=== PATIENT | female | born 1930 | race Caucasian/White ===

== ENCOUNTER 2016-12-26 14:37 | Inpatient (IN) | payer MEDICARE, MEDICAID ==
[2016-12-26 15:18] LABS: #Basophils 0.1 thou/uL (0.0-0.2); #Eosinphils 0.2 thou/uL (0.0-0.7); #Lymphocytes 2.5 thou/uL (1.20-3.40); #Monocytes 0.7 thou/uL (0.11-0.59); #Neutrophils 6.8 thou/uL (1.40-6.50); %Basophils 0.9 % (0.0-1.0); %Eosinophils 1.9 % (0.0-10.0); %Lymphocytes 24.4 % (21.0-51.0); %Monocytes 7.1 % (0.0-10.0); Hematocrit 40.5 % (36.0-47.0); Mean Platelet Volume 7.4 fL (7.4-10.4); Red Blood Cell (RBC) Count 4.35 mill/uL (4.20-5.40); White Blood Cell (WBC) Count 10.4 thou/uL (4.8-10.8)
[2016-12-26] MEDS ORDERED: Ondansetron HCl/PF 4 MG/2 ML Vial ONE ×2 (15:22→16:47)
[2016-12-26 15:47] LABS: Troponin I Less than 0.010 ng/mL (< 0.028)
[2016-12-26 15:49] LABS: PTT 27.9 SEC (22.9-36.1); Prothrombin Time 12.9 SEC (12.0-14.7)
[2016-12-26] MEDS ORDERED: Fentanyl 100 MCG/2 ML VIAL ONE ×2 (15:49→17:57)
[2016-12-26 15:57] LABS: ALT (SGPT) 12 U/L (8-55); AST (SGOT) 28 U/L (5-34); Alkaline Phosphatase 74 U/L (40-150); Anion Gap 17 mmol/L (10-20); BUN (Urea Nitrogen) 21 mg/dL (9.8-20.1); Bilirubin, Total 0.3 mg/dL (0.2-1.2); CK (CPK) 59 U/L (29-168); Calc. Creatinine Clearance 0 mL/min (70-130); Calcium 9.5 mg/dL (7.8-10.44); Carbon Dioxide 21 mmol/L (23-31); Chloride 102 mmol/L (98-107); Estimated GFR-MDRD 48; Globulin 3.8 g/dL (2.4-3.5); Lipase 23 U/L (8-78); Protein, Total 7.3 g/dL (6.0-8.3)
[2016-12-26 15:59] LABS: Lactic Acid - Sepsis 0.8 mmol/L (0.5-2.2)
[2016-12-26] MEDS ORDERED: ISOVUE-370 76%-LOCM 1 ML ONE (16:47)
[2016-12-26] MEDS ORDERED: Nitroglycerin 2% Ointment 1 INCH/1 GM Packet ONE ×3 (16:47→19:53)
[2016-12-26] MEDS ORDERED: Nitroglycerin 50 MG/250 ML BOT 250 ML ONE (17:21)
--- NOTE | 2016-12-26 17:49 | RAD ---
AP CHEST: Date: 12-26-16 Comparison: 10-15-16 FINDINGS: There is a healed proximal left humeral fracture with an intramedullary shamar in place. A large hiatal hernia is seen. Calcification of the aorta is noted. Cardiomegaly is seen. Pulmonary vascular congestion is seen. No significant interval change is seen since the previous comparison ra diograph from 10-15-16. IMPRESSION: 1. Cardiomegaly. 2. Hiatal hernia. 3. No significant interval change is noted. POS: [facility]
[2016-12-26] MEDS ORDERED: Clopidogrel Bisulfate 75 MG TAB ONE (17:57)
[2016-12-26] MEDS ORDERED: Furosemide 40 MG/4 ML VIAL ONE (17:57)
[2016-12-26 18:10] LABS: Bilirubin Negative (Negative); Blood, Urine Negative (Negative); Glucose, Urine (Dipstick) Negative (Negative); Ketone, Urine Negative (Negative); Nitrite Negative (Negative); Protein, Urine (Dipstick) 30 mg/dL (Neg-Trace); Urobilinogen 0.2 mg/dL (0.2-1.0)
[2016-12-26] MEDS ORDERED: Calcium Chloride 1 GM/10 ML Abboject SYRINGE ONE (18:14)
--- NOTE | 2016-12-26 18:25 | CT ---
NONCONTRAST CT BRAIN: Indication: Fall with headache. Comparison: 04-28-16 FINDINGS: The cerebral atrophy is similar. No acute infarct, hemorrhage or hydrocephalus is present. Septum pe llucidum and third ventricle are present. Skull intracranial soft tissues appear within normal limit s. IMPRESSION: No acute intracranial abnormality. POS: [facility]
[2016-12-26 18:28] LABS: Bacteria/HPF None Seen HPF (None Seen); Hyaline Casts/LPF 0-3 HYALINE CAST LPF (0-3 Hyaline); RBC/HPF None Seen HPF (0-3); Squamous Epithelial None Seen HPF (0-3); WBC/HPF 0-3 HPF (0-3)
--- NOTE | 2016-12-26 18:35 | CT ---
CTA AORTIC DISSECTION PROTOCOL: Comparison: 60 cc of Isovue 370 Indication: Intermittent sharp chest pain. FINDINGS: No ramiro area of dissection or occlusion is evident. There is mild ectasia of the thoracic aorta. Th ere is mild ectasia of the infrarenal abdominal aorta measuring 2.9 cm. There is moderate vascular c alcification and atherosclerotic plaque involving the aorta. The celiac, SMA, and renal arteries herminio ear patent. The right renal artery is duplicated. There is a large hiatal hernia. There is bibasilar atelectasis. There is a 1.7 cm cyst involving the superior pole of the spleen. There are multiple small cysts involving the right kidney. There is a prominent 2.4 cm exophytic cyst off the inferior pole of the left kidney. An additional small cyst i s seen involving the lower pole of the left kidney. No focal hepatic lesion is evident. Adrenal glands are normal in appearance. Pancreas is within norm al limits. There is mild scoliosis of the thoracolumbar spine. There are scattered degenerative and osteoarthritic change. IMPRESSION: 1. Mild diffuse ectasia of the thoracic and abdominal aorta. No hemodynamically significant stenosis , occlusion, or aneurysmal formation demonstrated. 2. Large hiatal hernia with bibasilar atelectasis. 3. Bilateral renal cysts. 4. Splenic cyst. POS: [facility]
[2016-12-26 19:42] LABS: Troponin I 0.013 ng/mL (< 0.028)
--- NOTE | 2016-12-26 20:20 | PDOC.EVN ---
Event Note - Event Note Event Note: [id number] h&p dictated 1. HTN uregency 2. hyperkalemia 3. chest pain 4. dementia 5. H/O GERD Plan: see orders
[2016-12-26 22:01] LABS: Troponin I 0.011 ng/mL (< 0.028)
[2016-12-26 23:18] VITALS: BMI 26.4
[2016-12-26] MEDS: Acetaminophen 500 MG TAB PO SCH (23:42)
[2016-12-26] MEDS: Carvedilol 6.25 MG TAB PO SCH (23:42)
[2016-12-26] MEDS: Nitroglycerin 2% Ointment 1 INCH/1 GM Packet TOP SCH (23:43)
[2016-12-26] MEDS: Pregabalin 75 MG CAP PO SCH (23:43)
[2016-12-26] MEDS: Mirtazapine 15 MG TAB PO SCH (23:43)
[2016-12-26] MEDS: traMADol HCl 50 MG TAB PO PRN (23:45)
[2016-12-26 23:59] LABS: Anion Gap 14 mmol/L (10-20); BUN (Urea Nitrogen) 25 mg/dL (9.8-20.1); Calc. Creatinine Clearance 36 mL/min (70-130); Calcium 11.1 mg/dL (7.8-10.44); Carbon Dioxide 29 mmol/L (23-31); Chloride 98 mmol/L (98-107); Estimated GFR-MDRD 42
[2016-12-27 03:54] LABS: Troponin I 0.025 ng/mL (< 0.028)
[2016-12-27 05:17] LABS: #Eosinphils 0.1 thou/uL (0.0-0.7); #Lymphocytes 2.4 thou/uL (1.20-3.40); #Monocytes 1.1 thou/uL (0.11-0.59); #Neutrophils 9.6 thou/uL (1.40-6.50); %Basophils 0.1 % (0.0-1.0); %Eosinophils 0.8 % (0.0-10.0); %Lymphocytes 17.9 % (21.0-51.0); %Monocytes 8.5 % (0.0-10.0); Hematocrit 38.8 % (36.0-47.0); Mean Platelet Volume 6.5 fL (7.4-10.4); Red Blood Cell (RBC) Count 4.16 mill/uL (4.20-5.40); White Blood Cell (WBC) Count 13.3 thou/uL (4.8-10.8)
[2016-12-27 05:56] LABS: Anion Gap 15 mmol/L (10-20); BUN (Urea Nitrogen) 28 mg/dL (9.8-20.1); Calc. Creatinine Clearance 30 mL/min (70-130); Calcium 9.9 mg/dL (7.8-10.44); Carbon Dioxide 26 mmol/L (23-31); Chloride 102 mmol/L (98-107); Estimated GFR-MDRD 34
--- NOTE | 2016-12-27 06:35 | HP ---
DATE OF ADMISSION: 12/26/2016 CHIEF COMPLAINT: Chest pain. HISTORY OF PRESENT ILLNESS: The patient is an 86-year-old female with past medical history of hypertension, dementia, GERD, now came to the ER because of chest pain. Chest pain started this afternoon, substernal, pressure to heaviness kind of pain, radiating to the jaw and upper shoulders. Denies any fever, denies any chills. Complains of dizziness. Denies nausea. Denies any vomiting. Symptoms persisted that is why she came to the ER. Upon ER arrival, the patient was found to have an elevated blood pressure of 160/110, so the patient was started on nitroglycerin drip. Pain resolved with nitroglycerin drip. PAST MEDICAL HISTORY: Hypertension, GERD, dementia. PAST SURGICAL HISTORY: Hysterectomy, cholecystectomy. FAMILY HISTORY: Positive for heart problems. MEDICATIONS: Reviewed. ALLERGIES: ASPIRIN, CODEINE, NIFEDIPINE. SOCIAL HISTORY: Denies smoking, denies alcohol, denies any drugs. The patient did have a fall. REVIEW OF SYSTEMS: Constitutional: Denies any fever. Denies any chills. Eyes : No vision problems. Ears: Denies any hearing loss. Neck: Denies any neck pain. Cardiovascular System: Positive for chest pain. Respiratory System: Positive for dyspnea. Cranial Nerve System: Positive for syncope. Musculoskeletal: Positive for rehab fall one week back for which she had bruising on the head. Integumentary: Positive for bruising on the forehead. Genitourinary: Dysuria. All other review of systems are reviewed and are negative. PHYSICAL EXAMINATION: CONSTITUTIONAL/VITAL SIGNS: At the time of H and P performed, blood pressure is 160/100, afebrile, respiratory rate 18, pulse oximetry 97%. GENERAL APPEARANCE: The patient appears comfortable. HEENT: Pupils are equal, round. Anterior nares patent. Nose, normal. Ears, normal. Face, frontal region, positive for bruising seen. No drainage was seen. CRANIAL NERVE SYSTEM: Awake, follows commands. Speech is clear. PSYCHIATRIC: Mood is appropriate at this time. CARDIOVASCULAR SYSTEM: S1 and S2 present. Regular rate and rhythm. No murmurs , no rubs, no gallops. RESPIRATORY SYSTEM: No wheezing, no rhonchi. Had a normal effort. GASTROINTESTINAL: Abdomen is soft, nontender, no guarding, no organomegaly, no masses felt. MUSCULOSKELETAL: Trace edema. LABORATORY DATA AND IMAGING: At the time of H and P performed, white count 10.4 , hemoglobin 13.4, platelet count is 350. BMP showed sodium 134, potassium 5.7 , chloride 102, CO2 of 21, BUN of 21, creatinine 1.08. BNP 588.7. Troponin 0.013. Albumin 3.5. EKG Positive for T wave inversion in V2 and V3. ASSESSMENT AND PLAN: The patient is an 86-year-old female. 1. Hypertensive urgency. Plan to admit the patient to the ICU for close monitoring. Plan to start the patient on nitroglycerin drip. We will monitor blood pressure closely and we will slowly titrate nitroglycerin drip. 2. Chest pain. Plan to check cardiac enzymes with a plan to check 2D echo. Plan to consult Cardiology to evaluate the patient. The patient did have CT of the chest, which was negative for any dissection. We will monitor the patient closely. 3. Hyperkalemia, probably secondary to blood pressure medications. We will monitor potassium level. We will give Kayexalate 30 grams p.o. x1. 4. History of gastroesophageal reflux disease. Continue on home medications. 5. History of dementia. Continue home medications. The case was discussed in detail with the patient. The patient is FULL CODE. MTDD
[2016-12-27] MEDS: traMADol HCl 50 MG TAB PO PRN ×2 (07:05→15:46)
[2016-12-27] MEDS: Nitroglycerin 2% Ointment 1 INCH/1 GM Packet TOP SCH (07:07)
[2016-12-27] MEDS ORDERED: Nitroglycerin 0.4 MG TAB (25 Tab Bottle) SL PRN (08:51)
[2016-12-27] MEDS: Acetaminophen 500 MG TAB PO SCH ×2 (09:28→20:45)
[2016-12-27] MEDS: TROSPIUM 20 MG TABLET PO SCH ×2 (09:29→20:45)
[2016-12-27] MEDS: Clopidogrel Bisulfate 75 MG TAB PO SCH (09:29)
[2016-12-27] MEDS: Pregabalin 75 MG CAP PO SCH ×2 (09:30→20:45)
[2016-12-27] MEDS: Multivitamin W/ Minerals 1 TAB PO SCH (09:32)
[2016-12-27] MEDS: Carvedilol 6.25 MG TAB PO SCH ×2 (09:33→20:46)
[2016-12-27] MEDS: Mirtazapine 15 MG TAB PO SCH (20:46)
--- NOTE | 2016-12-27 21:22 | PRG ---
DATE OF SERVICE: 12/27/2016 SUBJECTIVE: This patient is doing a little better today. Still complains of chest wall pain, no sh ortness of breath, no fever, no chills. OBJECTIVE: VITAL SIGNS: The patient's blood pressure is 101/55, afebrile, pulse is 82, breathing comfortably o n room air. GENERAL: Patient is lying in bed, in no apparent respiratory distress. HEENT: Atraumatic, normocephalic. Pupils equally round, react to light. Extraocular movements int act. Mucous membranes moist. NECK: Supple. No JVD. CHEST: Breath sounds heard. No rales or rhonchi. HEART: S1, S2. No murmurs or gallops. ABDOMEN: Soft. EXTREMITIES: No cyanosis, clubbing or edema. Distal pulses present. NEUROLOGIC: Alert, awake, oriented. No cranial deficits. No sensorimotor deficits. LABORATORY DATA: CT head is negative, no dissection. Chest x-ray shows cardiomegaly. WBC count is 13, hemoglobin is 12, potassium is 3.9, creatinine is 1.4. BNP is 588. Troponin is negative. ASSESSMENT AND PLAN: 1. Hypertensive urgency, controlled. It is better. Continue same medications. 2. Chest pain. I spoke to Dr. Diana; his chest pain seems to be musculoskeletal in origin. We will check 2D echo. Troponins are negative. If a 2D echo looks good, we will discharge the patien t home. 3. Hyperkalemia has resolved. 4. History of gastroesophageal reflux disease. 5. History of dementia. 6. Sequential compression devices for deep venous thrombosis prophylaxis. I will follow the labs and do the need for.
[2016-12-28 06:07] LABS: Anion Gap 14 mmol/L (10-20); BUN (Urea Nitrogen) 33 mg/dL (9.8-20.1); Calc. Creatinine Clearance 27 mL/min (70-130); Carbon Dioxide 30 mmol/L (23-31); Chloride 99 mmol/L (98-107); Estimated GFR-MDRD 32
[2016-12-28] MEDS: Carvedilol 6.25 MG TAB PO SCH (08:48)
[2016-12-28] MEDS: Acetaminophen 500 MG TAB PO SCH ×2 (08:48→21:27)
[2016-12-28] MEDS: Multivitamin W/ Minerals 1 TAB PO SCH (08:48)
[2016-12-28] MEDS: TROSPIUM 20 MG TABLET PO SCH (08:49)
[2016-12-28] MEDS: Pregabalin 75 MG CAP PO SCH ×2 (08:49→21:23)
[2016-12-28] MEDS: Clopidogrel Bisulfate 75 MG TAB PO SCH (08:50)
--- NOTE | 2016-12-28 10:17 | PDOC.CTH ---
Cardiology Progress Note - Subjective Cpntinues with MS pain to left side - Objective Vital Signs Temp Pulse Resp BP BP Pulse Ox 12/28/16 08:48 131/74 12/28/16 08:00 97.7 F 91 16 131/74 97 12/28/16 04:00 98.2 F 87 20 117/64 94 L 12/28/16 02:38 97 Weight 151 lb 6.4 oz 12/27/16 12/28/16 12/29/16 06:59 06:59 06:59 Intake Total 818 Output Total 700 550 Balance -700 268 - Physical Examination General/Neuro: alert & oriented x3, NAD Neck: carotid US brisk, no JVD present Lungs: CTA, unlabored respirations Heart: PMI normal, RRR Abdomen: no HSM Extremities: + femoral B - Labs Result Diagrams: 12/27/16 04:28 12/28/16 05:20 Troponin/CKMB CK-MB (CK-2) 1.3 ng/mL (0-6.6) 12/26/16 15:14 Troponin I 0.025 ng/mL (< 0.028) 12/27/16 03:22 - Assessment/Plan 1. MS chest wall pain 2. Recent fall 3. Borderline troponin -Recommend conservative treatment Avoid NSAID use secondary to low GFR Tramadol No further CV recommendations Echo with normal EF
--- NOTE | 2016-12-28 10:44 | CON ---
DATE OF CONSULTATION: 12/27/2016 REASON FOR CONSULTATION: Chest pain. PRIMARY PROVIDER: Dr. Byrd HISTORY OF PRESENT ILLNESS: Ms. Jeffery is an 86-year-old woman who I have seen and evaluated in the past. She recently fell after tripping. This occurred 5 days prior. She now complains of chest p ain. The pain is described as sharp, worse with deep breath. She states it is mainly left-sided. No ameliorating, exacerbating, or precipitating factors present. PAST MEDICAL HISTORY: Mild dementia, hypertension, acid reflux, hysterectomy, cholecystectomy. ALLERGIES: ASPIRIN, CODEINE, NIFEDIPINE. SOCIAL HISTORY: No current tobacco or alcohol use. HOME MEDICATIONS: Valsartan, pantoprazole, metoprolol, amantadine, Remeron, VESIcare, Lyrica. PHYSICAL EXAMINATION: VITAL SIGNS: Blood pressure 131/74, pulse 91, temperature is 97.7. GENERAL: Patient is a pleasant female who is in no acute distress. The patient appears her stated a ge. NEUROLOGIC: The patient is alert and oriented times 3 with no focal neurologic deficits. HEENT: Ecchymosis noted to the forehead. NECK: No JVD. Carotid upstroke brisk. No bruits bilaterally. LUNGS: Clear to auscultation with unlabored respirations. BACK: No scoliosis or kyphosis. CARDIAC: Some reproducibility to the left side of her chest. ABDOMEN: Soft, nontender, nondistended. No peritoneal signs present. No hepatosplenomegaly. No ab normal striae. EXTREMITIES: 2+ femoral and 2+ dorsalis pedis pulses. No cyanosis, clubbing, or edema. SKIN: No gross abnormalities. PERTINENT LABS: Hemoglobin 12.7, creatinine 1.47, CK and troponin negative. IMPRESSION: Musculoskeletal chest pain. RECOMMENDATIONS: Ms. Jeffery's symptoms appear to be musculoskeletal in nature. Would recommend tr amadol. Would avoid nonsteroidal therapy due to a GFR of 32. May also consider wrist series. Ches t x-ray was only consistent with cardiomegaly. Chest x-ray dated 12/26/2016 showed cardiomegaly wit h no significant interval change. Echo with Doppler shows LVEF within normal limits.
[2016-12-28] MEDS: Ondansetron ODT 4 MG TAB SL PRN (10:55)
[2016-12-28] MEDS: Metoclopramide HCl 10 MG TAB PO PRN (12:32)
--- NOTE | 2016-12-28 12:57 | PDOC.PN ---
- Subjective Encounter Start Date: 12/28/16 Encounter Start Time: 12:55 has nausea and dry heaves no cp no sob some weakness - Objective MAR Reviewed: Yes Vital Signs & Weight: Vital Signs (12 hours) Temp Pulse Resp BP BP Pulse Ox 12/28/16 11:26 98 F 85 18 115/60 94 L 12/28/16 08:48 131/74 12/28/16 08:00 97.7 F 91 16 131/74 97 12/28/16 04:00 98.2 F 87 20 117/64 94 L 12/28/16 02:38 97 Weight Weight 151 lb 6.4 oz I&O: 12/27/16 12/28/16 12/29/16 06:59 06:59 06:59 Intake Total 818 Output Total 700 550 Balance -700 268 Result Diagrams: 12/27/16 04:28 12/28/16 05:20 Phys Exam - Physical Examination HEENT: PERRLA Neck: no JVD Respiratory: no rales Cardiovascular: RRR Gastrointestinal: non-tender Musculoskeletal: pulses present Neurological: moves all 4 limbs Psychiatric: A&O x 3 Dx/Plan (1) Nausea & vomiting Code(s): R11.2 - NAUSEA WITH VOMITING, UNSPECIFIED Status: Acute Comment: pt has h/o esophageal stricture and has been dilated in the past (2) Chest pain Code(s): R07.9 - CHEST PAIN, UNSPECIFIED Status: Acute Comment: pain msk in origin tramadol as needed (3) Dementia Code(s): F03.90 - UNSPECIFIED DEMENTIA WITHOUT BEHAVIORAL DISTURBANCE Status: Chronic (4) Hypertension Code(s): I10 - ESSENTIAL (PRIMARY) HYPERTENSION Status: Chronic (5) Renal failure (ARF), acute on chronic Code(s): N17.9 - ACUTE KIDNEY FAILURE, UNSPECIFIED; N18.9 - CHRONIC KIDNEY DISEASE, UNSPECIFIED Status: Acute (6) Fall Code(s): W19.XXXA - UNSPECIFIED FALL, INITIAL ENCOUNTER Status: Acute (7) Physical deconditioning Code(s): R53.81 - OTHER MALAISE Status: Acute - Plan * barium swallow * f/u bmp * pt eval * case mx to arrange hh
[2016-12-28] MEDS: traMADol HCl 50 MG TAB PO PRN ×2 (15:17→21:26)
--- NOTE | 2016-12-28 16:15 | RAD ---
ESOPHAGRAM: History: Dysphagia. Comparison: None. FINDINGS: Initial complaint operator radiograph demonstrates a large hiatal hernia. Atherosclerosis of the aorta is noted. Heart is enlarged. The pulmonary vessels and hilum are normal. There is minimal blunting of both cos tophrenic angles. Lungs are hyperinflated. No mass or consolidation. No pneumothorax. Due to patient difficulties and inability to stand, only air contrast upright images were performed under fluoroscopy. There is a large hiatal hernia with a significant portion of the stomach extendin g through the defect. There is mild tortuosity of the thoracic esophagus. There is no significant de lay in passage of coral contrast into the stomach. Grossly, the esophageal mucosa is unremarkable. A supine and upright abdomen radiograph demonstrates residual contrast in the thoracic esophagus. Th ere is contrast in the herniated stomach as well as in the stomach below the diaphragm. Contrast is also noted in small bowel loops. IMPRESSION: Large hiatal hernia. POS: [facility]
[2016-12-28] MEDS: Mirtazapine 15 MG TAB PO SCH (21:23)
[2016-12-29] MEDS: traMADol HCl 50 MG TAB PO PRN ×3 (03:37→20:19)
[2016-12-29 07:04] LABS: Anion Gap 13 mmol/L (10-20); BUN (Urea Nitrogen) 25 mg/dL (9.8-20.1); Calc. Creatinine Clearance 33 mL/min (70-130); Calcium 9.3 mg/dL (7.8-10.44); Carbon Dioxide 28 mmol/L (23-31); Chloride 99 mmol/L (98-107); Estimated GFR-MDRD 40
[2016-12-29] MEDS: Metoclopramide HCl 10 MG TAB PO PRN ×2 (08:24→20:19)
[2016-12-29] MEDS: Pregabalin 75 MG CAP PO SCH ×2 (08:24→20:20)
[2016-12-29] MEDS: Acetaminophen 500 MG TAB PO SCH ×2 (08:24→20:21)
[2016-12-29] MEDS: Multivitamin W/ Minerals 1 TAB PO SCH (08:24)
[2016-12-29] MEDS: Clopidogrel Bisulfate 75 MG TAB PO SCH (08:24)
--- NOTE | 2016-12-29 10:12 | PDOC.CTH ---
<Shivam Diana - Last Filed: 12/29/16 13:24> Cardiology Progress Note - Objective Vital Signs Temp Pulse Pulse Pulse Resp BP BP 12/29/16 09:10 98 107 H 148/84 H 144/85 H 12/29/16 08:00 98.4 F 99 18 12/29/16 04:00 97.8 F 92 20 BP Pulse Ox 12/29/16 09:10 12/29/16 08:00 136/99 H 95 12/29/16 04:00 141/85 H 93 L Weight 151 lb 4.8 oz 12/28/16 12/29/16 12/30/16 06:59 06:59 06:59 Intake Total 818 1920 Output Total 550 1300 Balance 268 620 - Labs Result Diagrams: 12/27/16 04:28 12/29/16 06:05 Troponin/CKMB CK-MB (CK-2) 1.3 ng/mL (0-6.6) 12/26/16 15:14 Troponin I 0.025 ng/mL (< 0.028) 12/27/16 03:22 - Assessment/Plan PT seen and examined. Agree with above. No new CV recommendations. Ok to dc tele <Fabi Rodriguez - Last Filed: 12/30/16 08:40> Cardiology Progress Note - Subjective Patient seen and examined. No new complaints. No overnight events. Continues with intermittent pain below bilateral breasts described as "squeezing", however states her pain is currently controlled with pain meds. - Objective Vital Signs Temp Pulse Resp BP Pulse Ox 12/29/16 08:00 98.4 F 99 18 136/99 H 95 12/29/16 04:00 97.8 F 92 20 141/85 H 93 L 12/29/16 00:00 18 Weight 151 lb 4.8 oz 12/28/16 12/29/16 12/30/16 06:59 06:59 06:59 Intake Total 818 1920 Output Total 550 1300 Balance 268 620 - Physical Examination General/Neuro: alert & oriented x3, NAD Neck: no JVD present Lungs: CTA, unlabored respirations Heart: RRR Abdomen: soft Extremities: other: (no edema) - Telemetry Telemetry Rhythm: sinus - Labs Result Diagrams: 12/27/16 04:28 12/29/16 06:05 Troponin/CKMB CK-MB (CK-2) 1.3 ng/mL (0-6.6) 12/26/16 15:14 Troponin I 0.025 ng/mL (< 0.028) 12/27/16 03:22 - Assessment/Plan 1. Musculoskeletal chest wall pain secondary to recent fall 2. Borderline troponin Ms. Jeffery is stable from a CV standpoint. She has a normal EF on recent echo. Would recommend continued conservative treatment with pain relievers and GI workup. Would avoid NSAID use secondary to low GFR. Otherwise we have no further CV recommendations. Patient to follow up in our office within one week of discharge.
--- NOTE | 2016-12-29 11:45 | PDOC.PN ---
- Subjective Encounter Start Date: 12/29/16 Encounter Start Time: 11:44 pt has intractable nausea and vomiting and pain across the epigatric area, crampy, 11/11 no f/c no cp/sob - Objective MAR Reviewed: Yes Vital Signs & Weight: Vital Signs (12 hours) Temp Pulse Resp BP Pulse Ox 12/29/16 08:00 98.4 F 99 18 136/99 H 95 12/29/16 04:00 97.8 F 92 20 141/85 H 93 L 12/29/16 00:00 18 Weight Weight 151 lb 4.8 oz I&O: 12/28/16 12/29/16 12/30/16 06:59 06:59 06:59 Intake Total 818 1920 Output Total 550 1300 Balance 268 620 Result Diagrams: 12/27/16 04:28 12/29/16 06:05 Phys Exam - Physical Examination Constitutional: NAD HEENT: PERRLA Neck: no JVD Respiratory: no wheezing Cardiovascular: no significant murmur Gastrointestinal: positive bowel sounds generalised tenderness Musculoskeletal: pulses present Neurological: normal sensation Psychiatric: A&O x 3 Dx/Plan (1) Nausea & vomiting Code(s): R11.2 - NAUSEA WITH VOMITING, UNSPECIFIED Status: Acute Comment: pt has h/o esophageal stricture and has been dilated in the past (2) Chest pain Code(s): R07.9 - CHEST PAIN, UNSPECIFIED Status: Acute Comment: pain msk in origin tramadol as needed (3) Dementia Code(s): F03.90 - UNSPECIFIED DEMENTIA WITHOUT BEHAVIORAL DISTURBANCE Status: Chronic (4) Hypertension Code(s): I10 - ESSENTIAL (PRIMARY) HYPERTENSION Status: Chronic (5) Renal failure (ARF), acute on chronic Code(s): N17.9 - ACUTE KIDNEY FAILURE, UNSPECIFIED; N18.9 - CHRONIC KIDNEY DISEASE, UNSPECIFIED Status: Acute (6) Fall Code(s): W19.XXXA - UNSPECIFIED FALL, INITIAL ENCOUNTER Status: Acute (7) Physical deconditioning Code(s): R53.81 - OTHER MALAISE Status: Acute (8) Hiatal hernia Code(s): K44.9 - DIAPHRAGMATIC HERNIA WITHOUT OBSTRUCTION OR GANGRENE Status: Acute - Plan * gi consult * cont current care * doing well with physical therapy
[2016-12-29] MEDS: Ondansetron ODT 4 MG TAB SL PRN (13:26)
--- NOTE | 2016-12-29 15:34 | PQF ---
CLINICAL DOCUMENTATION IMPROVEMENT CLARIFICATION FORM: ICD-10 Updated PLEASE DO AN ADDENDUM TO THE PROGRESS NOTE WITH ANY DOCUMENTATION UPDATES OR ADDITIONS AND CARRY THROUGH TO DC SUMMARY. THANK YOU. DATE: 12/29/16 ATTN: DR. URBINA The following CLINICAL INDICATORS - SIGNS / SYMPTOMS are present in the medical record: ER NOTE: "NEW ONSET CHF" BNP 588.7 RISKS: HYPERTENSION CHINMAY TREATMENT: LASIX IV GIVEN IN ER ECHOCARDIOGRAM CARDIOLOGY CONSULT TELEMETRY MONITORING Please provide a response below if a more specific term indicating a diagnosis and/or acuity level for this condition can be identified. Please exercise your independent, professional judgment in responding to the clarification form. Clinical indicators are provided on the bottom of this form for your review. Thank you. ACUTE HEART FAILUREOTHER ETIOLOGIES OF HEART FAILURE [ ] Acute Systolic Heart Failure [ ] Heart Failure Due To Valvular Disease [ ] Acute Diastolic Heart Failure [ ] Right Heart Failure / Acute Cor Pulmonale [ ] Acute Systolic and Diastolic Heart Failure[ ] Right Heart Failure / Chronic Cor Pulmonale ACUTE ON CHRONIC HEART FAILURE [ ] Acute On Chronic Systolic Heart Failure [ ] Acute On Chronic Diastolic Heart Failure [ ] Acute On Chronic Systolic and Diastolic Heart Failure [ ] Does not apply to this patient [ ] Unable to determine [ ] Other diagnosis: (This form is maintained as a part of the permanent medical record) 2014 [employer]. All Rights Reserved ARSLAN [email or web address] Office: [phone] [facility]
--- NOTE | 2016-12-29 19:48 | CON ---
DATE OF CONSULTATION: 12/29/2016 GI INPATIENT CONSULTATION NOTE REQUESTING PHYSICIAN: Kathy Byrd M.D. REASON FOR CONSULTATION: Hiatal hernia, nausea and vomiting. HISTORY OF PRESENT ILLNESS: Mrs. Yoseph Jeffery is a very pleasant 86-year-old woman with history of d ementia, hypertension, and chronic GERD. She has been seen in the past by my GI colleague, Dr. Anabel Sun back in 06/2015. She was seen at that time for nausea, vomiting, and abdominal pain. She un derwent an EGD which demonstrated a large hiatal hernia and mild distal esophageal stricture which w as dilated to 54 [place]. A large hiatal hernia was confirmed on a CT scan at that time, and Dr. Jazz chino actually recommend surgical consultation for hiatal hernia repair; however, the patient declined t his. The patient was admitted to the hospital 3 days ago with substernal chest pain radiating to the jaw and shoulders, along with dizziness and again nausea and vomiting. She was found to have hypertensi ve urgency and was initially placed on a nitroglycerin drip. Cardiac workup has been negative inclu ding troponins and cardiology opinion is that her discomfort is likely noncardiac, they recommended tramadol. However, she has continued to have nausea and persistent vomiting. She says her dysphagi a is occasional. She is usually able to keep liquids down just fine. Her abdominal pain is persist ing involving the epigastric area and lower chest. She says this has been going on few months and e vidently has caused several admissions. Imaging again demonstrates a large hiatal hernia. No other acute findings. REVIEW OF SYSTEMS: Full review of systems including constitutional, head, eyes, ears, nose, throat, GI, , cardiovascular, respiratory, musculoskeletal, and neurologic systems is negative except as noted in the HPI. PAST MEDICAL HISTORY: Dementia, hypertension, GERD, cholecystectomy, hysterectomy, large hiatal her lynda. ALLERGIES: ASPIRIN, NIFEDIPINE, CODEINE. HOME MEDICATIONS: Reglan 10 mg b.i.d. p.r.n., pantoprazole 40 mg daily, Tylenol p.r.n., Namenda, vi tamin D3, mirtazapine, VESIcare, Lyrica, multivitamin, tramadol, and metoprolol. INPATIENT MEDICATIONS: Tylenol p.r.n., Plavix 75 mg daily, hydralazine p.r.n., multivitamin, Reglan 10 mg b.i.d., metoprolol, Remeron, Zofran, Lyrica, tramadol. FAMILY HISTORY: Negative for GI malignancy. SOCIAL HISTORY: No smoking, alcohol, or drug use. PHYSICAL EXAMINATION: VITAL SIGNS: Temperature 97.7, pulse 75, blood pressure 132/63, 96% oxygen saturation on room air. GENERAL: No acute distress. HEART: Regular rate and rhythm. LUNGS: Clear to auscultation bilaterally. ABDOMEN: Flat, bowel sounds present, soft, tender to palpation in the epigastrium, but no guarding, rebound tenderness. EXTREMITIES: No peripheral edema. VESSELS: Radial pulses 2+ bilaterally. NEUROLOGIC: Cranial nerves II-XII intact bilaterally. No focal deficits. SKIN: No jaundice, no rashes were palpable. EYES: No scleral icterus. ENT: Mucous membranes moist. LYMPH: No submandibular or supraclavicular lymphadenopathy. THYROID: Nontender to palpation. LABORATORY STUDIES: WBC 13.3, hemoglobin 12.7, and platelets 326. INR 1.0. LFTs all normal. Trop onin negative. BNP is elevated at 588.7, BUN 25, creatinine 1.26, sodium 136, and potassium 3.9. IMAGING STUDIES: On 12/28/2016, barium swallow demonstrated a large hiatal hernia with significant delay in passage of contrast into the stomach and some retained in the esophagus by the end of the e xam. On 12/26/2016, CT aortic protocol demonstrated a large hiatal hernia, no evidence of aortic di ssection or significant aortic aneurysm. She has a splenic cyst and bilateral renal cysts. Admissi on CT head showed no acute prosthesis. Admission chest x-ray showed large hiatal hernia and cardiom egaly. ASSESSMENT AND PLAN: 1. Large hiatal hernia. 2. Nausea and vomiting. 3. Epigastric pain. Her symptoms are likely all secondary to her large hiatal hernia. Surgical ev aluation was recommended even a year and half ago by Dr. Sun based on his workup at that time, but the patient declined at that point. We will repeat assessment with esophagogastroduodenoscopy tomor row to rule out other pathology such as worsening esophageal stricture or [place] ulcer, etc., but t he patient very well may benefit from a surgical consultation in this admission if there are no surp rises on the esophagogastroduodenoscopy. The patient understands and agrees with the plan. Thank you for the consultation. Please call with questions or concerns.
[2016-12-29] MEDS: Mirtazapine 15 MG TAB PO SCH (20:19)
[2016-12-30] MEDS: traMADol HCl 50 MG TAB PO PRN ×2 (03:36→17:23)
[2016-12-30] MEDS: Multivitamin W/ Minerals 1 TAB PO SCH (09:01)
[2016-12-30] MEDS: Acetaminophen 500 MG TAB PO SCH ×2 (09:01→22:12)
[2016-12-30] MEDS: Pregabalin 75 MG CAP PO SCH ×2 (09:01→22:13)
[2016-12-30] MEDS: Pantoprazole 40 MG VIAL IVP SCH (09:01)
[2016-12-30] MEDS: Clopidogrel Bisulfate 75 MG TAB PO SCH (09:02)
[2016-12-30] MEDS ORDERED: Mag-Al 1200 mg/1200 mg/30 ML UDCUP PO PRN (12:42)
[2016-12-30] MEDS ORDERED: Calcium Carbonate 500 MG ChewTAB PO PRN (12:42)
[2016-12-30] MEDS ORDERED: Bisacodyl 10 MG SUPP PR PRN (12:42)
[2016-12-30] MEDS ORDERED: Acetaminophen 325 MG TAB PO PRN (12:42)
[2016-12-30] MEDS ORDERED: Senokot 8.6 MG TAB PO PRN (12:42)
[2016-12-30] MEDS ORDERED: Ondansetron HCl/PF 4 MG/2 ML Vial IVP PRN ×2 (12:42→13:14)
[2016-12-30] MEDS ORDERED: Propofol 200 MG/20 ML VIAL ONE (12:58)
[2016-12-30] MEDS ORDERED: PHENYLEPHRINE-NS 100 MCG/ML 10 ML SYRINGE ONE (12:58)
[2016-12-30] MEDS ORDERED: Lidocaine 1% PF 5 ML VIAL ONE (12:58)
[2016-12-30] MEDS ORDERED: Promethazine HCl 25 MG/ML VIAL IM PRN (13:14)
[2016-12-30] MEDS ORDERED: Promethazine HCl 25 MG/ML VIAL SLOW IVP PRN (13:14)
--- NOTE | 2016-12-30 13:16 | PRG ---
DATE OF SERVICE: 12/30/2016 SUMMARY: The patient is an 86-year-old white female with hypertension, GERD, hiatal hernia, anxiety and depression, presented to the hospital on 12/26/2016 with chest discomfort with hypertensive urgency. She was monitored in the CCU initially and was transferred to the telemetry floor. The patient was evaluated by Cardiology, Dr. Diana. According to Cardiology, her chest pain is probably musculoskeletal. Cardiology has eventually signed off. GI was consulted yesterday due to persistent nausea, vomiting, and epigastric pain. SUBJECTIVE: The patient denies any new complaints at this time. She continues to have persistent epigastric pain. No diaphoresis, syncope, or palpitations reported. CURRENT MEDICATIONS: Reviewed. The patient is currently on Plavix, Toprol-XL, Remeron, nitroglycerin, Protonix IV, Lyrica, and tramadol. The patient does not take Plavix at home. PHYSICAL EXAMINATION: VITAL SIGNS: Temperature 98.8, pulse of 94, blood pressure was 187/84 earlier, last blood pressure was 120/57 with respiration of 18, O2 saturation 92% on room air. Intake of 2410, output 2350. Telemetry monitoring by my review showed sinus rhythm. GENERAL: An 86-year-old female in no apparent distress. Denies any nausea or vomiting. NECK: Supple, no JVD, no carotid bruit. LUNGS: Clear to auscultation bilaterally. HEART: S1, S2 present. Regular rate and rhythm. ABDOMEN: Soft. Mild epigastric tenderness, without any rebound or guarding. No costovertebral angle tenderness. EXTREMITIES: No calf tenderness. LABORATORY FINDINGS: Creatinine of 1.26 yesterday with BUN 25. No labs were ordered today. DIAGNOSTIC DATA: 1. CT dissection protocol was negative for dissection. It showed large hiatal hernia. CT scan of the brain on admission was negative for acute finding. Chest x-ray by my review showed cardiomegaly with hiatal hernia. 2. Echocardiogram as discussed above. IMPRESSION: 1. Chest discomfort, probably secondary to large hiatal hernia. The patient is scheduled for esophagogastroduodenoscopy today. We will continue intravenous proton pump inhibitor. 2. Dementia. We will resume her home medications. 3. Hyperkalemia on admission, resolved. Her potassium yesterday was 3.9. 4. Hypertension with hypertensive urgency on admission, blood pressure is still uncontrolled. We will add 25 mg hydralazine t.i.d. We will continue Toprol-XL. 5. Physical deconditioning. 6. Gastroesophageal reflux disease. We will continue proton pump inhibitors. 7. Anxiety and depression. The patient denies any suicidal ideation. 8. Chronic kidney disease stage 3. 9. Chronic diastolic heart failure. 10. Disposition probably in 1-2 days. We will repeat labs in a.m. We will continue therapy. MTDD
--- NOTE | 2016-12-30 13:48 | OP ---
DATE OF PROCEDURE: 12/30/2016 PREOPERATIVE DIAGNOSIS: Chest pain. PROCEDURE: After informed consent was obtained, the patient was placed in the left lateral decubitu s position. Anesthesia was administered per the Anesthesia Department. Forward-viewing endoscope w as inserted into the esophagus under direct visualization with ease and passed to the second portion of the duodenum with ease. Second portion of the duodenum and duodenal bulb were normal. The pylo juliette, antrum, body, fundus, and cardia were normal except for a large hiatal hernia. There was some slight erosion in the cardia, but these were very superficial and minimal. The esophagus was normal throughout. Retroflexion in the stomach was normal. ASSESSMENT: Large hiatal hernia - unclear if this is the source of the pain, but would not recommen d surgical intervention. RECOMMENDATIONS: 1. Continue PPI. 2. P.r.n. tramadol.
[2016-12-30] MEDS: Ondansetron ODT 4 MG TAB SL PRN (17:25)
[2016-12-30] MEDS: Mirtazapine 15 MG TAB PO SCH (22:13)
[2016-12-30] MEDS: Docusate 100 MG CAP PO SCH (22:13)
[2016-12-30] MEDS: Heparin 5,000 UNITS/ML VIAL SC SCH (22:14)
[2016-12-31] MEDS: traMADol HCl 50 MG TAB PO PRN (01:08)
[2016-12-31] MEDS: Ondansetron ODT 4 MG TAB SL PRN (01:08)
[2016-12-31 05:08] VITALS: TEMP 98.3
[2016-12-31 06:06] LABS: #Eosinphils 0.2 thou/uL (0.0-0.7); #Lymphocytes 2.9 thou/uL (1.20-3.40); #Monocytes 0.9 thou/uL (0.11-0.59); #Neutrophils 4.7 thou/uL (1.40-6.50); %Basophils 0.2 % (0.0-1.0); %Eosinophils 1.9 % (0.0-10.0); %Lymphocytes 33.4 % (21.0-51.0); %Monocytes 10.1 % (0.0-10.0); Hematocrit 38.6 % (36.0-47.0); Mean Platelet Volume 6.9 fL (7.4-10.4); Red Blood Cell (RBC) Count 4.16 mill/uL (4.20-5.40); White Blood Cell (WBC) Count 8.7 thou/uL (4.8-10.8)
[2016-12-31 06:17] LABS: Anion Gap 12 mmol/L (10-20); BUN (Urea Nitrogen) 21 mg/dL (9.8-20.1); BUN/Creatinine Ratio 19.09; Calc. Creatinine Clearance 38 mL/min (70-130); Calcium 9.4 mg/dL (7.8-10.44); Carbon Dioxide 22 mmol/L (23-31); Chloride 101 mmol/L (98-107); Estimated GFR-MDRD 47; Phosphorus 2.7 mg/dL (2.3-4.7)
[2016-12-31 07:46] VITALS: BP 148/80
--- NOTE | 2016-12-31 08:41 | PQF ---
GAYE SIMPSON ANA ZAVALA [id number] [facility]-261 [id number] CLINICAL DOCUMENTATION IMPROVEMENT CLARIFICATION FORM: ICD-10 Updated PLEASE DO AN ADDENDUM TO THE PROGRESS NOTE WITH ANY DOCUMENTATION UPDATES OR ADDITIONS AND CARRY THROUGH TO DC SUMMARY. THANK YOU. DATE: 12/29/16 ATTN : DR. URBINA The following CLINICAL INDICATORS - SIGNS / SYMPTOMS are present in the medical record: ER NOTE: "NEW ONSET CHF" BNP 588.7 RISKS: HYPERTENSION CHINMAY TREATMENT: LASIX IV GIVEN IN ER ECHOCARDIOGRAM CARDIOLOGY CONSULT TELEMETRY MONITORING Please provide a response below if a more specific term indicating a diagnosis and/or acuity level for this condition can be identified. Please exercise your independent, professional judgment in responding to the clarification form. Clinical indicators are provided on the bottom of this form for your review. Thank you. ACUTE HEART FAILURE [ ] Acute Systolic Heart Failure [ ] Acute Diastolic Heart Failure [ ] Acute Systolic and Diastolic Heart Failure ACUTE ON CHRONIC HEART FAILURE [ ] Acute On Chronic Systolic Heart Failure [ ] Acute On Chronic Diastolic Heart Failure [ ] Acute On Chronic Systolic and Diastolic Heart Failure [ ] Does not apply to this patient [ ] Unable to determine [ ] Other diagnosis: THANK YOU, CRISTAL (This form is maintained as a part of the permanent medical record) 2014 [employer] All Rights Reserved [email or web address] Office: [phone] Thanks Ela SZYMANSKI
[2016-12-31] MEDS: Heparin 5,000 UNITS/ML VIAL SC SCH (09:41)
[2016-12-31] MEDS: Pantoprazole 40 MG VIAL IVP SCH (09:41)
[2016-12-31] MEDS: Pregabalin 75 MG CAP PO SCH (09:42)
[2016-12-31] MEDS: Multivitamin W/ Minerals 1 TAB PO SCH (09:42)
[2016-12-31] MEDS: Acetaminophen 500 MG TAB PO SCH (09:42)
[2016-12-31] MEDS: Docusate 100 MG CAP PO SCH (09:43)
--- NOTE | 2016-12-31 13:13 | DIS ---
DATE OF ADMISSION: 12/26/2016 DATE OF DISCHARGE: 12/31/2016 DISCHARGE DISPOSITION: Home. FOLLOWUP: 1. Follow up with primary care physician, Dr. René Singh in 1 week. 2. Follow up with Dr. Sun in 1-2 weeks. 3. Follow up with Cardiology, Dr. Diana as scheduled. 4. [facility] has been arranged. ALLERGIES: The patient is allergic to ASPIRIN, CODEINE, and NIFEDIPINE. DISCHARGE MEDICATIONS: 1. Toprol-XL 25 mg b.i.d. 2. Tylenol as needed. 3. Vitamin D3 1000 units daily. 3. Namenda extended release 28 mg daily. 4. Remeron 15 mg daily. 5. Multivitamin 1 tablet daily. 6. Zofran 8 mg three times daily as needed. 7. Protonix 40 mg daily. 8. Lyrica 150 mg b.i.d. 9. VESIcare 10 mg daily. 10. Hydralazine 25 mg twice a day. 11. Tramadol as needed. INPATIENT CONSULTANTS: 1. Cardiology, Dr. Diana. 2. Gastroenterology, Dr. Sunday Segura. INPATIENT PROCEDURE: On 12/30/2016, patient underwent esophagogastroduodenoscopy that showed large hiatal hernia. SIGNIFICANT LABORATORY DATA: 1. CBC showed WBC 10.4 with hemoglobin 13.4. 2. Creatinine on admission was 1.1. Maximum creatinine was 1.54. Potassium on admission was 5.7, at discharge was 4.0. 3. BNP was 588.7. BRIEF HOSPITAL COURSE: Patient is an 86-year-old female with hypertension and GERD who presented to the hospital with chest discomfort on 12/26/2016. Please refer to the history and physical for fur ther details. The patient was admitted to the hospital with a diagnosis of hypertensive urgency along with chest d iscomfort requiring nitroglycerin drip. She also had hyperkalemia that improved after Kayexalate. Patient was evaluated by Cardiology, Dr. Diana. Echocardiogram was performed that showed ejecti on fraction of 55%-60% with moderate to severe tricuspid regurgitation and diastolic dysfunction. A ccording to Cardiology, her chest discomfort is unlikely to be cardiac. The patient was seen by Gas troenterology and underwent EGD as discussed above. Dr. Sunday Segura recommended not to proceed with surgical intervention. She will follow up with Gastroenterology as outpatient. Due to hyperkalemia , Diovan has been discontinued. Her blood pressure on the day of discharge is 139/93 and 148/80. F or this reason, metoprolol tartrate has been increased to twice a day. A 25 mg of hydralazine b.i.d . was added to her regimen. Her potassium on the day of discharge is 4.0. Patient also had acute k idney injury with maximum creatinine 1.54 that has resolved. Repeat labs in 1 week is recommended. Primary care physician is advised to follow. FINAL DIAGNOSES: 1. Chest discomfort, probably secondary to large hiatal hernia. 2. Hypertensive urgency requiring nitroglycerin drip, resolved. 3. Dementia. 4. Hyperkalemia with acute kidney injury. Diovan has been discontinued for this reason. 5. History of hypertension. 6. Physical deconditioning. 7. Gastroesophageal reflux disease, on proton pump inhibitors. 8. Anxiety and depression. 9. Chronic kidney disease stage 3. 10. Chronic diastolic heart failure. Patient was counseled on heart failure. 11. Mild protein-calorie malnutrition. 12. Metabolic acidosis. 13. Dehydration. 14. Hyponatremia. 15. Advanced age. 16. Moderate to severe tricuspid regurgitation. 17. Mild mitral regurgitation. Plan of care was discussed with the patient and the family at the bedside. Total time coordinating the discharge of this patient was 35 minutes.
== END 2016-12-31 12:25 | disposition home health service (06) | DRG 392 ==
LOC: ERS 14:37 → 2NO 19:00
PROVIDERS: ADMIT Family Medicine; ATTEND Family Medicine
PROC: 0DJ08ZZ Inspection of Upper Intestinal Tract, Via Natural or Artificial Opening Endoscopic (ICD-10-PCS; principal; 2016-12-30)
DX: K44.9 Diaphragmatic hernia without obstruction or gangrene (principal); N17.9 Acute kidney failure, unspecified; E87.2 Acidosis; I50.32 Chronic diastolic (congestive) heart failure; E44.1 Mild protein-calorie malnutrition; I08.1 Rheumatic disorders of both mitral and tricuspid valves; I13.0 Hypertensive heart and chronic kidney disease with heart failure and stage 1 through stage 4 chronic kidney disease, or unspecified chronic kidney disease; E87.1 Hypo-osmolality and hyponatremia; I16.0 Hypertensive urgency; F03.90 Unspecified dementia, unspecified severity, without behavioral disturbance, psychotic disturbance, mood disturbance, and anxiety; E87.5 Hyperkalemia; K21.9 Gastro-esophageal reflux disease without esophagitis; Z88.6 Allergy status to analgesic agent; Z88.5 Allergy status to narcotic agent; Z88.8 Allergy status to other drugs, medicaments and biological substances; F41.9 Anxiety disorder, unspecified; F32.9 Major depressive disorder, single episode, unspecified; N18.3 Chronic kidney disease, stage 3 (moderate); Z68.24 Body mass index [BMI] 24.0-24.9, adult; E86.0 Dehydration; W19.XXXA Unspecified fall, initial encounter
CPT/HCPCS: 36415; 36416; 51702; 70450; 71010; 71275; 74220; 80048; 80053; 80061; 80069; 81003; 81015; 82553; 83605; 83690; 83735; 83880; 84484; 85025; 85610; 85730; 86850; 86900; 86901; 90471; 90732; 93005; 93306; 94760; 96365; 96366; 96375; 96376; A4216; C9113; G0009; G8978-GP-CJ; G8979-GP-CH; J0360; J1644; J1940; J2001; J2405; J2704; J3010; Q0162

== ENCOUNTER 2017-04-10 18:24 | Emergency (ER) | payer MEDICARE, OTHER ==
[~2017-04-10 18:24] MED LIST: ISOVUE-370 76%-LOCM 1 ML ONE
[2017-04-10] MEDS ORDERED: Ondansetron HCl/PF 4 MG/2 ML Vial ONE (19:00)
[2017-04-10] MEDS ORDERED: Fentanyl 100 MCG/2 ML VIAL ONE ×2 (19:00→20:18)
[2017-04-10 19:21] LABS: PTT 30.8 SEC (22.9-36.1)
[2017-04-10 19:39] LABS: ALT (SGPT) 10 U/L (8-55); AST (SGOT) 18 U/L (5-34); Albumin 3.6 g/dL (3.4-4.8); Alkaline Phosphatase 69 U/L (40-150); Anion Gap 12 mmol/L (10-20); BUN (Urea Nitrogen) 18 mg/dL (9.8-20.1); Bilirubin, Total 0.4 mg/dL (0.2-1.2); Calc. Creatinine Clearance 0 mL/min (70-130); Calcium 9.9 mg/dL (7.8-10.44); Carbon Dioxide 26 mmol/L (23-31); Chloride 98 mmol/L (98-107); Estimated GFR-MDRD 37; Globulin 3.6 g/dL (2.4-3.5); Glucose 111 mg/dL (83-110); Lipase 24 U/L (8-78); Potassium 4.4 mmol/L (3.5-5.1); Protein, Total 7.2 g/dL (6.0-8.3); Sodium 132 mmol/L (136-145)
[2017-04-10 19:42] LABS: CKMB 1.4 ng/mL (0-6.6); Troponin I 0.012 ng/mL (< 0.028)
--- NOTE | 2017-04-10 21:15 | RAD ---
LEFT FEMUR TWO VIEWS: History: Fall. Comparison: 10-15-16 FINDINGS: Intramedullary shamar is present. There is some sclerosis and midline cortical lucency of the greater tr ochanter of the left femur although this is similar to the comparison examination 10-15-16. No acute superimposed fracture or malalignment. IMPRESSION: Chronic changes. No acute abnormality. POS: [facility]
--- NOTE | 2017-04-10 21:16 | RAD ---
LEFT FOREARM TWO VIEWS: History: Fall. Comparison: 08-26-16 FINDINGS: Forearm is intact. IMPRESSION: 1. Forearm is intact. 2. Extensive lucencies around the hardware of the distal humerus suggesting loosening. 3. Elbow radiographs are recommended. POS: [facility]
--- NOTE | 2017-04-10 21:19 | RAD ---
LEFT WRIST TWO VIEWS: History: Pain. Comparison: None. FINDINGS: Exam is limited with only two views. No displaced fracture or malalignment. IMPRESSION: Limited exam with only two views. No displaced fracture or malalignment. Four views have much greater sensitivity for evaluation for fracture. POS: [facility]
--- NOTE | 2017-04-10 21:20 | RAD ---
PELVIS ONE VIEW: History: Fall. Comparison: 10-15-16 FINDINGS: Moderate degenerative change of the left hip. Right hip arthroplasty is present. Old injury left grea ter trochanter. Obturator rings are intact. IMPRESSION: No acute abnormality. POS: [facility]
--- NOTE | 2017-04-10 21:22 | RAD ---
LEFT HUMERUS TWO VIEWS: History: Fall. Comparison: 08-26-16 FINDINGS: There is a nonunion humeral fracture. There are lucencies around the hardware. The intramedullary blanca l is proud of the humeral head cortex approximately 1.1 cm. IMPRESSION: Hardware failure of the left humerus. POS: [facility]
--- NOTE | 2017-04-10 21:24 | CT ---
CT BRAIN WITHOUT CONTRAST: History: Fall. Comparison: 12-26-16 FINDINGS: White matter microvascular ischemic changes. No acute territory infarct or hemorrhage. No midline augie ft of mass effect. Paranasal sinuses and mastoids are clear. Benign scleral plaques of both orbits. Old right nasal bone fracture. IMPRESSION: No acute intracranial abnormality. POS: [facility]
--- NOTE | 2017-04-10 21:28 | CT ---
CT CERVICAL SPINE WITHOUT CONTRAST: History: Fall. Comparison: 04-28-16 FINDINGS: Odontoid process is intact. The occipital condyles are intact. No acute fracture or malalignment. Scattered degenerative changes. Moderate to severe left facet arth ropathy at C3-5. Severe degenerative disc space seen from C2-7. Calcifications of the right lobe of the thyroid with associated hypodensities. IMPRESSION: 1. No acute fracture or malalignment. Severe degenerative changes. POS: [facility]
--- NOTE | 2017-04-10 21:38 | CT ---
CT ABDOMEN AND PELVIS WITH CONTRAST: History: Fall. Comparison: 12-26-16 FINDINGS: Atelectatic changes in the lung bases. Large hiatal hernia, similar. There is a hypodensity of the posterior margin of the spleen. The infrarenal abdominal aorta measures up to 3 cm, unchanged. Right kidney is somewhat atrophic. No dilated air filled loops large or small bowel. There is a fluid collection along the right hip. Mild fatty atrophy of the pancreas. IMPRESSION: 1. Unchanged examination of the abdomen from 12-26-16. No acute intraabdominal abnormality. 2. 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 3. Renal cysts and splenic cyst/lymphangioma. 4. Fluid collection along the right hip may be autoimmune in nature. POS: [facility]
--- NOTE | 2017-04-10 22:18 | RAD ---
CHEST ONE VIEW: History: Fall. Comparison: 12-26-16 FINDINGS: Large sliding hiatal hernia. Lungs are without focal airspace consolidation, pneumothorax or effusion . The left humeral nail is proud at the cortex. Severe degenerative change at the right shoulder. IMPRESSION: 1. Large sliding hiatal hernia. 2. The left humeral nail is proud at the cortex and suggests failure. POS: [facility]
[2017-04-10 23:00] LABS: Bilirubin Negative (Negative); Blood, Urine Negative (Negative); Clarity CLOUDY (Clear); Glucose, Urine (Dipstick) Negative (Negative); Leukocyte Large (Negative); Nitrite Negative (Negative); Protein, Urine (Dipstick) Negative (Neg-Trace); Specific Gravity, Urine 1.018 (1.002-1.036); Urobilinogen 0.2 mg/dL (0.2-1.0); pH, Urine 6.5 (5.0-9.0)
[2017-04-10 23:02] LABS: Bacteria/HPF 3+ HPF (None Seen); RBC/HPF 0-3 HPF (0-3); Squamous Epithelial 0-3 HPF (0-3)
[2017-04-10 23:03] LABS: Pathc Cast-AUWi Flag 2.98 (0-2.49)
[2017-04-10 23:04] LABS: Hyaline Casts/LPF 4-6 HYALINE CAST LPF (0-3 Hyaline)
== END 2017-04-10 23:39 | disposition home or self-care (01) ==
LOC: ERS 18:24
DX: S70.02XA Contusion of left hip, initial encounter (principal); S50.12XA Contusion of left forearm, initial encounter; S60.212A Contusion of left wrist, initial encounter; T84.89XA Other specified complication of internal orthopedic prosthetic devices, implants and grafts, initial encounter; I10 Essential (primary) hypertension; K21.9 Gastro-esophageal reflux disease without esophagitis; F03.90 Unspecified dementia, unspecified severity, without behavioral disturbance, psychotic disturbance, mood disturbance, and anxiety; F41.9 Anxiety disorder, unspecified; F32.9 Major depressive disorder, single episode, unspecified; Z79.899 Other long term (current) drug therapy; W07.XXXA Fall from chair, initial encounter
CPT/HCPCS: 36415; 51701; 70450; 71045; 72125; 72170; 74177; 80053; 81003; 81015; 82553; 83690; 83735; 83880; 84484; 85610; 85730; 86850; 86900; 86901; 96361; 96374; 96375; 96376; A4353; J2405; J3010

== ENCOUNTER 2017-06-09 08:37 | Inpatient (IN) | payer MEDICARE, OTHER ==
[2017-06-08 12:28] VITALS: BMI 26.5
[2017-06-09] MEDS ORDERED: CEFAZOLIN/Water 2 GM/20 ML SYRINGE ONE (09:54)
[2017-06-09] MEDS ORDERED: Bupivacaine/Epinephrine 0.25% 30 ML VIAL ONE (10:34)
[2017-06-09] MEDS ORDERED: Midazolam HCl 2 mg/2 ml Vial ONE (10:48)
[2017-06-09] MEDS ORDERED: Fentanyl 250 MCG/5 ML VIAL ONE (10:48)
[2017-06-09] MEDS ORDERED: Lidocaine 1% (PF) 30 ML VIAL ONE (10:53)
[2017-06-09] MEDS ORDERED: Heparin 1,000 UNITS/ML VIAL ONE (11:00)
[2017-06-09] MEDS ORDERED: Dextrose 50% Abboject 50 ML SYRINGE SLOW IVP PRN (13:08)
[2017-06-09] MEDS ORDERED: diphenhydrAMINE 50 MG/ML VIAL IVP PRN (13:08)
--- NOTE | 2017-06-09 13:31 | OP ---
PREOPERATIVE DIAGNOSIS: Massive hiatal hernia with obstruction. SURGEON: Reese Carey M.D. PROCEDURES PERFORMED: Laparoscopic hiatal hernia repair, Madi fundoplication and percutaneous endo scopic gastrostomy repair was done with biologic mesh. PROCEDURE IN DETAIL: After informed consent was obtained, the patient was taken to the operating cierra m and given general endotracheal anesthesia. She was placed in the supine position. Her abdomen was prepped and draped in usual fashion. She had a previous midline incision, so a 5 mm port was placed . Incision was made in the left lateral abdomen. A Veress needle inserted. Drop test performed. P neumoperitoneum was created to a volume of 2 liters of carbon dioxide. Utilizing a bladeless 5 mm tr ocar and 0 degree laparoscope, direct visual entry in the abdominal cavity was performed. Pneumoperi toneum was created to a pressure of 15 mmHg. Zero degree laparoscope inserted under direct vision. An 8 mm port was placed to the left subcostal utilizing the LigaSure. A laparoscopic lysis of adhesi ons was performed to expose the anterior abdominal wall. Then, a 5 mm port was placed just above the umbilicus and another 5 mm port was placed just lateral to the falciform ligament. The liver was re tracted with Nathansen liver retractor as the patient was placed in steep reverse Trendelenburg posit ion. The hiatal hernia was very large, about half of it was able to come out of the chest easily and then the remaining had to be dissected out using blunt and sharp dissection. Eventually, got the st omach entirely reduced as well as a portion of the esophagus. It appeared as though the vagus nerves were preserved as they were visualized. A posterior crural plication was performed utilizing 0 Ethi barriga with the Sew-Right and tie knot device. The muscle was fairly weak, however. At this point, th e short gastrics were taken down off the greater curvature utilizing the LigaSure and the initial rep air was then performed first of all with a 40 Guinean bougie. Then, porcine biologic mesh was fashion ed as a heart shape. This was then introduced intraabdominally, placed around the esophagus and sutu red to the diaphragm with interrupted 2-0 silk sutures tied intracorporeally circumferentially. Then , the fundus was grasped and brought to the right side of the esophagus. It was sutured to the left side of the fundus with interrupted 2-0 silk sutures to incorporate the esophagus, tied intracorporea lly. Then, the video endoscope was inserted transorally and utilizing air insufflation and under dir ect vision, advanced into the stomach. The stomach was insufflated with air. The scope retroflexed. The repair appeared to be without torsion and there was no paraesophageal component. The pylorus w as free and no evidence of obstruction. Then, an introducer needle was inserted transcutaneously and under direct vision, advanced into the stomach. The J-wire was then advanced and grasped with the s nare and brought out through the mouth. The J-wire was then connected to the tube and it was advance d, retroflexed through the mouth inside the stomach and through the abdominal wall. Then, the securi ng flange was applied. The flexible endoscope was reinserted through the mouth into the stomach and the tube was inspected from inside the stomach. There was no bleeding. It appeared to be snug again st the gastric wall. Then, at this point, Tisseel tissue sealer was applied to the mesh and to the r epair circumferentially under direct vision. Then, the abdomen was decompressed. Scope removed and the skin closed with interrupted 4-0 Rapide. Dermabond applied. The patient tolerated the procedure well and was transferred to recovery in good condition. Sponge and needle count verified correct x2 .
[2017-06-09] MEDS ORDERED: Labetalol HCl 100 MG/20 ML VIAL ONE (13:55)
[2017-06-09] MEDS ORDERED: Ondansetron HCl/PF 4 MG/2 ML Vial IVP PRN (14:16)
[2017-06-09] MEDS ORDERED: Promethazine HCl 25 MG/ML VIAL SLOW IVP PRN (14:16)
[2017-06-09] MEDS ORDERED: Promethazine HCl 25 MG/ML VIAL IM PRN (14:16)
[2017-06-09] MEDS ORDERED: Morphine Sulfate 2 MG/ML SYRINGE SLOW IVP PRN (14:16)
[2017-06-09] MEDS ORDERED: Ondansetron HCl/PF 4 MG/2 ML Vial ONE ×2 (14:19→15:48)
[2017-06-09] MEDS ORDERED: Promethazine HCl 25 MG/ML VIAL ONE (14:19)
[2017-06-09] MEDS ORDERED: D5 1/2 NS w/20 mEq KCL 1,000 ML ONE (14:32)
[2017-06-09] MEDS ORDERED: Dexamethasone 20 MG/5 ML VIAL ONE (15:48)
[2017-06-09] MEDS ORDERED: PHENYLEPHRINE-NS 100 MCG/ML 10 ML SYRINGE ONE (15:48)
[2017-06-09] MEDS ORDERED: Glycopyrrolate 0.2 MG/ML 5 ML SYRINGE ONE (15:48)
[2017-06-09] MEDS: Ondansetron HCl/PF 4 MG/2 ML Vial IVP PRN (15:56)
[2017-06-09] MEDS: Morphine 2 MG/ML SYRINGE SLOW IVP PRN ×3 (15:56→20:56)
[2017-06-09] MEDS: D5 1/2 NS w/20 mEq KCL 1,000 ML IV SCH ×2 (15:57→23:37)
[2017-06-09] MEDS: Promethazine HCl 25 MG/ML VIAL IM PRN ×2 (18:23→20:56)
[2017-06-09] MEDS: CEFAZOLIN/Water 2 GM/20 ML SYRINGE SLOW IVP SCH (18:23)
[2017-06-10] MEDS: Morphine 2 MG/ML SYRINGE SLOW IVP PRN ×5 (00:10→21:03)
[2017-06-10] MEDS: CEFAZOLIN/Water 2 GM/20 ML SYRINGE SLOW IVP SCH (01:11)
[2017-06-10 04:37] LABS: #Lymphocytes 1.4 thou/uL (1.20-3.40); #Neutrophils 8.5 thou/uL (1.40-6.50); %Basophils 0.1 % (0.0-1.0); %Eosinophils 0.1 % (0.0-10.0); %Lymphocytes 12.7 % (21.0-51.0); %Monocytes 8.7 % (0.0-10.0); %Neutrophils 78.4 % (42.0-75.0); Mean Corpuscular HGB CONC 31.8 g/dL (32.0-36.0); Mean Corpuscular Hemoglobin 29.9 pg (27.0-31.0); Mean Corpuscular Volume 94.1 fl (81.0-99.0); Mean Platelet Volume 6.6 fL (7.4-10.4); Platelet Count 291 thou/uL (130-400); Red Blood Cell (RBC) Count 4.01 mill/uL (4.20-5.40); White Blood Cell (WBC) Count 10.9 thou/uL (4.8-10.8)
[2017-06-10 04:43] LABS: Anion Gap 12 mmol/L (10-20); BUN (Urea Nitrogen) 17 mg/dL (9.8-20.1); Calc. Creatinine Clearance 29 mL/min (70-130); Calcium 8.9 mg/dL (7.8-10.44); Carbon Dioxide 23 mmol/L (23-31); Chloride 105 mmol/L (98-107); Estimated GFR-MDRD 34; Glucose 156 mg/dL (83-110); Potassium 5.2 mmol/L (3.5-5.1); Sodium 135 mmol/L (136-145)
[2017-06-10] MEDS: D5 1/2 NS w/20 mEq KCL 1,000 ML IV SCH ×3 (05:40→17:59)
--- NOTE | 2017-06-10 09:49 | RAD ---
LIMITED UPPER GI: Date: 06-10-17 History: Patient is post large hiatal hernia repair. FINDINGS: 15 ml of Gastrografin was administered during the exam. There is gaseous distention of the esophagus as well as prominent gaseous distention of the stomach. However, contrast readily flows into the stom ach and through the region of the GE junction without hold up with layering of contrast within the pr ominently distended stomach. No extravasation of contrast was seen on this exam. There is a gastrostomy tube noted in place. There is gaseous distention of loops of small bowel. Midl ine skin clips are seen. Vascular calcifications are seen within the thoracic as well as the abdomina l aorta. There is free intraperitoneal gas beneath the right hemidiaphragm which is likely attributable to rec ent post-surgical change. There is a small amount of pleural fluid and patchy parenchymal changes in the left lung base, probably related to atelectasis and left pleural effusion. IMPRESSION: 1. Gastrografin traverses the GE junction freely and without hold up. However, there is prominent gas eous distention of the esophagus, stomach, and loops of small bowel. Gastrostomy tube is noted in darlyn ce. 2. Free intraperitoneal gas likely related to recent post-surgical change. 3. Pleural and parenchymal changes left lung base, probably related to a combination of atelectasis a nd left pleural effusion. 4. Above findings discussed with Dr. Carey on 06-10-17 at 9:03 a.m. POS: [facility]
[2017-06-10] MEDS: Pantoprazole 40 MG VIAL IVP SCH (09:51)
[2017-06-10] MEDS: Enoxaparin Sodium 30 MG/0.3 ML SYRINGE SC SCH (11:00)
[2017-06-10] MEDS: Ondansetron HCl/PF 4 MG/2 ML Vial IVP PRN (11:01)
[2017-06-10] MEDS: Promethazine HCl 25 MG/ML VIAL IM PRN (21:03)
[2017-06-11] MEDS: D5 1/2 NS w/20 mEq KCL 1,000 ML IV SCH ×4 (05:12→18:43)
[2017-06-11] MEDS: Hydrocodone-Acetamin 15 ML UDCUP PO PRN ×2 (05:59→14:32)
[2017-06-11] MEDS: Pantoprazole 40 MG VIAL IVP SCH (08:08)
[2017-06-11] MEDS: Enoxaparin Sodium 30 MG/0.3 ML SYRINGE SC SCH (08:08)
[2017-06-11] MEDS: Morphine 2 MG/ML SYRINGE SLOW IVP PRN ×3 (09:54→21:43)
--- NOTE | 2017-06-11 17:53 | PRG ---
DATE OF SERVICE: 06/11/2017 SUBJECTIVE: Ms. Jeffery is an 86-year-old female seen by Dr. Carey status post 06/09/2017, laparoscop ic hiatal hernia repair, Madi fundoplication and PEG tube placement with hiatal hernia repair with biological mesh. The patient has her G-tube to gravity drainage. The patient states she has tolerat ed food today and tolerating to swallow did well. She is having postoperative pain as expected. No laboratories today. Gastric drainage is 350 mL. OBJECTIVE: LUNGS: Clear to auscultation. CARDIAC: Regular rate and rhythm without murmur or gallop. ABDOMEN: Soft. Surgical wounds look good. PEG tube site stable. ASSESSMENT AND PLAN: Doing well at this point. Continue current management. She has IV fluids runn ing until she can tolerate adequate diet. We will decrease these from 120 to 90 per hour. Continue mobility efforts. Continue clear liquid current diet.
[2017-06-12] MEDS: D5 1/2 NS w/20 mEq KCL 1,000 ML IV SCH ×2 (01:36→18:44)
[2017-06-12] MEDS: Morphine 2 MG/ML SYRINGE SLOW IVP PRN ×3 (01:37→13:40)
[2017-06-12] MEDS: Hydrocodone-Acetamin 15 ML UDCUP PO PRN ×2 (05:23→23:36)
[2017-06-12] MEDS: Ondansetron HCl/PF 4 MG/2 ML Vial IVP PRN (05:30)
[2017-06-12] MEDS: Pantoprazole 40 MG VIAL IVP SCH (07:51)
[2017-06-12] MEDS: Enoxaparin Sodium 30 MG/0.3 ML SYRINGE SC SCH (07:51)
--- NOTE | 2017-06-12 12:31 | PRG ---
DATE OF SERVICE: 06/12/2017 SUBJECTIVE: Ms. Jeffery is doing well today. She is swallowing okay. Her G-tube is to gravity drain age. She is a comfort eating liquids. OBJECTIVE: VITAL SIGNS: 98.6 degrees, 85, 124/74. LUNGS: Clear to auscultation. CARDIAC: Regular rate and rhythm without murmur or gallop. ABDOMEN: Soft. EXTREMITIES: The patient is up in a chair and doing well. LABORATORY DATA: None. Overall, the patient is doing well. We will leave her G-tube to gravity drainage and allow Dr. Carey to determine tomorrow when to clamp it and give her a dietary trial.
[2017-06-13] MEDS: Morphine 2 MG/ML SYRINGE SLOW IVP PRN ×3 (03:22→11:22)
[2017-06-13] MEDS: D5 1/2 NS w/20 mEq KCL 1,000 ML IV SCH ×4 (03:32→17:18)
[2017-06-13] MEDS: hydrALAZINE 20 MG/ML VIAL SLOW IVP PRN (08:13)
[2017-06-13] MEDS: Pantoprazole 40 MG VIAL IVP SCH (08:16)
[2017-06-13] MEDS: Enoxaparin Sodium 30 MG/0.3 ML SYRINGE SC SCH (08:19)
[2017-06-13] MEDS: Hydrocodone-Acetamin 15 ML UDCUP PO PRN ×2 (08:25→20:22)
[2017-06-13] MEDS: Sodium Chloride 0.9% 500 ML IV SCH ×9 (09:12→22:19)
[2017-06-13 09:28] LABS: #Eosinphils 0.1 thou/uL (0.0-0.7); #Monocytes 0.8 thou/uL (0.11-0.59); #Neutrophils 6.7 thou/uL (1.40-6.50); %Basophils 0.5 % (0.0-1.0); %Eosinophils 1.4 % (0.0-10.0); %Lymphocytes 20.6 % (21.0-51.0); %Neutrophils 69.5 % (42.0-75.0); Anion Gap 11 mmol/L (10-20); BUN (Urea Nitrogen) 9 mg/dL (9.8-20.1); Calc. Creatinine Clearance 47 mL/min (70-130); Calcium 9.4 mg/dL (7.8-10.44); Carbon Dioxide 22 mmol/L (23-31); Chloride 107 mmol/L (98-107); Estimated GFR-MDRD 60; Glucose 133 mg/dL (83-110); Hemoglobin 12.9 g/dL (12.0-16.0); Mean Corpuscular HGB CONC 32.5 g/dL (32.0-36.0); Mean Corpuscular Hemoglobin 30.3 pg (27.0-31.0); Mean Corpuscular Volume 93.2 fl (81.0-99.0); Mean Platelet Volume 6.5 fL (7.4-10.4); Platelet Count 331 thou/uL (130-400); Potassium 4.4 mmol/L (3.5-5.1); RBC Distribution Width 12.7 % (11.5-14.5); Red Blood Cell (RBC) Count 4.24 mill/uL (4.20-5.40); Sodium 136 mmol/L (136-145); White Blood Cell (WBC) Count 9.7 thou/uL (4.8-10.8)
--- NOTE | 2017-06-13 10:32 | RAD ---
AP VIEW ABDOMEN: HISTORY: Gastric bloating. Hernia repair. FINDINGS: AP view abdomen is obtained on 06/13/17. Comparison is made to a previous exam from upper GI series f rom 06/10/17. A surgical suture is seen in the midline of the abdomen. There is a balloon-tipped feeding tube in the left mid abdomen. The stomach is in its normal locatio n. No dilated loops of small bowel seen. Multilevel lumbar degenerative changes seen. Bilateral hip proximal femoral hardware is in place. IMPRESSION: Postsurgical changes with gastrostomy or jejunostomy tube in place. POS: [facility]
[2017-06-14] MEDS: Hydrocodone-Acetamin 15 ML UDCUP PO PRN (00:47)
[2017-06-14] MEDS: D5 1/2 NS w/20 mEq KCL 1,000 ML IV SCH ×4 (00:52→22:07)
[2017-06-14] MEDS: Morphine 2 MG/ML SYRINGE SLOW IVP PRN ×6 (03:47→22:12)
[2017-06-14] MEDS: hydrALAZINE 20 MG/ML VIAL SLOW IVP PRN ×2 (03:50→19:37)
[2017-06-14] MEDS: Enoxaparin Sodium 30 MG/0.3 ML SYRINGE SC SCH (07:35)
[2017-06-14] MEDS: Pantoprazole 40 MG VIAL IVP SCH (07:36)
[2017-06-14 14:17] LABS: Cardiac Risk 3.7 (Less than 4.5); Magnesium 1.6 mg/dL (1.6-2.6); Phosphorus 2.1 mg/dL (2.3-4.7)
--- NOTE | 2017-06-14 16:31 | SPC ---
PICC LINE PLACEMENT: 06/14/17 HISTORY: Need for detention intravenous access. COMPARISON: None. TECHNIQUE/FINDINGS: Patient is brought to the Special Procedure Suite where all questions were answered. Patient's left arm was initially prepped and draped in the normal sterile fashion. There is stenosis of the left brachial vein. The wire could not be passes. Subsequently, the patient's right arm had to be prepped and draped in the normal sterile fashion. The right brachial vein was accessed with the m icropuncture set. Over a wire and through a peel away sheath, a PICC was placed with tip at the infe rior SVC. Patient tolerated the procedure well without complication. IMPRESSION: Technically successful PICC line placement. POS: [facility]
[2017-06-14] MEDS: Ondansetron HCl/PF 4 MG/2 ML Vial IVP PRN (19:37)
[2017-06-14] MEDS: POTASSIUM PHOSPHATE IV SCH (22:07)
[2017-06-14] MEDS: [UNRECOGNIZED DRUG - OTHER] IV SCH (22:07)
[2017-06-14] MEDS: SODIUM ACETATE IV SCH (22:07)
[2017-06-14] MEDS: FAT EMULSION IV SCH (22:07)
[2017-06-15] MEDS: Morphine 2 MG/ML SYRINGE SLOW IVP PRN ×5 (00:19→17:28)
[2017-06-15] MEDS: hydrALAZINE 20 MG/ML VIAL SLOW IVP PRN ×2 (00:23→04:37)
[2017-06-15] MEDS: Ondansetron HCl/PF 4 MG/2 ML Vial IVP PRN (02:00)
[2017-06-15] MEDS: Pantoprazole 40 MG VIAL IVP SCH (07:45)
[2017-06-15] MEDS: Enoxaparin Sodium 30 MG/0.3 ML SYRINGE SC SCH (07:45)
[2017-06-15 08:41] LABS: Anion Gap 10 mmol/L (10-20); BUN (Urea Nitrogen) 13 mg/dL (9.8-20.1); Calc. Creatinine Clearance 53 mL/min (70-130); Calcium 9.2 mg/dL (7.8-10.44); Carbon Dioxide 24 mmol/L (23-31); Chloride 102 mmol/L (98-107); Estimated GFR-MDRD 69; Glucose 139 mg/dL (83-110); Potassium 4.4 mmol/L (3.5-5.1); Sodium 132 mmol/L (136-145)
[2017-06-15 08:46] LABS: #Eosinphils 0.2 thou/uL (0.0-0.7); #Lymphocytes 1.5 thou/uL (1.20-3.40); #Monocytes 1.1 thou/uL (0.11-0.59); %Basophils 0.1 % (0.0-1.0); %Lymphocytes 15.7 % (21.0-51.0); %Monocytes 10.9 % (0.0-10.0); %Neutrophils 71.3 % (42.0-75.0); Hemoglobin 11.5 g/dL (12.0-16.0); Mean Corpuscular HGB CONC 32.2 g/dL (32.0-36.0); Mean Corpuscular Hemoglobin 29.7 pg (27.0-31.0); Mean Corpuscular Volume 92.4 fl (81.0-99.0); Mean Platelet Volume 6.4 fL (7.4-10.4); Platelet Count 337 thou/uL (130-400); RBC Distribution Width 12.6 % (11.5-14.5); Red Blood Cell (RBC) Count 3.87 mill/uL (4.20-5.40); White Blood Cell (WBC) Count 9.8 thou/uL (4.8-10.8)
[2017-06-15] MEDS: D5 1/2 NS w/20 mEq KCL 1,000 ML IV SCH ×2 (11:56→20:47)
--- NOTE | 2017-06-15 12:35 | PQF ---
DATE: 06-15-17 ATTN: DR. ROSITA SOLER Please exercise your independent, professional judgment in responding to the clarification form. Clinical indicators are provided on the bottom of this form for your review Please check appropriate box(s): [ ] Atelectasis [ ] Left Pleural effusion [ ] Insignificant Imaging Results [ ] Other [ ] Unable to determine In addition, please specify: Present on Admission (POA): [ ] Yes [ ] No [ ] Unable to determine For continuity of documentation, please document condition throughout progress notes and discharge summary. Thank You. CLINICAL INDICATORS - SIGNS / SYMPTOMS/ LABS are present in the medical record: RAD/XR UGI SINGLE CONTRAST 06-20-17: GASTROGRAFFIN TRAVERSES THE GE JUNCTION FREELY AND W/O HOLDUP. HOWEVER, THERE IS PROMINENT GASEOUS DISTENTION OF THE ESOPHAGUS, STOMACH AND LOOPS OF SMALL BOWEL. FREE INTRAPERITONEAL GAS LIKELY RELATED TO RECENT POST-SURGICAL CHANGE. PLEURAL AND PARENCHYMAL CHANGED LEFT LUNG BASE, PROBABLE R/T A COMBINATION OF ATELECTASIS AND LEFT PLEURAL EFFUSION. RISK FACTORS: RAD/XR UGI SINGLE CONTRAST 06-20-17: PATIENT IS POST LARGE HIATAL HERNIA REPAIR TREATMENT: RAD/XR UGI SINGLE CONTRAST 06-20-17 HOSPITALIST CONSULT (This form is maintained as a part of the permanent medical record) 2015 [email or web address] All Rights Reserved ARSLAN [email or web address] Office: [phone] [place]
[2017-06-15] MEDS ORDERED: Iopamidol 370 76% 100 ML VIAL ONE (16:31)
--- NOTE | 2017-06-15 16:41 | CT ---
CT ABDOMEN AND PELVIS WITH IV CONTRAST: 06/15/17 HISTORY: Tachycardia. Abdominal pain. Recent hernia surgery. FINDINGS: Bilateral pleural fluid and bibasilar lung atelectasis are apparent. Hiatal hernia is visible. There are postoperative changes at the GE junction. Tiny amount of pneumoperitoneum remains. Large amount o f subcutaneous gas, primarily along the left side of the abdomen. Percutaneous feeding tube enters th e stomach. Cortical atrophy of the kidneys and renal cysts are apparent. There is fusiform dilatation of the low er abdominal aorta up to 3.1 cm with aortic calcification. Urinary bladder is unremarkable. Pelvis is partially obscured by bilateral hip prosthesis. IMPRESSION: 1. Postoperative changes of the abdomen. Large amount of abdominal wall gas is likely related to recent surgery but is more than is usually seen. Otherwise, There is no evidence of complication of the gastric feeding tube. No obvious cause for tachycardia. 2. Fusiform lower abdominal aortic aneurysm, stable. 3. Bilateral pleural effusions with bibasilar atelectasis. POS: [facility]
[2017-06-15] MEDS ORDERED: Ketorolac Tromethamine 30 MG/ML VIAL IVP SCH (18:15)
--- NOTE | 2017-06-15 18:22 | PDOC.PN ---
- Subjective Encounter Start Date: 06/15/17 Encounter Start Time: 18:08 Subjective: pt up in bed complaining of abdominal pain - Objective Vital Signs & Weight: Vital Signs (12 hours) Temp Pulse Resp BP Pulse Ox 06/15/17 15:20 98.5 F 102 H 18 161/79 H 94 L 06/15/17 11:03 97.9 F 110 H 18 103/57 L 95 06/15/17 07:16 97.7 F 107 H 20 174/82 H 94 L Weight Admit Weight 150 lb Weight 150 lb I&O: 06/14/17 06/15/17 06/16/17 06:59 06:59 06:59 Intake Total 4510 1804 Output Total 50 200 Balance 4460 1604 Result Diagrams: 06/15/17 08:05 06/15/17 08:05 Additional Labs: Accuchecks 06/15/17 12:18 POC Glucose 163 H Phys Exam - Physical Examination HEENT: PERRLA Neck: no nodes Respiratory: no wheezing, no rales tachycardia Gastrointestinal: soft, no distention pain on palpation, pt has healed laproscopic scars, gastrostomy tube in darlyn Musculoskeletal: no edema Neurological: non-focal pt has lip smacking Dx/Plan - Plan * . 1) abdominal pain: s/p laproscopic hital hernia repair/toña fundoplication on 06/09 pt is on tpn now. ct abdomen/pelvic large amount of abdominal wall gas. pt is having a lot of pain. will give one dose of toradol. pt on ppi 2) tachycardia: possible secondary to pain vs dehydration. pt's lab do not indicate dehydration but clinically she appears dry. will also change her fluids to d5ns at 75ml/hr since d5 04/05 ns can cause pt have hyponatremia. Pt is receiving potassium in her tpn will monitor labs. Hydralizine can also cause reflux tachycardia, however she has been on this at home. She is no longer on a bb ( spoke with her daughter). will change her prn to labatelol and will give her a ns bolus of 500ml. will also do iv tylenol for pain. ekg reviewed sinus tachy. pt need to up in chair more pain could also be secondary to gas. pt is on dvt ppx scd and lovonox 3) deconditioned will need rehab. will get physical therapy. Her daughter states that she has been smacking her lips which is not new. 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 She also states that pt was unable to keep anything down prior to her surgery except for liquids. Review of Systems - Review of Systems Respiratory: negative: Cough, Dry, Shortness of Breath, Hemoptysis, SOB with Excertion, Pleuritic Pain, Sputum, Wheezing Cardiovascular: negative: chest pain, palpitations, orthopnea, paroxysmal nocturnal dyspnea, edema, light headedness, other Gastrointestinal: Abdominal Pain - Medications/Allergies Allergies/Adverse Reactions: Allergies Allergy/AdvReac Type Severity Reaction Status Date / Time aspirin Allergy Intermediate NAUSEA/VOMI Verified 06/08/17 12:02 TING codeine Allergy Intermediate NAUSEA/VOMI Verified 06/08/17 12:02 TING Medications: Current Medications Hydrocodone Bitart/Acetaminophen (Hydrocodone-Apap 7.5-325/15) 15 ml PO Q4H PRN PRN Reason: Moderate Pain (4-6) Last Admin: 06/14/17 00:47 Dose: 15 ml Albuterol/Ipratropium (Duoneb) 3 ml NEB Q4H PRN PRN Reason: Wheezing Dextrose/Water (Dextrose 50%) 25 gm SLOW IVP PRN PRN PRN Reason: Hypoglycemia Diphenhydramine HCl (Benadryl) 25 mg IVP Q6H PRN PRN Reason: Itching & Insomnia Enoxaparin Sodium (Lovenox) 30 mg SC 0900 [facility] Last Admin: 06/15/17 07:45 Dose: 30 mg Glucagon (Glucagon) 1 mg IM PRN PRN PRN Reason: Hypoglycemia Dextrose/Water (D5w) 1,000 mls @ 0 mls/hr IV .Q0M PRN; As Directed PRN Reason: Hypoglycemia Fat Emulsion Intravenous 250 ml/ Sodium Acetate 70 meq/Potassium Phosphate 30 mmol/Calcium Gluconate 10 meq/Magnesium Sulfate 1.23 gm/Multivitamins 10 ml/ Chromium/Copper/Manganese/Zinc 1 ml/Miscellaneous Medication 1 each/ Dextrose/ Water/ Sterile Water/ Amino Acids 2,130.1991 mls @ 87.805 mls/hr IV 2200 [facility] Last Admin: 06/14/17 22:07 Dose: 2,130.1991 mls Dextrose/Sodium Chloride (D5 0.9% Ns) 1,000 mls @ 75 mls/hr IV .[id number] [facility] Last Admin: 06/15/17 18:39 Dose: 1,000 mls Acetaminophen 650 mg/ Device 65 mls @ 400 mls/hr IVPB Q6H PRN PRN Reason: Pain Stop: 06/16/17 18:35 Sodium Chloride (Normal Saline 0.9%) 500 mls @ 999 mls/hr IV .Q31M [facility] Stop: 06/15/17 19:15 Ketorolac Tromethamine (Toradol) 15 mg IVP NOW [facility] Stop: 06/15/17 20:15 Last Admin: 06/15/17 18:37 Dose: 15 mg Labetalol HCl (Normodyne) 10 mg SLOW IVP Q4H PRN PRN Reason: SBP Greater Than 180 Morphine Sulfate (Morphine) 2 mg SLOW IVP Q2H PRN PRN Reason: Moderate Pain (4-6) Last Admin: 06/15/17 17:28 Dose: 2 mg Morphine Sulfate (Morphine Sulfate) 4 mg SLOW IVP Q2H PRN PRN Reason: Severe Pain (7-10) Last Admin: 06/15/17 04:36 Dose: 4 mg Ondansetron HCl (Zofran) 4 mg IVP Q8H PRN PRN Reason: Nausea/Vomiting Last Admin: 06/15/17 02:00 Dose: 4 mg Pantoprazole Sodium (Protonix) 40 mg IVP DAILY [facility] Last Admin: 06/15/17 07:45 Dose: 40 mg Promethazine HCl (Phenergan) 12.5 mg IM Q2H PRN PRN Reason: Nausea/Vomiting Last Admin: 06/10/17 21:03 Dose: 12.5 mg Sodium Chloride (Flush - Normal Saline) 10 ml IVF PRN PRN PRN Reason: Saline Flush Last Admin: 06/12/17 07:51 Dose: 10 ml
[2017-06-15] MEDS: Dextrose 5 % And 0.9 % NaCl 1,000 ML IV SCH (18:39)
[2017-06-15] MEDS ORDERED: Sodium Chloride 0.9% 500 ML IV SCH (18:45)
[2017-06-15] MEDS: Labetalol HCl 100 MG/20 ML VIAL SLOW IVP PRN (20:22)
[2017-06-15] MEDS: POTASSIUM PHOSPHATE IV SCH (22:58)
[2017-06-15] MEDS: [UNRECOGNIZED DRUG - OTHER] IV SCH (22:58)
[2017-06-15] MEDS: FAT EMULSION IV SCH (22:58)
[2017-06-15] MEDS: SODIUM ACETATE IV SCH (22:58)
[2017-06-16] MEDS: Ondansetron HCl/PF 4 MG/2 ML Vial IVP PRN ×2 (00:35→08:27)
[2017-06-16 05:49] LABS: #Eosinphils 0.3 thou/uL (0.0-0.7); #Lymphocytes 1.3 thou/uL (1.20-3.40); #Monocytes 1.1 thou/uL (0.11-0.59); #Neutrophils 6.8 thou/uL (1.40-6.50); %Basophils 0.2 % (0.0-1.0); %Eosinophils 3.2 % (0.0-10.0); %Lymphocytes 13.8 % (21.0-51.0); %Monocytes 11.4 % (0.0-10.0); %Neutrophils 71.4 % (42.0-75.0); Hemoglobin 9.8 g/dL (12.0-16.0); Mean Corpuscular HGB CONC 32.2 g/dL (32.0-36.0); Mean Corpuscular Hemoglobin 29.4 pg (27.0-31.0); Mean Corpuscular Volume 91.5 fl (81.0-99.0); Mean Platelet Volume 6.6 fL (7.4-10.4); Platelet Count 328 thou/uL (130-400); RBC Distribution Width 12.7 % (11.5-14.5); Red Blood Cell (RBC) Count 3.33 mill/uL (4.20-5.40); White Blood Cell (WBC) Count 9.5 thou/uL (4.8-10.8)
[2017-06-16 05:52] LABS: Anion Gap 11 mmol/L (10-20); BUN (Urea Nitrogen) 26 mg/dL (9.8-20.1); Calc. Creatinine Clearance 49 mL/min (70-130); Calcium 8.7 mg/dL (7.8-10.44); Carbon Dioxide 24 mmol/L (23-31); Chloride 102 mmol/L (98-107); Estimated GFR-MDRD 62; Glucose 173 mg/dL (83-110); Magnesium 1.7 mg/dL (1.6-2.6); Phosphorus 3.6 mg/dL (2.3-4.7); Potassium 3.8 mmol/L (3.5-5.1); Sodium 133 mmol/L (136-145)
[2017-06-16] MEDS: Dextrose 5 % And 0.9 % NaCl 1,000 ML IV SCH ×2 (05:55→20:20)
[2017-06-16] MEDS: Pantoprazole 40 MG VIAL IVP SCH (08:27)
[2017-06-16] MEDS: Enoxaparin Sodium 30 MG/0.3 ML SYRINGE SC SCH (08:28)
[2017-06-16] MEDS: Acetaminophen 650 MG in Premix Bag 1 BAG IVPB PRN ×3 (09:34→20:36)
[2017-06-16] MEDS: Promethazine HCl 25 MG/ML VIAL IM PRN (12:20)
--- NOTE | 2017-06-16 16:05 | PDOC.PN ---
- Subjective Encounter Start Date: 06/16/17 Encounter Start Time: 09:30 Subjective: pt up in bed sleeping when called her name she started to complain of pain - Objective Vital Signs & Weight: Vital Signs (12 hours) Temp Pulse Resp BP Pulse Ox 06/16/17 15:00 98.4 F 87 23 H 154/78 H 97 06/16/17 11:35 98.2 F 99 20 103/66 94 L 06/16/17 08:20 98.3 F 89 20 06/16/17 07:23 98.3 F 89 20 173/78 H 95 06/16/17 04:21 98.5 F 84 15 158/82 H 95 Weight Admit Weight 150 lb Weight 150 lb I&O: 06/15/17 06/16/17 06/17/17 06:59 06:59 06:59 Intake Total 1804 2070 Output Total 200 40 Balance 1604 2030 Result Diagrams: 06/16/17 04:43 06/16/17 04:43 Additional Labs: Accuchecks 06/16/17 06/16/17 06/15/17 12:21 05:29 23:46 POC Glucose 156 H 153 H 148 H Phys Exam - Physical Examination HEENT: PERRLA Neck: no nodes Respiratory: no wheezing, no rales Cardiovascular: RRR, no significant murmur mild distention bs hypoactive Musculoskeletal: no edema Neurological: non-focal Dx/Plan - Plan 1) abdominal pain: s/p laproscopic hital hernia repair/toña fundoplication on 06/09 pt is on tpn now. ct abdomen/pelvic large amount of abdominal wall gas. pt is having a lot of pain. will give one dose of toradol. pt on ppi 2) tachycardia: possible secondary to pain vs dehydration. pt's lab do not indicate dehydration but clinically she appears dry. will also change her fluids to d5ns at 75ml/hr since d5 / ns can cause pt have hyponatremia. Pt is receiving potassium in her tpn will monitor labs. Hydralizine can also cause reflux tachycardia, however she has been on this at home. She is no longer on a bb ( spoke with her daughter). will change her prn to labatelol and will give her a ns bolus of 500ml. will also do iv tylenol for pain. ekg reviewed sinus tachy. pt need to up in chair more pain could also be secondary to gas. pt is on dvt ppx scd and lovonox 3) deconditioned will need rehab. will get physical therapy. 06/16 pt did get pt up in chair. pain per surgeon. would start oral intake if ok with surgery. pt only received one dose of labetalol. Her tachycardia has improved. pt needs to be up more will need SNF. * . Review of Systems - Review of Systems ENT: negative: Ear Pain, Ear Discharge, Nose Pain, Nose Discharge, Nose Congestion, Mouth Pain, Mouth Swelling, Throat Pain, Throat Swelling, Other Respiratory: negative: Cough, Dry, Shortness of Breath, Hemoptysis, SOB with Excertion, Pleuritic Pain, Sputum, Wheezing Cardiovascular: negative: chest pain, palpitations, orthopnea, paroxysmal nocturnal dyspnea, edema, light headedness, other Gastrointestinal: Abdominal Pain - Medications/Allergies Allergies/Adverse Reactions: Allergies Allergy/AdvReac Type Severity Reaction Status Date / Time aspirin Allergy Intermediate NAUSEA/VOMI Verified 06/08/17 12:02 TING codeine Allergy Intermediate NAUSEA/VOMI Verified 06/08/17 12:02 TING Medications: Current Medications Hydrocodone Bitart/Acetaminophen (Hydrocodone-Apap 7.5-325/15) 15 ml PO Q4H PRN PRN Reason: Moderate Pain (4-6) Last Admin: 06/14/17 00:47 Dose: 15 ml Albuterol/Ipratropium (Duoneb) 3 ml NEB Q4H PRN PRN Reason: Wheezing Dextrose/Water (Dextrose 50%) 25 gm SLOW IVP PRN PRN PRN Reason: Hypoglycemia Enoxaparin Sodium (Lovenox) 30 mg SC 0900 [facility] Last Admin: 06/16/17 08:28 Dose: 30 mg Glucagon (Glucagon) 1 mg IM PRN PRN PRN Reason: Hypoglycemia Dextrose/Water (D5w) 1,000 mls @ 0 mls/hr IV .Q0M PRN; As Directed PRN Reason: Hypoglycemia Fat Emulsion Intravenous 250 ml/ Sodium Acetate 70 meq/Potassium Phosphate 30 mmol/Calcium Gluconate 10 meq/Magnesium Sulfate 1.23 gm/Multivitamins 10 ml/ Chromium/Copper/Manganese/Zinc 1 ml/Miscellaneous Medication 1 each/ Dextrose/ Water/ Sterile Water/ Amino Acids 2,130.1991 mls @ 87.805 mls/hr IV 2200 [facility] Last Admin: 06/15/17 22:58 Dose: 2,130.1991 mls Dextrose/Sodium Chloride (D5 0.9% Ns) 1,000 mls @ 75 mls/hr IV .[id number] [facility] Last Admin: 06/16/17 05:55 Dose: 1,000 mls Acetaminophen 650 mg/ Device 65 mls @ 400 mls/hr IVPB Q6H PRN PRN Reason: Pain Stop: 06/16/17 18:35 Last Admin: 06/16/17 14:47 Dose: 65 mls Labetalol HCl (Normodyne) 10 mg SLOW IVP Q4H PRN PRN Reason: SBP Greater Than 180 Last Admin: 06/15/17 20:22 Dose: 10 mg Morphine Sulfate (Morphine) 2 mg SLOW IVP Q2H PRN PRN Reason: Moderate Pain (4-6) Last Admin: 06/15/17 17:28 Dose: 2 mg Morphine Sulfate (Morphine Sulfate) 4 mg SLOW IVP Q2H PRN PRN Reason: Severe Pain (7-10) Last Admin: 06/16/17 13:20 Dose: 4 mg Ondansetron HCl (Zofran) 4 mg IVP Q8H PRN PRN Reason: Nausea/Vomiting Last Admin: 06/16/17 08:27 Dose: 4 mg Pantoprazole Sodium (Protonix) 40 mg IVP DAILY [facility] Last Admin: 06/16/17 08:27 Dose: 40 mg Promethazine HCl (Phenergan) 12.5 mg IM Q2H PRN PRN Reason: Nausea/Vomiting Last Admin: 06/16/17 12:20 Dose: 12.5 mg Sodium Chloride (Flush - Normal Saline) 10 ml IVF PRN PRN PRN Reason: Saline Flush Last Admin: 06/16/17 08:27 Dose: 10 ml
[2017-06-16] MEDS: Labetalol HCl 100 MG/20 ML VIAL SLOW IVP PRN (20:21)
[2017-06-16] MEDS: [UNRECOGNIZED DRUG - OTHER] IV SCH (23:00)
[2017-06-16] MEDS: SODIUM ACETATE IV SCH (23:00)
[2017-06-16] MEDS: FAT EMULSION IV SCH (23:00)
[2017-06-16] MEDS: POTASSIUM PHOSPHATE IV SCH (23:00)
[2017-06-17] MEDS: Morphine 4 MG/ML VIAL SLOW IVP PRN ×3 (01:09→22:39)
[2017-06-17] MEDS: Ondansetron HCl/PF 4 MG/2 ML Vial IVP PRN ×3 (01:12→23:29)
[2017-06-17] MEDS: Labetalol HCl 100 MG/20 ML VIAL SLOW IVP PRN ×2 (04:34→08:08)
[2017-06-17] MEDS: Pantoprazole 40 MG VIAL IVP SCH (08:04)
[2017-06-17] MEDS: Enoxaparin Sodium 30 MG/0.3 ML SYRINGE SC SCH (08:04)
[2017-06-17] MEDS: Acetaminophen 650 MG in Premix Bag 1 BAG IVPB PRN ×2 (08:04→14:55)
[2017-06-17] MEDS: Dextrose 5 % And 0.9 % NaCl 1,000 ML IV SCH (11:42)
--- NOTE | 2017-06-17 14:06 | PQF ---
DATE: 06-17-17 ATTN: DR. CULLEN SMITH Please exercise your independent, professional judgment in responding to the clarification form. Clinical indicators are provided on the bottom of this form for your review Please check appropriate box(s): [x ] Acute Renal Failure (ARF) / Acute Kidney Injury (CHINMAY) [ ] Insignificant Lab Values [ ] Other diagnosis [ ] Unable to determine In addition, please specify: Present on Admission (POA): [ x ] Yes [ ] No [ ] Unable to determine National Kidney Foundation Guidelines for CKD Staging Stage I Kidney damage with normal or increased GFR GFR > 90 Stage II Kidney damage with mildly decreased GFR GFR 60-89 Stage III Kidney damage with moderately decreased GFR GFR 30-59 Stage IV Kidney damage with severely decreased GFR GFR 16-29 Stage V Kidney failure GFR<15 ESRD End Stage Renal Disease On dialysis Acute Renal Failure/Acute Kidney Failure defined as: Increases in SCr by (>) 0.3 mg/dl within 48 hours OR- Increases in SCr by (>) 1.5 times baseline, known or presumed to have occurred within the prior 7 days OR- Urine volume < 0.5 ml/kg/hour for 6 hours (KDIGO supplement 2012 for RIFLE/JON criteria) For continuity of documentation, please document condition throughout progress notes and discharge summary. Thank You. CLINICAL INDICATORS - SIGNS / SYMPTOMS / LABS GFR: 06-10-17: 34, 06-13-17: 60 06-15-17: 69 06-16-17: 62 CREATININE: 06-10-17: 1.45 06-13-17: 0.89 BUN: 06-10-17: 17 06-13-17: 9 18: 13 06-16-17: 26 06-16-17: DECONDITIONED RISK FACTORS: 06-16-17: TACHYCARDIA POSSIBLE SECONDARY TO PAIN VS DEHYDRATION , HYDRALAZINE AT HOME TREATMENTS: 06-16-17: WILL CHANGE HER LABETOLOL AND GIVE HER A NS 500ML BOLUS (This form is maintained as a part of the permanent medical record) 2014 [employer] All Rights Reserved ARSLAN [email or web address] Office: [phone] [facility]
[2017-06-17] MEDS: Hydrocodone-Acetamin 15 ML UDCUP PO PRN ×2 (17:05→23:22)
[2017-06-17] MEDS: SODIUM ACETATE IV SCH (22:40)
[2017-06-17] MEDS: POTASSIUM PHOSPHATE IV SCH (22:40)
[2017-06-17] MEDS: [UNRECOGNIZED DRUG - OTHER] IV SCH (22:40)
[2017-06-17] MEDS: FAT EMULSION IV SCH (22:40)
[2017-06-18] MEDS: Labetalol HCl 100 MG/20 ML VIAL SLOW IVP PRN (03:29)
[2017-06-18] MEDS: Dextrose 5% in Water 1,000 ML IV PRN (03:40)
[2017-06-18] MEDS: Dextrose 5 % And 0.9 % NaCl 1,000 ML IV SCH ×2 (03:48→23:35)
[2017-06-18 05:36] LABS: ALT (SGPT) 18 U/L (8-55); AST (SGOT) 27 U/L (5-34); Albumin 2.4 g/dL (3.4-4.8); Alkaline Phosphatase 115 U/L (40-150); Anion Gap 10 mmol/L (10-20); BUN (Urea Nitrogen) 26 mg/dL (9.8-20.1); Bilirubin, Total 0.4 mg/dL (0.2-1.2); Calc. Creatinine Clearance 52 mL/min (70-130); Calcium 8.6 mg/dL (7.8-10.44); Carbon Dioxide 24 mmol/L (23-31); Chloride 104 mmol/L (98-107); Estimated GFR-MDRD 68; Globulin 2.6 g/dL (2.4-3.5); Glucose 126 mg/dL (83-110); Magnesium 1.9 mg/dL (1.6-2.6); Phosphorus 3.4 mg/dL (2.3-4.7); Potassium 3.7 mmol/L (3.5-5.1); Sodium 134 mmol/L (136-145)
[2017-06-18] MEDS: Morphine 4 MG/ML VIAL SLOW IVP PRN ×4 (06:04→20:31)
[2017-06-18] MEDS: Pantoprazole 40 MG VIAL IVP SCH (09:23)
[2017-06-18] MEDS: Enoxaparin Sodium 40 MG/0.4 ML SYRINGE SC SCH (09:23)
[2017-06-18] MEDS: Ondansetron HCl/PF 4 MG/2 ML Vial IVP PRN (11:12)
--- NOTE | 2017-06-18 13:35 | PDOC.PN ---
- Subjective Encounter Start Date: 06/18/17 Encounter Start Time: 09:00 Subjective: pt up in chair complains of mild pain to her abdomen - Objective Vital Signs & Weight: Vital Signs (12 hours) Temp Pulse Resp BP BP Pulse Ox 06/18/17 11:22 98.1 F 79 18 146/76 H 99 06/18/17 07:29 98.3 F 79 18 134/66 98 06/18/17 04:00 137/71 06/18/17 03:30 98.5 F 82 18 181/77 H 98 06/18/17 03:29 82 181/77 H Weight Admit Weight 150 lb Weight 150 lb I&O: 06/17/17 06/18/17 06/19/17 06:59 06:59 06:59 Intake Total 5372.6 1833.6 Output Total 440 150 Balance 4932.6 1683.6 Result Diagrams: 06/16/17 04:43 06/18/17 04:53 Additional Labs: Accuchecks 06/18/17 06/18/17 06/17/17 11:17 06:06 23:08 POC Glucose 119 H 118 H 126 H 06/17/17 16:40 POC Glucose 129 H Phys Exam - Physical Examination HEENT: PERRLA, moist MMs Neck: no nodes, no JVD Respiratory: no wheezing, no rales Cardiovascular: RRR, no significant murmur Gastrointestinal: soft mild tenderness on light palpation Musculoskeletal: no edema, pulses present Neurological: non-focal Dx/Plan - Plan * 1) abdominal pain: s/p laproscopic hital hernia repair/toña fundoplication on 06/09 pt is on tpn now. ct abdomen/pelvic large amount of abdominal wall gas. pt is having a lot of pain. will give one dose of toradol. pt on ppi 2) tachycardia: possible secondary to pain vs dehydration. pt's lab do not indicate dehydration but clinically she appears dry. will also change her fluids to d5ns at 75ml/hr since d5 / ns can cause pt have hyponatremia. Pt is receiving potassium in her tpn will monitor labs. Hydralizine can also cause reflux tachycardia, however she has been on this at home. She is no longer on a bb ( spoke with her daughter). will change her prn to labatelol and will give her a ns bolus of 500ml. will also do iv tylenol for pain. ekg reviewed sinus tachy. pt need to up in chair more pain could also be secondary to gas. pt is on dvt ppx scd and lovonox 3) deconditioned will need rehab. will get physical therapy. 06/16 pt did get pt up in chair. pain per surgeon. would start oral intake if ok with surgery. pt only received one dose of labetalol. Her tachycardia has improved. pt needs to be up more will need SNF. 06/18 pt up in chair has some abdomen discomfort. pt ate some jello but is also complaining of mild nausea. she is on tpn may consider tube feeding since pt does have a gastrostomy tube. ns at 50c/hr Review of Systems - Review of Systems ENT: negative: Ear Pain, Ear Discharge, Nose Pain, Nose Discharge, Nose Congestion, Mouth Pain, Mouth Swelling, Throat Pain, Throat Swelling, Other Respiratory: negative: Cough, Dry, Shortness of Breath, Hemoptysis, SOB with Excertion, Pleuritic Pain, Sputum, Wheezing Gastrointestinal: Abdominal Pain - Medications/Allergies Allergies/Adverse Reactions: Allergies Allergy/AdvReac Type Severity Reaction Status Date / Time aspirin Allergy Intermediate NAUSEA/VOMI Verified 06/08/17 12:02 TING codeine Allergy Intermediate NAUSEA/VOMI Verified 06/08/17 12:02 TING Medications: Current Medications Hydrocodone Bitart/Acetaminophen (Hydrocodone-Apap 7.5-325/15) 15 ml PO Q4H PRN PRN Reason: Moderate Pain (4-6) Last Admin: 06/17/17 23:22 Dose: 15 ml Albuterol/Ipratropium (Duoneb) 3 ml NEB Q4H PRN PRN Reason: Wheezing Dextrose/Water (Dextrose 50%) 25 gm SLOW IVP PRN PRN PRN Reason: Hypoglycemia Enoxaparin Sodium (Lovenox) 40 mg SC 0900 [facility] Last Admin: 06/18/17 09:23 Dose: 40 mg Glucagon (Glucagon) 1 mg IM PRN PRN PRN Reason: Hypoglycemia Dextrose/Water (D5w) 1,000 mls @ 0 mls/hr IV .Q0M PRN; As Directed PRN Reason: Hypoglycemia Dextrose/Sodium Chloride (D5 0.9% Ns) 1,000 mls @ 50 mls/hr IV .Q20H [facility] Last Admin: 06/18/17 03:48 Dose: 1,000 mls Fat Emulsion Intravenous 250 ml/ Sodium Acetate 80 meq/Potassium Acetate 20 meq/ Potassium Phosphate 30 mmol/Calcium Gluconate 10 meq/Magnesium Sulfate 1.23 gm/ Multivitamins 10 ml/ Chromium/Copper/Manganese/Zinc 1 ml/Miscellaneous Medication 1 each/ Dextrose/Water/ Sterile Water/ Amino Acids 2,145.1991 mls @ 87.805 mls/hr IV 2200 [facility] Labetalol HCl (Normodyne) 10 mg SLOW IVP Q4H PRN PRN Reason: SBP Greater Than 180 Last Admin: 06/18/17 03:29 Dose: 10 mg Morphine Sulfate (Morphine) 2 mg SLOW IVP Q2H PRN PRN Reason: Moderate Pain (4-6) Last Admin: 06/15/17 17:28 Dose: 2 mg Morphine Sulfate (Morphine) 4 mg SLOW IVP Q2H PRN PRN Reason: Severe Pain (7-10) Last Admin: 06/18/17 12:45 Dose: 4 mg Ondansetron HCl (Zofran) 4 mg IVP Q8H PRN PRN Reason: Nausea/Vomiting Last Admin: 06/18/17 11:12 Dose: 4 mg Pantoprazole Sodium (Protonix) 40 mg IVP DAILY [facility] Last Admin: 06/18/17 09:23 Dose: 40 mg Promethazine HCl (Phenergan) 12.5 mg IM Q2H PRN PRN Reason: Nausea/Vomiting Last Admin: 06/16/17 12:20 Dose: 12.5 mg Sodium Chloride (Flush - Normal Saline) 10 ml IVF PRN PRN PRN Reason: Saline Flush Last Admin: 06/18/17 09:23 Dose: 10 ml
[2017-06-18] MEDS: Hydrocodone-Acetamin 15 ML UDCUP PO PRN (16:01)
[2017-06-18] MEDS: FAT EMULSION IV SCH (22:58)
[2017-06-18] MEDS: [UNRECOGNIZED DRUG - OTHER] IV SCH (22:58)
[2017-06-18] MEDS: SODIUM ACETATE IV SCH (22:58)
[2017-06-18] MEDS: POTASSIUM ACETATE IV SCH (22:58)
--- NOTE | 2017-06-18 23:51 | PRG ---
DATE OF SERVICE: 06/18/2017 SUBJECTIVE: This is an 86-year-old female postop day 9, status post hiatal hernia repair, Madi fun doplication, and PEG tube repair. Upon my evaluation this evening, the patient vocalized no complain ts and states her pain has been better controlled and that she is feeling better today. TPN is curre ntly running. OBJECTIVE: VITAL SIGNS: Reviewed. The patient is somewhat hypertensive, but otherwise stable, resting in bed, in no acute distress. Breathing is nonlabored, oxygen saturation 98% on 2 liters via nasal cannula. GASTROINTESTINAL: Soft, nontender, and nondistended. PEG site is clean, dry, and intact. EXTREMITIES: Moves all extremities. Gastric drainage, 350 mL yesterday. ASSESSMENT AND PLAN: Postoperative day 9, status post the above procedures. She continues to tolera te her comfort feeds/clear liquid diet. Continue TPN as ordered. Hypertension. Deferred to Medicin e Service. Patient discussed with Dr. Harden.
[2017-06-19 05:54] LABS: ALT (SGPT) 17 U/L (8-55); AST (SGOT) 21 U/L (5-34); Albumin 2.5 g/dL (3.4-4.8); Alkaline Phosphatase 122 U/L (40-150); Anion Gap 11 mmol/L (10-20); BUN (Urea Nitrogen) 27 mg/dL (9.8-20.1); Bilirubin, Total 0.3 mg/dL (0.2-1.2); Calc. Creatinine Clearance 55 mL/min (70-130); Calcium 8.7 mg/dL (7.8-10.44); Carbon Dioxide 27 mmol/L (23-31); Chloride 102 mmol/L (98-107); Estimated GFR-MDRD 72; Globulin 2.8 g/dL (2.4-3.5); Glucose 98 mg/dL (83-110); Magnesium 1.8 mg/dL (1.6-2.6); Phosphorus 3.2 mg/dL (2.3-4.7); Potassium 4.2 mmol/L (3.5-5.1); Protein, Total 5.3 g/dL (6.0-8.3); Sodium 136 mmol/L (136-145)
[2017-06-19] MEDS: hydrALAZINE 25 MG TAB PO SCH ×2 (07:57→20:48)
[2017-06-19] MEDS: Pantoprazole 40 MG VIAL IVP SCH (07:58)
[2017-06-19] MEDS: Morphine 4 MG/ML VIAL SLOW IVP PRN ×3 (07:58→21:13)
[2017-06-19] MEDS: Ondansetron HCl/PF 4 MG/2 ML Vial IVP PRN ×2 (07:58→16:10)
[2017-06-19] MEDS: Enoxaparin Sodium 40 MG/0.4 ML SYRINGE SC SCH (07:58)
[2017-06-19] MEDS: Hydrocodone-Acetamin 15 ML UDCUP PO PRN (10:26)
[2017-06-19] MEDS ORDERED: Albuterol Sulfate 2.5 mg/3 ml Neb NEB PRN (13:23)
--- NOTE | 2017-06-19 13:27 | PDOC.PN ---
- Subjective Encounter Start Date: 06/19/17 Encounter Start Time: 13:30 Subjective: No acute events overnight -: Still has mild diffuse abdominal pain. - Objective MAR Reviewed: Yes Vital Signs & Weight: Vital Signs (12 hours) Temp Pulse Resp BP BP Pulse Ox 06/19/17 11:27 98.8 F 92 24 H 172/83 H 97 06/19/17 08:05 98.7 F 87 20 99 06/19/17 07:57 87 185/92 H 06/19/17 07:30 98.7 F 89 20 185/92 H 99 06/19/17 05:58 99 F 87 18 178/81 H 99 Weight Admit Weight 150 lb Weight 150 lb I&O: 06/18/17 06/19/17 06/20/17 06:59 06:59 06:59 Intake Total 1833.6 1916 1656 Output Total 150 Balance 1683.6 1916 1656 Result Diagrams: 06/16/17 04:43 06/19/17 05:16 Additional Labs: Accuchecks 06/19/17 06/19/17 06/18/17 11:12 06:47 23:50 POC Glucose 131 H 122 H 103 06/18/17 15:34 POC Glucose 115 H Phys Exam - Physical Examination Constitutional: NAD HEENT: PERRLA, moist MMs, sclera anicteric Neck: no JVD, supple, full ROM Respiratory: no wheezing, no rales, no rhonchi, clear to auscultation bilateral Cardiovascular: RRR, no significant murmur, no rub Gastrointestinal: soft, no distention, positive bowel sounds Minimal diffuse tenderness w/o rebound or guarding. Musculoskeletal: no edema, pulses present Neurological: non-focal, moves all 4 limbs Psychiatric: normal affect, A&O x 3 Skin: no rash, normal turgor Dx/Plan (1) Abdominal pain Code(s): R10.9 - UNSPECIFIED ABDOMINAL PAIN Status: Acute Qualifiers: Abdominal location: generalized Qualified Code(s): R10.84 - Generalized abdominal pain Comment: Stable. Pain improved. Pain is likely related to recent surgery. She is s/p laparascopic hernia repair and Nissel fundoplication. ct abdomen/pelvic large amount of abdominal wall gas, likley related to recent surgery. Johnathon continue current pain regimen. (2) Physical deconditioning Code(s): R53.81 - OTHER MALAISE Status: Acute Comment: CM consult for [facility]/ SNF (3) Dementia Code(s): F03.90 - UNSPECIFIED DEMENTIA WITHOUT BEHAVIORAL DISTURBANCE Status: Chronic Qualifiers: Dementia type: unspecified type Dementia behavioral disturbance: without behavioral disturbance Qualified Code(s): F03.90 - Unspecified dementia without behavioral disturbance Comment: Continue home meds. (4) Hypertension Code(s): I10 - ESSENTIAL (PRIMARY) HYPERTENSION Status: Chronic Qualifiers: Hypertension type: essential hypertension Qualified Code(s): I10 - Essential (primary) hypertension Comment: Not at goal. On 25 mg BID Hydralazine. Labetalol also on board IV PRN. Will monitor for today. - Plan cont current plan of care, PT/OT, psych social worker, DVT proph w/lovenox * . Review of Systems - Medications/Allergies Allergies/Adverse Reactions: Allergies Allergy/AdvReac Type Severity Reaction Status Date / Time aspirin Allergy Intermediate NAUSEA/VOMI Verified 06/08/17 12:02 TING codeine Allergy Intermediate NAUSEA/VOMI Verified 06/08/17 12:02 TING Medications: Current Medications Albuterol/Ipratropium (Duoneb) 3 ml NEB Q4H PRN PRN Reason: Wheezing Dextrose/Water (Dextrose 50%) 25 gm SLOW IVP PRN PRN PRN Reason: Hypoglycemia Enoxaparin Sodium (Lovenox) 40 mg SC 0900 [facility] Last Admin: 06/19/17 07:58 Dose: 40 mg Glucagon (Glucagon) 1 mg IM PRN PRN PRN Reason: Hypoglycemia Hydralazine HCl (Apresoline) 25 mg PO BID [facility] Last Admin: 06/19/17 07:57 Dose: 25 mg Dextrose/Water (D5w) 1,000 mls @ 0 mls/hr IV .Q0M PRN; As Directed PRN Reason: Hypoglycemia Dextrose/Sodium Chloride (D5 0.9% Ns) 1,000 mls @ 50 mls/hr IV .Q20H [facility] Last Admin: 06/18/17 23:35 Dose: 1,000 mls Fat Emulsion Intravenous 250 ml/ Sodium Acetate 80 meq/Potassium Acetate 20 meq/ Potassium Phosphate 30 mmol/Calcium Gluconate 10 meq/Magnesium Sulfate 1.23 gm/ Multivitamins 10 ml/ Chromium/Copper/Manganese/Zinc 1 ml/Miscellaneous Medication 1 each/ Dextrose/Water/ Sterile Water/ Amino Acids 2,145.1991 mls @ 87.805 mls/hr IV 2200 [facility] Last Admin: 06/18/17 22:58 Dose: 2,145.1991 mls Labetalol HCl (Normodyne) 10 mg SLOW IVP Q4H PRN PRN Reason: SBP Greater Than 180 Last Admin: 06/18/17 03:29 Dose: 10 mg Morphine Sulfate (Morphine) 4 mg SLOW IVP Q2H PRN PRN Reason: Severe Pain (7-10) Last Admin: 06/19/17 13:05 Dose: 4 mg Ondansetron HCl (Zofran) 4 mg IVP Q8H PRN PRN Reason: Nausea/Vomiting Last Admin: 06/19/17 07:58 Dose: 4 mg Pantoprazole Sodium (Protonix) 40 mg IVP DAILY [facility] Last Admin: 06/19/17 07:58 Dose: 40 mg Promethazine HCl (Phenergan) 12.5 mg IM Q2H PRN PRN Reason: Nausea/Vomiting Last Admin: 06/16/17 12:20 Dose: 12.5 mg Sodium Chloride (Flush - Normal Saline) 10 ml IVF PRN PRN PRN Reason: Saline Flush Last Admin: 06/18/17 09:23 Dose: 10 ml
--- NOTE | 2017-06-19 18:51 | PRG ---
DATE OF SERVICE: 06/19/2017 SUBJECTIVE: Ms. Jeffery is an 86-year-old woman, who is 10 days status post laparoscopic Madi fundo plication and percutaneous gastrostomy tube placement. The patient is reporting fatigue today. Her pain control is adequate. She is tolerating a clear liquid diet. She remains on TPN for nutritional supplementation. Urinary output is judged to be adequate. PHYSICAL EXAMINATION: VITAL SIGNS: Today includes blood pressure 172/83, pulse 92, respiratory rate 24, temperature 98.8 d egrees Fahrenheit, oxygen saturation 97% on 2 liters by nasal cannula oxygen. ABDOMEN: Soft with incisions that are intact, clean, and dry. She has no peritoneal signs on examin ation. The gastrostomy tube remains in place. Gastrostomy site is without any erythema or induratio n. LABORATORY FINDINGS: Today include the metabolic profile: Sodium is 136, potassium is 4.2, chloride is 102, bicarbonate is 27, BUN is 27, creatinine is 0.76, and glucose is 122. LFTs are normal. IMPRESSION: Postoperative #10 status post laparoscopic Madi fundoplication and percutaneous endosc opic gastrostomy tube placement. The patient is generally deconditioned; however, hemodynamically st able. PLAN: Continue current care including activity as tolerated per physical and occupational therapy. The patient awaits transferred to extended care facility once a bed is available.
--- NOTE | 2017-06-19 20:28 | ULT ---
RIGHT UPPER EXTREMITY VENOUS DOPPLER ULTRASOUND: Date: 06-19-17 Comparison: None. History: Right arm edema, right PICC line in place. Technique: Multiplanar grayscale sonographic imaging of the venous structures of the right upper extr emity obtained with color flow and spectral analysis. FINDINGS: The right internal jugular vein, right subclavian vein, right axillary vein, right basilic vein, righ t cephalic vein, right radial vein, right ulnar vein, and right brachial vein are patent. A PICC line is noted, visualized within the basilic vein extending into the region of the right subcl yasmeen vein. There are edematous changes within the subcutaneous fat in the basilic region of the fore arm. IMPRESSION: No evidence for deep venous thrombosis of the right upper extremity. POS: [facility]
[2017-06-19] MEDS: Dextrose 5 % And 0.9 % NaCl 1,000 ML IV SCH (20:48)
[2017-06-19] MEDS: SODIUM ACETATE IV SCH (21:55)
[2017-06-19] MEDS: POTASSIUM ACETATE IV SCH (21:55)
[2017-06-19] MEDS: FAT EMULSION IV SCH (21:55)
[2017-06-19] MEDS: [UNRECOGNIZED DRUG - OTHER] IV SCH (21:55)
[2017-06-20 06:01] LABS: ALT (SGPT) 18 U/L (8-55); AST (SGOT) 26 U/L (5-34); Albumin 2.5 g/dL (3.4-4.8); Alkaline Phosphatase 141 U/L (40-150); Anion Gap 9 mmol/L (10-20); BUN (Urea Nitrogen) 28 mg/dL (9.8-20.1); Bilirubin, Total 0.4 mg/dL (0.2-1.2); Calc. Creatinine Clearance 55 mL/min (70-130); Carbon Dioxide 27 mmol/L (23-31); Chloride 101 mmol/L (98-107); Estimated GFR-MDRD 72; Globulin 2.9 g/dL (2.4-3.5); Glucose 131 mg/dL (83-110); Magnesium 1.8 mg/dL (1.6-2.6); Phosphorus 3.2 mg/dL (2.3-4.7); Potassium 4.3 mmol/L (3.5-5.1); Protein, Total 5.4 g/dL (6.0-8.3); Sodium 133 mmol/L (136-145)
[2017-06-20] MEDS: Ondansetron HCl/PF 4 MG/2 ML Vial IVP PRN (06:51)
[2017-06-20] MEDS: Morphine 4 MG/ML VIAL SLOW IVP PRN ×5 (07:05→22:23)
[2017-06-20] MEDS: hydrALAZINE 25 MG TAB PO SCH ×3 (08:53→22:12)
[2017-06-20] MEDS: Pantoprazole 40 MG VIAL IVP SCH (08:53)
[2017-06-20] MEDS: Enoxaparin Sodium 40 MG/0.4 ML SYRINGE SC SCH (08:55)
[2017-06-20] MEDS: Labetalol HCl 100 MG/20 ML VIAL SLOW IVP PRN (12:14)
--- NOTE | 2017-06-20 12:44 | PDOC.PN ---
- Subjective Encounter Start Date: 06/20/17 Encounter Start Time: 12:45 Subjective: No new complaints. -: No acute events overnight. - Objective MAR Reviewed: Yes Vital Signs & Weight: Vital Signs (12 hours) Temp Pulse Resp BP Pulse Ox 06/20/17 12:14 93 06/20/17 11:34 98.3 F 93 20 167/125 H 40 L 06/20/17 08:53 92 06/20/17 07:35 98.9 F 92 16 184/92 H 94 L Weight Admit Weight 150 lb Weight 150 lb I&O: 06/19/17 06/20/17 06/21/17 06:59 06:59 06:59 Intake Total 1915 3412 Balance 1915 3412 Result Diagrams: 06/16/17 04:43 06/20/17 05:18 Additional Labs: Accuchecks 06/20/17 06/20/17 06/20/17 12:22 06:21 01:16 POC Glucose 121 H 124 H 135 H 06/19/17 16:45 POC Glucose 109 Phys Exam - Physical Examination Constitutional: NAD HEENT: PERRLA, moist MMs, sclera anicteric, TM's clear Neck: no JVD, supple, full ROM Respiratory: no wheezing, no rales, no rhonchi, clear to auscultation bilateral Cardiovascular: RRR, no significant murmur, no rub Gastrointestinal: soft, non-tender, no distention, positive bowel sounds Musculoskeletal: no edema, pulses present Neurological: non-focal, moves all 4 limbs Psychiatric: normal affect, A&O x 3 Skin: no rash, normal turgor Dx/Plan (1) Hypertension Code(s): I10 - ESSENTIAL (PRIMARY) HYPERTENSION Status: Chronic Qualifiers: Hypertension type: essential hypertension Qualified Code(s): I10 - Essential (primary) hypertension Comment: Still not at goal with 25 mg BID Hydralazine. Labetalol also on board IV PRN. Patient was on metoprolol late last year but unclear why it was discontinued. Will increase hydralazine to 50 mg TID and monitor response. (2) Abdominal pain Code(s): R10.9 - UNSPECIFIED ABDOMINAL PAIN Status: Acute Qualifiers: Abdominal location: generalized Qualified Code(s): R10.84 - Generalized abdominal pain Comment: Stable. Pain improved. Pain is likely related to recent surgery. She is s/p laparascopic hernia repair and Nissel fundoplication. ct abdomen/pelvic large amount of abdominal wall gas, likley related to recent surgery. Management per surgical service. (3) Physical deconditioning Code(s): R53.81 - OTHER MALAISE Status: Acute Comment: CM consult for [facility]/ SNF (4) Dementia Code(s): F03.90 - UNSPECIFIED DEMENTIA WITHOUT BEHAVIORAL DISTURBANCE Status: Chronic Qualifiers: Dementia type: unspecified type Dementia behavioral disturbance: without behavioral disturbance Qualified Code(s): F03.90 - Unspecified dementia without behavioral disturbance Comment: Continue home meds. - Plan cont current plan of care, PT/OT, social service assistant, DVT proph w/lovenox * . Review of Systems - Medications/Allergies Allergies/Adverse Reactions: Allergies Allergy/AdvReac Type Severity Reaction Status Date / Time aspirin Allergy Intermediate NAUSEA/VOMI Verified 06/08/17 12:02 TING codeine Allergy Intermediate NAUSEA/VOMI Verified 06/08/17 12:02 TING Medications: Current Medications Albuterol Sulfate (Ventolin) 2.5 mg NEB [id number] PRN PRN Reason: Wheezing Albuterol/Ipratropium (Duoneb) 3 ml NEB Q4H PRN PRN Reason: Wheezing Dextrose/Water (Dextrose 50%) 25 gm SLOW IVP PRN PRN PRN Reason: Hypoglycemia Enoxaparin Sodium (Lovenox) 40 mg SC 0900 [facility] Last Admin: 06/20/17 08:55 Dose: 40 mg Glucagon (Glucagon) 1 mg IM PRN PRN PRN Reason: Hypoglycemia Hydralazine HCl (Apresoline) 50 mg PO BID [facility] Dextrose/Water (D5w) 1,000 mls @ 0 mls/hr IV .Q0M PRN; As Directed PRN Reason: Hypoglycemia Dextrose/Sodium Chloride (D5 0.9% Ns) 1,000 mls @ 50 mls/hr IV .Q20H [facility] Last Admin: 06/19/17 20:48 Dose: 1,000 mls Fat Emulsion Intravenous 250 ml/ Sodium Acetate 80 meq/Potassium Acetate 20 meq/ Potassium Phosphate 30 mmol/Calcium Gluconate 10 meq/Magnesium Sulfate 1.23 gm/ Multivitamins 10 ml/ Chromium/Copper/Manganese/Zinc 1 ml/Miscellaneous Medication 1 each/ Dextrose/Water/ Sterile Water/ Amino Acids 2,145.1991 mls @ 87.805 mls/hr IV 2200 [facility] Last Admin: 06/19/17 21:55 Dose: 2,145.1991 mls Labetalol HCl (Normodyne) 10 mg SLOW IVP Q4H PRN PRN Reason: SBP Greater Than 180 Last Admin: 06/20/17 12:14 Dose: 10 mg Morphine Sulfate (Morphine) 4 mg SLOW IVP Q2H PRN PRN Reason: Severe Pain (7-10) Last Admin: 06/20/17 12:16 Dose: 4 mg Ondansetron HCl (Zofran) 4 mg IVP Q8H PRN PRN Reason: Nausea/Vomiting Last Admin: 06/20/17 06:51 Dose: 4 mg Pantoprazole Sodium (Protonix) 40 mg IVP DAILY [facility] Last Admin: 06/20/17 08:53 Dose: 40 mg Promethazine HCl (Phenergan) 12.5 mg IM Q2H PRN PRN Reason: Nausea/Vomiting Last Admin: 06/16/17 12:20 Dose: 12.5 mg Sodium Chloride (Flush - Normal Saline) 10 ml IVF PRN PRN PRN Reason: Saline Flush Last Admin: 06/19/17 21:57 Dose: 10 ml
[2017-06-20] MEDS: Dextrose 5 % And 0.9 % NaCl 1,000 ML IV SCH (16:20)
[2017-06-20] MEDS ORDERED: hydrALAZINE 25 MG TAB PO SCH (21:00)
[2017-06-20] MEDS: SODIUM ACETATE IV SCH (22:11)
[2017-06-20] MEDS: POTASSIUM ACETATE IV SCH (22:11)
[2017-06-20] MEDS: FAT EMULSION IV SCH (22:11)
[2017-06-20] MEDS: [UNRECOGNIZED DRUG - OTHER] IV SCH (22:11)
[2017-06-21] MEDS: Morphine 4 MG/ML VIAL SLOW IVP PRN ×5 (04:27→22:57)
[2017-06-21] MEDS: Ondansetron HCl/PF 4 MG/2 ML Vial IVP PRN ×2 (07:37→23:25)
[2017-06-21 07:40] LABS: ALT (SGPT) 19 U/L (8-55); AST (SGOT) 23 U/L (5-34); Albumin 2.4 g/dL (3.4-4.8); Alkaline Phosphatase 147 U/L (40-150); Anion Gap 11 mmol/L (10-20); BUN (Urea Nitrogen) 30 mg/dL (9.8-20.1); Bilirubin, Total 0.4 mg/dL (0.2-1.2); Calc. Creatinine Clearance 56 mL/min (70-130); Calcium 9.2 mg/dL (7.8-10.44); Carbon Dioxide 30 mmol/L (23-31); Chloride 97 mmol/L (98-107); Estimated GFR-MDRD 73; Globulin 3.1 g/dL (2.4-3.5); Glucose 136 mg/dL (83-110); Phosphorus 4.1 mg/dL (2.3-4.7); Potassium 4.5 mmol/L (3.5-5.1); Protein, Total 5.5 g/dL (6.0-8.3); Sodium 133 mmol/L (136-145)
[2017-06-21] MEDS: Pantoprazole 40 MG VIAL IVP SCH (08:31)
[2017-06-21] MEDS: hydrALAZINE 25 MG TAB PO SCH ×3 (08:31→21:30)
[2017-06-21] MEDS: Enoxaparin Sodium 40 MG/0.4 ML SYRINGE SC SCH (08:31)
[2017-06-21] MEDS: Dextrose 5 % And 0.9 % NaCl 1,000 ML IV SCH (11:59)
--- NOTE | 2017-06-21 18:33 | PDOC.PN ---
- Subjective Encounter Start Date: 06/21/17 Encounter Start Time: 18:33 - Objective Vital Signs & Weight: Vital Signs (12 hours) Temp Pulse Resp BP Pulse Ox 06/21/17 15:53 98.3 F 88 20 169/71 H 99 06/21/17 14:41 88 06/21/17 12:37 98.4 F 88 24 H 153/79 H 100 06/21/17 09:19 98.1 F 91 26 H 181/71 H 98 06/21/17 08:31 92 06/21/17 08:00 98.1 F 91 26 H 96 Weight Admit Weight 150 lb Weight 150 lb I&O: 06/20/17 06/21/17 06/22/17 06:59 06:59 06:59 Intake Total 3412 Output Total 1130 Balance 3412 -1130 Result Diagrams: 06/16/17 04:43 06/21/17 07:10 Additional Labs: Accuchecks 06/21/17 06/21/17 06/21/17 17:49 11:11 03:56 POC Glucose 120 H 130 H 123 H 06/20/17 23:25 POC Glucose 138 H Dx/Plan (1) Hypertension Code(s): I10 - ESSENTIAL (PRIMARY) HYPERTENSION Status: Chronic Qualifiers: Hypertension type: essential hypertension Qualified Code(s): I10 - Essential (primary) hypertension Comment: Still not at goal with 25 mg BID Hydralazine. Labetalol also on board IV PRN. Patient was on metoprolol late last year but unclear why it was discontinued. Will increase hydralazine to 50 mg TID and monitor response. (2) Abdominal pain Code(s): R10.9 - UNSPECIFIED ABDOMINAL PAIN Status: Acute Qualifiers: Abdominal location: generalized Qualified Code(s): R10.84 - Generalized abdominal pain Comment: Stable. Pain improved. Pain is likely related to recent surgery. She is s/p laparascopic hernia repair and Nissel fundoplication. ct abdomen/pelvic large amount of abdominal wall gas, likley related to recent surgery. Management per surgical service. (3) Physical deconditioning Code(s): R53.81 - OTHER MALAISE Status: Acute Comment: CM consult for [facility]/ SNF (4) Dementia Code(s): F03.90 - UNSPECIFIED DEMENTIA WITHOUT BEHAVIORAL DISTURBANCE Status: Chronic Qualifiers: Dementia type: unspecified type Dementia behavioral disturbance: without behavioral disturbance Qualified Code(s): F03.90 - Unspecified dementia without behavioral disturbance Comment: Continue home meds. - Plan * .
--- NOTE | 2017-06-21 20:05 | EKG ---
Test Reason : Blood Pressure : / mmHG Vent. Rate : 103 BPM Atrial Rate : 103 BPM P-R Int : 142 ms QRS Dur : 080 ms QT Int : 340 ms P-R-T Axes : 042 004 030 degrees QTc Int : 445 ms Sinus tachycardia Possible Inferior infarct , age undetermined Abnormal ECG When compared with ECG of 08-JUN-2017 12:00, No significant change was found Confirmed by DEBBIE VÁZQUEZ (2) on 06/21/2017 8:05:36 PM Referred By: RYDER Confirmed By:DEBBIE VÁZQUEZ
[2017-06-21] MEDS: [UNRECOGNIZED DRUG - OTHER] IV SCH (23:00)
[2017-06-21] MEDS: FAT EMULSION IV SCH (23:00)
[2017-06-21] MEDS: POTASSIUM ACETATE IV SCH (23:00)
[2017-06-21] MEDS: SODIUM ACETATE IV SCH (23:00)
[2017-06-22] MEDS: Dextrose 5 % And 0.9 % NaCl 1,000 ML IV SCH (01:40)
[2017-06-22] MEDS: Morphine 4 MG/ML VIAL SLOW IVP PRN ×7 (01:45→21:34)
[2017-06-22] MEDS: Acetaminophen 325 MG TAB PO PRN ×2 (01:45→15:11)
[2017-06-22] MEDS: hydrALAZINE 25 MG TAB PO SCH ×3 (09:17→21:09)
[2017-06-22] MEDS: Amlodipine 5 MG TAB PO SCH (09:17)
[2017-06-22] MEDS: Enoxaparin Sodium 40 MG/0.4 ML SYRINGE SC SCH (09:18)
[2017-06-22] MEDS: Pantoprazole 40 MG VIAL IVP SCH (09:18)
[2017-06-22] MEDS: Ondansetron HCl/PF 4 MG/2 ML Vial IVP PRN ×2 (12:42→21:11)
[2017-06-22] MEDS: Pregabalin 75 MG CAP PO SCH (21:10)
[2017-06-22] MEDS: FAT EMULSION IV SCH (22:19)
[2017-06-22] MEDS: POTASSIUM ACETATE IV SCH (22:19)
[2017-06-22] MEDS: SODIUM ACETATE IV SCH (22:19)
[2017-06-22] MEDS: [UNRECOGNIZED DRUG - OTHER] IV SCH (22:19)
[2017-06-23] MEDS: Morphine 4 MG/ML VIAL SLOW IVP PRN (03:16)
[2017-06-23] MEDS: Dextrose 5 % And 0.9 % NaCl 1,000 ML IV SCH ×2 (04:08→23:50)
[2017-06-23 05:01] LABS: #Eosinphils 0.2 thou/uL (0.0-0.7); #Lymphocytes 1.6 thou/uL (1.20-3.40); #Monocytes 1.8 thou/uL (0.11-0.59); #Neutrophils 11.6 thou/uL (1.40-6.50); %Basophils 0.2 % (0.0-1.0); %Lymphocytes 10.6 % (21.0-51.0); %Monocytes 11.7 % (0.0-10.0); %Neutrophils 76.5 % (42.0-75.0); Mean Corpuscular HGB CONC 32.4 g/dL (32.0-36.0); Mean Corpuscular Hemoglobin 29.6 pg (27.0-31.0); Mean Corpuscular Volume 91.3 fl (81.0-99.0); Mean Platelet Volume 5.9 fL (7.4-10.4); Platelet Count 588 thou/uL (130-400); RBC Distribution Width 12.5 % (11.5-14.5); Red Blood Cell (RBC) Count 3.05 mill/uL (4.20-5.40); White Blood Cell (WBC) Count 15.2 thou/uL (4.8-10.8)
[2017-06-23 05:23] LABS: ALT (SGPT) 20 U/L (8-55); AST (SGOT) 27 U/L (5-34); Albumin 2.4 g/dL (3.4-4.8); Alkaline Phosphatase 220 U/L (40-150); Anion Gap 9 mmol/L (10-20); BUN (Urea Nitrogen) 38 mg/dL (9.8-20.1); Bilirubin, Total 0.6 mg/dL (0.2-1.2); Calc. Creatinine Clearance 52 mL/min (70-130); Calcium 9.1 mg/dL (7.8-10.44); Carbon Dioxide 33 mmol/L (23-31); Chloride 94 mmol/L (98-107); Estimated GFR-MDRD 67; Globulin 3.1 g/dL (2.4-3.5); Glucose 118 mg/dL (83-110); Magnesium 2.1 mg/dL (1.6-2.6); Phosphorus 3.1 mg/dL (2.3-4.7); Potassium 4.8 mmol/L (3.5-5.1); Protein, Total 5.5 g/dL (6.0-8.3); Sodium 131 mmol/L (136-145)
[2017-06-23] MEDS: hydrALAZINE 25 MG TAB PO SCH ×3 (09:45→20:14)
[2017-06-23] MEDS: Mirtazapine 15 MG TAB PO SCH (09:46)
[2017-06-23] MEDS: Pregabalin 75 MG CAP PO SCH ×2 (09:46→20:14)
[2017-06-23] MEDS: Amlodipine 5 MG TAB PO SCH (09:46)
[2017-06-23] MEDS: Pantoprazole 40 MG VIAL IVP SCH (09:47)
[2017-06-23] MEDS: Enoxaparin Sodium 40 MG/0.4 ML SYRINGE SC SCH (09:47)
[2017-06-23 14:19] LABS: Bilirubin Negative (Negative); Blood, Urine Trace (Negative); Clarity TURBID (Clear); Glucose, Urine (Dipstick) Negative (Negative); Leukocyte Large (Negative); Nitrite Negative (Negative); Protein, Urine (Dipstick) 30 mg/dL (Neg-Trace); Specific Gravity, Urine 1.011 (1.002-1.036); pH, Urine 7.5 (5.0-9.0)
[2017-06-23 14:21] LABS: Bacteria/HPF 4+ HPF (None Seen); Hyaline Casts/LPF 4-6 HYALINE CAST LPF (0-3 Hyaline); Pathc Cast-AUWi Flag 0.91 (0-2.49); Squamous Epithelial 0-3 HPF (0-3)
[2017-06-23 14:28] LABS: Yeast-AUWi Flag 493.7 (0-25.0)
[2017-06-23 14:37] LABS: RBC/HPF 0-3 HPF (0-3); Yeast-All Forms None Seen HPF (None Seen)
[2017-06-23] MEDS ORDERED: FAT EMULSION IV SCH (22:00)
[2017-06-23] MEDS ORDERED: [UNRECOGNIZED DRUG - OTHER] IV SCH (22:00)
[2017-06-23] MEDS ORDERED: SODIUM ACETATE IV SCH (22:00)
[2017-06-23] MEDS ORDERED: POTASSIUM ACETATE IV SCH (22:00)
[2017-06-24] MEDS: Morphine 4 MG/ML VIAL SLOW IVP PRN ×4 (00:25→20:32)
[2017-06-24] MEDS: Pantoprazole 40 MG VIAL IVP SCH (09:28)
[2017-06-24] MEDS: Enoxaparin Sodium 40 MG/0.4 ML SYRINGE SC SCH (09:28)
[2017-06-24] MEDS: Pregabalin 75 MG CAP PO SCH ×2 (09:29→20:37)
[2017-06-24] MEDS: Amlodipine 5 MG TAB PO SCH (09:30)
[2017-06-24] MEDS: Mirtazapine 15 MG TAB PO SCH (09:30)
[2017-06-24] MEDS: hydrALAZINE 25 MG TAB PO SCH ×3 (09:31→22:59)
[2017-06-24] MEDS: Acetaminophen 325 MG TAB PO PRN (12:15)
[2017-06-24] MEDS: Dextrose 5 % And 0.9 % NaCl 1,000 ML IV SCH (21:32)
[2017-06-25] MEDS: Morphine 4 MG/ML VIAL SLOW IVP PRN ×6 (00:06→21:19)
[2017-06-25] MEDS: Acetaminophen 325 MG TAB PO PRN (01:25)
[2017-06-25] MEDS ORDERED: Sodium Chloride 0.9% 500 ML IV SCH (09:30)
[2017-06-25] MEDS: hydrALAZINE 25 MG TAB PO SCH ×2 (10:17→14:37)
[2017-06-25] MEDS: Enoxaparin Sodium 40 MG/0.4 ML SYRINGE SC SCH (10:17)
[2017-06-25] MEDS: Amlodipine 5 MG TAB PO SCH (10:18)
[2017-06-25] MEDS: Pregabalin 75 MG CAP PO SCH ×2 (10:18→20:59)
[2017-06-25] MEDS: Pantoprazole 40 MG VIAL IVP SCH (10:18)
[2017-06-25] MEDS: Mirtazapine 15 MG TAB PO SCH (10:18)
[2017-06-25] MEDS ORDERED: Iopamidol 370 76% 50 ML VIAL FS ONE (11:48)
[2017-06-25] MEDS: Fleet Enema 133 ML BOT PR SCH ×2 (14:44→17:22)
--- NOTE | 2017-06-25 15:01 | TCOM ---
DATE OF SERVICE: 06/25/2017 She was a little bit tachycardic and running low grade temperature, so I sent her down to CT. She hooper s been very distended. CT scan shows that her transverse colon is massively dilated. It also showed an air fluid collection in the mediastinum, which is smaller than on previous views. Now, the [facility] radiologist is calling it possible leak; however, she is not acting like that. I did a rectal exa m on her and she is fecal disimpacted some, so plan is we are going to give her some enemas and we ar e going to repeat the CT scan with a little bit oral contrast, no IV contrast just be sure that there is no leak.
--- NOTE | 2017-06-25 15:06 | PDOC.PN ---
- Subjective Encounter Start Date: 06/25/17 Encounter Start Time: 15:07 Subjective: No new complaints. -: No acute events overnight. - Objective MAR Reviewed: Yes Vital Signs & Weight: Vital Signs (12 hours) Temp Pulse Resp BP BP Pulse Ox 06/25/17 14:37 108 H 163/78 H 06/25/17 11:00 98.5 F 105 H 24 H 138/76 93 L 06/25/17 10:17 106 H 06/25/17 07:25 98.9 F 106 H 28 H 120/76 94 L 06/25/17 04:00 99.8 F H 116 H 20 126/73 94 L Weight Admit Weight 150 lb Weight 150 lb I&O: 06/24/17 06/25/17 06/26/17 06:59 06:59 06:59 Intake Total 900 1310 1260 Balance 900 1310 1260 Result Diagrams: 06/23/17 04:53 06/23/17 04:53 Additional Labs: Accuchecks 06/25/17 06/25/17 06/24/17 11:52 05:16 20:33 POC Glucose 136 H 116 H 96 Phys Exam - Physical Examination Constitutional: NAD HEENT: PERRLA, moist MMs, sclera anicteric Neck: no JVD, supple, full ROM Respiratory: no wheezing, no rales, no rhonchi, clear to auscultation bilateral Cardiovascular: RRR, no significant murmur, no rub Gastrointestinal: soft, no distention, positive bowel sounds slight tenderness but no rebound or guarding. Musculoskeletal: no edema, pulses present Neurological: non-focal, moves all 4 limbs Psychiatric: normal affect Skin: no rash, normal turgor Dx/Plan (1) Hypertension Code(s): I10 - ESSENTIAL (PRIMARY) HYPERTENSION Status: Chronic Qualifiers: Hypertension type: essential hypertension Qualified Code(s): I10 - Essential (primary) hypertension (2) Abdominal pain Code(s): R10.9 - UNSPECIFIED ABDOMINAL PAIN Status: Acute Qualifiers: Abdominal location: generalized Qualified Code(s): R10.84 - Generalized abdominal pain Comment: Stable. Pain improved. Pain is likely related to recent surgery. She is s/p laparascopic hernia repair and Nissel fundoplication. ct abdomen/pelvic large amount of abdominal wall gas, likley related to recent surgery. Management per surgical service. (3) Physical deconditioning Code(s): R53.81 - OTHER MALAISE Status: Acute Comment: CM consult for [facility]/ SNF (4) Dementia Code(s): F03.90 - UNSPECIFIED DEMENTIA WITHOUT BEHAVIORAL DISTURBANCE Status: Chronic Qualifiers: Dementia type: unspecified type Dementia behavioral disturbance: without behavioral disturbance Qualified Code(s): F03.90 - Unspecified dementia without behavioral disturbance Comment: Continue home meds. - Plan Home medications reviewed. After last dmission she was placed on Toprol XL 25 mg BID and Hydralazine 25 mg TID. Her regimen will be changed to 10 mg of Amlodipine daily and start 25 mg daily dose of Toprol XL, since patient has been tachycardic. Hydralazine thus discontinued. PRN clonidine 0.1 mg PRN for SBP > 180 . Will continue to follow. Review of Systems - Medications/Allergies Allergies/Adverse Reactions: Allergies Allergy/AdvReac Type Severity Reaction Status Date / Time aspirin Allergy Intermediate NAUSEA/VOMI Verified 06/08/17 12:02 TING codeine Allergy Intermediate NAUSEA/VOMI Verified 06/08/17 12:02 TING Medications: Current Medications Acetaminophen (Tylenol) 650 mg PO Q4H PRN PRN Reason: Fever> 101, Pain1-3 Last Admin: 06/25/17 01:25 Dose: 650 mg Albuterol Sulfate (Ventolin) 2.5 mg NEB [id number] PRN PRN Reason: Wheezing Albuterol/Ipratropium (Duoneb) 3 ml NEB Q4H PRN PRN Reason: Wheezing Amlodipine Besylate (Norvasc) 5 mg PO DAILY [facility] Last Admin: 06/25/17 10:18 Dose: 5 mg Dextrose/Water (Dextrose 50%) 25 gm SLOW IVP PRN PRN PRN Reason: Hypoglycemia Enoxaparin Sodium (Lovenox) 40 mg SC 0900 [facility] Last Admin: 06/25/17 10:17 Dose: 40 mg Glucagon (Glucagon) 1 mg IM PRN PRN PRN Reason: Hypoglycemia Hydralazine HCl (Apresoline) 75 mg PO TID [facility] Last Admin: 06/25/17 14:37 Dose: 75 mg Dextrose/Water (D5w) 1,000 mls @ 0 mls/hr IV .Q0M PRN; As Directed PRN Reason: Hypoglycemia Dextrose/Sodium Chloride (D5 0.9% Ns) 1,000 mls @ 50 mls/hr IV .Q20H [facility] Last Admin: 06/24/17 21:32 Dose: Not Given Levofloxacin 500 mg/ Device 100 mls @ 100 mls/hr IVPB 0800 [facility] Last Admin: 06/25/17 10:17 Dose: 100 mls Labetalol HCl (Normodyne) 10 mg SLOW IVP Q4H PRN PRN Reason: SBP Greater Than 180 Last Admin: 06/20/17 12:14 Dose: 10 mg Mirtazapine (Remeron) 15 mg PO QAM [facility] Last Admin: 06/25/17 10:18 Dose: 15 mg Morphine Sulfate (Morphine) 4 mg SLOW IVP Q2H PRN PRN Reason: Severe Pain (7-10) Last Admin: 06/25/17 14:36 Dose: 4 mg Ondansetron HCl (Zofran) 4 mg IVP Q8H PRN PRN Reason: Nausea/Vomiting Last Admin: 06/22/17 21:11 Dose: 4 mg Pantoprazole Sodium (Protonix) 40 mg IVP DAILY [facility] Last Admin: 06/25/17 10:18 Dose: 40 mg Pregabalin (Lyrica) 150 mg PO BID [facility] Last Admin: 06/25/17 10:18 Dose: 150 mg Promethazine HCl (Phenergan) 12.5 mg IM Q2H PRN PRN Reason: Nausea/Vomiting Last Admin: 06/16/17 12:20 Dose: 12.5 mg Sodium Chloride (Flush - Normal Saline) 10 ml IVF PRN PRN PRN Reason: Saline Flush Last Admin: 06/24/17 08:53 Dose: 10 ml
[2017-06-25] MEDS ORDERED: Amlodipine 5 MG TAB PO SCH (15:15)
[2017-06-25] MEDS: Dextrose 5 % And 0.9 % NaCl 1,000 ML IV SCH (17:23)
--- NOTE | 2017-06-25 19:10 | CT ---
CT OF THE ABDOMEN AND PELVIS WITH IV AND ENTERIC CONTRAST: Date: 06/25/17 PROVIDED CLINICAL HISTORY: Fever and leukocytosis, status post hiatal hernia repair. FINDINGS: Comparison is made with the CT examinations performed 06/15/17 and 04/10/17. There are persistent bilateral pleural effusions with adjacent passive atelectatic change. There circ umscribed nonperipherally enhancing fluid and gas present in the mediastinum to the right of midline at the level of T10. No contrast material is noted within this collection, though the oral contrast w as administered through the patient's gastrostomy tube. This is suspicious for leak. There is a 7.2 x 5.1 cm circumscribed fluid collection present peripheral to the tail of the pancreas . This does not demonstrating enhancing margin. This appears less conspicuous than on the prior CT ex amination and has an appearance most compatible with resolving blood products. The solid abdominal organs demonstrate an unchanged CT appearance. There is conspicuous gaseous distention of the transverse colon, measuring up to 9.7 cm. There is per sistent extensive subcutaneous gas present within the anterior abdominal wall. There is conspicuous r ectal fecal retention with stranding of the perirectal fat. There is a nondilated appearance to the regional bowel otherwise. There is no evidence for pneumoperi toneum. IMPRESSION: 1. Circumscribed posterior mediastinal fluid and gas collection to the right of midline at about T10 , suspicious for leak. Findings discussed with Dr. Carey via telephone 1:17 pm 06/25/17. 2. Conspicuous fecal retention within the rectum with perirectal fat stranding. Correlate with renu rns for stercoral proctitis. 3. Conspicuous gaseous distention of the transverse colon. Correlate with concerns for Orrum's syn drome. 4. Prominent subcutaneous emphysema in the anterior abdominal wall, presumably on the basis of gastr ostomy catheter. POS: [facility]
[2017-06-26] MEDS: Morphine 4 MG/ML VIAL SLOW IVP PRN ×6 (01:35→20:47)
[2017-06-26 06:24] LABS: #Eosinphils 0.1 thou/uL (0.0-0.7); #Lymphocytes 1.5 thou/uL (1.20-3.40); #Monocytes 1.6 thou/uL (0.11-0.59); #Neutrophils 12.8 thou/uL (1.40-6.50); %Basophils 0.2 % (0.0-1.0); %Eosinophils 0.7 % (0.0-10.0); %Lymphocytes 9.4 % (21.0-51.0); %Monocytes 10.1 % (0.0-10.0); %Neutrophils 79.6 % (42.0-75.0); Hemoglobin 8.9 g/dL (12.0-16.0); Mean Corpuscular HGB CONC 32.6 g/dL (32.0-36.0); Mean Corpuscular Hemoglobin 29.6 pg (27.0-31.0); Mean Platelet Volume 6.5 fL (7.4-10.4); Platelet Count 614 thou/uL (130-400); RBC Distribution Width 12.8 % (11.5-14.5); Red Blood Cell (RBC) Count 3.01 mill/uL (4.20-5.40)
[2017-06-26 06:49] LABS: Anion Gap 12 mmol/L (10-20); Calcium 8.9 mg/dL (7.8-10.44); Carbon Dioxide 28 mmol/L (23-31); Chloride 99 mmol/L (98-107); Glucose 123 mg/dL (83-110); Potassium 4.7 mmol/L (3.5-5.1); Sodium 134 mmol/L (136-145)
[2017-06-26 06:59] LABS: BUN (Urea Nitrogen) 44 mg/dL (9.8-20.1); Calc. Creatinine Clearance 35 mL/min (70-130); Estimated GFR-MDRD 43
[2017-06-26] MEDS ORDERED: Amlodipine 5 MG TAB PO SCH ×3 (09:00→09:09)
[2017-06-26] MEDS: Amlodipine 5 MG TAB PO SCH (09:39)
[2017-06-26] MEDS: Enoxaparin Sodium 40 MG/0.4 ML SYRINGE SC SCH (09:41)
[2017-06-26] MEDS: Pantoprazole 40 MG VIAL IVP SCH (09:42)
[2017-06-26] MEDS: Mirtazapine 15 MG TAB PO SCH (09:42)
[2017-06-26] MEDS: Pregabalin 75 MG CAP PO SCH ×2 (09:42→20:46)
--- NOTE | 2017-06-26 10:45 | CT ---
CT ABDOMEN WITHOUT IV CONTRAST: Date: 06/26/17 PROVIDED CLINICAL HISTORY: Fever. FINDINGS: Comparison made with prior CT examinations. Evaluation performed after the administration of contrast material orally. Water soluble contrast material is noted within the distal thoracic esophagus, in the region of the g astroesophageal junction and within the stomach. The air and fluid collection in the posterior medias tinum right of the distal esophagus is redemonstrated, stable. There is no evidence for contrast mate rial within the fluid collection. A few minute foci of gas are noted within the epicardial fat, likel y on the basis of soft tissue tracking from the subcutaneous gas involving the anterior abdominal wal l. Bilateral pleural effusions and adjacent passive atelectasis are redemonstrated. There is persiste nt conspicuous gaseous distention of the colon. Gastrostomy catheter is again noted in place. 3.3 cm infrarenal abdominal aortic aneurysm is again seen. Degenerative changes are noted involving the spin e. The solid abdominal organs demonstrate an unchanged unenhanced CT appearance. There is persistent noncircumscribed fluid collection having density compatible with blood products in the left upper jacqueline drant. IMPRESSION: No oral contrast material is seen within the posterior mediastinal fluid and gas collection. Discusse d with Dr. Carey. POS: [facility]
[2017-06-26] MEDS: Dextrose 5 % And 0.9 % NaCl 1,000 ML IV SCH (11:54)
[2017-06-26] MEDS ORDERED: MINERAL OIL FS SCH (12:15)
[2017-06-26] MEDS ORDERED: STERILE WATER IRRIGATION FS SCH (12:15)
[2017-06-26] MEDS ORDERED: GLYCERIN FS SCH (12:15)
[2017-06-26] MEDS ORDERED: Iopamidol 370 76% 50 ML VIAL FS ONE (13:01)
[2017-06-26] MEDS: Acetaminophen 325 MG TAB PO PRN (18:16)
[2017-06-26] MEDS: Magnesium Citrate 300 ML BOT PO SCH (20:46)
[2017-06-27] MEDS: Morphine 4 MG/ML VIAL SLOW IVP PRN (01:00)
[2017-06-27] MEDS: Magnesium Citrate 300 ML BOT PO SCH (03:06)
[2017-06-27] MEDS: Morphine 4 MG/ML VIAL IV PRN ×2 (05:56→11:32)
--- NOTE | 2017-06-27 07:29 | CT ---
CT ABDOMEN AND PELVIS WITHOUT CONTRAST: Date: 06/25/17 PROVIDED CLINICAL HISTORY: Evaluate for leak. FINDINGS: Examination was to be performed after the administration of contrast material orally to further asses s the gas and fluid collection present in the posterior mediastinum. The contrast material was rather administered through the patient's PEG tube and does not opacify the area of interest. Significant c hange with respect to the prior CT examination from same date is not apparent. IMPRESSION: Findings suspicious for leak at the surgical site in the posterior mediastinum are redemonstrated, kingston boptimally evaluated as above. Findings discussed with Dr Carey 1:17 pm 06/25/17. POS: [facility]
[2017-06-27] MEDS: Amlodipine 5 MG TAB PO SCH (08:26)
[2017-06-27] MEDS: Enoxaparin Sodium 40 MG/0.4 ML SYRINGE SC SCH (08:26)
[2017-06-27] MEDS: Pantoprazole 40 MG VIAL IVP SCH (08:26)
[2017-06-27] MEDS: Mirtazapine 15 MG TAB PO SCH (08:27)
[2017-06-27] MEDS: Pregabalin 75 MG CAP PO SCH ×2 (08:27→20:36)
[2017-06-27] MEDS: Dextrose 5 % And 0.9 % NaCl 1,000 ML IV SCH ×2 (08:40→14:41)
[2017-06-27 11:40] LABS: #Eosinphils 0.4 thou/uL (0.0-0.7); #Lymphocytes 1.1 thou/uL (1.20-3.40); #Monocytes 1.3 thou/uL (0.11-0.59); #Neutrophils 12.5 thou/uL (1.40-6.50); %Basophils 0.2 % (0.0-1.0); %Eosinophils 2.5 % (0.0-10.0); %Lymphocytes 6.9 % (21.0-51.0); %Monocytes 8.6 % (0.0-10.0); %Neutrophils 81.7 % (42.0-75.0); Hemoglobin 9.6 g/dL (12.0-16.0); Mean Corpuscular HGB CONC 31.6 g/dL (32.0-36.0); Mean Corpuscular Hemoglobin 29.6 pg (27.0-31.0); Mean Corpuscular Volume 93.8 fl (81.0-99.0); Mean Platelet Volume 6.3 fL (7.4-10.4); Platelet Count 614 thou/uL (130-400); RBC Distribution Width 12.8 % (11.5-14.5); Red Blood Cell (RBC) Count 3.23 mill/uL (4.20-5.40); White Blood Cell (WBC) Count 15.3 thou/uL (4.8-10.8)
[2017-06-27] MEDS ORDERED: Fleet Enema 133 ML BOT FS SCH (13:15)
--- NOTE | 2017-06-27 13:33 | CON ---
DATE OF CONSULTATION: 06/27/2017 REASON FOR CONSULTATION: Ileus, distention. HISTORY OF PRESENT ILLNESS: Ms. Jeffery underwent a hernia repair and fundoplication on 06/09/2017 se condary to a very large hiatal hernia, recurrent vomiting and failure to thrive. She had an upper en doscopy prior to that with Dr. Sun in the outpatient setting. Apparently there is no overt volvulus . With the hernia repair a PEG tube was placed. There was concern on postoperative CAT scans about subcutaneous air in the abdomen as well as air in the chest and air fluid level in the chest and the possibility of a leak; however, an upper GI Dr. Carey showed no signs of leak. This collection of ai r and gas in the chest has gotten smaller on subsequent imaging. The patient has been tolerating tub e feeds, but has not had any bowel movements. She had a CAT scan of the abdomen and pelvis on 2017, she had a large amount of abdominal wall gas which was felt to be related to the PEG tube. Thi s imaging was otherwise normal. She has progressively developed more abdominal pain. In fact, she i s receiving morphine q.2h. She had a CAT scan on the that showed again fluid in the posterior m ediastinum and right of the midline, a large fecal impaction with perirectal stranding and distention of the transverse colon concerning for Wu's. A scan later that day with contrast was not helpf ul for showing more than a leak was present. CAT scan on the showed air fluid collection in the area of the mediastinum, right of the distal esophagus, no signs of leak or bilateral effusions, per sistent distention of the colon. The rectum was not really visualized on that study. Today's x-rays reveal dilated transverse colon of 18 cm. PAST MEDICAL HISTORY: Tardive dyskinesia, migraines, reflux, arthritis. PAST SURGICAL HISTORY: Lumbar surgery, left shoulder surgery, right hip surgery, cholecystectomy and hysterectomy. HOME MEDICATIONS: Prealbumin, Namenda, tramadol, mirtazapine, hydralazine, vitamin D3, Protonix, Reg kady, Zofran, Cysteine. PRESENT MEDICATIONS: Tylenol, Ventolin, DuoNeb, Norvasc, Lovenox, Normodyne, levofloxacin 500 mg joanne ly, metoprolol, mirtazapine, morphine 4 q.2, Zofran 4 q.8h., Protonix 40 mg daily, tube feeds. PHYSICAL EXAMINATION: VITAL SIGNS: Temperature is 99.6, pulse 105, respirations 20, O2 sat 93%, blood pressure 122/56. HEENT: She is mildly tachycardic. She is mildly dyspneic. LUNGS: Clear, without rhonchi or rales. ABDOMEN: Protuberant and it is distended, but not overtly tight. There are no bowel sounds. RECTAL: Reveals a large fecal impaction. LABORATORY: White count 15.3, hemoglobin 9.6, platelet count is 614. Sodium 134, potassium 4.6, BUN and creatinine are 44 and 1.19, glucose is 123. Magnesium was 2.1, phosphorus was 3.1 on the . Alkaline phosphatase is 220. Labs are otherwise normal. ASSESSMENT: This is an 86-year-old female who is 3 weeks postop from a hernia repair who now has wor sening tachycardia. CAT scans over the weekend showing a distended colon, a plain film now showing a 19 mm colon and a rectal exam shows persistent large fecal impaction. She reportedly had 2 enemas y day, has had none today. She is receiving morphine regularly. She is not septic appearing. I s uspect this is a narcotic-induced ileus with fecal impaction. PLAN: 1. At this point in time we will stop her tube feeds, restart her IV fluids. Unfortunately, because of her large fecal impaction she is not a candidate for methyl naltrexone, the view up receptor shaun pheral antagonist or for Neostigmine at this time, we to clear the impaction first. I have talked wi th the nurses about the urgency of this as she has an 18 cm dilated colon, the transverse colon. Thi s will be done this afternoon with enemas, suppositories and manual disimpaction. I will reevaluate her later this afternoon. If this is cleared, we can either proceed with colonic decompression if ne eded versus a trial of methyl naltrexone. She is not a candidate for neostigmine with her respirator y status. If she decompensates, she will need to be moved to the ICU. 2. With regard to the concern for fluid and air in the chest, it is unclear if this is an infection or not. It is unclear if this is part of the reason why she has an ileus. At this time she continue s antibiotics. We will defer this to surgical management.
[2017-06-27] MEDS: Dextrose 5% in Water 1,000 ML IV PRN (14:37)
--- NOTE | 2017-06-27 15:04 | RAD ---
KUB: Date: 06/27/17 COMPARISON: CT abdomen and pelvis dated 06/26/17. HISTORY: Abdominal distention. FINDINGS: There is a gastrostomy tube present. Supine imaging limits assessment for free air and small bowel ob struction. There is residual contrast media within the colon. There is marked gaseous distention of t he colon in the region of the transverse colon. There is dense stool and contrast at the level of the rectum. There is postoperative hardware associated with bilateral hips. IMPRESSION: Marked gaseous distention of the transverse colon, similar when compared to prior CT examination. It is difficult to measure the transverse dimension of the transverse colon, but transverse colon may me asure up to 18.0 cm in transverse dimension. POS: [facility]
[2017-06-27] MEDS: Bisacodyl 10 MG SUPP PR SCH ×3 (16:27→23:25)
[2017-06-27] MEDS: Fleet Enema 133 ML BOT FS SCH ×2 (17:54→21:39)
[2017-06-27] MEDS ORDERED: Pregabalin 75 MG CAP PO SCH (20:15)
--- NOTE | 2017-06-27 20:37 | PRG ---
DATE OF SERVICE: 06/27/2017 SUBJECTIVE: Ms. Jeffery has had several enemas and suppositories. She has passed copious amounts of stool. She states her stomach feels better. The nurse did note some of the stool that are mucousy l leon possible C. diff. OBJECTIVE: VITAL SIGNS: Temperature 99.6, pulse is 88, blood pressure 115/66. ABDOMEN: Bowel sounds are still quiescent. Abdomen is protuberant, but soft. RECTAL: Reveals no further impaction. ASSESSMENT: 1. Ileus with rectal impaction. 2. Distended colon to 18 cm on films earlier today. PLAN: 1. Repeat KUB in the morning. 2. Gastric tube is to suction now. If she remains distended, she will need decompression. 3. We will order stool for Clostridium difficile as well. We will empirically start on some IV Flag yl.
[2017-06-27] MEDS: metroNIDAZOLE 500 MG in Premix Bag 1 BAG IVPB SCH (21:39)
[2017-06-28] MEDS: Fleet Enema 133 ML BOT FS SCH ×6 (01:45→22:44)
[2017-06-28] MEDS: Dextrose 5 % And 0.9 % NaCl 1,000 ML IV SCH ×2 (03:07→18:21)
[2017-06-28] MEDS: Bisacodyl 10 MG SUPP PR SCH ×6 (03:47→20:42)
[2017-06-28] MEDS: metroNIDAZOLE 500 MG in Premix Bag 1 BAG IVPB SCH ×3 (05:52→21:05)
[2017-06-28 06:14] LABS: #Eosinphils 0.1 thou/uL (0.0-0.7); #Monocytes 1.4 thou/uL (0.11-0.59); #Neutrophils 12.5 thou/uL (1.40-6.50); %Basophils 0.1 % (0.0-1.0); %Eosinophils 0.9 % (0.0-10.0); %Lymphocytes 6.8 % (21.0-51.0); %Monocytes 9.2 % (0.0-10.0); Hemoglobin 8.8 g/dL (12.0-16.0); Mean Corpuscular HGB CONC 32.4 g/dL (32.0-36.0); Mean Corpuscular Hemoglobin 29.4 pg (27.0-31.0); Mean Corpuscular Volume 90.9 fl (81.0-99.0); Platelet Count 596 thou/uL (130-400); RBC Distribution Width 12.6 % (11.5-14.5); Red Blood Cell (RBC) Count 2.98 mill/uL (4.20-5.40); White Blood Cell (WBC) Count 15.1 thou/uL (4.8-10.8)
[2017-06-28 06:18] LABS: PTT 45.2 SEC (22.9-36.1)
[2017-06-28 06:22] LABS: INR-International Normal Ratio 1.3; Prothrombin Time 16.1 SEC (12.0-14.7)
[2017-06-28 06:23] LABS: Anion Gap 10 mmol/L (10-20); BUN (Urea Nitrogen) 31 mg/dL (9.8-20.1); Calc. Creatinine Clearance 41 mL/min (70-130); Carbon Dioxide 27 mmol/L (23-31); Cardiac Risk 9.8 (Less than 4.5); Chloride 103 mmol/L (98-107); Cholesterol 137 mg/dl (< 200 Desired); Estimated GFR-MDRD 52; Glucose 122 mg/dL (83-110); HDL Cholesterol 14 mg/dL (>60 Neg Risk); LDL Cholesterol, Calculated 95 mg/dL; Magnesium 1.9 mg/dL (1.6-2.6); Phosphorus 4.5 mg/dL (2.3-4.7); Potassium 4.3 mmol/L (3.5-5.1); Sodium 136 mmol/L (136-145); Triglycerides 142 mg/dL (Less than 150)
[2017-06-28] MEDS: Enoxaparin Sodium 40 MG/0.4 ML SYRINGE SC SCH (08:55)
[2017-06-28] MEDS: Amlodipine 5 MG TAB PO SCH (08:55)
[2017-06-28] MEDS: Pantoprazole 40 MG VIAL IVP SCH (08:56)
[2017-06-28] MEDS: Pregabalin 75 MG CAP PO SCH ×2 (08:56→21:06)
--- NOTE | 2017-06-28 09:31 | RAD ---
KUB: Indication: History of ileus. Comparison: 06-27-17 FINDINGS: There is prominent gaseous distention of portions of the transverse colon appears slightly less promi nent. There is a gastrostomy tube within the left upper quadrant. Chronic osseous changes are similar . Right hip endoprosthesis and partial visualization of left hip screw with slide plate is similar ap pearing. IMPRESSION: Less gaseous distention of the colon. POS: [facility]
[2017-06-28] MEDS ORDERED: PHENYLEPHRINE-NS 100 MCG/ML 10 ML SYRINGE ONE (14:54)
[2017-06-28] MEDS ORDERED: Lidocaine 1% PF 5 ML VIAL ONE (14:54)
[2017-06-28] MEDS ORDERED: PROPOFOL 200 MG/20 ML VIAL ONE (14:54)
--- NOTE | 2017-06-28 15:16 | OP ---
DATE OF PROCEDURE: 06/28/2017 PROCEDURES: Colonoscopy with colonic decompression and placement of colonic decompression tube. 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 PROCEDURE IN DETAIL: Informed consent was obtained. The patient was sedated with total intravenous anesthesia. The rectal exam was performed and was normal. The colonoscope was advanced at least to the proximal transverse colon, if not, the ascending. The light seemed to transilluminate in the rig ht lower quadrant at the time further scope was advanced. The rectum and sigmoid were completely obi ar of any stool and there is no mucosal abnormality. There was scattered retained stool in the desce nding colon and proximal transverse. There is stool that caked the shetty of the colon proximal to th at. The transverse colon was mildly distended. This was suctioned. Finally, the cap was taken off the functioning channel and pressure was applied to the abdomen. A lot of air was expelled through t he scope and her abdomen became very soft and flat as that air was suctioned out. After that, a colo joslyn decompression tube was placed over a guidewire. The mucosa was not carefully inspected on remova l of the scope as the goal was to keep the colon decompressed. No large masses or lesions were seen on insertion of the scope. IMPRESSION: 1. The rectum and distal colon were cleared of any stool and were nondistended. There is no ongoing fecal impaction at this point. 2. There was mild to moderate distention of the transverse colon with retained stool. This was deco mpressed with suction and placement of a colonic decompression tube and abdominal pressure. RECOMMENDATIONS: 1. Check KUB. 2. Keep n.p.o. for now. KUB is to evaluate positioning of the colonic decompression tube.
[2017-06-28] MEDS ORDERED: Promethazine HCl 25 MG/ML VIAL IM PRN (16:01)
[2017-06-28] MEDS ORDERED: Ondansetron HCl/PF 4 MG/2 ML Vial IVP PRN (16:01)
[2017-06-28] MEDS ORDERED: Promethazine HCl 25 MG/ML VIAL SLOW IVP PRN (16:01)
[2017-06-28] MEDS ORDERED: Morphine 4 MG/ML VIAL ONE (16:28)
--- NOTE | 2017-06-28 17:43 | RAD ---
KUB: DATE: 06/28/17. TIME: 3:49 p.m. COMPARISON: 06/28/17, 8:26 a.m. HISTORY: Distention. FINDINGS: There is catheter tubing curling over the pelvis and extending into the left abdomen suggesting inter jass placement of a rectal tube. A gastrostomy tube projects over the left upper quadrant. There is gaseous distention of the colon, slightly improved when compared to the prior exam. There is residua l contrast media within the colon as well. IMPRESSION: Interval placement of rectal tube. Gaseous distention of colon persists. Continued followup to reso lution advised. POS: [facility]
[2017-06-28] MEDS ORDERED: Morphine 4 MG/ML VIAL SLOW IVP PRN ×4 (17:59→18:19)
[2017-06-28] MEDS: Acetaminophen 325 MG TAB PO PRN (21:05)
[2017-06-28] MEDS: Ketorolac Tromethamine 30 MG/ML VIAL IVP PRN (23:57)
[2017-06-29] MEDS: Bisacodyl 10 MG SUPP PR SCH ×5 (00:50→15:29)
[2017-06-29] MEDS: Fleet Enema 133 ML BOT FS SCH ×5 (02:19→18:44)
[2017-06-29] MEDS: Dextrose 5 % And 0.9 % NaCl 1,000 ML IV SCH ×2 (05:03→19:11)
[2017-06-29 05:47] LABS: #Eosinphils 0.1 thou/uL (0.0-0.7); #Lymphocytes 1.2 thou/uL (1.20-3.40); #Monocytes 1.6 thou/uL (0.11-0.59); #Neutrophils 10.7 thou/uL (1.40-6.50); %Basophils 0.2 % (0.0-1.0); %Eosinophils 0.4 % (0.0-10.0); %Lymphocytes 9.1 % (21.0-51.0); %Monocytes 11.7 % (0.0-10.0); %Neutrophils 78.6 % (42.0-75.0); Hemoglobin 8.6 g/dL (12.0-16.0); Mean Corpuscular HGB CONC 31.9 g/dL (32.0-36.0); Mean Corpuscular Hemoglobin 29.5 pg (27.0-31.0); Mean Corpuscular Volume 92.5 fl (81.0-99.0); Mean Platelet Volume 6.4 fL (7.4-10.4); Platelet Count 532 thou/uL (130-400); RBC Distribution Width 12.8 % (11.5-14.5); Red Blood Cell (RBC) Count 2.91 mill/uL (4.20-5.40); White Blood Cell (WBC) Count 13.6 thou/uL (4.8-10.8)
[2017-06-29] MEDS: Ketorolac Tromethamine 30 MG/ML VIAL IVP PRN (06:44)
[2017-06-29] MEDS: metroNIDAZOLE 500 MG in Premix Bag 1 BAG IVPB SCH ×2 (06:45→13:23)
[2017-06-29] MEDS: Pregabalin 75 MG CAP PO SCH ×2 (09:49→21:36)
[2017-06-29] MEDS: Pantoprazole 40 MG VIAL IVP SCH (09:50)
[2017-06-29] MEDS: Amlodipine 5 MG TAB PO SCH (09:50)
[2017-06-29] MEDS: Enoxaparin Sodium 40 MG/0.4 ML SYRINGE SC SCH (09:51)
--- NOTE | 2017-06-29 10:45 | RAD ---
RADIOGRAPH ABDOMEN ONE VIEW: 06/29/2017 8:02 a.m. HISTORY: An 86-year-old female with generalized abdominal pain. COMPARISON: 06/28/2017 at 3:49 p.m. FINDINGS: The rectal catheter remains in place, with distal tip overlying the expected location of the sigmoid or descending colon. The enteric contrast material remains in the decompressed descending colon and rectosigmoid colon. The gaseous distention of a bowel loop, located centrally in the abdomen, probab ly the transverse colon, is unchanged compared to the previous study. A percutaneous gastrostomy tub e is visualized, with the moderately gas-distended stomach displaced to the left by the distended tra nsverse colon. IMPRESSION: 1. No interval change since the most recent KUB yesterday. 2. Gaseous distention of transverse colon remains. POS: [facility]
[2017-06-29] MEDS ORDERED: FAT EMULSION IV SCH (14:00)
[2017-06-29] MEDS ORDERED: MULTITRACE IV SCH (14:00)
[2017-06-29] MEDS ORDERED: [UNRECOGNIZED DRUG - OTHER] IV SCH (14:00)
[2017-06-29] MEDS ORDERED: MULTIVITAMINS IV SCH (14:00)
--- NOTE | 2017-06-29 16:58 | RAD ---
PORTABLE CHEST: 06/29/17 at 4:29 p.m. HISTORY: Shortness of breath, tachypnea. FINDINGS/IMPRESSION: Comparison made with the exam of 04/10/17. Postop changes and metallic hardware in the left humerus are again seen. the heart is enlarged. The a arden is tortuous. Pulmonary vascular congestion with bilateral pleural effusions and adjacent infiltr ates/atelectatic changes predominantly in the left lung base. No pneumothoraces are seen. There is a right upper extremity PICC line with tip in the projection of the SVC. There are degenerative changes in the right shoulder joint. POS: [facility]
[2017-06-29 17:20] LABS: Anion Gap 14 mmol/L (10-20); BUN (Urea Nitrogen) 23 mg/dL (9.8-20.1); Calc. Creatinine Clearance 46 mL/min (70-130); Calcium 9.7 mg/dL (7.8-10.44); Carbon Dioxide 24 mmol/L (23-31); Chloride 106 mmol/L (98-107); Estimated GFR-MDRD 58; Glucose 150 mg/dL (83-110); Magnesium 1.9 mg/dL (1.6-2.6); Phosphorus 3.2 mg/dL (2.3-4.7); Potassium 3.6 mmol/L (3.5-5.1); Sodium 140 mmol/L (136-145)
[2017-06-29 17:20] LABS: Troponin I 0.026 ng/mL (< 0.028)
[2017-06-29 17:41] LABS: Actual Bicarbonate (HCO3a) 23.9 mEq/L (22-26); Base Excess (BEa) 0.3 mEq/L (0 (+/-) 2.5); CO2 Tension 34.1 mmHg (35.0-45.0); O2 Tension (PaO2) 74.8 mmHg (80.0-100.0); pH, Arterial 7.46 (7.35-7.45)
[2017-06-29 17:42] LABS: ALV-art Gradient 82.215 (0-20); Calcium, Ionized 1.3 mmol/L (1.12-1.30); Hematocrit-ABG 26.7 % (36.0-47.0); Hemoglobin (Hb) 8.1 g/dL (12.0-16.0); Puncture Site RRA
[2017-06-29] MEDS ORDERED: Furosemide 20 MG/2 ML VIAL SLOW IVP SCH (18:15)
[2017-06-29] MEDS ORDERED: Bisacodyl 10 MG SUPP PR SCH (18:15)
--- NOTE | 2017-06-29 21:26 | CON ---
DATE OF ADMISSION: 06/09/2017 DATE OF CONSULTATION: 06/29/2017 CONSULTATION PLACED BY: Dr. Reese aCrey. CONSULTING TEAM: Hospitalist team for medical management. CHIEF COMPLAINT: Abdominal pain. HISTORY OF PRESENT ILLNESS: This is an 86-year-old female who was having abdominal pain, found to hooper ve a hiatal hernia, had abdominal surgery for the hiatal hernia on 06/09/2017. Postoperatively, she had unpredictable complications secondary to [place] syndrome as well as respiratory distress and ryan e chest pains upon breathing. The patient had multiple CT scans done and has been followed very clos nolan and appropriately by GI team as well as the primary care team. The patient at this point in time has been managed appropriately as well. The patient was treated with antibiotics for E. coli UTI th at was found on 06/24. Currently, she is on the antibiotics still. The patient at this point in larisa e states that she is having chest pains and is having difficulty breathing. States that she has had these symptoms preoperatively and then postoperatively the symptoms have been present, but are slowly improving in time. The patient does not admit to any chest pressures or chest discomfort, but does state that breathing causes her some pain. The patient otherwise denies any alleviating or aggravati ng factors. Denies any nausea, vomiting, diarrhea, constipation, fevers or chills. No family at bed side. The patient was seen and examined. All questions answered. ALLERGIES: ASPIRIN and CODEINE. PAST MEDICAL HISTORY: Tardive dyskinesia, migraines, acid reflux, arthritis. PAST SURGICAL HISTORY: Lumbar surgery, left shoulder surgery, right hip surgery, cholecystectomy and hysterectomy. HOME MEDICATIONS: See MAR. SOCIAL HISTORY: The patient denies any drinking or smoking. FAMILY HISTORY: The patient admits positive for high blood pressure and diabetes on both sides of he r family. REVIEW OF SYSTEMS: Twelve-point review of systems performed. Pertinent positives in the HPI, otherw ise negative. PHYSICAL EXAMINATION: VITAL SIGNS: Blood pressure 165/91, respiratory rate of 20, temperature of 97.6, pulse 97, oxygen sa turation 96% on 2 liters nasal cannula. GENERAL: The patient appears to be in mild to moderate discomfort. HEENT: Normocephalic, atraumatic. Pupils equal, round, react to light and accommodation. Oral cavi ty, moist and pink. NECK: Supple, mobile, nontender thyroid. RESPIRATORY: The patient is tachypneic, taking short deep breaths. LUNGS: Clear to auscultation bilaterally. CARDIOVASCULAR: 2/6 systolic ejection murmur appreciated. Regular rate and rhythm. S1 and S2 noted . ABDOMEN: Positive PEG tube. Laparoscopic surgical sites healing well, no signs of infection. Mild tenderness to palpation, otherwise soft, positive bowel sounds; however, hypoactive. EXTREMITIES: 2+ peripheral pulses. Bilateral SCDs noted. Trace edema, bilateral lower extremities. NEUROLOGIC: The patient is alert, oriented x3. No loss of sensory function. LABORATORY DATA: CBC: WBC count at 13.6, hemoglobin 8.6, hematocrit of 31.9, platelet count of 532. BMP: Serum sodium 136, potassium 4.3, chloride 103, bicarbonate 27, BUN of 31, creatinine 1.01. E stimated GFR 52. ASSESSMENT: 1. Chest pain. 2. Tachypnea. 3. Status post hiatal hernia repair, surgery team following management per Surgery. 4. Hypertension. 5. Acute kidney injury on chronic kidney disease, stage 3. 6. Thrombocytosis. 7. Leukocytosis. 8. Urinary tract infection. 9. Anemia. PLAN: 1. At this point in time, the patient has been appropriately managed by the Surgery team as well as the GI team. We will obtain an ABG to evaluate for any changes in CO2 status. We will also obtain a n echocardiogram. Last echo was done approximately a year ago which showed some tricuspid regurgitat ion. We will obtain a repeat echo for evaluation purposes. 2. We will also obtain iron panel to make sure the patient is not iron deficient. The patient likel y having iron deficiency anemia as well as blood loss anemia. We will consider blood transfusion if okay with GI and Surgery team as the patient's baseline hemoglobin is at 12 and her shortness of zehra th may be driven by her low hemoglobin. 3. Thrombocytosis, likely reactive. 4. Leukocytosis, likely reactive to infection; however, leukocyte count is on the downward trend. T he patient is afebrile. Continue current antibiotics. We will follow this patient very closely with you and make any medical changes appropriate from medic al perspective. Thank you again for the consultation.
--- NOTE | 2017-06-29 23:17 | HP ---
HISTORY OF PRESENT ILLNESS: Ms. Jeffery states her stomach still hurts. She is decompressed yesterda y with improvement, decompression tube was left in place. She has had limited stool output. She has had no vomiting. Her G-tube to gravity has had minimal output. Dr. Nichols reports that she did deco mpress the time of endoscopy. However, she is protuberant again. MEDICATIONS: Patient received 4 morphine last night and 2 morphine today. She is not getting out of bed. Gastric drainage 300 mL on the not recorded since then. PHYSICAL EXAMINATION: VITAL SIGNS: Temperature 97, pulse 93, respirations 16, blood pressure 165/91. ABDOMEN: Soft, nontender, is protuberant. There is minimal bowel sounds although there are some. T here is no rebound. There is no guarding. There are no hernias. LUNGS: Clear. CARDIAC: Heart is regular without clicks or murmurs. LABORATORY DATA: White count 13.6, hemoglobin is 8.6, platelet count 532. Sodium 140, potassium 3.6 , BUN and creatinine are 23 and 0.9, calcium 3.2, magnesium 1.9. BNP is 1326. IMAGING STUDIES: Microbiology stool is negative for C. diff. Chest x-ray, enlarged heart, tortuous aorta, pulmonary vascular congestion. X-ray rectal tube in place in the sigmoid colon. There is gas distention in the sigmoid colon. ASSESSMENT: 1. Ileus. The issues continued to be that she continues to receive narcotics while discharge. I di scontinued them yesterday. She continues to not get out of bed. 2. She has some signs of heart failure and fluid overload. RECOMMENDATIONS: 1. Cardiac or Internal Medicine consult. 2. Lasix 20 mg IV x1. 3. I am just going to move her to telemetry and give her some neostigmine tomorrow; however, this is not an option with her respiratory issues as often there is increased respiratory secretions with ne ostigmine and bradycardia. 4. She was decompressed yesterday. We are not going to plan on decompressing her again today. 5. All narcotics need to be stopped.
[2017-06-30] MEDS: Acetaminophen 325 MG TAB PO PRN ×3 (01:55→22:05)
[2017-06-30] MEDS: Dextrose 5 % And 0.9 % NaCl 1,000 ML IV SCH ×2 (02:04→22:05)
[2017-06-30 06:01] LABS: #Eosinphils 0.2 thou/uL (0.0-0.7); #Lymphocytes 1.2 thou/uL (1.20-3.40); #Monocytes 1.2 thou/uL (0.11-0.59); #Neutrophils 10.4 thou/uL (1.40-6.50); %Basophils 0.4 % (0.0-1.0); %Eosinophils 1.6 % (0.0-10.0); %Lymphocytes 9.4 % (21.0-51.0); %Monocytes 8.8 % (0.0-10.0); %Neutrophils 79.9 % (42.0-75.0); Hemoglobin 8.9 g/dL (12.0-16.0); Mean Corpuscular HGB CONC 32.7 g/dL (32.0-36.0); Mean Corpuscular Hemoglobin 29.9 pg (27.0-31.0); Mean Corpuscular Volume 91.5 fl (81.0-99.0); Mean Platelet Volume 6.3 fL (7.4-10.4); Platelet Count 626 thou/uL (130-400); RBC Distribution Width 12.9 % (11.5-14.5); Red Blood Cell (RBC) Count 2.97 mill/uL (4.20-5.40); White Blood Cell (WBC) Count 13.1 thou/uL (4.8-10.8)
[2017-06-30 06:22] LABS: ALT (SGPT) 16 U/L (8-55); AST (SGOT) 19 U/L (5-34); Albumin 2.4 g/dL (3.4-4.8); Alkaline Phosphatase 235 U/L (40-150); Anion Gap 13 mmol/L (10-20); BUN (Urea Nitrogen) 28 mg/dL (9.8-20.1); Bilirubin, Total 0.7 mg/dL (0.2-1.2); Calc. Creatinine Clearance 46 mL/min (70-130); Carbon Dioxide 23 mmol/L (23-31); Cardiac Risk 7.9 (Less than 4.5); Chloride 106 mmol/L (98-107); Cholesterol 126 mg/dl (< 200 Desired); Estimated GFR-MDRD 59; Globulin 3.5 g/dL (2.4-3.5); Glucose 147 mg/dL (83-110); HDL Cholesterol 16 mg/dL (>60 Neg Risk); LDL Cholesterol, Calculated 87 mg/dL; Magnesium 1.9 mg/dL (1.6-2.6); Phosphorus 3.4 mg/dL (2.3-4.7); Potassium 3.7 mmol/L (3.5-5.1); Protein, Total 5.9 g/dL (6.0-8.3); Sodium 138 mmol/L (136-145); Triglycerides 117 mg/dL (Less than 150)
[2017-06-30] MEDS: Pregabalin 75 MG CAP PO SCH ×2 (08:09→22:04)
[2017-06-30] MEDS: Pantoprazole 40 MG VIAL IVP SCH (08:09)
[2017-06-30] MEDS: Amlodipine 5 MG TAB PO SCH (08:10)
[2017-06-30] MEDS: Bisacodyl 10 MG SUPP PR SCH (08:11)
[2017-06-30] MEDS: Enoxaparin Sodium 40 MG/0.4 ML SYRINGE SC SCH (08:11)
--- NOTE | 2017-06-30 10:56 | RAD ---
KUB: Date: 06-30-17 Comparison: 06-29-17 History: Abdominal pain. FINDINGS: A rectal tube is in place. It has been retracted since the prior examination terminating over the lef t aspect of the pelvis, probably within the region of the distal sigmoid colon. A gastrostomy tube is present. There is residual contrast media within the ascending colon and descending colon. There is gaseous distention of the transverse colon which persists when compared to prior imaging, measuring i n the 12.3 cm range in the craniocaudal dimension. This is improved when compared to prior imaging. T he colon otherwise appears decompressed. Supine imaging limits assessment for free air and small aleksandr l obstruction. IMPRESSION: Residual contrast media seen within the colon. Persistent dilatation of transverse colon measuring up 12.3 cm in craniocaudal dimension, markedly improved when compared to prior imaging (measured up to 18.3 cm craniocaudal dimension on 06-27-17). POS: [facility]
[2017-06-30] MEDS ORDERED: [UNRECOGNIZED DRUG - OTHER] IV SCH (11:45)
[2017-06-30] MEDS ORDERED: MULTIVITAMINS IV SCH (11:45)
[2017-06-30] MEDS ORDERED: MULTITRACE IV SCH (11:45)
[2017-06-30] MEDS ORDERED: FAT EMULSION IV SCH (11:45)
[2017-06-30] MEDS ORDERED: traMADol HCl 50 MG TAB PO PRN (12:40)
--- NOTE | 2017-06-30 12:50 | PDOC.PN ---
- Subjective Encounter Start Date: 06/30/17 Encounter Start Time: 12:48 Patient seen and examined, no new issues or complaints, states her SOB feels a bit better than yesterday, no family at bedside, all questions answered. - Objective Vital Signs & Weight: Vital Signs (12 hours) Temp Pulse Resp BP BP Pulse Ox 06/30/17 11:55 98.2 F 97 15 175/91 H 96 06/30/17 08:15 98.2 F 101 H 16 06/30/17 08:10 101 H 180/94 H 06/30/17 07:41 98.2 F 100 16 180/94 H 94 L Weight Admit Weight 150 lb Weight 150 lb I&O: 06/29/17 06/30/17 07/01/17 06:59 06:59 06:59 Intake Total 240 640 Balance 240 640 Result Diagrams: 06/30/17 05:24 06/30/17 05:24 Phys Exam - Physical Examination mild distress, better than yesterday HEENT: PERRLA, moist MMs, sclera anicteric Neck: no nodes, no JVD, supple inspiratory crackles noted improved since yesterday Cardiovascular: RRR, no significant murmur, no rub Gastrointestinal: soft, no distention surgical site C/D/I, mild tender to palpation Musculoskeletal: pulses present, edema present (trace) Neurological: non-focal, normal sensation Dx/Plan (1) SOB (shortness of breath) Code(s): R06.02 - SHORTNESS OF BREATH Status: Acute (2) Anemia Code(s): D64.9 - ANEMIA, UNSPECIFIED Status: Acute (3) Chest pain Code(s): R07.9 - CHEST PAIN, UNSPECIFIED Status: Acute Comment: pain msk in origin tramadol as needed (4) Nausea & vomiting Code(s): R11.2 - NAUSEA WITH VOMITING, UNSPECIFIED Status: Acute Comment: pt has h/o esophageal stricture and has been dilated in the past (5) Hypertension Code(s): I10 - ESSENTIAL (PRIMARY) HYPERTENSION Status: Chronic Qualifiers: Hypertension type: essential hypertension Qualified Code(s): I10 - Essential (primary) hypertension - Plan * At this point in time ABG is normal, Hgb remains in 8.5-9 range, baseline appears to be closer to 12.5-13, d/w surgery, will transfuse 2 units of PRBCs and give lasix 40mg after each unit, SOB may be due to anemia * echo pending * GI and surgery following * zofran PRN for nausea * pain to be controlled with tramadol, toradol DC given baseline renal dysfunction and morphine may worsen constipation thus will stick with tramadol for now * increase norvasc to 10mg for BP control, traget SBP 140-160mmHg for now then will slowly bring it down, BP likely due to baseline high BP as well as discomfort/pain * will do repeat CXR in AM and if remains congested will consider daily low dose lasix for diuresis * case and plan d/w patient at length, she understands and agrees with this plan * Will follow closely with you and make adjustments as appropriate from a medical perspective.
[2017-06-30] MEDS ORDERED: Ondansetron HCl/PF 4 MG/2 ML Vial IVP PRN (12:54)
[2017-06-30] MEDS ORDERED: Furosemide 40 MG/4 ML VIAL SLOW IVP SCH (13:00)
[2017-06-30] MEDS ORDERED: Fleet Enema 133 ML BOT PR SCH (15:15)
[2017-07-01 05:37] LABS: #Eosinphils 0.2 thou/uL (0.0-0.7); #Lymphocytes 1.5 thou/uL (1.20-3.40); #Neutrophils 8.4 thou/uL (1.40-6.50); %Basophils 0.3 % (0.0-1.0); %Eosinophils 1.5 % (0.0-10.0); %Lymphocytes 13.6 % (21.0-51.0); %Monocytes 9.2 % (0.0-10.0); %Neutrophils 75.5 % (42.0-75.0); Hemoglobin 11.1 g/dL (12.0-16.0); Mean Corpuscular HGB CONC 32.4 g/dL (32.0-36.0); Mean Corpuscular Hemoglobin 29.2 pg (27.0-31.0); Mean Corpuscular Volume 90.1 fl (81.0-99.0); Mean Platelet Volume 6.5 fL (7.4-10.4); Platelet Count 618 thou/uL (130-400); RBC Distribution Width 12.9 % (11.5-14.5); Red Blood Cell (RBC) Count 3.81 mill/uL (4.20-5.40); White Blood Cell (WBC) Count 11.2 thou/uL (4.8-10.8)
[2017-07-01] MEDS: Acetaminophen 325 MG TAB PO PRN ×2 (05:48→18:06)
[2017-07-01 06:04] LABS: ALT (SGPT) 22 U/L (8-55); AST (SGOT) 36 U/L (5-34); Albumin 2.6 g/dL (3.4-4.8); Alkaline Phosphatase 294 U/L (40-150); Anion Gap 11 mmol/L (10-20); BUN (Urea Nitrogen) 32 mg/dL (9.8-20.1); Bilirubin, Total 0.6 mg/dL (0.2-1.2); Calc. Creatinine Clearance 49 mL/min (70-130); Calcium 9.2 mg/dL (7.8-10.44); Carbon Dioxide 27 mmol/L (23-31); Chloride 102 mmol/L (98-107); Estimated GFR-MDRD 63; Globulin 3.6 g/dL (2.4-3.5); Glucose 143 mg/dL (83-110); Magnesium 1.7 mg/dL (1.6-2.6); Phosphorus 3.3 mg/dL (2.3-4.7); Potassium 3.4 mmol/L (3.5-5.1); Protein, Total 6.2 g/dL (6.0-8.3); Sodium 137 mmol/L (136-145)
[2017-07-01] MEDS: Pregabalin 75 MG CAP PO SCH ×2 (08:09→20:37)
[2017-07-01] MEDS: Enoxaparin Sodium 40 MG/0.4 ML SYRINGE SC SCH (08:09)
[2017-07-01] MEDS: Pantoprazole 40 MG VIAL IVP SCH (08:09)
[2017-07-01] MEDS: Bisacodyl 10 MG SUPP PR SCH (08:11)
[2017-07-01] MEDS: Amlodipine 10 MG TAB PO SCH (08:11)
--- NOTE | 2017-07-01 09:00 | RAD ---
FRONTAL VIEW ABDOMEN: Date: 07/01/17 COMPARISON: Previous day. CLINICAL HISTORY: Abdominal pain. Ileus. FINDINGS: There is prominent gaseous distention of the bowel persisting. Redemonstration of retained enteric co ntrast, some of which has passed in the interim. There is exclusion of the upper abdomen from view. P rior catheter overlying the pelvis has been removed. IMPRESSION: Persistent gaseous distention of the bowel. Slight interval decrease in volume of retained enteric co ntrast indicating interval passage. Correlate clinically. POS: [facility]
[2017-07-01] MEDS: Dextrose 5 % And 0.9 % NaCl 1,000 ML IV SCH (11:52)
[2017-07-01] MEDS ORDERED: [UNRECOGNIZED DRUG - OTHER] IV SCH (14:00)
[2017-07-01] MEDS ORDERED: MULTIVITAMINS IV SCH (14:00)
[2017-07-01] MEDS ORDERED: FAT EMULSION IV SCH (14:00)
[2017-07-01] MEDS ORDERED: MULTITRACE IV SCH (14:00)
--- NOTE | 2017-07-01 14:11 | PRG ---
DATE OF SERVICE: 06/30/2017 SUBJECTIVE: Ms. Jeffery is resting in bed. The nurses noted that she has bowel movement last night a nd is severe this morning. The patient says she did not pass a gas. She did not want to get up bharath y because she said her stomach hurt. This afternoon, she tells me her chest hurts in sternal area. OBJECTIVE: VITAL SIGNS: Temperature is 98, pulse 97, although it was 101 earlier today. T-max 98.3. Last temp erature 99 was on 06/28/2017. O2 sat 96% on 2 liters nasal cannula, respirations 15. LUNGS: Clear. CARDIAC: Heart regular without clicks or murmurs. ABDOMEN: Soft, it is protuberant. There is scant bowel sound. There is no rebound. There is no gu arding. It is less tense than it was for sure the last couple of days. LABORATORY STUDIES: Hemoglobin is 8.9, white count 13.1, platelet count 626. Sodium 138, BUN and cr eatinine are 28 and 0.9, glucose 147, alkaline phosphatase 235. Liver function tests otherwise donna l. Albumin is 2.5. C. diff on 06/27/2017 was negative. Abdominal films markedly decreased distenti on of the colon dropping from 18-12 cm, there is much less colonic gas. Her abdomen is much softer. ASSESSMENT: Ileus, improving, likely related to deconditioning, poor mobility, pain medications and recent surgery. RECOMMENDATIONS: 1. We would start a trial of tube feeds at a very low rate. We would give her enema today. Continu e daily suppositories. 2. Avoidance of narcotics is essential at this point in time and increase mobility and even movement just in the bed is essential at this time for her recovery.
--- NOTE | 2017-07-01 14:37 | PDOC.PN ---
- Subjective Encounter Start Date: 07/01/17 Encounter Start Time: 14:25 Patient seen and examined, no new issues or complaints, states she feels much better with near resolution of her SOB, all questions answered. - Objective Vital Signs & Weight: Vital Signs (12 hours) Temp Pulse Resp BP BP Pulse Ox 07/01/17 11:15 97.5 F L 96 18 109/70 98 07/01/17 10:52 158/98 H 07/01/17 08:15 98.2 F 94 20 97 07/01/17 08:11 94 167/99 H 07/01/17 07:33 98.2 F 94 20 167/99 H 97 07/01/17 03:28 98.6 F 94 16 161/77 H 98 Weight Admit Weight 150 lb Weight 150 lb I&O: 06/30/17 07/01/17 07/02/17 06:59 06:59 06:59 Intake Total 640 350 30 Output Total 60 Balance 640 290 30 Result Diagrams: 07/01/17 04:51 07/01/17 04:51 Phys Exam - Physical Examination Constitutional: NAD HEENT: PERRLA, moist MMs, sclera anicteric Neck: no nodes, no JVD, supple Respiratory: no wheezing, no rales, no rhonchi Cardiovascular: RRR, no significant murmur, no rub Gastrointestinal: soft, non-tender, no distention surgical site C/D/I Musculoskeletal: pulses present, edema present (trace) Neurological: non-focal, normal sensation Dx/Plan (1) SOB (shortness of breath) Code(s): R06.02 - SHORTNESS OF BREATH Status: Acute (2) Anemia Code(s): D64.9 - ANEMIA, UNSPECIFIED Status: Acute (3) Chest pain Code(s): R07.9 - CHEST PAIN, UNSPECIFIED Status: Acute Comment: pain msk in origin tramadol as needed (4) Nausea & vomiting Code(s): R11.2 - NAUSEA WITH VOMITING, UNSPECIFIED Status: Acute Comment: pt has h/o esophageal stricture and has been dilated in the past (5) Hypertension Code(s): I10 - ESSENTIAL (PRIMARY) HYPERTENSION Status: Chronic Qualifiers: Hypertension type: essential hypertension Qualified Code(s): I10 - Essential (primary) hypertension - Plan * SOB improved * anemia improved as well * continue with diuretic therapy * continue PT * labs in AM
--- NOTE | 2017-07-01 16:58 | PRG ---
DATE OF SERVICE: 07/01/2017 SUBJECTIVE: Ms. Jeffery is without complaints today. She is tolerating tube feeds and rates have bee n increased to 30 an hour. Nurses note she had suppository this morning, yesterday and have enema ye sterday and did have a bowel movement yesterday. OBJECTIVE: VITAL SIGNS: Temperature 97.5, pulse 96, blood pressure 109/70. LUNGS: Clear. ABDOMEN: Soft. Bowel sounds are positive. EXTREMITIES: Without clubbing, cyanosis or edema. LABORATORY STUDIES: White count 11.2, hemoglobin 11.1, platelet count is 618. Sodium 137, potassium 3.4, BUN and creatinine are 32 and 0.85, AST 36, ALT 22, alkaline phosphatase 294. ASSESSMENT: Ileus secondary to immobility, narcotics, infection, major surgery, resolving. RECOMMENDATIONS: 1. The patient needs to be out of bed 3 times per day. 2. The patient needs to be ambulates or ambulate in the petersen. 3. If patient continues to tolerate diet, we would advance diet and stop her TPN. 4. The patient needs to be on no narcotics whatsoever. 5. With regard to fluid collection in the chest, we will defer to General Surgery. They feel that t his is postoperative change at this point in time and not infection or abscess. I discussed this wit h Dr. Carey in detail.
[2017-07-02] MEDS: Dextrose 5 % And 0.9 % NaCl 1,000 ML IV SCH ×2 (01:13→07:57)
[2017-07-02] MEDS: Acetaminophen 325 MG TAB PO PRN ×2 (06:20→18:31)
[2017-07-02] MEDS: Bisacodyl 10 MG SUPP PR SCH (07:54)
[2017-07-02] MEDS: Amlodipine 10 MG TAB PO SCH (07:55)
[2017-07-02] MEDS: Enoxaparin Sodium 40 MG/0.4 ML SYRINGE SC SCH (07:55)
[2017-07-02] MEDS: Pregabalin 75 MG CAP PO SCH ×2 (07:56→20:38)
[2017-07-02] MEDS: Pantoprazole 40 MG VIAL IVP SCH (07:56)
[2017-07-02 10:04] LABS: ALT (SGPT) 38 U/L (8-55); AST (SGOT) 64 U/L (5-34); Albumin 2.6 g/dL (3.4-4.8); Alkaline Phosphatase 320 U/L (40-150); Anion Gap 15 mmol/L (10-20); BUN (Urea Nitrogen) 43 mg/dL (9.8-20.1); Bilirubin, Total 0.6 mg/dL (0.2-1.2); Calc. Creatinine Clearance 39 mL/min (70-130); Calcium 8.5 mg/dL (7.8-10.44); Carbon Dioxide 20 mmol/L (23-31); Chloride 105 mmol/L (98-107); Estimated GFR-MDRD 49; Globulin 3.8 g/dL (2.4-3.5); Glucose 89 mg/dL (83-110); Magnesium 1.9 mg/dL (1.6-2.6); Phosphorus 3.1 mg/dL (2.3-4.7); Potassium 4.6 mmol/L (3.5-5.1); Protein, Total 6.4 g/dL (6.0-8.3); Sodium 135 mmol/L (136-145)
--- NOTE | 2017-07-02 11:44 | PDOC.GSPN ---
Surgery Progress Note: Subj - Subjective Patient reports: no new complaints (seems to be tolerating TF) Surgery Progress Note: Obj - Vital signs Vital signs: Vital Signs - Most Recent Temp Pulse Resp BP Pulse Ox 97.6 F 69 18 132/69 97 07/02/17 08:35 07/02/17 08:35 07/02/17 08:35 07/02/17 07:55 07/02/17 08:35 - Physical Exam General: no distress Abdomen: soft, non tender, nondistended Wound: healing well Surgery Progress Note: Results - Labs Result Diagrams: 07/01/17 04:51 07/02/17 09:26 Lab results: Laboratory Results - last 24 hr 07/02/17 09:26 Sodium 135 L Potassium 4.6 Chloride 105 Carbon Dioxide 20 L Anion Gap 15 BUN 43 H Creatinine 1.06 Estimated GFR (MDRD) 49 Glucose 89 Calcium 8.5 Phosphorus 3.1 Magnesium 1.9 Total Bilirubin 0.6 AST 64 H ALT 38 Alkaline Phosphatase 320 H Serum Total Protein 6.4 Albumin 2.6 L Globulin 3.8 H Albumin/Globulin Ratio 0.7 L Surgery Progress Note: A/P - Problem (1) Hiatal hernia Current Visit: Yes Code(s): K44.9 - DIAPHRAGMATIC HERNIA WITHOUT OBSTRUCTION OR GANGRENE Status: Acute Assessment and Plan: Ileus resolving. Tolerating TF. hopefully transition to oral nutrition soon
--- NOTE | 2017-07-02 14:16 | PRG ---
DATE OF SERVICE: 07/02/2017 SUBJECTIVE: Ms. Jeffery states she feels better. She actually wants some coffee. She thinks she is getting better because her appetite is returning. In talking with the nurses, she was up and walking with physical therapy yesterday, she was up in her chair for 3 hours last night. She started having some diarrhea, which looks like her tube feeds. PHYSICAL EXAMINATION: VITAL SIGNS: Temperature is 97.6, pulse 69, blood pressure 133/69. GENERAL: The patient is much more alert and oriented. LUNGS: Clear. HEART: Has a regular rate and rhythm. ABDOMEN: Soft, nontender, and slightly protuberant. There are scant bowel sounds with air present. EXTREMITIES: Reveal no edema. LABORATORY STUDIES: Sodium 135, potassium 4.6, BUN and creatinine are 43 and 1.06. Liver function t ests normal except for an AST of 64 and alkaline phosphatase is 320. ASSESSMENT: 1. Ileus, resolving. She started to take clear liquids and is going to have full liquids for lunch today. 2. Diarrhea, likely related to her tube feeds. She does not smell like C. diff according to the bela ses, there was no blood as exact consistency and appearance of her tube feeds, which should be increa sed to 50 an hour. 3. Status post repair of large hiatal hernia. She continues on levofloxacin, Protonix, and we will start her on a probiotic. She had C. diff last week, which was negative. Hopefully, we will get her going on a p.o. diet, we can stop her tube feeds. If diarrhea persists despite this, we will need t o recheck the C. diff. 4. We will recheck labs tomorrow, electrolytes, magnesium, phosphorus, and CBC in light of her diarr hea.
--- NOTE | 2017-07-02 14:24 | PDOC.PN ---
- Subjective Encounter Start Date: 07/02/17 Encounter Start Time: 14:23 Patient seen and examined, states she feels well and has been having several bowel movements, all questions answered. - Objective Vital Signs & Weight: Vital Signs (12 hours) Temp Pulse Resp BP BP Pulse Ox 07/02/17 10:55 97.4 F L 79 24 H 140/74 96 07/02/17 08:35 97.6 F 69 18 97 07/02/17 07:55 69 132/69 07/02/17 07:30 97.6 F 69 28 H 132/69 97 07/02/17 03:15 97.6 F 69 16 108/56 L 97 Weight Admit Weight 150 lb Weight 150 lb I&O: 07/01/17 07/02/17 07/03/17 06:59 06:59 06:59 Intake Total 350 30 30 Output Total 60 Balance 290 30 30 Result Diagrams: 07/01/17 04:51 07/02/17 09:26 Phys Exam - Physical Examination Constitutional: NAD HEENT: PERRLA, moist MMs, sclera anicteric Neck: no nodes, no JVD, supple Respiratory: no wheezing, no rales, no rhonchi Cardiovascular: RRR, no significant murmur, no rub Gastrointestinal: soft, non-tender, no distention surgical site C/D/I Musculoskeletal: pulses present, edema present (trace) Dx/Plan (1) SOB (shortness of breath) Code(s): R06.02 - SHORTNESS OF BREATH Status: Acute (2) Anemia Code(s): D64.9 - ANEMIA, UNSPECIFIED Status: Acute (3) Chest pain Code(s): R07.9 - CHEST PAIN, UNSPECIFIED Status: Acute Comment: pain msk in origin tramadol as needed (4) Nausea & vomiting Code(s): R11.2 - NAUSEA WITH VOMITING, UNSPECIFIED Status: Acute Comment: pt has h/o esophageal stricture and has been dilated in the past (5) Hypertension Code(s): I10 - ESSENTIAL (PRIMARY) HYPERTENSION Status: Chronic Qualifiers: Hypertension type: essential hypertension Qualified Code(s): I10 - Essential (primary) hypertension - Plan * d/w GI, will decrease tube feeds and monitor * patient's clinical condition improved significantly post blood transfusion, Hgb stable for now, will monitor * surgery also following * will do labs for now, no other changes, continue current plan of care * case and plan d/ wpatient at length, she understands and agrees with this plan
[2017-07-03] MEDS: Dextrose 5 % And 0.9 % NaCl 1,000 ML IV SCH ×2 (01:02→14:52)
[2017-07-03] MEDS: Acetaminophen 325 MG TAB PO PRN ×2 (04:36→11:58)
[2017-07-03 05:56] LABS: #Basophils 0.1 thou/uL (0.0-0.2); #Eosinphils 0.5 thou/uL (0.0-0.7); #Lymphocytes 1.6 thou/uL (1.20-3.40); #Monocytes 0.9 thou/uL (0.11-0.59); #Neutrophils 6.8 thou/uL (1.40-6.50); %Basophils 0.6 % (0.0-1.0); %Eosinophils 4.7 % (0.0-10.0); %Monocytes 9.2 % (0.0-10.0); %Neutrophils 69.5 % (42.0-75.0); Hemoglobin 9.9 g/dL (12.0-16.0); Mean Corpuscular HGB CONC 31.7 g/dL (32.0-36.0); Mean Corpuscular Hemoglobin 29.3 pg (27.0-31.0); Mean Corpuscular Volume 92.3 fl (81.0-99.0); Mean Platelet Volume 6.4 fL (7.4-10.4); Platelet Count 610 thou/uL (130-400); RBC Distribution Width 13.3 % (11.5-14.5); Red Blood Cell (RBC) Count 3.38 mill/uL (4.20-5.40); White Blood Cell (WBC) Count 9.8 thou/uL (4.8-10.8)
[2017-07-03 06:22] LABS: ALT (SGPT) 29 U/L (8-55); AST (SGOT) 33 U/L (5-34); Albumin 2.5 g/dL (3.4-4.8); Alkaline Phosphatase 251 U/L (40-150); Anion Gap 9 mmol/L (10-20); BUN (Urea Nitrogen) 29 mg/dL (9.8-20.1); Bilirubin, Total 0.5 mg/dL (0.2-1.2); Calc. Creatinine Clearance 50 mL/min (70-130); Calcium 8.4 mg/dL (7.8-10.44); Carbon Dioxide 26 mmol/L (23-31); Chloride 107 mmol/L (98-107); Estimated GFR-MDRD 64; Globulin 3.1 g/dL (2.4-3.5); Glucose 105 mg/dL (83-110); Magnesium 1.7 mg/dL (1.6-2.6); Phosphorus 2.5 mg/dL (2.3-4.7); Potassium 3.5 mmol/L (3.5-5.1); Protein, Total 5.6 g/dL (6.0-8.3); Sodium 138 mmol/L (136-145)
--- NOTE | 2017-07-03 08:15 | PRG ---
DATE OF SERVICE: 07/03/2017 SUBJECTIVE: Ms. Jeffery is doing better. She is taking more p.o. now. Tube feeds are decreased by Vickie Plummer. PHYSICAL EXAMINATION: VITAL SIGNS: She is afebrile. Vital signs are stable. Urine output, multiple voids. She is having multiple bowel movements. ABDOMEN: Soft, nontender, nondistended. ASSESSMENT: Resolving ileus, decreasing tube feeds. PLAN: Encouraging p.o. intake. Continue physical therapy.
[2017-07-03] MEDS: Bisacodyl 10 MG SUPP PR SCH (08:40)
[2017-07-03] MEDS: Pantoprazole 40 MG VIAL IVP SCH (09:39)
[2017-07-03] MEDS: Amlodipine 10 MG TAB PO SCH (09:39)
[2017-07-03] MEDS: Pregabalin 75 MG CAP PO SCH ×2 (09:39→20:20)
[2017-07-03] MEDS: Saccharomyces boulardii 250 MG CAP PO SCH (09:39)
[2017-07-03] MEDS: Enoxaparin Sodium 40 MG/0.4 ML SYRINGE SC SCH (09:40)
[2017-07-03 09:58] LABS: Iron 27 ug/dL (50-170); Iron Binding Capacity, Total 208 mcg/dL (265-497)
--- NOTE | 2017-07-03 11:03 | PDOC.PN ---
- Subjective Encounter Start Date: 07/03/17 Encounter Start Time: 11:01 Patient seen and examined, states she feels well, no new issues, all questions answered. - Objective Vital Signs & Weight: Vital Signs (12 hours) Temp Pulse Resp BP Pulse Ox 07/03/17 09:39 88 07/03/17 08:33 98.3 F 89 16 169/79 H 98 07/03/17 04:43 98.2 F 90 18 159/77 H 95 07/03/17 00:25 96 Weight Admit Weight 150 lb Weight 150 lb I&O: 07/02/17 07/03/17 07/04/17 06:59 06:59 06:59 Intake Total 30 2842 Balance 30 2842 Result Diagrams: 07/03/17 05:50 07/03/17 05:50 Phys Exam - Physical Examination Constitutional: NAD HEENT: PERRLA, moist MMs, sclera anicteric Neck: no nodes, no JVD, supple Respiratory: no wheezing, no rales, no rhonchi, clear to auscultation bilateral Cardiovascular: RRR, no significant murmur, no rub Gastrointestinal: soft, non-tender, no distention surgical site C/D/I Musculoskeletal: pulses present, edema present (trace) Dx/Plan (1) SOB (shortness of breath) Code(s): R06.02 - SHORTNESS OF BREATH Status: Acute (2) Anemia Code(s): D64.9 - ANEMIA, UNSPECIFIED Status: Acute (3) Chest pain Code(s): R07.9 - CHEST PAIN, UNSPECIFIED Status: Acute Comment: pain msk in origin tramadol as needed (4) Nausea & vomiting Code(s): R11.2 - NAUSEA WITH VOMITING, UNSPECIFIED Status: Acute Comment: pt has h/o esophageal stricture and has been dilated in the past (5) Hypertension Code(s): I10 - ESSENTIAL (PRIMARY) HYPERTENSION Status: Chronic Qualifiers: Hypertension type: essential hypertension Qualified Code(s): I10 - Essential (primary) hypertension - Plan * Hgb stable, will check iron saturation and ferritin for completness * BP stable * continue current plan of care for now * will continue to follow with you and make adjustments as appropriate from a medical perspective
[2017-07-04] MEDS: Dextrose 5 % And 0.9 % NaCl 1,000 ML IV SCH ×2 (04:03→18:19)
[2017-07-04] MEDS: Labetalol HCl 100 MG/20 ML VIAL SLOW IVP PRN (06:48)
[2017-07-04 08:09] LABS: #Eosinphils 0.4 thou/uL (0.0-0.7); #Lymphocytes 1.7 thou/uL (1.20-3.40); #Monocytes 0.9 thou/uL (0.11-0.59); #Neutrophils 8.6 thou/uL (1.40-6.50); %Basophils 0.3 % (0.0-1.0); %Eosinophils 3.1 % (0.0-10.0); %Lymphocytes 14.6 % (21.0-51.0); %Monocytes 7.8 % (0.0-10.0); %Neutrophils 74.2 % (42.0-75.0); Hemoglobin 12.4 g/dL (12.0-16.0); Mean Corpuscular HGB CONC 32.8 g/dL (32.0-36.0); Mean Corpuscular Hemoglobin 30.2 pg (27.0-31.0); Mean Corpuscular Volume 92.1 fl (81.0-99.0); Mean Platelet Volume 6.8 fL (7.4-10.4); Platelet Count 684 thou/uL (130-400); RBC Distribution Width 13.6 % (11.5-14.5); Red Blood Cell (RBC) Count 4.09 mill/uL (4.20-5.40); White Blood Cell (WBC) Count 11.6 thou/uL (4.8-10.8)
[2017-07-04 08:25] LABS: ALT (SGPT) 31 U/L (8-55); AST (SGOT) 29 U/L (5-34); Alkaline Phosphatase 262 U/L (40-150); Anion Gap 11 mmol/L (10-20); BUN (Urea Nitrogen) 16 mg/dL (9.8-20.1); Bilirubin, Total 0.6 mg/dL (0.2-1.2); Calc. Creatinine Clearance 54 mL/min (70-130); Calcium 9.3 mg/dL (7.8-10.44); Carbon Dioxide 27 mmol/L (23-31); Chloride 104 mmol/L (98-107); Estimated GFR-MDRD 70; Globulin 3.9 g/dL (2.4-3.5); Glucose 135 mg/dL (83-110); Potassium 3.6 mmol/L (3.5-5.1); Protein, Total 6.9 g/dL (6.0-8.3); Sodium 138 mmol/L (136-145)
[2017-07-04] MEDS: Enoxaparin Sodium 40 MG/0.4 ML SYRINGE SC SCH (08:30)
[2017-07-04] MEDS: Saccharomyces boulardii 250 MG CAP PO SCH (08:30)
[2017-07-04] MEDS: Pantoprazole 40 MG VIAL IVP SCH (08:30)
[2017-07-04] MEDS: Bisacodyl 10 MG SUPP PR SCH (08:30)
[2017-07-04] MEDS: Pregabalin 75 MG CAP PO SCH ×2 (08:30→22:13)
[2017-07-04] MEDS: Amlodipine 10 MG TAB PO SCH (08:30)
--- NOTE | 2017-07-04 11:25 | PRG ---
DATE OF SERVICE: 07/04/2017 The patient is feeling better today, less pain. She is tolerating some p.o. liquids. She says she i s urinating quite a bit and would like to get rid of her IV. No nausea or vomiting. She is still on some tube feeding. PHYSICAL EXAMINATION: VITAL SIGNS: Temperature is 98, pulse 85, blood pressure 186/98. GENERAL: She looks good, better than before, in no distress. LUNGS: Clear. HEART: Regular rate and rhythm. ABDOMEN: Soft, nondistended, nontender. She is having bowel movements. : She is urinating quite a bit. PLAN: Decrease or eliminate the peripheral IV fluid and slowly advance diet to wean her off the tube feedings. Then hope to get her to a senior living soon.
--- NOTE | 2017-07-04 11:31 | PRG ---
DATE OF SERVICE: 07/03/2017 SUBJECTIVE: Ms. Jeffery looked more tired today than she did yesterday, although she did get up and w alk some. She is now sitting in a chair, taking a nap. She states that she feels a little bit fulln ess when eat much, but she is eating some. She continues on tube feeds at 20 an hour. She is not hooper ving diarrhea. PHYSICAL EXAMINATION: VITAL SIGNS: Temperature is 98, pulse 97, blood pressure 175/87. LUNGS: Clear. HEART: Regular rate and rhythm. ABDOMEN: Soft, nontender, there is a slight protuberant. Bowel sounds are positive, but not real ac tive. Nurse note she has good bowel movements yesterday, scant one today. LABORATORY DATA: White count 9.8, hemoglobin 9.9, platelet count 610, iron 27, TIBC 208, saturation 18, ferritin 25, BUN and creatinine are 29 and 0.84. Alkaline phosphatase is 251. Liver function te st normal. ASSESSMENT: 1. Anemia, stable chronic disease. She appeared she has had a recent EGD in the outpatient setting and the colonoscopy here. 2. Chest pain, shortness of breath improved transfusion. 3. Nausea, vomiting, improved. She had a large hiatal hernia, just repaired. She is tolerating p.o . fine with no dysphagia. 4. Hypertension. 5. Ileus, improved. 6. Diarrhea, likely related to tube feeds as we decreased from 15-20 an hour and improved. RECOMMENDATIONS: 1. Continue aggressive physical therapy and mobility. 2. Avoid narcotics. 3. Wean off tube feeds and transitioned to p.o. intake. At this time, she is improved quite a bit. We will follow from a distance. If I can be of any further assistance, please do not hesitate to co ntact me.
--- NOTE | 2017-07-04 19:21 | PDOC.PN ---
- Subjective Encounter Start Date: 07/04/17 Encounter Start Time: 18:55 Subjective: f/u chest pain of musculoskeletal origin. Overall doing ok but weak and -: needing SNF care. Diet advancing with Ensure TID. Voiding appropriately. - Objective MAR Reviewed: Yes Vital Signs & Weight: Vital Signs (12 hours) Temp Pulse Resp BP BP Pulse Ox 07/04/17 11:59 97.6 F 83 15 136/83 96 07/04/17 08:30 85 186/98 H 07/04/17 08:00 97.6 F 83 15 07/04/17 07:32 98.2 F 80 18 166/80 H 94 L Weight Admit Weight 150 lb Weight 150 lb I&O: 07/03/17 07/04/17 07/05/17 06:59 06:59 06:59 Intake Total 2842 2260 Balance 2842 2260 Result Diagrams: 07/04/17 07:43 07/04/17 07:43 Additional Labs: Laboratory Tests 06/30/17 07/01/17 07/03/17 05:24 04:51 05:50 WBC 13.1 H 11.2 H 9.8 Hgb 8.9 L 11.1 L 9.9 L Plt Count 626 H 618 H 610 H Phys Exam - Physical Examination Constitutional: NAD HEENT: PERRLA, oral pharynx no lesions Neck: no JVD, supple Respiratory: no wheezing, clear to auscultation bilateral Cardiovascular: RRR surgical incision C/D/I Gastrointestinal: soft, non-tender, no distention, positive bowel sounds Musculoskeletal: no edema, pulses present Neurological: normal sensation, moves all 4 limbs Skin: normal turgor, cap refill <2 seconds Dx/Plan (1) Chest pain Code(s): R07.9 - CHEST PAIN, UNSPECIFIED Status: Chronic Comment: Musculoskeletal in origin, Tramadol prn (2) Anemia Code(s): D64.9 - ANEMIA, UNSPECIFIED Status: Chronic Qualifiers: Anemia type: iron deficiency Comment: Likely subacute with component of iron-deficiency, FeSO4 replacement as outpt (3) Hiatal hernia Code(s): K44.9 - DIAPHRAGMATIC HERNIA WITHOUT OBSTRUCTION OR GANGRENE Status: Chronic Comment: s/p Madi fundoplication and hernia repair (4) Physical deconditioning Code(s): R53.81 - OTHER MALAISE Status: Chronic Comment: CM consult for [facility]/ SNF - Plan 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
[2017-07-04] MEDS: Acetaminophen 325 MG TAB PO PRN (22:14)
[2017-07-05 05:48] LABS: ALT (SGPT) 23 U/L (8-55); AST (SGOT) 25 U/L (5-34); Albumin 2.8 g/dL (3.4-4.8); Alkaline Phosphatase 218 U/L (40-150); Anion Gap 12 mmol/L (10-20); BUN (Urea Nitrogen) 18 mg/dL (9.8-20.1); Bilirubin, Total 0.6 mg/dL (0.2-1.2); Calc. Creatinine Clearance 52 mL/min (70-130); Calcium 9.2 mg/dL (7.8-10.44); Carbon Dioxide 24 mmol/L (23-31); Chloride 106 mmol/L (98-107); Estimated GFR-MDRD 67; Globulin 3.3 g/dL (2.4-3.5); Glucose 91 mg/dL (83-110); Potassium 3.9 mmol/L (3.5-5.1); Protein, Total 6.1 g/dL (6.0-8.3); Sodium 138 mmol/L (136-145)
[2017-07-05 08:09] VITALS: TEMP 98.1
[2017-07-05] MEDS: Enoxaparin Sodium 40 MG/0.4 ML SYRINGE SC SCH (09:31)
[2017-07-05] MEDS: Amlodipine 10 MG TAB PO SCH (09:31)
[2017-07-05] MEDS: Pantoprazole 40 MG VIAL IVP SCH (09:31)
[2017-07-05] MEDS: Pregabalin 75 MG CAP PO SCH (09:31)
[2017-07-05] MEDS: Saccharomyces boulardii 250 MG CAP PO SCH (09:31)
[2017-07-05 11:45] VITALS: BP 146/86
--- NOTE | 2017-07-05 13:39 | DIS ---
DISCHARGE DIAGNOSES: 1. Large paraesophageal hiatal hernia with obstruction. 2. Dementia. 3. Wu syndrome of colon. 4. Fecal impaction. 5. Urinary tract infection. PROCEDURES DURING ADMISSION: Laparoscopic hiatal hernia repair with mesh, percutaneous endoscopic ga strostomy, Gastrografin swallow, PICC line placement, fecal disimpaction, colonoscopy. Multiple CT s cans of abdomen and echocardiogram. HOSPITAL COURSE: The patient was admitted, she was given IV fluids. General Surgery consulted. She was taken to the operating room where she underwent a laparoscopic repair of hiatal hernia with mesh and percutaneous endoscopic gastrostomy. Postoperatively, she had a stormy postoperative course. S he had a lot of pain. She had bloating. She would not swallow. Initial swallow was fine with some swelling. The PEG tube was used to feed her, but then she bloated up. She had to be started on TPN. A PICC line was placed. The G-tube was placed to gravity. Her belly went down, but every time we tried to feed her it went back up so we had to continue to treat her with TPN. She was found to be f ecally impacted. She was disimpacted. She continued to have a very large bloated colon. GI was con sulted. They did not find of physical reason for this. She was diagnosed with a [place]'s. A rectal tube was placed. She was decompressed. Eventually, her gut started working again. Tube feedings w ere reinstated and then eventually she was started back on a soft diet. She is now tolerating that s oft diet well. She is discharged to long-term in good condition. She will follow up with me in 2 weeks.
--- NOTE | 2017-07-06 04:58 | DIS ---
TRANSFER OF CARE NOTE DISCHARGE DIAGNOSES: 1. Chest pain, musculoskeletal and abdominal in origin, resolving. 2. Subacute iron deficiency anemia with iron supplementation, stable status post 1 unit of packed re d blood cells. 3. Hiatal hernia status post Madi fundoplication with mesh hernia repair. 4. Severe physical deconditioning. 5. Calder syndrome, status post fecal impaction with disimpaction. 6. Urinary tract infection with Escherichia coli, resolved. PRIMARY SERVICE ATTENDING: Dr. Carey with General Surgery Service; Dr. Plummer with GI Service. Angy alonzo for medical management. PERTINENT LAB AND X-RAY FINDINGS: CT of the abdomen and pelvis dated 06/25/2017 showed circumscribed posterior mediastinal fluid and gas collection in the right of midline suspicious for esophageal lissette k. Fecal retention within the rectum with perirectal fat stranding. Gaseous distention of the trans verse colon consistent with Wu syndrome. A 2D transthoracic echocardiogram dated 06/30/2017 paula wed ejection fraction of 60-65%. Probable diastolic dysfunction. Left atrial enlargement. Mild to moderate tricuspid valve regurgitation. HOSPITAL COURSE: The patient was initially admitted under the General Surgery Service after presenti with massive hiatal hernia with obstruction. The patient underwent laparoscopic hiatal hernia rep air, Madi fundoplication and percutaneous endoscopic gastrostomy placement on 06/09/2017. Postoper atively, the patient was unable to handle oral intake and was initiated on tube feeds. The patient c ontinued with inability to handle enteral feeds developing Calder syndrome and ileus. The patient h ad fecal impaction undergoing endoscopy by GI Service with disimpaction endoscopically. The patient was eventually able to tolerate tube feeds and transitioned to oral intake after protracted postopera tive course. The patient underwent multiple imaging studies during the hospital course focused on th e abdominal cavity showing various amounts of retained stool and obstruction. The patient was treate d for a urinary tract infection with E. coli and supportively managed for abdominal pain postoperativ nolan. The patient eventually transitioned to oral intake and was stable for discharge on 07/05/2017 t [facility]. DISCHARGE MEDICATIONS: 1. Tylenol 500 mg p.o. b.i.d. p.r.n. 2. Vitamin D3 1000 units p.o. daily. 3. Hydralazine 25 mg p.o. b.i.d. 4. Niland 7.5/325 mg per 15 mL solution 10-20 mL p.o. q.4h. p.r.n. 5. Namenda XR 28 mg p.o. at bedtime. 6. Reglan 10 mg p.o. b.i.d. p.r.n. 7. Remeron 15 mg p.o. daily. 8. Multivitamin 1 tab p.o. daily. 9. Zofran 4 mg p.o. q.4-6 hours p.r.n. 10. Protonix 40 mg p.o. daily. 11. Lyrica 150 mg p.o. b.i.d. 12. VESIcare 10 mg p.o. daily. 13. Tramadol 50 mg p.o. q.6h. p.r.n. FOLLOWUP: The patient to follow up with Dr. Reese Carey with General Surgery Service 2 weeks after robin fontana. The patient will follow up with her primary care provider, Dr. René Singh, after disc harge from [facility]. CONDITION ON DISCHARGE: Stable. ACTIVITY: Rolling walker with standby assist, contact guard assistance. DIET: Regular as tolerated. CODE STATUS: Full. DISPOSITION: Discharged to [facility] on 07/05/2017.
--- NOTE | 2017-07-13 22:44 | EKG ---
Test Reason : Blood Pressure : / mmHG Vent. Rate : 097 BPM Atrial Rate : 097 BPM P-R Int : 140 ms QRS Dur : 082 ms QT Int : 356 ms P-R-T Axes : 056 007 033 degrees QTc Int : 452 ms Sinus rhythm with Premature supraventricular complexes Otherwise normal ECG When compared with ECG of 15-JUN-2017 09:05, Premature supraventricular complexes are now Present Borderline criteria for Inferior infarct are no longer Present Confirmed by Dino ESPARZA ([id number]) on 07/13/2017 10:43:56 PM Referred By: RYDER Confirmed By:Dino ESPARZA
== END 2017-07-05 14:48 | disposition home or self-care (01) | DRG 327 ==
LOC: SDC 08:37 → SURG B 14:49
PROVIDERS: ADMIT Surgery; ATTEND Surgery
PROC: 0BUT4KZ Supplement Diaphragm with Nonautologous Tissue Substitute, Percutaneous Endoscopic Approach (ICD-10-PCS; principal; 2017-06-09)
PROC: 0DV44ZZ Restriction of Esophagogastric Junction, Percutaneous Endoscopic Approach (ICD-10-PCS; 2017-06-09)
PROC: 0DH63UZ Insertion of Feeding Device into Stomach, Percutaneous Approach (ICD-10-PCS; 2017-06-09)
PROC: 3E0436Z Introduction of Nutritional Substance into Central Vein, Percutaneous Approach (ICD-10-PCS; 2017-06-14)
PROC: 02HV33Z Insertion of Infusion Device into Superior Vena Cava, Percutaneous Approach (ICD-10-PCS; 2017-06-14)
PROC: 0D7L8DZ Dilation of Transverse Colon with Intraluminal Device, Via Natural or Artificial Opening Endoscopic (ICD-10-PCS; 2017-06-28)
PROC: 30233N1 Transfusion of Nonautologous Red Blood Cells into Peripheral Vein, Percutaneous Approach (ICD-10-PCS; 2017-06-30)
DX: K44.0 Diaphragmatic hernia with obstruction, without gangrene (principal); N17.9 Acute kidney failure, unspecified; K56.699 Other intestinal obstruction unspecified as to partial versus complete obstruction; N39.0 Urinary tract infection, site not specified; N18.3 Chronic kidney disease, stage 3 (moderate); F03.90 Unspecified dementia, unspecified severity, without behavioral disturbance, psychotic disturbance, mood disturbance, and anxiety; I12.9 Hypertensive chronic kidney disease with stage 1 through stage 4 chronic kidney disease, or unspecified chronic kidney disease; B96.20 Unspecified Escherichia coli [E. coli] as the cause of diseases classified elsewhere; D50.9 Iron deficiency anemia, unspecified; K56.41 Fecal impaction; K21.9 Gastro-esophageal reflux disease without esophagitis; R07.89 Other chest pain; Z87.891 Personal history of nicotine dependence; Z88.6 Allergy status to analgesic agent; Z88.5 Allergy status to narcotic agent; Z79.899 Other long term (current) drug therapy; T40.2X5A Adverse effect of other opioids, initial encounter; Y92.239 Unspecified place in hospital as the place of occurrence of the external cause
CPT/HCPCS: 36415; 36416; 36430; 36569; 71045; 74018; 74150; 74177; 74241; 80048; 80053; 80061; 80076; 81003; 81015; 82728; 82805; 83540; 83550; 83735; 83880; 84100; 84134; 84484; 85025; 85610; 85730; 86850; 86900; 86901; 87077; 87086; 87186; 87324; 87449; 93005; 93010; 93306; 94640; 94760; A4217; C1751; C9113; G8978-GP-CM; G8979-GP-CK; J0131; J0360; J1100; J1644; J1650; J1885; J1940; J1956; J2001; J2250; J2270; J2405; J2550; J2704; J3010; J3475; J7620; P9016; Q4130

== ENCOUNTER 2017-07-08 19:50 | Emergency (ER) | payer MEDICARE, OTHER ==
[2017-07-08] MEDS ORDERED: Ondansetron HCl/PF 4 MG/2 ML Vial ONE (20:49)
[2017-07-08 21:11] LABS: Lactic Acid 0.9 mmol/L (0.5-2.2)
[2017-07-08 21:14] LABS: ALT (SGPT) 19 U/L (8-55); AST (SGOT) 23 U/L (5-34); Albumin 3.3 g/dL (3.4-4.8); Alkaline Phosphatase 195 U/L (40-150); Anion Gap 15 mmol/L (10-20); BUN (Urea Nitrogen) 18 mg/dL (9.8-20.1); Bilirubin, Total 0.5 mg/dL (0.2-1.2); Calc. Creatinine Clearance 0 mL/min (70-130); Calcium 9.8 mg/dL (7.8-10.44); Carbon Dioxide 22 mmol/L (23-31); Chloride 106 mmol/L (98-107); Estimated GFR-MDRD 49; Globulin 3.6 g/dL (2.4-3.5); Glucose 91 mg/dL (83-110); Lipase 35 U/L (8-78); Potassium 4.2 mmol/L (3.5-5.1); Protein, Total 6.9 g/dL (6.0-8.3); Sodium 139 mmol/L (136-145)
[2017-07-08 21:20] LABS: Troponin I Less than 0.010 ng/mL (< 0.028)
[2017-07-08 21:22] LABS: Eosinophils 4 % (0-10); Hemoglobin 12.6 g/dL (12.0-16.0); Lymphocytes 25 % (21-51); MDiff Complete? YES; Mean Corpuscular HGB CONC 32.5 g/dL (32.0-36.0); Mean Corpuscular Hemoglobin 29.7 pg (27.0-31.0); Mean Corpuscular Volume 91.6 fl (81.0-99.0); Mean Platelet Volume 6.2 fL (7.4-10.4); Monocytes 4 % (0-10); Neutrophil 67 % (42-75); PLT Morphology Comment Appears Increased; Platelet Count 631 thou/uL (130-400); RBC Distribution Width 14.1 % (11.5-14.5); Red Blood Cell (RBC) Count 4.23 mill/uL (4.20-5.40); White Blood Cell (WBC) Count 8.3 thou/uL (4.8-10.8)
--- NOTE | 2017-07-08 21:29 | RAD ---
PORTABLE AP CHEST X-RAY 07/08/17 HISTORY: Vomiting. COMPARISON: 06/29/17. FINDINGS: There has been interval removal of the right sided PICC line. There is suggestion of a small left ple ural effusion, but the pleural and parenchymal change at the left lung base are improved compared to the prior exam. There is probably associated atelectasis. The right pleural effusion has also improve d. Cardiac silhouette is magnified by projection but stable in size. The pulmonary vasculature is wit hin normal limits. Postsurgical changes left proximal humerus are noted with prominent right glenohum eral osteoarthropathy. Radiopaque suture material overlies midline upper abdomen. IMPRESSION: 1. Improvement in bilateral pleural effusions, but mild pleural and parenchymal changes persist in the left lung base probably related to small left pleural effusion and atelectasis. 2. Removal of the right sided PICC line. POS: [facility]
[2017-07-08 21:54] LABS: Bilirubin Negative (Negative); Blood, Urine Negative (Negative); Clarity CLOUDY (Clear); Glucose, Urine (Dipstick) Negative (Negative); Leukocyte Large (Negative); Nitrite Negative (Negative); Protein, Urine (Dipstick) Negative (Neg-Trace); Specific Gravity, Urine 1.018 (1.002-1.036); Urobilinogen 0.2 mg/dL (0.2-1.0)
[2017-07-08 21:56] LABS: Bacteria/HPF None Seen HPF (None Seen); Hyaline Casts/LPF 4-6 HYALINE CAST LPF (0-3 Hyaline); Pathc Cast-AUWi Flag 0.43 (0-2.49); RBC/HPF 0-3 HPF (0-3); Squamous Epithelial 0-3 HPF (0-3); Yeast-AUWi Flag 23.8 (0-25.0)
--- NOTE | 2017-07-08 22:01 | CT ---
CT ABDOMEN AND PELVIS WITH IV CONTRAST: 07/08/17 HISTORY: Recent hiatal hernia repair, patient is having vomiting and abdominal pain. COMPARISON: Studies on 06/26/17 and 06/25/17. FINDINGS: Again noted are small bilateral pleural effusions with associated passive atelectasis. The fluid shira ection seen in the lower posterior mediastinum adjacent to the esophagus is again present and similar to the prior study although the foci of gas noted on prior exams is not appreciated on this study. W alls of the most distal esophagus do appear mildly thickened which may be related to mild edema in th e shetty of the esophagus. Calcifications are again seen at the right lung base. The heart is mildly enlarged. Vascular calcifications are seen in the abdominal aorta and iliac arter ies. Again, there is focal aneurysmal dilatation of the infrarenal abdominal aorta with the aneurysm measuring 3.5 cm transverse x 3.3 cm AP. The hypodense lesion in the superior pole spleen is again seen which may represent a splenic cyst. There is stable cortical scarring of each kidney, greater on the right with stable hypodense bilatera l renal lesions probably related to renal cyst. There is evidence of post cholecystectomy changes. Liver, pancreas, and bilateral adrenal glands have normal CT appearance. Previously seen fluid collection adjacent to the tail of the pancreas has decreased in size with find ings having the appearance more suggestive of mild inflammatory stranding with very small residual co llection now present. Gastrostomy tube is again noted in place. Right lateral hip prosthesis and postsurgical changes left hip again result in significant artifact l imiting evaluation of the urinary bladder. There is presacral fluid and inflammatory changes again pr esent. Previously noted large amount of stool in the rectum is no longer seen. No dilated loops of sm all bowel are present. Gastrostomy tube is again noted in the stomach. There are midline metallic sutures in the upper abdom en. There is persistent subcutaneous emphysema about the left lateral abdominal wall, but the degree of subcutaneous emphysema has decreased as well as the subcutaneous edema in the soft tissues about t he flank regions and pelvis noted on the prior exam. IMPRESSION: 1. Small bilateral pleural effusions and atelectasis, also noted on prior exam. The consolidati on at the left lung base noted on prior study has significantly improved. 2. Cardiomegaly. 3. The fluid and gas collection lower mediastinum just to the right of the esophagus has decreas ed in size and the previously noted gas densities are not seen on the current study. There does appea r to be mild thickening of the most distal esophagus which is probably related to postsurgical change s and edema of the shetty of the distal esophagus is a possibility. 4. Decrease size of the fluid collection adjacent to the tail of the pancreas with very small re sidual collection on the current study and adjacent inflammatory changes present. There is stable str anding and fluid in a presacral location. 5. Infrarenal abdominal aortic aneurysm. 6. Improvement in subcutaneous edema as well as subcutaneous emphysema compared to prior exam. 7. Small rounded area of soft tissue density within the right lower quadrant adjacent to the asc ending colon. This may represent a prominent lymph node. This measures 1.3 cm. No additional enlarged lymph nodes are present. POS: [facility]
[2017-07-08] MEDS ORDERED: Promethazine HCl 25 MG/ML VIAL ONE (23:04)
[2017-07-08] MEDS ORDERED: cefTRIAXone\\ROCEPHIN 2 GM VIAL ONE (23:06)
[2017-07-08] MEDS ORDERED: HYDROcodone/Acetaminophen 7.5/325 mg Tablet ONE (23:54)
== END 2017-07-09 00:07 | disposition home or self-care (01) ==
LOC: ERS 19:50
DX: N39.0 Urinary tract infection, site not specified (principal); F32.9 Major depressive disorder, single episode, unspecified; F41.9 Anxiety disorder, unspecified; F03.90 Unspecified dementia, unspecified severity, without behavioral disturbance, psychotic disturbance, mood disturbance, and anxiety; I10 Essential (primary) hypertension; K21.9 Gastro-esophageal reflux disease without esophagitis; Z79.899 Other long term (current) drug therapy
CPT/HCPCS: 36415; 51701; 71045; 74177; 80053; 81003; 81015; 82553; 83605; 83690; 84484; 85025; 87086; 93005; 96361; 96365; 96375; J0696; J2405; J2550

== ENCOUNTER 2017-07-11 10:28 | Inpatient (IN) | payer MEDICARE, OTHER ==
[2017-07-11 11:35] LABS: #Basophils 0.1 thou/uL (0.0-0.2); #Eosinphils 0.3 thou/uL (0.0-0.7); #Lymphocytes 1.8 thou/uL (1.20-3.40); #Monocytes 0.6 thou/uL (0.11-0.59); #Neutrophils 5.6 thou/uL (1.40-6.50); %Basophils 0.8 % (0.0-1.0); %Eosinophils 4.1 % (0.0-10.0); %Lymphocytes 20.9 % (21.0-51.0); %Monocytes 7.4 % (0.0-10.0); %Neutrophils 66.8 % (42.0-75.0); Hemoglobin 11.9 g/dL (12.0-16.0); Mean Corpuscular HGB CONC 30.9 g/dL (32.0-36.0); Mean Corpuscular Hemoglobin 28.9 pg (27.0-31.0); Mean Corpuscular Volume 93.5 fl (81.0-99.0); Mean Platelet Volume 6.4 fL (7.4-10.4); Platelet Count 624 thou/uL (130-400); RBC Distribution Width 13.9 % (11.5-14.5); Red Blood Cell (RBC) Count 4.13 mill/uL (4.20-5.40); White Blood Cell (WBC) Count 8.4 thou/uL (4.8-10.8)
[2017-07-11 12:08] LABS: ALT (SGPT) 15 U/L (8-55); AST (SGOT) 20 U/L (5-34); Albumin 3.5 g/dL (3.4-4.8); Alkaline Phosphatase 162 U/L (40-150); Anion Gap 15 mmol/L (10-20); BUN (Urea Nitrogen) 15 mg/dL (9.8-20.1); Bilirubin, Total 0.5 mg/dL (0.2-1.2); Calc. Creatinine Clearance 0 mL/min (70-130); Calcium 10.1 mg/dL (7.8-10.44); Carbon Dioxide 25 mmol/L (23-31); Chloride 103 mmol/L (98-107); Estimated GFR-MDRD 45; Globulin 3.9 g/dL (2.4-3.5); Glucose 95 mg/dL (83-110); Lipase 27 U/L (8-78); Potassium 4.6 mmol/L (3.5-5.1); Protein, Total 7.4 g/dL (6.0-8.3); Sodium 138 mmol/L (136-145)
[2017-07-11 12:10] LABS: CKMB 1.1 ng/mL (0-6.6); Troponin I Less than 0.010 ng/mL (< 0.028)
--- NOTE | 2017-07-11 12:37 | RAD ---
SINGLE VIEW OF THE CHEST: COMPARISON: 07/08/17. HISTORY: Vomiting and cough. FINDINGS: A single view of the chest shows an enlarged but stable cardiomediastinal silhouette with atheroscler otic calcifications in the aorta. There appears to be a small left pleural effusion. Degenerative c hanges are seen in the right shoulder. Hardware is seen in the left humerus. IMPRESSION: Cardiomegaly and small left pleural effusion. POS: [facility]
[2017-07-11] MEDS ORDERED: Ondansetron HCl/PF 4 MG/2 ML Vial ONE (13:21)
[2017-07-11] MEDS ORDERED: ISOVUE-370 76%-LOCM 1 ML ONE (14:48)
[2017-07-11 15:21] LABS: Bilirubin Negative (Negative); Blood, Urine Negative (Negative); Clarity CLOUDY (Clear); Glucose, Urine (Dipstick) Negative (Negative); Leukocyte Large (Negative); Nitrite Negative (Negative); Protein, Urine (Dipstick) 30 mg/dL (Neg-Trace); Urobilinogen 0.2 mg/dL (0.2-1.0); pH, Urine 6.5 (5.0-9.0)
[2017-07-11 15:23] LABS: Bacteria/HPF None Seen HPF (None Seen); Pathc Cast-AUWi Flag 1.88 (0-2.49); RBC/HPF 0-3 HPF (0-3); Squamous Epithelial 0-3 HPF (0-3); Yeast-AUWi Flag 7.8 (0-25.0)
--- NOTE | 2017-07-11 15:23 | CT ---
CT OF THE ABDOMEN AND PELVIS WITH IV CONTRAST: INDICATION: History of vomiting and UTI. FINDINGS: When compared to the prior dated 07/08/17, the small bilateral pleural effusions persist and are unchan ged in size. Bibasilar atelectasis is similar-appearing. There is marked thickening of the distal esophagus which is stable. Edema is tracking along the dist al aspect of the esophagus appears slightly less prominent than on the comparison exam. There is moderate distention of material within the stomach. Gastrostomy tube is unchanged. Hypodensities involving both kidney are similar-appearing. Splenic cyst is similar appearing. The f luid density seen adjacent to the pancreatic tail is largely stable. Infrarenal abdominal aortic aneurysm is unchanged. The cecum overlying the right upper quadrant of t he abdomen is stable. Subcutaneous emphysema overlying the left anterolateral abdominal wall is stab le. The bladder is mildly distended. Scattered diverticula are present involving the colon. There is diffuse osteopenia. There is a healed left hip fracture. There is a right hip endoprosthesis in place. There is mild degenerative scoliosis of the lumbar spine. IMPRESSION: 1. No appreciable interval change when compared to the prior examination. 2. Persistent small bilateral pleural effusions. 3. Stable marked dilatation of the stomach with associated gastrostomy tube. 4. Bilateral hypodensities suspicious for renal cysts. Stable splenic cysts. 5. Fluid collection seen adjacent to the pancreatic tail is stable. 6. Stable infrarenal abdominal aortic aneurysm. 7. Stable fluid present adjacent to the esophagus. There is some esophageal wall thickening which m ay reflect sequelae of chronic reflux. This is similar to the prior examination. 8. Stable subcutaneous emphysema overlying the left lower abdomen. POS: [facility]
[2017-07-11 15:36] LABS: Hyaline Casts/LPF 0-3 HYALINE CAST LPF (0-3 Hyaline)
[2017-07-11] MEDS ORDERED: hydrALAZINE 20 MG/ML VIAL ONE (15:46)
[2017-07-11] MEDS ORDERED: Ondansetron HCl/PF 4 MG/2 ML Vial IVP PRN (16:19)
[2017-07-11] MEDS ORDERED: Zolpidem Tartrate 5 MG TAB PO PRN (16:19)
[2017-07-11] MEDS ORDERED: Metoclopramide HCl 10 MG TAB PO PRN (16:24)
[2017-07-11] MEDS ORDERED: cefTRIAXone\\ROCEPHIN 1 GM in Sodium Chloride 0.9% 100 ML IVPB SCH (16:30)
--- NOTE | 2017-07-11 16:34 | PDOC.EVN ---
Event Note - Event Note Event Note: H&P DICTATED [id number] 1) UTI 2) Dysphagia 3) Debilitation 4) HTN - med sx obs - rocephin + diflucan given e. coli and yeast in prior uine cultures - Dr. Carey consult per patient wishes as well as evaluation for nasea/vomitting - gastric emptying study - NS at 75cc/hr for now - case and plan d/w patient at length, she understands and agrees with this plan , no family at bedside.
[2017-07-11 17:16] LABS: Hemoglobin A1c 4.8 % (4.0-6.0)
[2017-07-11 18:22] VITALS: BMI 24.7
--- NOTE | 2017-07-11 18:55 | HP ---
DATE OF ADMISSION: 07/11/2017 CHIEF COMPLAINT: Nausea, vomiting, abdominal pain, as well as burning upon urination. HISTORY OF PRESENT ILLNESS: This is an 86-year-old female, who was admitted to the hospital. The pa jason was apparently here a few days ago where she had a gastrostomy tube placed with reduction in tu be feedings and then discharged to outpatient facility. The patient was given antibiotics for UTI. However, she returns with symptoms of dysuria and failure of outpatient therapy. The patient states that her burning and dysuria symptoms never fully resolved and have actually gotten worse. Patient d enies any diarrhea, constipation, chills, or shortness of breath or chest pain, but does admit to [facility], one episode of vomiting and came back to the ER. The patient had a CT scan of the abdomen done in the ER as well as a chest x-ray. Patient otherwise denies any other issues or complaints. ALLERGIES: ASPIRIN and CODEINE. Per patient, she says that they make her go crazy. PAST MEDICAL HISTORY: Positive for hypertension, gastrostomy tube placement, deconditioning, and div erticular disease. MEDICATIONS: See MAR. FAMILY HISTORY: Positive for diabetes and high blood pressure. SOCIAL HISTORY: Denies any smoking or drinking. REVIEW OF SYSTEMS: A 12-point review of systems performed. Pertinent positives in the HPI, otherwis e negative. PHYSICAL EXAMINATION: VITAL SIGNS: Blood pressure is 170/88, heart rate of 88, respirations of 18, and temperature of 98. GENERAL: The patient lying in bed in no acute distress. HEENT: PERRLA, EOMI, anicteric sclerae. Oral cavity moist and pink. NECK: Supple, nontender, mobile thyroid. LUNGS: Clear to auscultation bilaterally. No increase in AP diameter. No wheezing, rales or rhonch i appreciated. CARDIOVASCULAR: S1 and S2. No murmurs, rubs or gallops. Regular rate and rhythm. ABDOMEN: Positive bowel sounds, soft, nontender. Gastrostomy tube noted. No signs of erythema, inf ection or purulent material drainage around the area of G-tube insertion. EXTREMITIES: 2+ peripheral pulses. Trace edema bilateral lower extremities. NEUROLOGIC: Cranial nerves II-XII intact. No loss of sensory function. LABORATORY DATA: Basic metabolic panel reveals alkaline phosphatase 162. Brain natriuretic peptide 158.5, creatinine of 1.13. WBC count 8.4, hemoglobin of 12, hematocrit of 38.6. UA shows protein 30 , large leukocyte esterase as well as too numerous to count WBC cells. Recent urine culture reveals yeast from 07/08/2017 as well as E. coli from 06/24/2017. ASSESSMENT: 1. Urinary tract infection. 2. Dysphagia. 3. Hypertension. 4. Deconditioning. PLAN: At this point in time, we will place the patient on med/surg floor with observation status. W e will start the patient on normal saline at 75 mL an hour as well as a cardiac diet soft with choppe d up food. Patient states that she is able to swallow and has been eating with her mouth and has not been using her PEG tube. We will also consult Dr. Carey her GI doctor per patient's request as well as possible exploration for an etiology other than a UTI for her nausea, vomiting as well as possibl e removal of the PEG tube if not needed. We will start the patient on Diflucan as well as Rocephin f or the yeast findings as well as E. coli. Repeat urinalysis and urine culture already requested in [facility] ER. We will start the patient on Lovenox for deep venous thrombosis prophylaxis and antacids for GI prophylaxis. Activity as tolerated. The patient wishes to remain FULL CODE at this point in time . Case and plan discussed with the patient at length. She understands and agrees with this plan.
[2017-07-11] MEDS: Sodium Chloride 0.9% 1,000 ML IV SCH (19:32)
[2017-07-11] MEDS: TROSPIUM 20 MG TABLET PO SCH (20:34)
[2017-07-11] MEDS: Mirtazapine 15 MG TAB PO SCH (20:35)
[2017-07-11] MEDS: hydrALAZINE 25 MG TAB PO SCH (20:35)
[2017-07-11] MEDS: Pregabalin 75 MG CAP PO SCH (20:35)
[2017-07-11] MEDS: Ondansetron ODT 4 MG TAB PO PRN (21:20)
[2017-07-12] MEDS: hydrALAZINE 20 MG/ML VIAL SLOW IVP PRN ×2 (01:24→18:05)
[2017-07-12] MEDS: traMADol HCl 50 MG TAB PO PRN (03:29)
[2017-07-12] MEDS ORDERED: Metoprolol Tartrate 5 MG/5 ML VIAL IVP SCH (04:15)
[2017-07-12] MEDS: Ondansetron ODT 4 MG TAB PO PRN ×2 (04:31→10:32)
[2017-07-12 07:20] LABS: #Basophils 0.1 thou/uL (0.0-0.2); #Eosinphils 0.2 thou/uL (0.0-0.7); #Lymphocytes 1.4 thou/uL (1.20-3.40); #Monocytes 0.5 thou/uL (0.11-0.59); #Neutrophils 7.2 thou/uL (1.40-6.50); %Basophils 0.6 % (0.0-1.0); %Eosinophils 2.1 % (0.0-10.0); %Lymphocytes 14.5 % (21.0-51.0); %Monocytes 5.7 % (0.0-10.0); %Neutrophils 77.1 % (42.0-75.0); Hemoglobin 11.9 g/dL (12.0-16.0); Mean Corpuscular HGB CONC 32.7 g/dL (32.0-36.0); Mean Corpuscular Hemoglobin 30.7 pg (27.0-31.0); Mean Corpuscular Volume 93.7 fl (81.0-99.0); Mean Platelet Volume 6.4 fL (7.4-10.4); Platelet Count 599 thou/uL (130-400); RBC Distribution Width 13.8 % (11.5-14.5); Red Blood Cell (RBC) Count 3.89 mill/uL (4.20-5.40); White Blood Cell (WBC) Count 9.3 thou/uL (4.8-10.8)
[2017-07-12 07:38] LABS: Anion Gap 15 mmol/L (10-20); BUN (Urea Nitrogen) 14 mg/dL (9.8-20.1); Calc. Creatinine Clearance 42 mL/min (70-130); Calcium 9.3 mg/dL (7.8-10.44); Carbon Dioxide 23 mmol/L (23-31); Chloride 107 mmol/L (98-107); Estimated GFR-MDRD 54; Glucose 77 mg/dL (83-110); Potassium 4.4 mmol/L (3.5-5.1); Sodium 141 mmol/L (136-145)
[2017-07-12] MEDS: Pregabalin 75 MG CAP PO SCH ×2 (08:27→21:26)
[2017-07-12] MEDS: Multivit, Therapeutic 1 TAB PO SCH (08:28)
[2017-07-12] MEDS: Vit A,C & E/Lutein/Minerals Tablet PO SCH (08:28)
[2017-07-12] MEDS: Metoprolol Tartrate 25 MG TAB PO SCH (08:29)
[2017-07-12] MEDS: hydrALAZINE 25 MG TAB PO SCH ×2 (08:29→21:25)
[2017-07-12] MEDS: Folic Acid 1 MG TAB PO SCH (08:29)
[2017-07-12] MEDS: Fluconazole 40 mg/ml Oral Suspension PO SCH (08:30)
[2017-07-12] MEDS: Enoxaparin Sodium 40 MG/0.4 ML SYRINGE SC SCH (08:30)
[2017-07-12] MEDS: Sodium Chloride 0.9% 1,000 ML IV SCH (08:31)
[2017-07-12] MEDS: Acetaminophen 500 MG TAB PO SCH ×2 (08:33→21:24)
[2017-07-12] MEDS ORDERED: Mirtazapine 15 MG TAB PO SCH (09:00)
--- NOTE | 2017-07-12 09:32 | PDOC.PN ---
- Subjective Encounter Start Date: 07/12/17 Encounter Start Time: 10:45 Subjective: Patient with afib and RVR this AM, now converted back to SR. Feeling -: a bit better now. Nausea better with meds, no vomiting this AM. -: Still with external burning with urination since last admit. No vag itching - Objective MAR Reviewed: Yes Vital Signs & Weight: Vital Signs (12 hours) Temp Pulse Resp BP BP Pulse Ox 07/12/17 08:29 125 H 97/54 L 07/12/17 07:20 97.8 F 135 H 20 105/59 L 92 L 07/12/17 06:09 125 H 97/54 L 93 L 07/12/17 05:00 130 H 22 H 101/59 L 94 L 07/12/17 04:29 118 H 83/48 L 07/12/17 04:22 130 H 128/75 07/12/17 04:18 126 H 106/51 L 07/12/17 04:15 146 H 125/68 07/12/17 04:00 145 H 125/68 07/12/17 02:45 97.8 F 99 18 127/60 94 L 07/12/17 01:24 100 179/77 H 07/11/17 23:15 98.4 F 91 16 171/80 H 93 L Weight Weight 148 lb 4.8 oz I&O: 07/11/17 07/12/17 07/13/17 06:59 06:59 06:59 Intake Total 976 Balance 976 Result Diagrams: 07/12/17 07:03 07/12/17 07:03 Phys Exam - Physical Examination Constitutional: NAD HEENT: moist MMs Respiratory: no wheezing, no rales, no rhonchi Cardiovascular: RRR, no significant murmur Gastrointestinal: soft, positive bowel sounds Neurological: non-focal Psychiatric: normal affect, A&O x 3 Dx/Plan (1) UTI (urinary tract infection) Status: Acute Comment: Recent urine culture with yeast only, UA on admit without bacteria. Stop Rocephin. Start Diflucan. (2) Nausea & vomiting Code(s): R11.2 - NAUSEA WITH VOMITING, UNSPECIFIED Status: Acute (3) Atrial fibrillation with rapid ventricular response Code(s): I48.91 - UNSPECIFIED ATRIAL FIBRILLATION Status: Resolved Comment: Dr. Mcbride consulted. - Plan cont current plan of care * . - Discharge Day Encounter end time: 11:00
[2017-07-12] MEDS: Famotidine 20 MG TAB PO SCH (10:28)
[2017-07-12] MEDS: TROSPIUM 20 MG TABLET PO SCH ×2 (10:38→21:26)
[2017-07-12] MEDS ORDERED: Amiodarone 200 MG TAB PO SCH ×2 (13:15)
--- NOTE | 2017-07-12 14:15 | CON ---
DATE OF CONSULTATION: 07/12/2017 REASON FOR CONSULTATION: Atrial fibrillation with a rapid rate. HISTORY OF PRESENT ILLNESS: Ms. Yoseph Jeffery is an 86-year-old woman. She has been in the hospital with gastrointestinal problems as have been outlined extensively in the chart. The patient had an ep isode of rapid heart rates here, looks like atrial fibrillation with a rapid ventricular response, ra te of 147. The patient was able to feel her heart racing and did not feel well at this time. Some of the tracing looks suspicious for an atypical atrial flutter, but also a lot of it looks like atrial fibrillation. No chest pain. CURRENT MEDICATIONS: 1. Low dose enoxaparin. 2. Hydralazine. 3. Metoprolol. ALLERGIES: ASPIRIN, CODEINE, MORPHINE and NIFEDIPINE. SURGICAL HISTORY: Negative for cardiac operations or procedures. SOCIAL HISTORY: No alcohol or tobacco. REVIEW OF SYSTEMS: CONSTITUTIONAL: No significant weight gain or loss. VISION: No changes. HEARING: No changes. PULMONARY: No cough or wheezing. GASTROINTESTINAL: No nausea, vomiting, diarrhea. SKIN: No rashes. NEUROLOGIC: No unilateral weakness or numbness. PSYCHIATRIC: No unusual depression or anxiety. HEMATOLOGIC: No unusual bruising. GENITOURINARY: No burning with urination. PHYSICAL EXAMINATION: GENERAL: This is a delightful patient resting comfortably in no distress. VITAL SIGNS: Blood pressure 152/73. Her blood pressure was just 100 systolic when she had the fibri llation earlier, it dropped lower when she got some beta blockers 97/54. HEENT: Eyes; sclerae nonicteric. Mouth; mucous remains moist. NECK: Supple, no lymphadenopathy. LUNGS: Clear, no wheezing, rales or rhonchi. CARDIAC: Normal S1, normal S2. There is no murmur, rub or gallop. ABDOMEN: Soft, nontender, no hepatosplenomegaly. EXTREMITIES: Warm, dry, no clubbing, cyanosis or edema. LABORATORY AND X-RAY FINDINGS: EKG as outlined above in terms of the rhythm, now she is in sinus rhy thm. BNP 158. Recent echocardiogram shows an ejection fraction of 60-65%. Left ventricular hypertr ophy, diastolic dysfunction, elevated pulmonary artery pressure, mild to moderate mitral regurgitati on. ASSESSMENT: 1. Atrial fibrillation with a rapid response. 2. Diastolic heart failure. 3. Hypotension when she is tachycardic. 4. Recent gastrointestinal problems as outlined in the chart. PLAN: At this time, I think the best medicine for her is amiodarone. I do not think any other medic ine is likely to be tolerated or effective as the other antiarrhythmics carry a significant risk of p roarrhythmia. I have explained to the patient there is some risk of a problem with the lung or thyro id in addition to some other problems, but I think this is still likely to be her best option as she does not tolerate the fibrillation, well hemodynamically. We will start her on amiodarone 400 mg twi ce a day. We will follow with you. At this time, we will hold off on anticoagulation until it looks like it is safe to do so from a GI standpoint. She is in normal sinus rhythm now.
[2017-07-12] MEDS ORDERED: cefTRIAXone\\ROCEPHIN 1 GM, Syringe 0.4 ML in Sterile Water 9.6 ML SLOW IVP SCH (16:00)
[2017-07-12] MEDS: Amiodarone 200 MG TAB PO SCH (21:24)
[2017-07-12] MEDS: Mirtazapine 15 MG TAB PO SCH (21:25)
[2017-07-13] MEDS: Sodium Chloride 0.9% 1,000 ML IV SCH (01:07)
[2017-07-13] MEDS: hydrALAZINE 20 MG/ML VIAL SLOW IVP PRN ×2 (03:09→16:16)
[2017-07-13] MEDS: traMADol HCl 50 MG TAB PO PRN ×3 (03:13→19:06)
--- NOTE | 2017-07-13 08:07 | EKG ---
Test Reason : Blood Pressure : / mmHG Vent. Rate : 147 BPM Atrial Rate : 264 BPM P-R Int : 000 ms QRS Dur : 086 ms QT Int : 288 ms P-R-T Axes : 082 -25 063 degrees QTc Int : 450 ms Atrial flutter with variable A-V block with premature ventricular or aberrantly conducted complexes Inferior infarct (cited on or before 08-JUL-2017) Abnormal ECG When compared with ECG of 11-JUL-2017 16:15, (Unconfirmed) Atrial flutter has replaced Sinus rhythm ST now depressed in Anterior leads T wave inversion no longer evident in Inferior leads T wave inversion no longer evident in Anterior leads Confirmed by BRETT TURCIOS ([id number]) on 07/13/2017 8:06:50 AM Referred By: Confirmed By:BRETT TURCIOS
--- NOTE | 2017-07-13 08:41 | PDOC.PN ---
- Subjective Encounter Start Date: 07/13/17 Encounter Start Time: 11:30 Subjective: Patient reports resolution of N/V/abd pain. Tolerating liquid diet today. - Objective MAR Reviewed: Yes Vital Signs & Weight: Vital Signs (12 hours) Temp Pulse Resp BP BP Pulse Ox 07/13/17 04:00 98.4 F 98 18 175/89 H 97 07/13/17 03:09 83 185/87 H 07/13/17 00:00 97.6 F 83 18 128/63 91 L 07/12/17 21:25 80 158/84 H Weight Weight 148 lb 4.8 oz I&O: 07/12/17 07/13/17 07/14/17 06:59 06:59 06:59 Intake Total 976 1810 Balance 976 1810 Result Diagrams: 07/12/17 07:03 07/12/17 07:03 Phys Exam - Physical Examination Constitutional: NAD HEENT: moist MMs Respiratory: no wheezing, no rales, no rhonchi Cardiovascular: RRR Gastrointestinal: soft, positive bowel sounds Neurological: non-focal, moves all 4 limbs Psychiatric: normal affect, A&O x 3 Dx/Plan (1) UTI (urinary tract infection) Status: Acute Comment: Recent urine culture with yeast only, UA on admit without bacteria. Stop Rocephin. Start Diflucan. (2) Nausea & vomiting Code(s): R11.2 - NAUSEA WITH VOMITING, UNSPECIFIED Status: Acute Comment: awaiting NM gastric emptying scan (3) Atrial fibrillation with rapid ventricular response Code(s): I48.91 - UNSPECIFIED ATRIAL FIBRILLATION Status: Resolved Comment: Dr. Mcbride consulted. Amiodarone started. - Plan cont current plan of care D/C back to SNF on full liquid diet x3 days followed by [facility] with -: low fiber. * . - Discharge Day Encounter end time: 12:00
[2017-07-13] MEDS: Enoxaparin Sodium 40 MG/0.4 ML SYRINGE SC SCH (09:08)
[2017-07-13] MEDS: Pregabalin 75 MG CAP PO SCH ×2 (09:09→20:29)
[2017-07-13] MEDS: Fluconazole 40 mg/ml Oral Suspension PO SCH (09:09)
[2017-07-13] MEDS: TROSPIUM 20 MG TABLET PO SCH ×2 (09:09→20:28)
[2017-07-13] MEDS: Vit A,C & E/Lutein/Minerals Tablet PO SCH (09:10)
[2017-07-13] MEDS: Amiodarone 200 MG TAB PO SCH ×2 (09:11→20:28)
[2017-07-13] MEDS: Acetaminophen 500 MG TAB PO SCH ×2 (09:11→20:28)
[2017-07-13] MEDS: hydrALAZINE 25 MG TAB PO SCH ×2 (09:11→20:28)
[2017-07-13] MEDS: Multivit, Therapeutic 1 TAB PO SCH (09:11)
[2017-07-13] MEDS: Folic Acid 1 MG TAB PO SCH (09:12)
[2017-07-13] MEDS: Metoprolol Tartrate 25 MG TAB PO SCH (09:13)
[2017-07-13] MEDS: Famotidine 20 MG TAB PO SCH (09:14)
[2017-07-13] MEDS ORDERED: Losartan 25 MG TAB PO SCH (10:15)
--- NOTE | 2017-07-13 10:59 | PRG ---
DATE OF SERVICE: 07/13/2017 SUBJECTIVE: Ms. Jeffery is doing well. No complaints. OBJECTIVE: VITAL SIGNS: Blood pressure is elevated 162/90 and pulse 92 and it is regular. LUNGS: Clear. CARDIAC: Normal S1 and normal S2. ABDOMEN: Soft and nontender. EXTREMITIES: There is no edema. ASSESSMENT: 1. Atrial fibrillation, improved on amiodarone. 2. Hypertension. 3. Diastolic heart failure. PLAN: 1. Continue amiodarone. 2. Continue hydralazine. 3. Continue metoprolol. 4. Discontinue saline. 5. Reasonable to start angiotensin receptor mae.
--- NOTE | 2017-07-13 11:24 | PRG ---
DATE OF SERVICE: 07/13/2017 SUBJECTIVE: The patient was admitted with a gastric bloat. She had a recent hiatal hernia repair. They were feeding a regular diet with a lot of fibrous material. She developed a bezoar in her stoma ch as a result. She is not supposed to be on that type of food. She was supposed to be on a liquid diet only. She needs to stay on liquids for 2 weeks that is what caused the problem. The G-tube, al though technically could be removed at this time because she is still having problems, I do not recom mend it be removed. She is scheduled for a gastric emptying study. I do not know if that is going t o be anything of use to it today. From my standpoint, she should be placed back on a full liquid t at most a soft mechanical diet and follow up with me in 2 weeks.
[2017-07-13] MEDS: Ondansetron ODT 4 MG TAB PO PRN (19:07)
[2017-07-13] MEDS: Mirtazapine 15 MG TAB PO SCH (20:28)
--- NOTE | 2017-07-13 20:43 | DIS ---
PRIMARY CARE PHYSICIAN: René Singh. REASON FOR ADMISSION: Nausea, vomiting, abdominal pain. DISCHARGE DIAGNOSES: 1. Post-hiatal hernia repair, bezoar secondary to fibrous diet. 2. Yeast urinary tract infection. 3. Atrial fibrillation with rapid ventricular response, now converted back to normal sinus rhythm. PROCEDURES: CT abdomen and pelvis showing a marked dilatation of the stomach with associated gastros mavis tube that is unchanged from previous. All the postoperative changes are stable. No acute gold es. CONSULTATIONS: 1. General Surgery, Dr. Carey. 2. Cardiology, Dr. Mcbride. SUMMARY OF HOSPITAL COURSE: This is an 86-year-old female who was recently in the hospital, had a la rge hiatal hernia repaired with a complicated postoperative course and had to have a PEG tube placed. She also had a UTI during her hospitalization. The patient was eventually discharged to [facility] facility. There, she had persistent burning with urination. She had a urinalysis, urine cultu re done at the facility that grew back just yeast and also developed recurrent nausea and vomiting, a bdominal pain. She presented to the ER a couple times of this and eventually was admitted. The rey ent was put on IV fluids in the hospital and given nausea medication with resolution of her symptoms. Dr. Carey was consulted and he did see her and determined that the problem was, she was to be on li quid diet and she had been put on a regular diet with high fiber which caused a bezoar developed in h er stomach. He switched her to a full liquid diet for next 3 days and mechanical soft with low fiber after that. She is tolerating that well in the hospital. During hospitalization, patient had sudde n onset of palpitations of her heart and felt bad. She was found to have atrial fibrillation with ra pid ventricular rate, was given a small dose of metoprolol. She did have some low blood pressures du ring this time. This eventually converted back to normal sinus rhythm after about [address] Juvenal wade was consulted for Cardiology. He determined that given her age and comorbidities that treatment w ith amiodarone was best course for her and started her on that orally in the hospital. On the day of discharge, patient was doing much better, was tolerating liquid diet and was ready to go back to [facility]. DISCHARGE MANAGEMENT: Discharge back to [facility]. ACTIVITIES: As tolerated. DIET: Full liquid diet for 3 days, followed by soft mechanical low fiber diet after that. THERAPY: Occupational, physical therapy. Continue PEG tube care. FOLLOWUP: The patient is to follow up with Dr. Carey in 2 weeks to assess continued need for PEG or if it can be pulled, to follow up with Dr. Mcbride in 14 days for amiodarone titration and [facility], Dr. Singh in 2-3 weeks. DISCHARGE MEDICATIONS: 1. Adding fluconazole 200 mg daily for a total of 14 days. 2. Amiodarone 400 mg twice a day. 3. Losartan 100 mg daily. 4. Tylenol as needed. 5. Folic acid 0.4 mg daily. 6. Multivitamin daily. 7. Hydralazine 25 mg twice a day. 8. Vitamin A, vitamin C, vitamin E, zinc and copper tablet 2 tablets daily. 9. Lyrica 150 mg twice a day. 10. Namenda 10 mg at night. 11. Reglan 10 mg 3 times a day. 12. Protonix 40 mg daily. 13. Tramadol 50 mg every 6 hours as needed for pain. 14. Vitamin D3 of 1000 units daily. 15. Zofran 4 mg q.4 hours as needed. 16. VESIcare 10 mg daily. 17. Remeron 15 mg at night.
[2017-07-14] MEDS: traMADol HCl 50 MG TAB PO PRN (03:30)
--- NOTE | 2017-07-14 07:17 | PDOC.PN ---
- Subjective Encounter Start Date: 07/14/17 Encounter Start Time: 07:15 Subjective: fells constipayted - Objective MAR Reviewed: Yes Vital Signs & Weight: Vital Signs (12 hours) Temp Pulse Resp BP BP Pulse Ox 07/14/17 03:30 97.3 F L 92 20 148/70 H 94 L 07/14/17 00:05 99.0 F 91 16 161/74 H 93 L 07/13/17 20:28 92 175/80 H 07/13/17 20:00 98.4 F 92 20 92 L 07/13/17 19:35 98.4 F 92 20 175/80 H 92 L Weight Weight 148 lb 4.8 oz I&O: 07/13/17 07/14/17 07/15/17 06:59 06:59 06:59 Intake Total 1810 1080 Balance 1810 1080 Result Diagrams: 07/12/17 07:03 07/12/17 07:03 Phys Exam - Physical Examination Constitutional: NAD Neck: no JVD Respiratory: clear to auscultation bilateral Cardiovascular: RRR, no significant murmur Gastrointestinal: soft, non-tender, positive bowel sounds Musculoskeletal: no edema Dx/Plan (1) UTI (urinary tract infection) Status: Acute Comment: Recent urine culture with yeast only, UA on admit without bacteria. Stop Rocephin. Start Diflucan. (2) Atrial fibrillation with rapid ventricular response Code(s): I48.91 - UNSPECIFIED ATRIAL FIBRILLATION Status: Resolved Comment: Dr. Mcbride consulted. Amiodarone started. (3) Hypertension Code(s): I10 - ESSENTIAL (PRIMARY) HYPERTENSION Status: Chronic Qualifiers: Hypertension type: essential hypertension Qualified Code(s): I10 - Essential (primary) hypertension (4) Physical deconditioning Code(s): R53.81 - OTHER MALAISE Status: Chronic Comment: CM consult for [facility]/ SNF (5) Constipation Code(s): K59.00 - CONSTIPATION, UNSPECIFIED Status: Acute - Plan cont current plan of care, continue antibiotics add miralax for constipation -: awaiting insurance approval * .
[2017-07-14] MEDS ORDERED: Polyethylene Glycol 3350 17 GM Packet PO SCH (07:30)
[2017-07-14 07:58] LABS: Anion Gap 13 mmol/L (10-20); BUN (Urea Nitrogen) 13 mg/dL (9.8-20.1); Calc. Creatinine Clearance 47 mL/min (70-130); Calcium 9.7 mg/dL (7.8-10.44); Carbon Dioxide 24 mmol/L (23-31); Chloride 104 mmol/L (98-107); Estimated GFR-MDRD 60; Glucose 86 mg/dL (83-110); Potassium 4.8 mmol/L (3.5-5.1); Sodium 136 mmol/L (136-145)
[2017-07-14] MEDS ORDERED: Losartan 25 MG TAB PO SCH (09:00)
[2017-07-14] MEDS: Ondansetron ODT 4 MG TAB PO PRN (09:14)
[2017-07-14] MEDS: Enoxaparin Sodium 40 MG/0.4 ML SYRINGE SC SCH (09:40)
[2017-07-14] MEDS: Acetaminophen 500 MG TAB PO SCH (09:40)
[2017-07-14] MEDS: Pregabalin 75 MG CAP PO SCH (09:41)
[2017-07-14] MEDS: Vit A,C & E/Lutein/Minerals Tablet PO SCH (09:41)
[2017-07-14] MEDS: TROSPIUM 20 MG TABLET PO SCH (09:41)
[2017-07-14] MEDS: Famotidine 20 MG TAB PO SCH (09:41)
[2017-07-14] MEDS: Folic Acid 1 MG TAB PO SCH (09:42)
[2017-07-14] MEDS: Multivit, Therapeutic 1 TAB PO SCH (09:42)
[2017-07-14] MEDS: Metoprolol Tartrate 25 MG TAB PO SCH (09:42)
[2017-07-14] MEDS: Amiodarone 200 MG TAB PO SCH (09:44)
[2017-07-14] MEDS: hydrALAZINE 25 MG TAB PO SCH (09:44)
--- NOTE | 2017-07-14 10:58 | PRG ---
DATE OF SERVICE: 07/14/2017 SUBJECTIVE: Ms. Jeffery has nausea today, but did not vomit. She says "I am a mess." No chest pain or pressure. No shortness of breath. OBJECTIVE: VITAL SIGNS: Blood pressure 140/74, pulse 80 and it is regular, sinus on the monitor. LUNGS: Clear. CARDIAC: Normal S1 and normal S2. ABDOMEN: Soft and nontender. ASSESSMENT: 1. Paroxysmal atrial fibrillation, maintaining sinus rhythm. 2. Nausea, ? related to medication. 3. Hypertension. PLAN: 1. Reduce amiodarone to 200 mg twice a day for 2 weeks and then 200 mg once a day. 2. We will change from Lovenox to low dose Eliquis 2.5 mg twice a day.
[2017-07-14] MEDS: Fluconazole 40 mg/ml Oral Suspension PO SCH (11:20)
[2017-07-14 11:22] LABS: Hemoglobin 11.8 g/dL (12.0-16.0); Platelet Count 563 thou/uL (130-400)
[2017-07-14 11:35] VITALS: BP 160/83; TEMP 98.3
--- NOTE | 2017-07-14 14:16 | ADD-DIS ---
ADDENDUM Discharge summary dictated 07/13/[address] Zia Salomon. "The only change to the discharge summary is the date of discharge is 07/14/2017." DISCHARGE MEDICATIONS: "ADD" Eliquis 2.5 mg p.o. b.i.d. The remainder of the discharge is as dictated by Dr. Zia Salomon on 07/13/2017.
[2017-07-14] MEDS ORDERED: Apixaban 2.5 MG TAB PO SCH (21:00)
[2017-07-14] MEDS ORDERED: Amiodarone 200 MG TAB PO SCH (21:00)
== END 2017-07-14 14:30 | DRG 394 ==
LOC: ERS 10:28 → 2SW 18:13 → OBSVTOIN 18:13 → 2NO 07-12 19:57
PROVIDERS: ADMIT Internal Medicine; ATTEND Internal Medicine
DX: T18.2XXA Foreign body in stomach, initial encounter (principal); I50.30 Unspecified diastolic (congestive) heart failure; I48.0 Paroxysmal atrial fibrillation; Z93.1 Gastrostomy status; R13.10 Dysphagia, unspecified; F03.90 Unspecified dementia, unspecified severity, without behavioral disturbance, psychotic disturbance, mood disturbance, and anxiety; I11.0 Hypertensive heart disease with heart failure; B37.49 Other urogenital candidiasis; K21.9 Gastro-esophageal reflux disease without esophagitis; Z88.5 Allergy status to narcotic agent; Z88.6 Allergy status to analgesic agent; Z79.899 Other long term (current) drug therapy; X58.XXXA Exposure to other specified factors, initial encounter
CPT/HCPCS: 36415; 36416; 51701; 71045; 74177; 80048; 80053; 81003; 81015; 82553; 83036; 83605; 83690; 83880; 84484; 85014; 85018; 85025; 85049; 85379; 87086; 93005; 93010; 96361; 96365; 96374; 96375; A4216; A4353; J0360; J0696; J1650; J2405; J2550; Q0162

== ENCOUNTER 2017-08-24 11:11 | Inpatient (IN) | payer MEDICARE, OTHER ==
[2017-08-24] MEDS ORDERED: Acetaminophen 650 MG Suppository ONE (12:01)
[2017-08-24] MEDS ORDERED: Acetaminophen 325 MG Suppository ONE (12:01)
[2017-08-24 12:11] LABS: Actual Bicarbonate (HCO3a) 18.3 mEq/L (22-26); Base Excess (BEa) -6.9 mEq/L (0 (+/-) 2.5); CO2 Tension 35.6 mmHg (35.0-45.0); O2 Tension (PaO2) 70.2 mmHg (80.0-100.0); pH, Arterial 7.33 (7.35-7.45)
[2017-08-24 12:12] LABS: Analyzer IN Cardio ER; Calcium, Ionized 1.2 mmol/L (1.12-1.30); Hematocrit-ABG 46.4 % (36.0-47.0); Hemoglobin (Hb) 12.9 g/dL (12.0-16.0); Puncture Site LRA
[2017-08-24 12:28] LABS: Hemoglobin 12.9 g/dL (12.0-16.0); Mean Corpuscular HGB CONC 32.1 g/dL (32.0-36.0); Mean Corpuscular Hemoglobin 29.6 pg (27.0-31.0); Mean Corpuscular Volume 92.3 fl (81.0-99.0); Mean Platelet Volume 7.1 fL (7.4-10.4); Platelet Count 514 thou/uL (130-400); Red Blood Cell (RBC) Count 4.34 mill/uL (4.20-5.40); White Blood Cell (WBC) Count 28.8 thou/uL (4.8-10.8)
[2017-08-24 12:36] LABS: ALT (SGPT) 24 U/L (8-55); AST (SGOT) 51 U/L (5-34); Albumin 3.1 g/dL (3.4-4.8); Alkaline Phosphatase 138 U/L (40-150); Anion Gap 18 mmol/L (10-20); BUN (Urea Nitrogen) 23 mg/dL (9.8-20.1); Bilirubin, Total 0.6 mg/dL (0.2-1.2); Calc. Creatinine Clearance 0 mL/min (70-130); Calcium 9.5 mg/dL (7.8-10.44); Carbon Dioxide 20 mmol/L (23-31); Chloride 101 mmol/L (98-107); Estimated GFR-MDRD 29; Globulin 3.9 g/dL (2.4-3.5); Glucose 155 mg/dL (83-110); Lipase 142 U/L (8-78); Magnesium 2.2 mg/dL (1.6-2.6); Potassium 5.5 mmol/L (3.5-5.1); Sodium 133 mmol/L (136-145)
[2017-08-24 12:38] LABS: CKMB 0.7 ng/mL (0-6.6)
--- NOTE | 2017-08-24 13:05 | RAD ---
RADIOGRAPH CHEST 1 VIEW: Date: 08/24/17. Time: 11:35 a.m. HISTORY: An 87-year-old female with cough and dyspnea. COMPARISON: 07/11/17. FINDINGS: There is interval worsening of dense opacification of the left lower lobe. There is a new finding of severe cardiomediastinal shift to the left. There is mild haziness at the right medial base, but ot herwise the rest of the right lung is clear. IMPRESSION: Interval worsening of opacification of left lower lobe and interval development of severe cardiomedia stinal shift to the left. This suggests that at least part of the opacification represents severe at electasis of the left lower lobe. There may or may not be a concomitant pneumonia on the left side. JN [] POS: OFF
[2017-08-24 13:08] LABS: Band 9 % (5-11); Eosinophils 2 % (0-10); Lymphocytes 14 % (21-51); MDiff Complete? YES; Monocytes 3 % (0-10); Neutrophil 72 % (42-75); PLT Morphology Comment Appears Increased; RBC Morphology Normal; Toxic Granulation SLIGHT
[2017-08-24 13:28] LABS: Bilirubin Negative (Negative); Blood, Urine Negative (Negative); Clarity CLOUDY (Clear); Glucose, Urine (Dipstick) Negative (Negative); Leukocyte Moderate (Negative); Nitrite Negative (Negative); Protein, Urine (Dipstick) 30 mg/dL (Neg-Trace); Specific Gravity, Urine 1.016 (1.002-1.036); Urobilinogen 0.2 mg/dL (0.2-1.0)
[2017-08-24 13:29] LABS: Bacteria/HPF None Seen HPF (None Seen); Hyaline Casts/LPF 7-10 HYALINE CAST LPF (0-3 Hyaline); Pathc Cast-AUWi Flag 2.32 (0-2.49); RBC/HPF 0-3 HPF (0-3); Yeast-AUWi Flag 21.8 (0-25.0)
[2017-08-24] MEDS ORDERED: Sodium Bicarb 50 MEQ/50 ML Abboject 8.4% SYRINGE ONE (13:31)
[2017-08-24] MEDS ORDERED: Insulin Regular 300 UNITS/3 ML VIAL ONE (13:31)
[2017-08-24] MEDS ORDERED: Dextrose 50% Abboject 50 ML SYRINGE ONE (13:31)
[2017-08-24] MEDS ORDERED: Calcium Chloride 1 GM/10 ML Abboject SYRINGE ONE (13:31)
[2017-08-24 13:43] LABS: Renal Epithelial None Seen HPF (0-3)
--- NOTE | 2017-08-24 13:53 | CT ---
CT ANGIOGRAM CHEST WITH 3D RENDERING CT ANGIOGRAM ABDOMEN WITH 3D RENDERING History: 87-year-old female with history of chest pain. FINDINGS: Extensive atherosclerotic changes of the thoracic aorta are noted with extensive calcified plaques wi thout evidence for a focal aneurysm or thoracic aortic dissection. There is fairly marked dilatation of the main coronary artery and right and left pulmonary arteries. There is very marked left sided vo lume loss with significant atelectasis in the left upper lobe with what appears to be some marked josephine rowing of left upper lobe bronchus and possibly some intrabronchial soft tissue or fluid or mucosal c hanges. There is also some fluid or soft tissue changes within portions of the left lower lobe bronch us as well with some partial left lower lobe atelectasis. There are some scattered air bronchograms n oted in both the left upper lobe and left lower lobe. In the right lung there are some patchy, mostly linear type parenchymal changes in the right lower lobe with some pleural thickening as well as some patchy small foci of alveolar nodular parenchymal changes in the right middle lobe and right lower l obe and right upper lobe, possibly some pneumonitis. No significant mediastinal adenopathy. There is evidence for a hiatal hernia with fluid within a dilated distal esophagus evidence for some reflux. In the abdomen, there is a 3.4 x 3.7 cm diameter aneurysm of the distal abdominal aorta which does no t appear to be significantly changed from the 07-11-17 study. Stable splenic circumscribed hypodensity and bilateral renal hypodensities, stable nodular fullness of both right and left adrenal glands. Gas trostomy tube in place. Stable dilated cecum. Nonspecific borderline dilated fluid filled small bowel loops, possibly nonspecific enteritis. IMPRESSION: No evidence for aortic dissection. Stable distal abdominal aortic aneurysm. Marked left sided lung vo lume loss with significant atelectasis of the left upper lobe and partial atelectasis of the left low er lobe. Further evaluation with bronchoscopy is strongly recommended in this concern. Minimal patchy parenchymal changes in the right lung. Hiatal hernia with fluid within a dilated distal esophagus, e vidence for reflux. Stable dilated cecum with some borderline sized fluid filled small bowel loops, n onspecific, possibly nonspecific ileus. Stable renal and splenic low attenuation foci. No evidence fo r intraabdominal mass or abscess or significant abnormal fluid collection. The bilateral pleural effu sions seen at the prior 07-11-17 have considerably improved. POS: [facility]
[2017-08-24] MEDS ORDERED: Piperacillin/Tazobactam 3.375 GM VIAL ONE (13:58)
[2017-08-24 16:05] LABS: Lactic Acid 5.6 mmol/L (0.5-2.2)
[2017-08-24] MEDS ORDERED: Calcium Carbonate 500 MG ChewTAB PO PRN (17:08)
[2017-08-24] MEDS ORDERED: Acetaminophen 650 MG Suppository PR PRN (17:08)
[2017-08-24] MEDS ORDERED: Acetaminophen 325 MG TAB PO PRN (17:08)
[2017-08-24] MEDS ORDERED: Ondansetron HCl/PF 4 MG/2 ML Vial IVP PRN (17:08)
--- NOTE | 2017-08-24 17:24 | PDOC.FPRHP ---
- History of Present Illness Chief Complaint: abd pain History of Present Illness: 87yo CF currently being cared for at [facility] for SNF after recent hospital stay for obstructing hiatal hernia with multiple post-operative complications and a recurrent UTI who presents after 2 days of feeling poorly including chest pain, shortness of breath, abd pain, nausea and fevers. She was noted to appear mildly ill upon care home rounds, but quickly decompensated to have pulse ox 80% on RA requiring BIPAP and pulse in the 130s and was transferred here via EMS. Upon arrival to ED, pt was noted to be febrile to 101.1, hypotensive to 70s /40s, and tachypneic in the 30s and endorsed chest pressure/squeezing and central abdominal pressure and squeezing. hx is also significant for a known abd aneurysm, therefore ER performed CT dissection protocol of chest and abdomen which were negative for dissection or ischemia, but did show some mildly dilated loops of bowel. Additionally, after arrival to ED, pt was noted to have multiple liquidy BMs which were foul-smelling. ED Course: IV fluid resuscitation of 2L NS and empiric abx Vanc & Zosyn for septic shock. - Allergies/Adverse Reactions Allergies Allergy/AdvReac Type Severity Reaction Status Date / Time aspirin Allergy Intermediate NAUSEA/VOMI Verified 06/08/17 12:02 TING codeine Allergy Intermediate NAUSEA/VOMI Verified 06/08/17 12:02 TING morphine Allergy Verified 07/11/17 19:09 nifedipine [From Adalat] Allergy Verified 07/11/17 19:42 - Home Medications Medication Instructions Recorded Confirmed Type Acetaminophen [Acetaminophen Extra 500 mg PO BID 08/24/17 08/24/17 History Strength] Amiodarone HCl [Pacerone] 400 mg PO BID 08/24/17 08/24/17 History Antiox.mv No.10/Omeg3s/Lut/Maris 1 cap PO DAILY 08/24/17 08/24/17 History [ICaps with Lutein-Payne 3 Sfg] Apixaban [Eliquis] 2.5 mg PO BID 08/24/17 08/24/17 History Bisacodyl [Dulcolax] 5 mg PO DAILY PRN 08/24/17 08/24/17 History Cholecalciferol (Vitamin D3) 1,000 unit PO DAILY 08/24/17 08/24/17 History [Vitamin D3] Docusate [Colace] 100 mg PO DAILY 08/24/17 08/24/17 History Losartan Potassium 100 mg PO DAILY 08/24/17 08/24/17 History Memantine HCl [Namenda] 10 mg PO HS 08/24/17 08/24/17 History Metoclopramide HCl [Reglan] 10 mg PO TID-WM 08/24/17 08/24/17 History Mirtazapine 15 mg PO HS 08/24/17 08/24/17 History Multivit-Minerals/Folic Acid 0.4 mg PO DAILY 08/24/17 08/24/17 History [Adult One Daily Multivit Tab] Ondansetron [Zofran ODT] 4 mg PO Q6HR PRN 08/24/17 08/24/17 History Pantoprazole [Protonix] 40 mg PO DAILY 08/24/17 08/24/17 History Pregabalin [Lyrica] 150 mg PO BID 08/24/17 08/24/17 History Solifenacin Succinate [Vesicare] 10 mg PO DAILY 08/24/17 08/24/17 History hydrALAZINE [Apresoline] 25 mg PO BID 08/24/17 08/24/17 History traMADol HCl [Tramadol HCl] 50 mg PO QID PRN 08/24/17 08/24/17 History - History PMHx: HTN, Afib, HFpEF, dementia, dysphagia, complicated obstructing hiatal hernia s/p repair, recurrent SBO, recurrent UTI PSHx: hiatal hernia repair, cholecystectomy, hysterectomy, bladder suspension, back surgery, hip surgery, knee surgery, shoulder surgery FHx: lung ca, parkinsons Social: prior opioid abuse, no current TAD - Review of Systems General: reports: fever/chills, weight/appetite/sleep changes, night sweats, fatigue Eyes: denies: eye pain, vision changes ENT: denies: nasal congestion, rhinorrhea Respiratory: reports: cough, shortness of breath. denies: congestion Cardiovascular: reports: chest pain. denies: palpitation, edema, orthopnea Gastrointestinal: reports: nausea, diarrhea, abdominal pain. denies: vomiting, constipation, GI bleeding Genitourinary: denies: dysuria, polyuria, discharge Skin: denies: rashes, lesions Musculoskeletal: denies: pain, tenderness, swelling Neurological: reports: weakness. denies: numbness, syncope Psychological: denies: anxiety, depression - Vital signs BP: [] HR: [] RR: [] Tmax: [] Pox: []% on [] Wt: [] - Physical Exam Constitutional: awake, alert and oriented, well developed (mild distress due to pain) HEENT: normocephalic and atraumatic, PERRLA, no scleral icterus -HEENT: dentures, poor dentition hard of hearing Neck: supple, trachea midline, no LAD, no thyromegaly Chest: no-tender to palpation, no lesions Heart: RRR, normal S1/S2, no murmurs/rubs/gallops, pulses present, no edema Lungs: no respiratory distress, no rales/rhonchi, no wheezing -Lungs: breathing comfortably. poor air movement in bilateral bases Abdomen: soft, bowel sounds present, no masses/distention -Abdomen: TTP diffusely, worse in epigastrum Musculoskeletal: normal structure, normal tone Neurological: no focal deficit, normal sensation Skin: no rash/lesions, good turgor, capillary refill <2 seconds, no jaundice Heme/Lymphatic: no unusual bruising or bleeding, no purpura, no petechia, no LAD Psychiatric: normal mood and affect, good judgment and insight FMR H&P: Results - Labs Result Diagrams: 08/25/17 03:33 08/25/17 03:33 Lab results: WBC 28.8 thou/uL (4.8-10.8) H 08/24/17 11:32 Hgb 12.9 g/dL (12.0-16.0) 08/24/17 11:32 Hct 40.1 % (36.0-47.0) 08/24/17 11:32 MCV 92.3 fl (81.0-99.0) 08/24/17 11:32 Plt Count 514 thou/uL (130-400) H 08/24/17 11:32 Band Neuts % (Manual) 9 % (5-11) 08/24/17 11:32 ABG pH 7.33 (7.35-7.45) L 08/24/17 12:07 ABG pCO2 35.6 mmHg (35.0-45.0) 08/24/17 12:07 ABG pO2 70.2 mmHg (80.0-100.0) L 08/24/17 12:07 Sodium 133 mmol/L (136-145) L 08/24/17 11:32 Potassium 5.5 mmol/L (3.5-5.1) H 08/24/17 11:32 Chloride 101 mmol/L (98-107) 08/24/17 11:32 Carbon Dioxide 20 mmol/L (23-31) L 08/24/17 11:32 BUN 23 mg/dL (9.8-20.1) H 08/24/17 11:32 Creatinine 1.65 mg/dL (0.6-1.1) H 08/24/17 11:32 Glucose 155 mg/dL (83-110) H 08/24/17 11:32 Lactic Acid 5.6 mmol/L (0.5-2.2) H* 08/24/17 15:41 Calcium 9.5 mg/dL (7.8-10.44) 08/24/17 11:32 Total Bilirubin 0.6 mg/dL (0.2-1.2) 08/24/17 11:32 AST 51 U/L (5-34) H 08/24/17 11:32 ALT 24 U/L (8-55) 08/24/17 11:32 Alkaline Phosphatase 138 U/L (40-150) 08/24/17 11:32 CK-MB (CK-2) 0.7 ng/mL (0-6.6) 08/24/17 11:32 Serum Total Protein 7.0 g/dL (6.0-8.3) 08/24/17 11:32 Albumin 3.1 g/dL (3.4-4.8) L 08/24/17 11:32 Lipase 142 U/L (8-78) H 08/24/17 11:32 Urine Ketones Negative mg/dL (Negative) 08/24/17 11:50 Urine Blood Negative (Negative) 08/24/17 11:50 Urine Nitrite Negative (Negative) 08/24/17 11:50 Ur Leukocyte Esterase Moderate (Negative) H 08/24/17 11:50 Urine RBC 0-3 HPF (0-3) 08/24/17 11:50 Urine WBC Greater Than 50-TNTC HPF (0-3) H 08/24/17 11:50 Ur Squamous Epith Cells 11-20 HPF (0-3) H 08/24/17 11:50 Urine Bacteria None Seen HPF (None Seen) 08/24/17 11:50 - EKG Interpretation EKG: NSR with no acute ST changes, rate 90s - Radiology Interpretation CT scan - chest Status: report reviewed by me CT scan - abdomen Status: report reviewed by me Additional comment: d/w radiologist who confirmed patency of SMA and no concerns for bowel ischemia FMR H&P: A/P - Problem List (1) Septicemic shock Current Visit: Yes Status: Acute Priority: High Code(s): A41.9 - SEPSIS, UNSPECIFIED ORGANISM; R65.21 - SEVERE SEPSIS WITH SEPTIC SHOCK (2) Gastroenteritis presumed infectious Current Visit: Yes Status: Acute Priority: High Code(s): K52.9 - NONINFECTIVE GASTROENTERITIS AND COLITIS, UNSPECIFIED (3) Renal failure (ARF), acute on chronic Current Visit: Yes Status: Acute Priority: Medium Code(s): N17.9 - ACUTE KIDNEY FAILURE, UNSPECIFIED; N18.9 - CHRONIC KIDNEY DISEASE, UNSPECIFIED Qualifiers: Acute renal failure type: unspecified Chronic kidney disease stage: unspecified stage Qualified Code(s): N17.9 - Acute kidney failure, unspecified ; N18.9 - Chronic kidney disease, unspecified; N18.9 - Chronic kidney disease, unspecified (4) Chest pain Current Visit: Yes Status: Chronic Code(s): R07.9 - CHEST PAIN, UNSPECIFIED Qualifiers: Chest pain type: unspecified Qualified Code(s): R07.9 - Chest pain, unspecified (5) Hiatal hernia Current Visit: Yes Status: Chronic Priority: Low Code(s): K44.9 - DIAPHRAGMATIC HERNIA WITHOUT OBSTRUCTION OR GANGRENE Comment: s/p Toña fundoplication and hernia repair (6) Hypertension Current Visit: Yes Status: Chronic Priority: Low Code(s): I10 - ESSENTIAL (PRIMARY) HYPERTENSION Qualifiers: Hypertension type: essential hypertension Qualified Code(s): I10 - Essential (primary) hypertension (7) Physical deconditioning Current Visit: Yes Status: Chronic Priority: Low Code(s): R53.81 - OTHER MALAISE Comment: CM consult for CHAMP/SNF (8) Diastolic dysfunction Current Visit: Yes Status: Chronic Priority: Medium Code(s): I51.9 - HEART DISEASE, UNSPECIFIED (9) Dementia Current Visit: Yes Status: Chronic Priority: Low Code(s): F03.90 - UNSPECIFIED DEMENTIA WITHOUT BEHAVIORAL DISTURBANCE Qualifiers: Dementia type: unspecified type Dementia behavioral disturbance: without behavioral disturbance Qualified Code(s): F03.90 - Unspecified dementia without behavioral disturbance Comment: Continue home meds. (10) Paroxysmal A-fib Current Visit: Yes Status: Chronic Priority: Low Code(s): I48.0 - PAROXYSMAL ATRIAL FIBRILLATION - Plan 87 yo CF with significant past hx for obstructing hiatal hernia s/p toña fundoplication and gastrostomy tube placement p/w- 1) Septic shock due to presumed infectious gastroenteritis- leukocytosis + fever + tachycardia + tachypnea + lactic acidosis with hypotension despite IVF resuscitation. Will continue IVF above maintenence but hx of diastolic dysfunction therefore caution regarding excessive fluids; will likely place central line and initiate levophed gtt. s/p Vanc & Zosyn for broad-spectrum coverage given pts complicated abdominal surgery hx. Serial abd exams. Pending BCx, UCx, stool studies. Trend lactic acid. 2) CHINMAY on CKD- mild increase above baseline. will monitor but will likely respond to fluid resuscitation 3) diastolic dysfunction- monitor fluid status closely 4) HTN- hold home meds due to hypotension from septic shock 5) pAfib- monitor on tele, continue eliquis 6) dementia- conservative tx Disposition/LOS: >2 nights FMR H&P: Upper Level - Plan Date/Time: 08/24/17 1724 I, [], have evaluated this patient and agree with findings/plan as outlined by internal combustion engineer resident. Pertinent changes/additions are listed here. Attending Addendum - Attending Addendum Date/Time: 08/24/17 190 I personally evaluated the patient and discussed the management with Dr. Godoy I agree with the History, Examination, Assessment and Plan documented above with any addition or exceptions noted below. 87 yo female with multiple co-morbid conditions admitted for septic shock. Currently off BiPAP. Reports abdominal pain at present. Otherwise notes coughing , SOB over the past 2 days. Now with diarrhea since transfer. BP very sensitive to IVFs. Hypotensive but responding to fluids at present. MAP stable. TTP at RUQ and epigastrium. No rebound. Decreased lungs sounds at bases bilaterally. Imaging and labs reviewed. 1. Septic shock: Currently responding to IVFs but will possibly need pressors. Will need central line. Continue IVFs and broad spectrum antibiotics. Unsure source at present but concern either infectious GI vs ischemic GI. Stool, blood , urine pending. Trend labs. Will call and discuss CT with radiology for possible ischemia and evaluation of dilated loops. Keep NPO. Consider holding anticoagulation. 2. Electrolyte derangements: Patient in septic shock with cardiac history, will correct. Continuos tele monitoring. EKG as needed. 3. Pancreatitis?: CT negative. Lipase mildly elevated. Monitor. NPO. Ca WNL. Adjust home meds as needed for comorbid conditions. Jaqueline
[2017-08-24] MEDS ORDERED: Acetaminophen 1,000 MG in Premix Bag 1 BAG IVPB SCH (17:30)
[2017-08-24] MEDS ORDERED: Ketorolac Tromethamine 30 MG/ML VIAL IVP SCH (17:30)
[2017-08-24] MEDS ORDERED: Pantoprazole 40 MG VIAL IVP SCH (17:45)
[2017-08-24] MEDS: Sodium Chloride 0.9% 1,000 ML IV SCH ×3 (17:56→21:15)
[2017-08-24 18:07] LABS: Hemoglobin 12.3 g/dL (12.0-16.0)
[2017-08-24 18:21] LABS: Anion Gap 13 mmol/L (10-20); BUN (Urea Nitrogen) 28 mg/dL (9.8-20.1); Calc. Creatinine Clearance 24 mL/min (70-130); Carbon Dioxide 20 mmol/L (23-31); Chloride 107 mmol/L (98-107); Estimated GFR-MDRD 29; Glucose 175 mg/dL (83-110); Potassium 4.4 mmol/L (3.5-5.1); Sodium 136 mmol/L (136-145)
[2017-08-24 18:26] LABS: Troponin I 0.041 ng/mL (< 0.028)
[2017-08-24] MEDS ORDERED: Prevnar 13-Val Conj/PF 0.5 ML SYRINGE IM ONE (21:00)
--- NOTE | 2017-08-24 21:30 | PDOC.EVN ---
Event Note - Event Note Event Note: Called as persistent hypotension. On exam her abdominal pain is resolved, but she is drowsy with no s/s of impending respiratory failure. RRR s M, No increased work of breathing. BS+, nttp, no guarding or rigidity on my exam. POCUS: IVC <2 cm and fully collapsible. Good function from brief subcostal exam. No effusion. Will plan for repeat 1 L IVFB and placed central line for anticipated vasopressor need.
--- NOTE | 2017-08-24 22:04 | RAD ---
PORTABLE CHEST: 08/24/2017 PROVIDED CLINICAL HISTORY: Dyspnea. COMPARISON: 08/24/2017 at 11:35 a.m. FINDINGS: Persistent left basilar pleural and/or parenchymal opacity. Atherosclerosis is redemonstrated. The right lung demonstrates right lower lung zone patchy opacity. There is limitations in evaluating for pneumothorax due to the supine nature of the study. A catheter overlies the right lung apex and med iastinum, presumably reflecting a right IJ central catheter. The mediastinum remains shifted leftwar d due to volume loss involving the left hemithorax. IMPRESSION: 1. Interval right internal jugular central line placement as above. 2. Persistent shift of the mediastinal structures leftward with pleural and parenchymal opacity invo lving the left hemithorax. POS: REY
--- NOTE | 2017-08-24 22:07 | PDOC.OP ---
Operative Note - Operative Note Operative Note: Internal Jugular Central Venous Line Procedure Note INDICATION: Shock PROCEDURE BASKET OPERATOR: Amari Arevalo MD/Jodi Hernandez MD ATTENDING PHYSICIAN: Sonny Nair MD In Attendance CONSENT: Consent was obtained from patient prior to the procedure. Indications, risks, and benefits were explained at length. PROCEDURE SUMMARY: A time out was performed. My hands were washed immediately prior to the procedure. I wore a surgical cap, mask with protective eyewear, full gown and sterile gloves throughout the procedure. The patient was placed in Trendelenburg position. RIGHT chest region was prepped using chlorhexidine scrub and draped in sterile fashion using a three quarter sheet drape and sterile towels. The medial and lateral heads of the sternocleidomastoid muscle were identified as was the carotid pulse. The Internal Jugular vein was identified using the ultrasound. Anesthesia was achieved over the vein using 1% lidocaine. Using real-time out of plane guidance, the introducer needle was inserted into the Internal Jugular vein under direct ultrasound visualization. Venous blood was withdrawn. The syringe was removed and a guidewire was advanced into the introducer needle. The guidewire was visualized in the Internal Jugular Vein by ultrasound. A small incision was made at the skin surface with a scalpel and the introducer needle was exchanged for a dilator over the guidewire. After appropriate dilation was obtained, the dilator was exchanged over the wire for a 7 Fr central venous catheter. The wire was removed and the catheter was sutured in place at 16 cm. A sterile sorbaview shield was placed over the catheter at the insertion site. The patient tolerated the procedure without any hemodynamic compromise. At time of procedure completion, all ports aspirated and flushed properly. Post-procedure chest x-ray is pending at this time. Estimated blood loss is 1 mL.
[2017-08-24] MEDS: Apixaban 2.5 MG TAB PO SCH (22:23)
[2017-08-24] MEDS: Mirtazapine 15 MG TAB PO SCH (22:24)
[2017-08-24] MEDS: Piperacillin/Tazobactam 2.25 GM in Sodium Chloride 0.9% 100 ML IVPB SCH (22:25)
[2017-08-24 23:11] LABS: Troponin I 0.049 ng/mL (< 0.028)
[2017-08-24] MEDS: Norepinephrine 8 MG/0.9% NS 250 ML IVPB SCH (23:15)
[2017-08-24] MEDS: Acetaminophen 1,000 MG in Premix Bag 1 BAG IVPB PRN (23:23)
[2017-08-25] MEDS ORDERED: Sodium Chloride 0.9% 1,000 ML IV SCH (00:15)
[2017-08-25] MEDS: Sodium Chloride 0.9% 1,000 ML IV SCH ×4 (00:19→10:53)
[2017-08-25] MEDS: Piperacillin/Tazobactam 2.25 GM in Sodium Chloride 0.9% 100 ML IVPB SCH ×4 (01:18→19:54)
[2017-08-25 04:16] LABS: CKMB 1.1 ng/mL (0-6.6); Troponin I 0.035 ng/mL (< 0.028)
[2017-08-25 04:27] LABS: ALT (SGPT) 30 U/L (8-55); AST (SGOT) 46 U/L (5-34); Albumin 2.4 g/dL (3.4-4.8); Alkaline Phosphatase 100 U/L (40-150); Anion Gap 10 mmol/L (10-20); BUN (Urea Nitrogen) 30 mg/dL (9.8-20.1); Bilirubin, Total 0.5 mg/dL (0.2-1.2); Calc. Creatinine Clearance 26 mL/min (70-130); Calcium 7.9 mg/dL (7.8-10.44); Carbon Dioxide 20 mmol/L (23-31); Chloride 111 mmol/L (98-107); Estimated GFR-MDRD 31; Globulin 2.6 g/dL (2.4-3.5); Glucose 145 mg/dL (83-110); Lipase 10 U/L (8-78); Potassium 4.1 mmol/L (3.5-5.1); Sodium 137 mmol/L (136-145)
[2017-08-25 04:54] LABS: Band 10 % (5-11); Hemoglobin 10.6 g/dL (12.0-16.0); Lymphocytes 4 % (21-51); MDiff Complete? YES; Mean Corpuscular HGB CONC 31.9 g/dL (32.0-36.0); Mean Corpuscular Hemoglobin 29.1 pg (27.0-31.0); Mean Corpuscular Volume 91.2 fl (81.0-99.0); Mean Platelet Volume 6.5 fL (7.4-10.4); Monocytes 5 % (0-10); Myelocyte 1 % (0-0); Neutrophil 80 % (42-75); PLT Morphology Comment Appears Increased; Platelet Count 438 thou/uL (130-400); RBC Distribution Width 15.1 % (11.5-14.5); Red Blood Cell (RBC) Count 3.65 mill/uL (4.20-5.40)
[2017-08-25] MEDS ORDERED: Metoclopramide HCl 10 MG TAB PO SCH (08:00)
[2017-08-25] MEDS: Acetaminophen 1,000 MG in Premix Bag 1 BAG IVPB PRN (08:08)
[2017-08-25] MEDS: Pantoprazole 40 MG VIAL IVP SCH (08:29)
--- NOTE | 2017-08-25 08:34 | CON ---
DATE OF CONSULTATION: 08/25/2017 Seventy minutes time was spent with the patient at that time, greater than 50% was spent with the pat ient and/or on the patient's unit in the hospital. HISTORY OF PRESENT ILLNESS: This is an 87-year-old female, who was admitted to the [facility] last night with complaints of midepigastric abdominal pain that has been present for about 2 d ays prior to admission. On arrival, she was found to be hypotensive and febrile. She had test perfo rmed for C. difficile colitis, which was negative. She underwent a CT of the chest and abdomen, whic h showed dilated loops of bowel. PAST MEDICAL HISTORY: 1. Hypertension. 2. Atrial fibrillation. 3. Dementia. 4. Dysphagia. 5. Complicated obstructive hiatal hernia, recently repaired. PAST SURGICAL HISTORY: 1. Recent PEG tube placement. 2. Cholecystectomy. 3. Hysterectomy. 4. Bladder suspension. 5. Back surgery. 6. Hip surgery. 7. Knee surgery. 8. Shoulder surgery. FAMILY MEDICAL HISTORY: Remarkable for lung cancer and Parkinson's disease. SOCIAL HISTORY: Has a history of opioid abuse in the past. Does not smoke, does not consume alcohol . REVIEW OF SYSTEMS: Remarkable for the abdominal pain and fever. ALLERGIES: ASPIRIN, CODEINE, MORPHINE, and NIFEDIPINE. MEDICATIONS PRIOR TO ADMISSION: Amiodarone, acetaminophen, Eliquis, Dulcolax, vitamin D3, and docusa te. PHYSICAL EXAMINATION: VITAL SIGNS: Temperature 97.8, pulse 65, blood pressure currently 131/59. She is on a Levophed drip at 6 mcg per minute. HEENT: Pupils react. Sclerae icteric. Oropharynx clear. NECK: No adenopathy, no JVD, no bruits. LUNGS: Clear without wheezing or rhonchi. CARDIAC: S1, S2 regular, without murmur. ABDOMEN: Diffusely tender to deep palpation. She has a PEG tube in place, which looks to be well ca red for. She had no specific rebound. No masses palpated. EXTREMITIES: No clubbing, cyanosis, or edema. LABORATORY AND X-RAY FINDINGS: Sodium 137, potassium 4.1, chloride 111, CO2 of 20, BUN 30, creatinin e 1.5, glucose 145. Troponin 0.035. Albumin is 2.4, lipase 10. White blood cell count 21.0, hemato crit 33.3, platelet count 438 with 80% neutrophils and 10% bands. CT per dissection protocol showed atelectasis in the lung, hiatal hernia with fluid within the distal esophagus, dilated cecum. ASSESSMENT: 1. Abdominal pain within the loops of bowel. 2. Septic shock versus profound volume deficit. 3. Diastolic cardiac dysfunction. 4. Prerenal azotemia. 5. History of atrial fibrillation. PLAN: 1. I would recommend either surgery or GI consultation to further workup the abdominal pain. 2. Continue hydration. 3. Wean off Levophed as tolerated. 4. Antibiotics as you are doing. 5. Monitor labs.
--- NOTE | 2017-08-25 09:32 | PDOC.FM ---
- Subjective Subjective: No acute events overnight. Pt had persistently low bp that was not corrected with IV fluid resuscitation and pt was started on levophed GTT. Still requiring pressor support and has persistent pain and sob. Otherwise no new complaints. She reports the pain is similar to previous episodes and occurs episodically. - Objective Vital Signs & Weight: Vital Signs (12 hours) Temp Pulse Resp BP Pulse Ox 08/25/17 04:00 97.8 F 08/25/17 00:00 97.7 F 08/24/17 23:00 97.7 F 74 17 99 08/24/17 22:00 73/36 L Weight Weight 73.2 kg Most Recent Monitor Data Heart Rate from ECG 67 NIBP 103/34 NIBP BP-Mean 35 Respiration from ECG 18 SpO2 100 I&O: 08/24/17 08/25/17 08/26/17 06:59 06:59 06:59 Intake Total 4312 Output Total 90 Balance 4222 Result Diagrams: 08/25/17 03:33 08/25/17 03:33 <Shyam Gasca - Last Filed: 08/25/17 09:31> - Objective Vital Signs & Weight: Vital Signs (12 hours) Temp Pulse Resp Pulse Ox 08/25/17 12:00 97.8 F 08/25/17 08:00 97.8 F 69 22 H 98 08/25/17 04:00 97.8 F Weight Weight 73.2 kg Most Recent Monitor Data Heart Rate from ECG 70 NIBP 106/44 NIBP BP-Mean 69 Respiration from ECG 18 SpO2 98 I&O: 08/24/17 08/25/17 08/26/17 06:59 06:59 06:59 Intake Total 4312 100 Output Total 90 215 Balance 4222 -115 Result Diagrams: 08/25/17 03:33 08/25/17 03:33 <Howie Stevens - Last Filed: 08/25/17 13:34> Phys Exam - Physical Examination moderately distressed, lethargic HEENT: PERRLA, moist MMs Neck: no nodes, no JVD coarse breath sounds throughout, diminished breath sounds in bases Cardiovascular: RRR, no significant murmur, no rub Gastrointestinal: soft, no distention, positive bowel sounds guarding, diffusely ttp, + rebound tenderness Musculoskeletal: no edema, pulses present Neurological: non-focal, moves all 4 limbs Skin: normal turgor, cap refill <2 seconds <Shyam Gasca - Last Filed: 08/25/17 09:31> Dx/Plan (1) Renal failure (ARF), acute on chronic Code(s): N17.9 - ACUTE KIDNEY FAILURE, UNSPECIFIED; N18.9 - CHRONIC KIDNEY DISEASE, UNSPECIFIED Status: Acute QualifierTitle: Acute renal failure type: unspecified Chronic kidney disease stage: unspecified stage Qualified Code(s): N17.9 - Acute kidney failure, unspecified; N18.9 - Chronic kidney disease, unspecified; N18.9 - Chronic kidney disease, unspecified (2) Septicemic shock Code(s): A41.9 - SEPSIS, UNSPECIFIED ORGANISM; R65.21 - SEVERE SEPSIS WITH SEPTIC SHOCK Status: Acute (3) Dementia Code(s): F03.90 - UNSPECIFIED DEMENTIA WITHOUT BEHAVIORAL DISTURBANCE Status: Chronic QualifierTitle: Dementia type: unspecified type Dementia behavioral disturbance: without behavioral disturbance Qualified Code(s): F03.90 - Unspecified dementia without behavioral disturbance (4) Diastolic dysfunction Code(s): I51.9 - HEART DISEASE, UNSPECIFIED Status: Chronic (5) Hypertension Code(s): I10 - ESSENTIAL (PRIMARY) HYPERTENSION Status: Chronic QualifierTitle: Hypertension type: essential hypertension Qualified Code( s): I10 - Essential (primary) hypertension (6) Paroxysmal A-fib Code(s): I48.0 - PAROXYSMAL ATRIAL FIBRILLATION Status: Chronic (7) Atrial fibrillation with rapid ventricular response Code(s): I48.91 - UNSPECIFIED ATRIAL FIBRILLATION Status: Resolved - Plan Plan: 87 yo CF with significant past hx for obstructing hiatal hernia s/p toña fundoplication and gastrostomy tube placement p/w- 1) Septic shock due to presumed infectious gastroenteritis vs pneumonia - leukocytosis + fever + tachycardia + tachypnea + lactic acidosis with hypotension despite IVF resuscitation. Lactic acid has trended down with IVF resuscitation. Pressures persistantly low with IVF, levophed @ 6mcg, wean as tolerated for map >60 -Will consult GI for further recommendations -Stool studies and cdiff negative -Procal positive, cont vanc zosyn: pulm consulted, appreciate recs -Lactoferrin positive: consult GI, appreciate recs 2) CHINMAY on CKD- mild increase above baseline. will monitor but will likely respond to fluid resuscitation, trended down. Continue to monitor, donita 2/2 hypoperfusion 2/2 septic shock 3) diastolic dysfunction- monitor fluid status closely 4) HTN- hold home meds due to hypotension from septic shock 5) pAfib- monitor on tele, continue eliquis, flush peg and give PO meds via peg. CT showed peg in place. 6) dementia- conservative tx <Shyam Gasca - Last Filed: 08/25/17 09:31> Attending Addendum - Attending Addendum Date/Time: 08/25/17 4711 I personally evaluated the patient and discussed the management with Dr. Gasca I agree with the History, Examination, Assessment and Plan documented above with any addition or exceptions noted below. Severe sepsis source pending continue to consider mesenteric ischemia pain disproportionate to exam. CT with oral contrast and Surgical consultation. Appreciate Pulmonary recommendations. <Howie Stevens - Last Filed: 08/25/17 13:34>
[2017-08-25] MEDS ORDERED: Iopamidol 370 76% 50 ML VIAL FS ONE (11:04)
[2017-08-25] MEDS: Apixaban 2.5 MG TAB PO SCH (11:14)
[2017-08-25] MEDS: Morphine 4 MG/ML VIAL SLOW IVP PRN ×2 (12:24→19:51)
[2017-08-25] MEDS: Metoclopramide HCl 10 MG/2 ML VIAL IVP SCH ×2 (13:58→21:16)
[2017-08-25] MEDS ORDERED: Vancomycin HCl 1 GM in Sodium Chloride 0.9% 250 ML 250 ML IVPB SCH (14:00)
[2017-08-25 15:48] LABS: ALT (SGPT) 27 U/L (8-55); AST (SGOT) 39 U/L (5-34); Albumin 2.2 g/dL (3.4-4.8); Alkaline Phosphatase 82 U/L (40-150); Anion Gap 11 mmol/L (10-20); BUN (Urea Nitrogen) 28 mg/dL (9.8-20.1); Bilirubin, Total 0.4 mg/dL (0.2-1.2); Calc. Creatinine Clearance 28 mL/min (70-130); Calcium 7.5 mg/dL (7.8-10.44); Carbon Dioxide 18 mmol/L (23-31); Chloride 114 mmol/L (98-107); Estimated GFR-MDRD 31; Globulin 2.6 g/dL (2.4-3.5); Glucose 89 mg/dL (83-110); Protein, Total 4.8 g/dL (6.0-8.3); Sodium 139 mmol/L (136-145)
[2017-08-25 16:18] LABS: Lactic Acid 0.7 mmol/L (0.5-2.2)
[2017-08-25] MEDS: Lactated Ringer's 1,000 ML IV SCH (16:18)
[2017-08-25 16:55] LABS: Anisocytosis SLIGHT = 6-15 cells (100X) (0-5/hpf); Band 20 % (5-11); Hemoglobin 10.4 g/dL (12.0-16.0); Hypochromia SLIGHT = 6-15 cells (100X) (0-5/hpf); Lymphocytes 10 % (21-51); MDiff Complete? YES; Mean Corpuscular HGB CONC 31.6 g/dL (32.0-36.0); Mean Corpuscular Hemoglobin 28.9 pg (27.0-31.0); Mean Corpuscular Volume 91.5 fl (81.0-99.0); Mean Platelet Volume 6.4 fL (7.4-10.4); Monocytes 3 % (0-10); Neutrophil 67 % (42-75); PLT Morphology Comment Appears Increased; Platelet Count 408 thou/uL (130-400); RBC Distribution Width 15.1 % (11.5-14.5); White Blood Cell (WBC) Count 11.6 thou/uL (4.8-10.8)
--- NOTE | 2017-08-25 17:58 | CT ---
CT ABDOMEN AND PELVIS WITH ORAL CONTRAST: 08/25/2017 PROVIDED CLINICAL HISTORY: Abdominal pain. COMPARISON: Examination performed on 08/24/2017, as well as prior CT exam of the abdomen dated 07/08/2017. FINDINGS: Bibasilar lung consolidation is noted, greater at the left lung base, appearing worsened as compared to the prior study. There is a mobile cecum in this patient. The transverse colon-right colon junction is in the right l ower quadrant, and the right colon extends cephalad and medially along the right hepatic margin. Thi s simulates a fluid and gas collection but does not, in fact, represent one, as this is contiguous wi th bowel at both ends. There is conspicuous mural thickening involving the descending colon, sigmoid colon, and rectum, with adjacent fat stranding about the rectum and distal sigmoid colon. There is no evidence for bowel ob struction, though there are scattered ectatic loops of small bowel present. There is no discrete tra nsition zone, and findings are more suggestive of ileus. The solid abdominal organs demonstrate no acute abnormality. There is mural thickening involving the distal esophagus. Some of this could reflect a hiatal hernia. The osseous structures demonstrate no concerning osteoblastic or osteolytic lesions. Percutaneous gastrostomy tube is noted, the tip of which is within the stomach. IMPRESSION: 1. Prominent mural thickening involving the rectum, the sigmoid colon, and the descending colon, com patible with colitis. Ischemic, infectious, and inflammatory etiologies could be considered. 2. Bibasilar lung consolidation, left greater than right, which may reflect a combination of atelect asis, pneumonia, or aspiration. POS: REY
[2017-08-25] MEDS: Norepinephrine 8 MG/0.9% NS 250 ML IVPB SCH (18:16)
[2017-08-25] MEDS: Vancomycin HCl 750 MG in Sodium Chloride 0.9% 250 ML 250 ML IVPB SCH (18:21)
[2017-08-25] MEDS: Mirtazapine 15 MG TAB PO SCH (21:16)
--- NOTE | 2017-08-26 00:37 | CON ---
DATE OF CONSULTATION: 08/25/2017 HISTORY OF PRESENT ILLNESS: The patient is an 87-year-old female, who presented with 2 day s of feeling some chest pain, shortness of breath, abdominal pain, nausea, and fever. She was noted to have a fever on presentation to the emergency room and was hypotensive. She reports she has abdom inal pain that was similar to the pain that she suffered after having complications from a fundoplica tion. She has a PEG tube from a fundoplication. She has had diarrhea over the last 24-48 hours and this has been foul smelling. She denies any blood in the stool. PAST MEDICAL HISTORY: Significant for chest pain of musculoskeletal origin. Bacova syndrome, urina ry tract infection, chronic back pain, tardive dyskinesia, migraines, gastroesophageal reflux, arthri tis. PAST SURGICAL HISTORY: Includes lumbar surgery, left shoulder surgery, right hip surgery, cholecyste ctomy, hysterectomy, Madi fundoplication with multiple complications. MEDICATIONS: Include tramadol 50 mg p.o. q.i.d. p.r.n., Apresoline 25 mg p.o. b.i.d., VESIcare 10 mg p.o. daily, Lyrica 150 mg p.o. b.i.d., Protonix 40 mg p.o. daily, multivitamin 1 p.o. daily, Remeron 50 mg p.o. at bedtime, metoclopramide 10 mg p.o. t.i.d., Namenda 10 mg p.o. at bedtime, losartan 100 mg p.o. every day, docusate 100 mg p.o. daily, vitamin D3 1000 units p.o. daily, Eliquis 2.5 mg p.o. b.i.d., amiodarone 400 mg p.o. b.i.d., acetaminophen 500 mg p.o. b.i.d. FAMILY HISTORY: Negative for GI or liver disease. REVIEW OF SYSTEMS: Unobtainable. PHYSICAL EXAMINATION: GENERAL: Shows an ill-appearing elderly female in some respiratory distress. VITAL SIGNS: Her pulse is 82, respiratory rate 20, blood pressure 94/60, temperature is 98.4. HEENT: Unremarkable. NECK: Supple. CHEST: Show upper breath sounds. ABDOMEN: Soft, nontender, without organomegaly or masses. She has a PEG in the left upper quadrant with a large amount of exudate around the PEG, but the skin is not that erythematous nor tender. EXTREMITIES: Normal. NEUROLOGIC: Nonfocal. LABORATORY DATA: Shows on admission, white blood cell count of 28.8 and is down to 11.6, hemoglobin is 12.9 and down to 10.4, platelet count is 514. Chemistries significant for her lactic acid level o f 5.0, sodium 133, potassium 5.5, BUN 23, creatinine 1.65, albumin 3.1. CT of the chest dissection s howed no evidence of aortic dissection; stable distal abdominal aortic aneurysm; marked left-sided ana ng volume loss with significant atelectasis of the left upper lobe and partial atelectasis of the lef t lower lobe; hiatal hernia was noted with fluid within a dilated distal esophagus; stable dilated ce cum with some borderline size fluid fill, small bowel loops, nonspecific; stable renal and splenic lo w-attenuation foci. Abdominal and pelvic CT done on 08/25/2017 showed prominent mural thickening inv olving the rectosigmoid and descending colon, compatible with colitis; bibasilar lung consolidation, left greater than right. Stool culture is negative. Stool for C. difficile antigen and toxin are negative. Stool for lactofe rrin is positive. Stool for occult blood is positive. Rapid parasite screen is negative. ASSESSMENT: 1. Distal colitis involving the rectum - Clostridium difficile would be a possibility, although her stool studies are negative. Ischemia would be also possible that, however, rarely does not involve t he rectum. 2. Bilateral atelectasis and consolidation - this probably represents a source of the patient's feve r. 3. History of esophageal obstruction as a complication of Madi fundoplication. 4. Status post PEG. 5. Hypotension - this could be from a combination of sepsis, diarrhea, and dehydration. RECOMMENDATIONS: 1. We will perform the flexible sigmoidoscopy tomorrow. 2. We would keep the patient n.p.o. as I suspect that with her obstruction she is not able to tolera te oral intake. 3. Broad antibiotic coverage.
[2017-08-26] MEDS: Morphine 4 MG/ML VIAL SLOW IVP PRN ×3 (01:15→21:25)
[2017-08-26] MEDS: Piperacillin/Tazobactam 2.25 GM in Sodium Chloride 0.9% 100 ML IVPB SCH ×4 (01:19→21:19)
[2017-08-26] MEDS: Lactated Ringer's 1,000 ML IV SCH ×3 (03:20→12:39)
[2017-08-26] MEDS: Metoclopramide HCl 10 MG/2 ML VIAL IVP SCH ×3 (05:18→21:23)
[2017-08-26 05:55] LABS: ALT (SGPT) 26 U/L (8-55); AST (SGOT) 33 U/L (5-34); Albumin 2.2 g/dL (3.4-4.8); Alkaline Phosphatase 79 U/L (40-150); Anion Gap 8 mmol/L (10-20); BUN (Urea Nitrogen) 26 mg/dL (9.8-20.1); Bilirubin, Total 0.3 mg/dL (0.2-1.2); Calc. Creatinine Clearance 31 mL/min (70-130); Calcium 7.8 mg/dL (7.8-10.44); Carbon Dioxide 19 mmol/L (23-31); Chloride 115 mmol/L (98-107); Estimated GFR-MDRD 35; Globulin 2.6 g/dL (2.4-3.5); Glucose 81 mg/dL (83-110); Potassium 3.9 mmol/L (3.5-5.1); Protein, Total 4.8 g/dL (6.0-8.3); Sodium 138 mmol/L (136-145)
[2017-08-26 06:59] LABS: Band 30 % (5-11); Hemoglobin 9.5 g/dL (12.0-16.0); Lymphocytes 10 % (21-51); MDiff Complete? YES; Mean Corpuscular Hemoglobin 28.6 pg (27.0-31.0); Mean Corpuscular Volume 92.1 fl (81.0-99.0); Mean Platelet Volume 7.1 fL (7.4-10.4); Monocytes 4 % (0-10); Neutrophil 56 % (42-75); Platelet Count 375 thou/uL (130-400); RBC Distribution Width 15.3 % (11.5-14.5); Red Blood Cell (RBC) Count 3.32 mill/uL (4.20-5.40); White Blood Cell (WBC) Count 14.3 thou/uL (4.8-10.8)
--- NOTE | 2017-08-26 07:51 | PRG ---
DATE OF SERVICE: 08/26/2017 SUBJECTIVE: The patient is awake. She says she is continuing to have some abdominal pain, but it is better compared to yesterday. It is noted that she is now off her Levophed drip within the last chelo r. PHYSICAL EXAMINATION: VITAL SIGNS: Her temperature is 98.8, pulse 79, blood pressure 126/68, O2 sat 100%. HEENT EXAM: Unremarkable. NECK: No JVD. LUNGS: Coarse breath sounds. CARDIAC: S1 and S2, regular. No murmur. ABDOMEN: Slightly distended. Bowel sounds diminished. She is tender to deep palpation, but not to the extent that she was yesterday. EXTREMITIES: No clubbing, cyanosis, or edema. LABORATORY DATA: Sodium 130, potassium 3.9, chloride 115, CO2 of 19, BUN 26, creatinine 1.4, glucose 81, albumin 2.2. White blood cell count 14.3, hemoglobin 9.5, hematocrit 30.5, platelet count 375. Cultures show no growth to date. ASSESSMENT: 1. Colitis - could be ischemic colitis. 2. Atelectasis on CT scan - possibility of pneumonia exists, but I think her lung findings today may be more reflective of developing fluid overload. 3. Prerenal azotemia. 4. Hypoalbuminemia. 5. History of paroxysmal atrial fibrillation. RECOMMENDATIONS: 1. Continue IV antibiotics. It looks like her Eliquis has been stopped. I am not quite sure of the reason behind that, but she will need some form of DVT prophylaxis to be started as soon as practica l. 2. Decrease IV fluids. 3. Consider transfer to the floor if she remains stable this afternoon,
--- NOTE | 2017-08-26 09:14 | PDOC.FM ---
- Subjective Subjective: No acute events overnight. Pt reports her pain is unchanged since yesterday. Howie cp, sob, nvdc. Was weaned off pressors overnight. Pt is to have flex sig per GI today. - Objective Vital Signs & Weight: Vital Signs (12 hours) Temp Pulse Resp Pulse Ox 08/26/17 08:00 98.2 F 08/26/17 06:41 99 08/26/17 06:39 78 17 99 08/26/17 04:00 98.8 F 08/26/17 00:00 98 F Weight Weight 77.9 kg Most Recent Monitor Data Heart Rate from ECG 88 NIBP 123/51 NIBP BP-Mean 58 Respiration from ECG 22 SpO2 98 I&O: 08/25/17 08/26/17 08/27/17 06:59 06:59 06:59 Intake Total 4312 3157 0 Output Total 90 685 90 Balance 4222 2472 -90 Result Diagrams: 08/26/17 04:41 08/26/17 04:41 <Shyam Gasca - Last Filed: 08/26/17 09:13> - Objective Vital Signs & Weight: Vital Signs (12 hours) Temp Pulse Resp Pulse Ox 08/26/17 10:40 84 15 99 08/26/17 08:00 98.2 F 08/26/17 06:41 99 08/26/17 06:39 78 17 99 08/26/17 04:00 98.8 F 08/26/17 00:00 98 F Weight Weight 77.9 kg Most Recent Monitor Data Heart Rate from ECG 83 NIBP 98/52 NIBP BP-Mean 86 Respiration from ECG 20 SpO2 100 I&O: 08/25/17 08/26/17 08/27/17 06:59 06:59 06:59 Intake Total 4312 3157 503 Output Total 90 685 115 Balance 4222 2472 388 Result Diagrams: 08/26/17 04:41 08/26/17 04:41 <Howie Stevens - Last Filed: 08/26/17 11:18> Phys Exam - Physical Examination ill appearing HEENT: PERRLA, sclera anicteric Neck: no nodes, no JVD Respiratory: wheezing present expiratory wheezes, scattered rales and diminished bases Cardiovascular: RRR, no significant murmur, no rub Gastrointestinal: soft, no distention, positive bowel sounds guarding and mild rebound tenderne Musculoskeletal: pulses present, edema present pedal, non-pitting b/l Neurological: non-focal, moves all 4 limbs Skin: normal turgor, cap refill <2 seconds <Shyam Gasca - Last Filed: 08/26/17 09:13> Dx/Plan (1) Renal failure (ARF), acute on chronic Code(s): N17.9 - ACUTE KIDNEY FAILURE, UNSPECIFIED; N18.9 - CHRONIC KIDNEY DISEASE, UNSPECIFIED Status: Acute QualifierTitle: Acute renal failure type: unspecified Chronic kidney disease stage: unspecified stage Qualified Code(s): N17.9 - Acute kidney failure, unspecified; N18.9 - Chronic kidney disease, unspecified; N18.9 - Chronic kidney disease, unspecified (2) Septicemic shock Code(s): A41.9 - SEPSIS, UNSPECIFIED ORGANISM; R65.21 - SEVERE SEPSIS WITH SEPTIC SHOCK Status: Acute (3) Dementia Code(s): F03.90 - UNSPECIFIED DEMENTIA WITHOUT BEHAVIORAL DISTURBANCE Status: Chronic QualifierTitle: Dementia type: unspecified type Dementia behavioral disturbance: without behavioral disturbance Qualified Code(s): F03.90 - Unspecified dementia without behavioral disturbance (4) Diastolic dysfunction Code(s): I51.9 - HEART DISEASE, UNSPECIFIED Status: Chronic (5) Hypertension Code(s): I10 - ESSENTIAL (PRIMARY) HYPERTENSION Status: Chronic QualifierTitle: Hypertension type: essential hypertension Qualified Code( s): I10 - Essential (primary) hypertension (6) Paroxysmal A-fib Code(s): I48.0 - PAROXYSMAL ATRIAL FIBRILLATION Status: Chronic (7) Lung abnormality Code(s): J98.4 - OTHER DISORDERS OF LUNG Status: Acute - Plan Plan: 1) Septic shock due to presumed infectious gastroenteritis vs pneumonia - leukocytosis + fever + tachycardia + tachypnea + lactic acidosis with hypotension despite IVF resuscitation. Lactic acid has trended down with IVF resuscitation; howeverr, AG increased this AM. Pressures have recovered and pt weaned off of pressor support -WBC increased from yesterday afternoon and vancomycin trough sub-therapeutic, pharm to dose. - stool cultures all negative; however diffuse left colon mural wall thickening - GI consulted, plan for flex sig today -Hgb dropping possibly dilutional but FOBT positive and concern for bowel ischemia, will type and screen -cont to hold eliquis 2/2 decreasing hgb with possible bowel ischemia 2) CHINMAY on CKD- mild increase above baseline, has trended down. 3) diastolic dysfunction- monitor fluid status closely, consider repeat cxr. requiring O2 NC 4) HTN- hold home meds due to hypotension from septic shock, continue to hold 5) pAfib- monitor on tele,hold eliquis for possibility of bowel ischmia. Resume post flex sig. 6) dementia- conservative tx 7) Lung abnormailty: atelectasis vs effusion vs pneumonia; pt rpeorted cough prior to onset of fever, chills and sweats. Cont to monitor. <Shyam Gasca - Last Filed: 08/26/17 09:13> Attending Addendum - Attending Addendum Date/Time: 08/26/17 1110 I personally evaluated the patient and discussed the management with Dr. Gasca I agree with the History, Examination, Assessment and Plan documented above with any addition or exceptions noted below.Stool studies: positive FOB, C.Dif negative and Culture negative patient for flex sig later today appreciate GI recs. Continue current ABX note need Vanc doseage adjustment. Patient off Levophed drip. <Howie Stevens - Last Filed: 08/26/17 11:18>
[2017-08-26] MEDS: Pantoprazole 40 MG VIAL IVP SCH (09:19)
--- NOTE | 2017-08-26 09:58 | CON ---
DATE OF CONSULTATION: 08/26/2017 CHIEF COMPLAINT: Sepsis. HISTORY: The patient is an 87-year-old female, who is currently a [facility] resident who was note d to be having increasing abdominal pain, diarrhea, tachycardia, and hypotension, who was transferred and subsequently admitted to the ICU. She was started on IV antibiotics and she is getting better. PAST MEDICAL HISTORY: Significant for hypertension, atrial fibrillation, and dementia. PAST SURGICAL HISTORY: She had emergency paraesophageal hernia repair for obstruction in June. She has had a cholecystectomy, hysterectomy, bladder suspension, back surgery, hip surgery, knee surgery , and shoulder surgery. FAMILY HISTORY: Noncontributory. SOCIAL HISTORY: She has a history of opioid dependency. She lives in a [facility]. Her daughter lives nearby. No tobacco or alcohol. ALLERGY: She has an allergy to ASPIRIN, CODEINE, and NIFEDIPINE. PHYSICAL EXAMINATION: VITAL SIGNS: Temperature 98.4, pulse 78, blood pressure 126/68. GENERAL: She is awake and alert. She always will tell you at least on her previous admission that h er pain is a 10/10, so it is very difficult to assess that and per daughter, she does that because sh della likes her narcotics, but she is awake. She does not appear to be in any distress. HEENT: Otherwise, unremarkable. LUNGS: Clear. HEART: Regular rate and rhythm. ABDOMEN: She has a PEG tube. She is moderately tender in the left lower quadrant, but no peritoneal signs, no mass. EXTREMITIES: Unremarkable. LABORATORY AND X-RAY FINDINGS: White count 14, H&H 9 and 30, platelet count 375. Electrolytes: glu cose is 81, creatinine is 1.4, BUN is 25. Urinalysis showed greater than 50/too numerous to count wh ite cells with leukoesterase. Her C. diff was negative. CT scan shows mural thickening of the desce nding sigmoid and rectum with adjacent fat stranding and a PEG in place. ASSESSMENT: Colitis, urinary tract infection. At this point, there is no surgical indication. PLAN: Medical therapy.
[2017-08-26] MEDS ORDERED: Furosemide 20 MG/2 ML VIAL SLOW IVP SCH (11:15)
--- NOTE | 2017-08-26 13:14 | PQF ---
CLINICAL DOCUMENTATION IMPROVEMENT CLARIFICATION FORM: ICD-10 Updated PLEASE DO AN ADDENDUM TO THE PROGRESS NOTE WITH ANY DOCUMENTATION UPDATES OR ADDITIONS AND CARRY THROUGH TO DC SUMMARY. THANK YOU. DATE: 08/26/17 ATTN: Dr. Gasca/ Attending Dr. Stevens Please exercise your independent, professional judgment in responding to the clarification form. Clinical indicators are provided on the bottom of this form for your review Please check appropriate box(s): [ x ] Acute Respiratory Failure: [ x ] with Hypoxia [ ] with Hypercapnia [ ] Acute On Chronic Respiratory Failure: [ ] with Hypoxia [ ] with Hypercapnia [ ] Acute Respiratory Failure due to: (etiology) [ ] Other diagnosis [ ] Unable to determine In addition, please specify: Present on Admission (POA): [ ] Yes [ ] No [ x ] Unable to determine For continuity of documentation, please document condition throughout progress notes and discharge summary. Thank You. CLINICAL INDICATORS - SIGNS / SYMPTOMS / LABS ER RECORD: RESP. 37 O2 SAT 88 ON RA RESP. 40 O2 SAT 77-81 ON 4L OXYGEN RESP, 22-26 O2 SAT 86-100 ON BIPAP RISKS: H&P: SEPTIC SHOCK D/T PRESUMED INFECTIOUS GASTROENTERITIS CHINMAY ON CKD. TREATMENT: TRANSER TO CRITICAL CARE 08/24 CPOE 08/24: PULMONOLOGY CONSULT CPOE 08/24: RESP: O2 TO KEEP SATS CONTINUOUS 92% CPOE 08/25: DUONEB Q4 HR - RT- [place]. DC'D 08/26/17 CPOE 08/26: DUONEB Q4 HR (This form is maintained as a part of the permanent medical record) 2014 [employer], [employer]. All Rights Reserved Crystal Snyder RN, BSN [email or web address] Office: [phone] [facility]
[2017-08-26] MEDS ORDERED: PROPOFOL 200 MG/20 ML VIAL ONE (13:51)
[2017-08-26] MEDS: Dextrose 5%-Lactated Ringers 1,000 ML IV SCH (16:27)
[2017-08-26 19:08] LABS: Hemoglobin 9.6 g/dL (12.0-16.0); Mean Corpuscular HGB CONC 32.5 g/dL (32.0-36.0); Mean Corpuscular Hemoglobin 29.3 pg (27.0-31.0); Mean Corpuscular Volume 90.3 fl (81.0-99.0); Mean Platelet Volume 6.3 fL (7.4-10.4); Platelet Count 339 thou/uL (130-400); RBC Distribution Width 15.1 % (11.5-14.5); Red Blood Cell (RBC) Count 3.28 mill/uL (4.20-5.40); White Blood Cell (WBC) Count 12.3 thou/uL (4.8-10.8)
[2017-08-26] MEDS: Vancomycin HCl 750 MG in Sodium Chloride 0.9% 250 ML 250 ML IVPB SCH (19:54)
[2017-08-26] MEDS: Mirtazapine 15 MG TAB PO SCH (21:22)
[2017-08-26] MEDS: Vancomycin HCl 25 MG/ML Oral PO SCH (21:22)
--- NOTE | 2017-08-27 01:06 | OP ---
PREOPERATIVE DIAGNOSES: 1. Sepsis. 2. Colitis by CT scan. PROCEDURE: After informed consent was obtained, the patient placed in the left lateral decubitus pos ition. Anesthesia was administered per the Anesthesia Department. Forward-viewing endoscope was ins erted into the rectum after perianal inspection, rectal exam were normal and passed to the mid transv erse colon. There the colon was noted to be normal. There was progressively more areas of erythema, edema, loss of vascularity, and exudate. This occurred throughout the left colon involved the rectu m and most severely was involved in the proximal rectum. Biopsies were taken from several different areas. ASSESSMENT: Severe left-sided colitis - ischemic versus Clostridium difficile versus inflammatory luis carlos wel disease (doubt). RECOMMENDATIONS: 1. Await histopathology. 2. Cover with p.o. vancomycin for Clostridium difficile.
[2017-08-27] MEDS: Piperacillin/Tazobactam 2.25 GM in Sodium Chloride 0.9% 100 ML IVPB SCH ×4 (02:31→20:06)
[2017-08-27] MEDS: Dextrose 5%-Lactated Ringers 1,000 ML IV SCH (02:33)
[2017-08-27 05:09] LABS: #Eosinphils 0.1 thou/uL (0.0-0.7); #Lymphocytes 1.5 thou/uL (1.20-3.40); #Monocytes 0.9 thou/uL (0.11-0.59); %Basophils 0.4 % (0.0-1.0); %Lymphocytes 15.8 % (21.0-51.0); %Monocytes 9.8 % (0.0-10.0); Hemoglobin 8.8 g/dL (12.0-16.0); Mean Corpuscular HGB CONC 32.8 g/dL (32.0-36.0); Mean Corpuscular Hemoglobin 29.7 pg (27.0-31.0); Mean Corpuscular Volume 90.6 fl (81.0-99.0); Mean Platelet Volume 6.6 fL (7.4-10.4); Platelet Count 336 thou/uL (130-400); Red Blood Cell (RBC) Count 2.95 mill/uL (4.20-5.40); White Blood Cell (WBC) Count 9.6 thou/uL (4.8-10.8)
[2017-08-27 05:39] LABS: ALT (SGPT) 21 U/L (8-55); AST (SGOT) 24 U/L (5-34); Albumin 2.2 g/dL (3.4-4.8); Alkaline Phosphatase 99 U/L (40-150); Anion Gap 6 mmol/L (10-20); BUN (Urea Nitrogen) 19 mg/dL (9.8-20.1); Bilirubin, Total 0.5 mg/dL (0.2-1.2); Calc. Creatinine Clearance 35 mL/min (70-130); Carbon Dioxide 23 mmol/L (23-31); Chloride 116 mmol/L (98-107); Estimated GFR-MDRD 37; Globulin 2.6 g/dL (2.4-3.5); Glucose 134 mg/dL (83-110); Potassium 3.3 mmol/L (3.5-5.1); Protein, Total 4.8 g/dL (6.0-8.3); Sodium 142 mmol/L (136-145)
[2017-08-27] MEDS: Metoclopramide HCl 10 MG/2 ML VIAL IVP SCH (06:21)
[2017-08-27] MEDS ORDERED: Potassium Chloride 40 MEQ in Premix Bag 1 BAG IVPB SCH (07:30)
--- NOTE | 2017-08-27 07:42 | PDOC.FM ---
- Subjective Subjective: Pt sitting up eating breakfast this am and feeling well. States her pain is much better this am. Denies any new concerns. - Objective MAR Reviewed: Yes Vital Signs & Weight: Vital Signs (12 hours) Temp Pulse Resp Pulse Ox 08/27/17 07:14 98 08/27/17 07:12 95 22 H 97 08/27/17 07:03 99.0 F 93 25 H 97 08/27/17 04:00 99.0 F 08/27/17 02:29 94 21 H 100 08/26/17 22:46 91 20 100 08/26/17 20:00 99.0 F 96 19 100 Weight Weight 77.9 kg Most Recent Monitor Data Heart Rate from ECG 94 NIBP 111/52 NIBP BP-Mean 68 Respiration from ECG 23 SpO2 97 I&O: 08/26/17 08/27/17 08/28/17 06:59 06:59 06:59 Intake Total 3157 2355 Output Total 685 1033 Balance 2472 1322 Result Diagrams: 08/27/17 04:30 08/27/17 04:30 <Omayra Godoy - Last Filed: 08/27/17 09:25> - Objective Vital Signs & Weight: Vital Signs (12 hours) Temp Pulse Resp Pulse Ox 08/27/17 07:14 98 08/27/17 07:12 95 22 H 97 08/27/17 07:03 99.0 F 93 25 H 97 08/27/17 04:00 99.0 F 08/27/17 02:29 94 21 H 100 08/26/17 22:46 91 20 100 Weight Weight 77.9 kg Most Recent Monitor Data Heart Rate from ECG 94 NIBP 111/52 NIBP BP-Mean 68 Respiration from ECG 23 SpO2 97 I&O: 08/26/17 08/27/17 08/28/17 06:59 06:59 06:59 Intake Total 3157 2355 Output Total 685 1033 Balance 2472 1322 Result Diagrams: 08/27/17 04:30 08/27/17 04:30 <Howie Stevens - Last Filed: 08/27/17 10:05> Phys Exam - Physical Examination Constitutional: NAD HEENT: PERRLA, moist MMs, sclera anicteric, oral pharynx no lesions Neck: no JVD, supple Respiratory: wheezing present crackles in Left Lung base Cardiovascular: RRR, no significant murmur Gastrointestinal: soft, no distention, positive bowel sounds minimally tender in left abdomen Musculoskeletal: pulses present, edema present (trace LE edema) Neurological: non-focal Psychiatric: normal affect, A&O x 3 Skin: no rash, normal turgor <WaltOmayra - Last Filed: 08/27/17 09:25> Dx/Plan (1) Colitis presumed infectious Code(s): K52.9 - NONINFECTIVE GASTROENTERITIS AND COLITIS, UNSPECIFIED Status : Acute (2) Lung abnormality Code(s): J98.4 - OTHER DISORDERS OF LUNG Status: Acute (3) Septicemic shock Code(s): A41.9 - SEPSIS, UNSPECIFIED ORGANISM; R65.21 - SEVERE SEPSIS WITH SEPTIC SHOCK Status: Resolved (4) Renal failure (ARF), acute on chronic Code(s): N17.9 - ACUTE KIDNEY FAILURE, UNSPECIFIED; N18.9 - CHRONIC KIDNEY DISEASE, UNSPECIFIED Status: Acute QualifierTitle: Acute renal failure type: unspecified Chronic kidney disease stage: stage 3 (moderate) Qualified Code(s): N17.9 - Acute kidney failure, unspecified; N18.3 - Chronic kidney disease, stage 3 (moderate); N18.3 - Chronic kidney disease, stage 3 (moderate) (5) Hiatal hernia Code(s): K44.9 - DIAPHRAGMATIC HERNIA WITHOUT OBSTRUCTION OR GANGRENE Status: Chronic (6) Hypertension Code(s): I10 - ESSENTIAL (PRIMARY) HYPERTENSION Status: Chronic QualifierTitle: Hypertension type: essential hypertension Qualified Code( s): I10 - Essential (primary) hypertension (7) Physical deconditioning Code(s): R53.81 - OTHER MALAISE Status: Chronic (8) Diastolic dysfunction Code(s): I51.9 - HEART DISEASE, UNSPECIFIED Status: Chronic (9) Dementia Code(s): F03.90 - UNSPECIFIED DEMENTIA WITHOUT BEHAVIORAL DISTURBANCE Status: Chronic QualifierTitle: Dementia type: unspecified type Dementia behavioral disturbance: without behavioral disturbance Qualified Code(s): F03.90 - Unspecified dementia without behavioral disturbance (10) Paroxysmal A-fib Code(s): I48.0 - PAROXYSMAL ATRIAL FIBRILLATION Status: Chronic - Plan Plan: 1) Septic shock due to presumed infectious colitis with concern for ischemic colitis- - septic shock resolved after empiric tx with Vanc + Zosyn, IV fluid repletion, and weaned off Levophed gtt, BCx neg - VSS, and no signs of gross GI bleed, FOBT+, Hgb downtrending but stable, will continue to monitor closely, tolerating po diet well - s/p Flex Sig by Dr. Segura showing severe colitis, pending Bx results. - switched to po Vanc to cover for possible CDiff. - appreciate GI & Gen Surg recs 2) Atelectasis vs. Pneumonia- - atelectasis vs effusion vs pneumonia, however covered with empiric abx and clinical improvement noted. - will give IV lasix x 1 and continue pulm toilet - consider repeat xray tomorrow am, would benefit from 2 view 3) CHINMAY on CKD- - slow improvement in GFR, avoid nephrotoxins 4) diastolic dysfunction- - monitor fluid status closely, IV lasix x 1 5) HTN- - hold home meds due to hypotension from septic shock, will restart this pm 6) pAfib- - monitor on tele, HR has started to increase, restart amiodarone - eliquis had been held for +FOBT and presumed bowel ischemia, will resume at this time 7) dementia- - conservative tx Dispo- stable for transfer out of CCU to IMCU with f/u on biopsy results. <Omayra Godoy - Last Filed: 08/27/17 09:25> Attending Addendum - Attending Addendum Date/Time: 08/27/17 1003 I personally evaluated the patient and discussed the management with Dr. Godoy I agree with the History, Examination, Assessment and Plan documented above with any addition or exceptions noted below.Move to step down level of care today eating well and appears improved colon biopsies pending. <Howie Stevens - Last Filed: 08/27/17 10:05>
[2017-08-27] MEDS: Pantoprazole 40 MG VIAL IVP SCH (08:24)
[2017-08-27] MEDS: Vancomycin HCl 25 MG/ML Oral PO SCH ×4 (08:25→20:24)
[2017-08-27] MEDS: Apixaban 2.5 MG TAB PO SCH ×2 (08:27→20:10)
[2017-08-27] MEDS ORDERED: Furosemide 20 MG/2 ML VIAL SLOW IVP SCH (08:45)
[2017-08-27] MEDS: Ondansetron ODT 4 MG TAB PO PRN (08:51)
[2017-08-27] MEDS ORDERED: Magnesium Sulfate 4 GM in Sodium Chloride 0.9% 250 ML 250 ML IVPB SCH (09:30)
[2017-08-27] MEDS ORDERED: TROSPIUM 20 MG TABLET PO SCH (09:45)
--- NOTE | 2017-08-27 10:46 | PRG ---
DATE OF SERVICE: 08/27/2017 SUBJECTIVE: The patient is feeling better today. She was unable to eat breakfast because of lack of appetite. Her bowel movements have slowed down. She has had no nausea or vomiting. OBJECTIVE: VITAL SIGNS: Temperature 99.0, pulse 92, respiratory rate 22, blood pressure 139/64. CHEST: Clear. CARDIOVASCULAR: Regular rate and rhythm. ABDOMEN: Soft and nontender without organomegaly or masses. LABORATORY DATA: Shows white blood cell count of 9.6, hemoglobin 8.8, hematocrit 26.7. Chemistries; potassium 3.3, chloride 116, creatinine 1.35, glucose 134, albumin 2.2. ASSESSMENT: Severe left-sided colitis - ischemia versus Clostridium difficile. RECOMMENDATIONS: 1. Continue oral vancomycin. 2. Continue tube feedings. 3. Await histopathology.
[2017-08-27] MEDS: Metoclopramide HCl 10 MG TAB PO SCH ×3 (12:45→20:10)
--- NOTE | 2017-08-27 12:59 | PRG ---
DATE OF SERVICE: 08/27/2017 SERVICE: Pulmonary Medicine. INTERVAL HISTORY: The patient remains extraordinarily weak. She has been working a little bit with physical therapy today. She had a lot of bowel movements yesterday prompting a rectal tube to be darlyn ketty. She denies any shortness of breath. Her chest pain is at baseline. PHYSICAL EXAMINATION: VITAL SIGNS: Afebrile, pulse 100, blood pressure 111/52, respirations 26, saturations 100% on 2 lite rs nasal cannula. GENERAL: The patient is awake, alert, no apparent distress. LUNGS: Decent air entry. There is no prolonged expiratory phase, wheezing, rhonchi, or crackles pre sent. HEART: Normal rate and regular. ABDOMEN: Soft, nontender, nondistended. Bowel sounds are positive. MUSCULOSKELETAL: No cyanosis or clubbing. There is trace pitting in the bilateral lower extremities . NEUROLOGIC: Grossly nonfocal. LABORATORY DATA: WBC 9.6, hemoglobin 8.8, platelets 336,000. Creatinine 1.35 and gently improving. BUN 19. Basic metabolic profile is, otherwise, unremarkable. Potassium 3.3. Liver function studie s are unremarkable. Magnesium 1.5. White blood cells are greater than 50. Body fluid culture is gr owing 2 different gram-negative rods. This was an aspirate coming from the gastrostomy site. Stool cultures are negative to date. C. difficile antigen and toxin is negative. Parasite screen was also unremarkable. Lactoferrin was elevated. ASSESSMENT: 1. Acute hypoxic respiratory failure. 2. Atelectasis. 3. Colitis, suspected ischemic, but infectious is a possibility. 4. Acute kidney injury. 5. Severe protein-calorie malnutrition. 6. Paroxysmal atrial fibrillation. PLAN: We will replace the magnesium and potassium once again. We will work on mobilizing her to inc rease strength. Pulmonary Critical Care will continue to follow along while she remains in this loca tion.
[2017-08-27] MEDS: Lactated Ringer's 1,000 ML IV SCH (15:24)
[2017-08-27] MEDS: Pregabalin 75 MG CAP PO SCH (20:08)
[2017-08-27] MEDS: Mirtazapine 15 MG TAB PO SCH (20:09)
[2017-08-27] MEDS: TROSPIUM 20 MG TABLET PO SCH (20:09)
[2017-08-27] MEDS: Amiodarone 200 MG TAB PO SCH (20:10)
[2017-08-27] MEDS ORDERED: Non-Formulary Item 1 EACH (Pregabalin [Lyrica] 150 MG) PO SCH (21:00)
[2017-08-27] MEDS ORDERED: AMIODARONE HCL 400 MG PO SCH (21:00)
[2017-08-28] MEDS: Piperacillin/Tazobactam 2.25 GM in Sodium Chloride 0.9% 100 ML IVPB SCH ×3 (02:21→13:53)
[2017-08-28] MEDS: traMADol HCl 50 MG TAB PO PRN ×3 (03:12→19:59)
[2017-08-28 05:17] LABS: Hemoglobin 8.6 g/dL (12.0-16.0); Mean Corpuscular HGB CONC 32.1 g/dL (32.0-36.0); Mean Corpuscular Hemoglobin 28.9 pg (27.0-31.0); Mean Corpuscular Volume 90.1 fl (81.0-99.0); Mean Platelet Volume 6.5 fL (7.4-10.4); Platelet Count 343 thou/uL (130-400); RBC Distribution Width 15.2 % (11.5-14.5); Red Blood Cell (RBC) Count 2.99 mill/uL (4.20-5.40); White Blood Cell (WBC) Count 8.3 thou/uL (4.8-10.8)
[2017-08-28 05:46] LABS: Anion Gap 8 mmol/L (10-20); BUN (Urea Nitrogen) 15 mg/dL (9.8-20.1); Calc. Creatinine Clearance 40 mL/min (70-130); Calcium 8.3 mg/dL (7.8-10.44); Carbon Dioxide 22 mmol/L (23-31); Chloride 115 mmol/L (98-107); Estimated GFR-MDRD 43; Glucose 97 mg/dL (83-110); Potassium 3.7 mmol/L (3.5-5.1); Sodium 141 mmol/L (136-145)
[2017-08-28] MEDS: Pregabalin 75 MG CAP PO SCH ×2 (08:00→20:00)
[2017-08-28] MEDS: Amiodarone 200 MG TAB PO SCH ×2 (08:00→19:59)
[2017-08-28] MEDS: Metoclopramide HCl 10 MG TAB PO SCH ×4 (08:00→19:59)
[2017-08-28] MEDS ORDERED: Albuterol Sulfate 2.5 mg/3 ml Neb NEB PRN (08:01)
[2017-08-28] MEDS: Losartan 25 MG TAB PO SCH (08:02)
[2017-08-28] MEDS: Multivitamin W/ Minerals 1 TAB PO SCH (08:02)
--- NOTE | 2017-08-28 08:02 | PDOC.FM ---
- Subjective Subjective: Pt sitting up eating pureed meal this am. States her pain is better today. Denies any new concerns. - Objective MAR Reviewed: Yes Vital Signs & Weight: Vital Signs (12 hours) Temp Pulse Resp BP Pulse Ox 08/28/17 07:35 97.7 F 84 16 100 08/28/17 07:32 97.7 F 84 16 155/76 H 100 08/28/17 04:00 97.8 F 82 20 121/66 100 08/28/17 02:27 84 16 97 08/28/17 00:00 97.8 F 88 20 143/63 H 98 08/27/17 22:19 92 16 93 L Weight Weight 80.24 kg Most Recent Monitor Data Heart Rate from ECG 100 NIBP 125/60 NIBP BP-Mean 77 Respiration from ECG 24 SpO2 100 I&O: 08/27/17 08/28/17 08/29/17 06:59 06:59 06:59 Intake Total 2355 1412 Output Total 1033 1350 Balance 1322 62 Result Diagrams: 08/28/17 04:25 08/28/17 04:25 Radiology: pending r/p CXR <Omayra Godoy - Last Filed: 08/28/17 10:07> - Objective Vital Signs & Weight: Vital Signs (12 hours) Temp Pulse Resp BP Pulse Ox 08/28/17 08:42 98 08/28/17 08:41 88 20 08/28/17 08:07 84 08/28/17 07:35 97.7 F 84 16 100 08/28/17 07:32 97.7 F 84 16 155/76 H 100 08/28/17 04:00 97.8 F 82 20 121/66 100 08/28/17 02:27 84 16 97 08/28/17 00:00 97.8 F 88 20 143/63 H 98 Weight Weight 80.24 kg Most Recent Monitor Data Heart Rate from ECG 100 NIBP 125/60 NIBP BP-Mean 77 Respiration from ECG 24 SpO2 100 I&O: 08/27/17 08/28/17 08/29/17 06:59 06:59 06:59 Intake Total 2355 1412 240 Output Total 1033 1350 Balance 1322 62 240 Result Diagrams: 08/28/17 04:25 08/28/17 04:25 <Howie Stevens - Last Filed: 08/28/17 10:36> Phys Exam - Physical Examination Constitutional: NAD HEENT: PERRLA, moist MMs, oral pharynx no lesions Neck: no nodes, no JVD, supple crackles in b/l lung bases Cardiovascular: RRR, no significant murmur Gastrointestinal: soft, no distention, positive bowel sounds mildly diffuse ttp Musculoskeletal: no edema, pulses present Neurological: non-focal Psychiatric: normal affect, A&O x 3 Skin: no rash, normal turgor <Omayra Godoy - Last Filed: 08/28/17 10:07> Dx/Plan (1) Colitis presumed infectious Code(s): K52.9 - NONINFECTIVE GASTROENTERITIS AND COLITIS, UNSPECIFIED Status : Acute (2) Lung abnormality Code(s): J98.4 - OTHER DISORDERS OF LUNG Status: Acute (3) Septicemic shock Code(s): A41.9 - SEPSIS, UNSPECIFIED ORGANISM; R65.21 - SEVERE SEPSIS WITH SEPTIC SHOCK Status: Resolved (4) Renal failure (ARF), acute on chronic Code(s): N17.9 - ACUTE KIDNEY FAILURE, UNSPECIFIED; N18.9 - CHRONIC KIDNEY DISEASE, UNSPECIFIED Status: Acute QualifierTitle: Acute renal failure type: unspecified Chronic kidney disease stage: stage 3 (moderate) Qualified Code(s): N17.9 - Acute kidney failure, unspecified; N18.3 - Chronic kidney disease, stage 3 (moderate); N18.3 - Chronic kidney disease, stage 3 (moderate) (5) Hiatal hernia Code(s): K44.9 - DIAPHRAGMATIC HERNIA WITHOUT OBSTRUCTION OR GANGRENE Status: Chronic (6) Hypertension Code(s): I10 - ESSENTIAL (PRIMARY) HYPERTENSION Status: Chronic QualifierTitle: Hypertension type: essential hypertension Qualified Code( s): I10 - Essential (primary) hypertension (7) Physical deconditioning Code(s): R53.81 - OTHER MALAISE Status: Chronic (8) Diastolic dysfunction Code(s): I51.9 - HEART DISEASE, UNSPECIFIED Status: Chronic (9) Dementia Code(s): F03.90 - UNSPECIFIED DEMENTIA WITHOUT BEHAVIORAL DISTURBANCE Status: Chronic QualifierTitle: Dementia type: unspecified type Dementia behavioral disturbance: without behavioral disturbance Qualified Code(s): F03.90 - Unspecified dementia without behavioral disturbance (10) Paroxysmal A-fib Code(s): I48.0 - PAROXYSMAL ATRIAL FIBRILLATION Status: Chronic - Plan Plan: 87 yo CF with complicated recent hospital stay due to post-operative complications- 1) Septic shock due to presumed infectious colitis with concern for ischemic colitis- - septic shock resolved after empiric tx with Vanc + Zosyn, IV fluid repletion, and weaned off Levophed gtt, BCx neg - remains on Zosyn for empiric gut coverage and switched to po Vanc to cover for possible CDiff. - VSS, and no gross GI bleed, FOBT+, Hgb downtrending but stable, monitor closely - s/p Flex Sig by Dr. Segura showing severe colitis, pending Bx results. - appreciate GI & Gen Surg recs 2) Atelectasis vs. Pneumonia- - atelectasis vs effusion vs pneumonia, covered with empiric abx and clinical improvement noted. - continue pulm tx nebs & IS 3) CHINMAY on CKD- - slow daily improvement in GFR, avoid nephrotoxins 4) diastolic dysfunction- - monitor fluid status closely, clinically appears euvolemic today 5) HTN- - meds restarted yesterday after resolution of hypotension/septic shock 6) pAfib- - monitor on tele, continue amiodarone + eliquis 7) dementia- - conservative tx 8) deconditioning- - start PT/OT and up OOB QID Dispo- IMCU and consider transfer to tele if improves <Omayra Godoy - Last Filed: 08/28/17 10:07> Attending Addendum - Attending Addendum Date/Time: 08/28/17 1033 I personally evaluated the patient and discussed the management with Dr. Godoy I agree with the History, Examination, Assessment and Plan documented above with any addition or exceptions noted below.Patient tolerating diet fluid status requires close management. To telemetry if she continue stable poor peripheral IV access central line functioning well. Awaiting colon biopsy results. She continues will loose stools. <Howie Stevens - Last Filed: 08/28/17 10:36>
[2017-08-28] MEDS: Apixaban 2.5 MG TAB PO SCH ×2 (08:03→19:59)
[2017-08-28] MEDS: TROSPIUM 20 MG TABLET PO SCH ×2 (08:03→19:59)
[2017-08-28] MEDS: hydrALAZINE 25 MG TAB PO SCH ×2 (08:07→19:59)
[2017-08-28] MEDS ORDERED: [UNRECOGNIZED DRUG - OTHER] PO SCH (09:00)
[2017-08-28] MEDS ORDERED: MULTIVIT MINERALS PO SCH (09:00)
[2017-08-28] MEDS ORDERED: Non-Formulary Item 1 EACH (Losartan Potassium [Losartan Potassium] 100 MG) PO SCH (09:00)
[2017-08-28] MEDS ORDERED: FOLIC ACID PO SCH (09:00)
[2017-08-28 10:05] LABS: Legionella Urinary Ag Negative (Negative); Strep pneumo Urine Ag NEGATIVE (NEGATIVE)
[2017-08-28] MEDS ORDERED: Furosemide 20 MG/2 ML VIAL SLOW IVP SCH (10:30)
[2017-08-28] MEDS ORDERED: Metoprolol Tartrate 5 MG/5 ML VIAL IVP PRN (10:48)
[2017-08-28] MEDS: Vancomycin HCl 25 MG/ML Oral PO SCH ×4 (11:05→20:05)
--- NOTE | 2017-08-28 11:21 | RAD ---
CHEST 1 VIEW: HISTORY: Cough. Pneumonia. Atelectasis. COMPARISON: 08/24/17. FINDINGS: Stable right-sided catheter. Persistent atherosclerosis of the aorta. Chronic changes in the left h emithorax. No pneumothorax. Diffuse bone demineralization. Stable postsurgical change of the left humerus. IMPRESSION: Persistent opacification of the left hemithorax. Continued surveillance is recommended. POS: [facility]
--- NOTE | 2017-08-28 12:22 | PRG ---
DATE OF SERVICE: 08/28/2017 SUBJECTIVE: The patient is feeling better. She is tolerating some oral intake. She has not had any bowel movements. OBJECTIVE: VITAL SIGNS: Temperature 97.9, pulse 89, respiratory rate 18, blood pressure 183/82. CHEST: Clear. CARDIOVASCULAR: Regular rate and rhythm. ABDOMEN: Soft, nontender. LABORATORY DATA: Shows a white blood cell count of 8.3, hemoglobin of 8.6, hematocrit 26.9. Job Press Operator ab show creatinine 1.18 and CO2 of 22. ASSESSMENT: Severe left-sided colitis - ischemia versus Clostridium difficile - improving. RECOMMENDATIONS: 1. Continue oral vancomycin. 2. Continue tube feedings. 3. Await histopathology.
[2017-08-28] MEDS ORDERED: Piperacillin/Tazobactam 3.375 GM in Sodium Chloride 0.9% 100 ML IVPB SCH (15:39)
[2017-08-28] MEDS ORDERED: Furosemide 40 MG/4 ML VIAL SLOW IVP SCH (15:45)
--- NOTE | 2017-08-28 15:50 | PRG ---
DATE OF SERVICE: 08/28/2017 SERVICE: Pulmonary Medicine. INTERVAL HISTORY: The patient is breathing fairly well today. She denies any current nausea, vomiti ng, or diarrhea. She hurts all over, which is nothing new for her. What is new is that she has pain in her chest associated with coughing. She is not bring up any sputum at this time. PHYSICAL EXAMINATION: VITAL SIGNS: Afebrile, pulse 86, blood pressure 160/75, respirations 16, saturation 91% on 2 liters nasal cannula. GENERAL: The patient is awake and alert, in no apparent distress. LUNGS: Rhonchi, wheezing, and crackles are all present. That being said, she is moving fairly decen t air. HEART: Normal rate and regular. ABDOMEN: Soft, nontender, nondistended. Bowel sounds are positive. MUSCULOSKELETAL: No cyanosis or clubbing. There is diffuse trace to 1+ pitting throughout, which is most pronounced at the hips. GENITOURINARY: Valentine catheter in place. NEUROLOGIC: Grossly nonfocal. LABORATORY DATA: WBC 8.3, which continues to trend downward; hemoglobin 8.6; platelets 343,000. Cre atinine 1.18, which continues to improve, anion gap 8, bicarbonate 22 and roughly stable, chloride 11 5 and down trending, sodium 141 and down trending. Magnesium 2.0. Aspirate is growing multiple orga nisms, all of which are sensitive to the fourth generation cephalosporins and Zosyn. IMAGING: Chest x-ray demonstrates a left lower lobe opacification. ASSESSMENT: 1. Acute hypoxic respiratory failure, improving. 2. Atelectasis in the bibasilar regions, but more pronounced in the right lung. 3. Colitis, suspected ischemic, but infectious is a possibility. 4. Acute kidney injury, resolving. 5. Severe protein-calorie malnutrition. 6. Paroxysmal atrial fibrillation. DISCUSSION AND PLAN: We will continue working to diurese the patient until she returns to euvolemia. Pulmonary Critical Care will continue to follow along for the time being. She is having very eleva panda blood pressures when getting out of bed and into a chair. This is consistent with a slight volum e overload state. She may benefit from a couple doses of Lasix.
[2017-08-28] MEDS: Piperacillin/Tazobactam 3.375 GM in Sodium Chloride 0.9% 100 ML IVPB SCH (19:58)
[2017-08-28] MEDS: Mirtazapine 15 MG TAB PO SCH (19:59)
[2017-08-29] MEDS: traMADol HCl 50 MG TAB PO PRN ×2 (00:21→16:37)
[2017-08-29] MEDS: Piperacillin/Tazobactam 3.375 GM in Sodium Chloride 0.9% 100 ML IVPB SCH ×4 (02:17→22:04)
[2017-08-29 05:02] LABS: Hemoglobin 9.2 g/dL (12.0-16.0); Mean Corpuscular HGB CONC 32.5 g/dL (32.0-36.0); Mean Corpuscular Volume 89.3 fl (81.0-99.0); Mean Platelet Volume 6.4 fL (7.4-10.4); Platelet Count 372 thou/uL (130-400); RBC Distribution Width 15.3 % (11.5-14.5); Red Blood Cell (RBC) Count 3.19 mill/uL (4.20-5.40); White Blood Cell (WBC) Count 10.2 thou/uL (4.8-10.8)
[2017-08-29 05:18] LABS: Anion Gap 12 mmol/L (10-20); BUN (Urea Nitrogen) 13 mg/dL (9.8-20.1); Calc. Creatinine Clearance 40 mL/min (70-130); Calcium 8.3 mg/dL (7.8-10.44); Carbon Dioxide 24 mmol/L (23-31); Chloride 108 mmol/L (98-107); Estimated GFR-MDRD 42; Glucose 88 mg/dL (83-110); Magnesium 1.5 mg/dL (1.6-2.6); Phosphorus 3.1 mg/dL (2.3-4.7); Potassium 3.7 mmol/L (3.5-5.1); Sodium 140 mmol/L (136-145)
[2017-08-29] MEDS ORDERED: Furosemide 40 MG/4 ML VIAL SLOW IVP SCH ×2 (06:00→09:00)
[2017-08-29] MEDS ORDERED: Magnesium Sulfate 2 GM in Sodium Chloride 0.9% 100 ML IVPB SCH (08:00)
[2017-08-29] MEDS: Vancomycin HCl 25 MG/ML Oral PO SCH ×4 (08:07→22:00)
[2017-08-29] MEDS: Saccharomyces boulardii 250 MG CAP PO SCH (08:08)
[2017-08-29] MEDS: Amiodarone 200 MG TAB PO SCH ×2 (08:08→22:01)
[2017-08-29] MEDS: Lactinex Tablet PO SCH (08:08)
[2017-08-29] MEDS: hydrALAZINE 25 MG TAB PO SCH ×2 (08:08→22:00)
[2017-08-29] MEDS: Metoclopramide HCl 10 MG TAB PO SCH ×4 (08:08→22:02)
[2017-08-29] MEDS: Pregabalin 75 MG CAP PO SCH ×2 (08:09→22:00)
[2017-08-29] MEDS: Multivitamin W/ Minerals 1 TAB PO SCH (08:09)
[2017-08-29] MEDS: Losartan 25 MG TAB PO SCH (08:10)
[2017-08-29] MEDS: Apixaban 2.5 MG TAB PO SCH ×2 (08:11→22:04)
[2017-08-29] MEDS: TROSPIUM 20 MG TABLET PO SCH ×2 (08:14→22:01)
--- NOTE | 2017-08-29 08:27 | PDOC.FM ---
- Subjective Subjective: No acute events overnight. Pt sitting up in bed eating breakfast this am. Pt rpeorts persistent abdominal pain, but says it is improved since admission. She reports some SOB. Otherwise no concerns. - Objective Vital Signs & Weight: Vital Signs (12 hours) Temp Pulse Resp BP Pulse Ox 08/29/17 08:08 88 08/29/17 07:41 97.7 F 88 18 134/66 98 08/29/17 07:15 88 16 98 08/29/17 04:00 98.6 F 86 24 H 139/69 100 08/29/17 02:44 88 16 98 08/29/17 02:13 95 20 156/79 H 100 08/29/17 00:00 98.1 F 93 24 H 157/78 H 99 08/28/17 22:16 87 16 95 08/28/17 22:05 88 22 H 141/75 H 98 Weight Weight 80.24 kg Most Recent Monitor Data Heart Rate from ECG 100 NIBP 125/60 NIBP BP-Mean 77 Respiration from ECG 24 SpO2 100 I&O: 08/28/17 08/29/17 08/30/17 06:59 06:59 06:59 Intake Total 1412 1212 Output Total 1350 4755 Balance 62 -4523 Result Diagrams: 08/29/17 04:00 08/29/17 04:00 Phys Exam - Physical Examination Constitutional: NAD HEENT: PERRLA, sclera anicteric Neck: no nodes, no JVD Respiratory: no wheezing, no rhonchi rales b/l bases Cardiovascular: RRR, no significant murmur, no rub Gastrointestinal: soft, non-tender, no distention, positive bowel sounds Musculoskeletal: pulses present, edema present trace pedal edema, improved from prior exam Neurological: non-focal, moves all 4 limbs Skin: no rash, normal turgor, cap refill <2 seconds Dx/Plan (1) Renal failure (ARF), acute on chronic Code(s): N17.9 - ACUTE KIDNEY FAILURE, UNSPECIFIED; N18.9 - CHRONIC KIDNEY DISEASE, UNSPECIFIED Status: Acute Qualifiers: Acute renal failure type: unspecified Chronic kidney disease stage: stage 3 (moderate) Qualified Code(s): N17.9 - Acute kidney failure, unspecified; N18.3 - Chronic kidney disease, stage 3 (moderate); N18.3 - Chronic kidney disease, stage 3 (moderate) (2) Septicemic shock Code(s): A41.9 - SEPSIS, UNSPECIFIED ORGANISM; R65.21 - SEVERE SEPSIS WITH SEPTIC SHOCK Status: Resolved (3) Dementia Code(s): F03.90 - UNSPECIFIED DEMENTIA WITHOUT BEHAVIORAL DISTURBANCE Status: Chronic Qualifiers: Dementia type: unspecified type Dementia behavioral disturbance: without behavioral disturbance Qualified Code(s): F03.90 - Unspecified dementia without behavioral disturbance (4) Diastolic dysfunction Code(s): I51.9 - HEART DISEASE, UNSPECIFIED Status: Chronic (5) Hypertension Code(s): I10 - ESSENTIAL (PRIMARY) HYPERTENSION Status: Chronic Qualifiers: Hypertension type: essential hypertension Qualified Code(s): I10 - Essential (primary) hypertension (6) Paroxysmal A-fib Code(s): I48.0 - PAROXYSMAL ATRIAL FIBRILLATION Status: Chronic (7) Lung abnormality Code(s): J98.4 - OTHER DISORDERS OF LUNG Status: Acute (8) Acute respiratory failure with hypoxia Code(s): J96.01 - ACUTE RESPIRATORY FAILURE WITH HYPOXIA Status: Resolved Plan: Pt was 70s/40s bp on admission and peripheral pulse ox on cool extremities read 80s, quickly recovered with IVF resuscitation. Currently satting 98-100 on 2LNC. No s/s of respiratory distress. - Plan Plan: 1) Septic shock due to presumed infectious colitis with concern for ischemic colitis- - septic shock resolved after empiric tx with Vanc + Zosyn, IV fluid repletion, and weaned off Levophed gtt, BCx neg - remains on Zosyn for empiric gut coverage and switched to po Vanc to cover for possible CDiff. - VSS, and no gross GI bleed, FOBT+, Hgb downtrending but stable, monitor closely - s/p Flex Sig by Dr. Segura showing severe colitis, pending Bx results. - appreciate GI & Gen Surg recs - Sepsis resolved, likley stable for transfer to telemetry 2) Atelectasis vs. Pneumonia- - atelectasis vs effusion vs pneumonia, covered with empiric abx and clinical improvement noted. - continue pulm tx nebs & IS -Legionella and strep Pneumo Ur Ag negative -likely 2/2 agressive IVF on admission, continue diuresis and monitor Is/Os -PM lasix dose, monitor BMP 3) CHINMAY on CKD- - slow daily improvement in GFR, avoid nephrotoxins -Cont diuresis, monitor Is/Os -Daily BMP, trend 4) diastolic dysfunction- - monitor fluid status closely, clinically appears mildly hypervolemic -Cont IV lasix, monitor IsOs, daily BMP 5) HTN- - Home meds 6) pAfib- - monitor on tele, continue amiodarone + eliquis 7) dementia- - conservative tx 8) deconditioning- - start PT/OT and up OOB QID Dispo: Transfer to tele, continue current care and await path results.
--- NOTE | 2017-08-29 11:07 | PRG ---
DATE OF SERVICE: 08/29/2017 SUBJECTIVE: The patient is feeling better. She had a good bowel movement today. She is eating fair ly well. OBJECTIVE: VITAL SIGNS: Temperature 97.7, pulse 88, respiratory rate 18, blood pressure 134/66. CHEST: Clear. CARDIOVASCULAR: Regular rate and rhythm. ABDOMEN: Benign. LABORATORY DATA: Shows a white blood cell count of 10.2, hemoglobin 9.2, hematocrit 28.5. ASSESSMENT: Severe left-sided colitis - ischemia versus Clostridium difficile, improving, hopefully pathology results will be back tomorrow. RECOMMENDATIONS: 1. Continue oral vancomycin. 2. Continue tube feedings. 3. Await histopathology.
--- NOTE | 2017-08-29 15:11 | PRG ---
DATE OF SERVICE: 08/29/2017 SUBJECTIVE: Ms. Jeffery has no new complaints. She appeared to be resting comfortably. OBJECTIVE: VITAL SIGNS: She is afebrile, heart rate is 90, respiratory 20, oximetry is 100 on 2 liters, blood p ressure 152/78. LUNGS: Clear anteriorly. HEART: Regular rhythm. IMPRESSION: 1. Atelectasis and mucus plugging. 2. Advanced age and deconditioning. 3. Ischemic colitis? 4. Acute kidney injury. LABORATORY DATA: Lab work has been reviewed. White count is 10.2, hemoglobin 9.2, platelets 372. E lectrolytes are unremarkable. Creatinine is 1.2, down from 1.65 on 08/24/2017. PLAN: Continue with current supportive care.
--- NOTE | 2017-08-29 16:01 | ADD-PRG ---
ADDENDUM This is an addendum to the note of Dr. Shyam Gasca. Ms. Jeffery is an 87-year-old white female [facility]. This w as on the 08/24. Today, she is clinically improved. Her current vital signs, blood pressure is now 134/66. She is afebrile. Her pulse rate is 88, respirations are 18, O2 sat is 98% on 2 liter nasal cannula. Her white count has dropped to 10,200, hemoglobin 9.2, hematocrit 28.5. Her urine output i s adequate. We will continue to follow with the Pulmonary Service.
[2017-08-29] MEDS: Mirtazapine 15 MG TAB PO SCH (22:01)
[2017-08-30] MEDS ORDERED: Magnesium 2 GM/NS 0.9% 100 ML 2 GM in Premix Bag 1 BAG IVPB SCH (01:45)
[2017-08-30] MEDS ORDERED: Metoprolol Tartrate 5 MG/5 ML VIAL IVP SCH ×2 (01:45→04:00)
[2017-08-30] MEDS: Piperacillin/Tazobactam 3.375 GM in Sodium Chloride 0.9% 100 ML IVPB SCH ×2 (02:34→08:33)
[2017-08-30 05:20] LABS: Hemoglobin 10.5 g/dL (12.0-16.0); Mean Corpuscular HGB CONC 31.6 g/dL (32.0-36.0); Mean Corpuscular Hemoglobin 28.8 pg (27.0-31.0); Mean Corpuscular Volume 91.2 fl (81.0-99.0); Mean Platelet Volume 6.8 fL (7.4-10.4); Platelet Count 420 thou/uL (130-400); RBC Distribution Width 15.6 % (11.5-14.5); Red Blood Cell (RBC) Count 3.66 mill/uL (4.20-5.40); White Blood Cell (WBC) Count 11.9 thou/uL (4.8-10.8)
[2017-08-30 05:48] LABS: Anion Gap 17 mmol/L (10-20); BUN (Urea Nitrogen) 12 mg/dL (9.8-20.1); Calc. Creatinine Clearance 39 mL/min (70-130); Calcium 8.6 mg/dL (7.8-10.44); Carbon Dioxide 19 mmol/L (23-31); Chloride 106 mmol/L (98-107); Estimated GFR-MDRD 40; Glucose 64 mg/dL (83-110); Magnesium 2.2 mg/dL (1.6-2.6); Potassium 3.9 mmol/L (3.5-5.1); Sodium 138 mmol/L (136-145)
--- NOTE | 2017-08-30 08:18 | PDOC.FM ---
- Subjective Subjective: No acute events overnight. Pt reports she is feeling better, abdominal pain still present but improved from admission. Path reports still pending. Denies NVDC, cp, sob, fever and chills. - Objective Vital Signs & Weight: Vital Signs (12 hours) Temp Pulse Resp BP Pulse Ox 08/30/17 08:06 81 18 98 08/30/17 07:31 98.5 F 76 18 100 08/30/17 04:00 98.2 F 115 H 18 131/87 98 08/30/17 01:10 122 H 20 08/30/17 00:21 99 08/30/17 00:00 98.8 F 97 18 141/68 H 99 08/29/17 22:00 98 08/29/17 21:35 98 20 97 Weight Weight 77.111 kg Most Recent Monitor Data Heart Rate from ECG 100 NIBP 125/60 NIBP BP-Mean 77 Respiration from ECG 24 SpO2 100 I&O: 08/29/17 08/30/17 08/31/17 06:59 06:59 06:59 Intake Total 1212 780 Output Total 4751 5050 Balance -6771 -7203 Result Diagrams: 08/30/17 04:04 08/30/17 04:04 <Shyam Gasca - Last Filed: 08/30/17 10:20> - Objective Vital Signs & Weight: Vital Signs (12 hours) Temp Pulse Resp Pulse Ox 08/30/17 14:12 78 18 95 08/30/17 10:57 77 16 98 08/30/17 08:06 81 18 98 08/30/17 08:00 98.5 F 81 18 100 08/30/17 07:31 98.5 F 76 18 100 Weight Weight 77.111 kg Most Recent Monitor Data Heart Rate from ECG 100 NIBP 125/60 NIBP BP-Mean 77 Respiration from ECG 24 SpO2 100 I&O: 08/29/17 08/30/17 08/31/17 06:59 06:59 06:59 Intake Total 1212 780 Output Total 4755 5050 Balance -5648 -8923 Result Diagrams: 08/30/17 04:04 08/30/17 04:04 <Golden Chua - Last Filed: 08/30/17 16:54> Phys Exam - Physical Examination Constitutional: NAD HEENT: PERRLA, sclera anicteric Neck: no nodes, no JVD Respiratory: no wheezing, no rales, no rhonchi diminished bases Cardiovascular: RRR, no significant murmur, no rub Gastrointestinal: soft, non-tender, positive bowel sounds sluggish BS, moderately distended abdomen Musculoskeletal: pulses present, edema present mild pedal edema, improved from yesterday Neurological: non-focal, moves all 4 limbs Skin: no rash, normal turgor, cap refill <2 seconds <Shyam Gasca - Last Filed: 08/30/17 10:20> Dx/Plan (1) Renal failure (ARF), acute on chronic Code(s): N17.9 - ACUTE KIDNEY FAILURE, UNSPECIFIED; N18.9 - CHRONIC KIDNEY DISEASE, UNSPECIFIED Status: Acute QualifierTitle: Acute renal failure type: unspecified Chronic kidney disease stage: stage 3 (moderate) Qualified Code(s): N17.9 - Acute kidney failure, unspecified; N18.3 - Chronic kidney disease, stage 3 (moderate); N18.3 - Chronic kidney disease, stage 3 (moderate) (2) Septicemic shock Code(s): A41.9 - SEPSIS, UNSPECIFIED ORGANISM; R65.21 - SEVERE SEPSIS WITH SEPTIC SHOCK Status: Resolved (3) Dementia Code(s): F03.90 - UNSPECIFIED DEMENTIA WITHOUT BEHAVIORAL DISTURBANCE Status: Chronic QualifierTitle: Dementia type: unspecified type Dementia behavioral disturbance: without behavioral disturbance Qualified Code(s): F03.90 - Unspecified dementia without behavioral disturbance (4) Diastolic dysfunction Code(s): I51.9 - HEART DISEASE, UNSPECIFIED Status: Chronic (5) Hypertension Code(s): I10 - ESSENTIAL (PRIMARY) HYPERTENSION Status: Chronic QualifierTitle: Hypertension type: essential hypertension Qualified Code( s): I10 - Essential (primary) hypertension (6) Paroxysmal A-fib Code(s): I48.0 - PAROXYSMAL ATRIAL FIBRILLATION Status: Chronic (7) Lung abnormality Code(s): J98.4 - OTHER DISORDERS OF LUNG Status: Acute (8) Acute respiratory failure with hypoxia Code(s): J96.01 - ACUTE RESPIRATORY FAILURE WITH HYPOXIA Status: Resolved Plan: Pt was 70s/40s bp on admission and peripheral pulse ox on cool extremities read 80s, quickly recovered with IVF resuscitation. Currently satting 98-100 on 2LNC. No s/s of respiratory distress. - Plan Plan: 1) Septic shock due to presumed infectious colitis with concern for ischemic colitis- - septic shock resolved after empiric tx with Vanc + Zosyn, IV fluid repletion, and weaned off Levophed gtt, BCx neg - remains on Zosyn for empiric gut coverage and switched to po Vanc to cover for possible CDiff. - VSS, and no gross GI bleed, FOBT+, Hgb downtrending but stable, monitor closely - s/p Flex Sig by Dr. Segura showing severe colitis, pending Bx results. - appreciate GI & Gen Surg recs - Pt transfered to tele - Sluggish BS and moderate distension this am on exam, will get CT abd pelvis w/ w/o iv and po contrast to r/o SBO vs Ileus -Activity OOB QID -PT/OT 2) Atelectasis vs. Pneumonia- - atelectasis likely. - continue pulm tx nebs & IS -Legionella and strep Pneumo Ur Ag negative -likely 2/2 agressive IVF on admission, pt donita overdiuresed. Hold chlorthalidone and dc lasix. 500mL LR bolus -Trend BMP 3) CHINMAY on CKD- - slow daily improvement in GFR, avoid nephrotoxins -Hold chlorthalidone. DC lasix -Daily BMP, trend - 500mL LR bolus -NS @ 75mls/hr post CT for renal protection 4) diastolic dysfunction- - monitor fluid status closely, clinically appears euvolemic -DC diuretics -500cc bolus 5) HTN- - Home meds 6) pAfib- - monitor on tele, continue amiodarone + eliquis 7) dementia- - conservative tx 8) deconditioning- - start PT/OT and up OOB QID 9) A-flutter: On monitor overnight, pt asymptomatic. Metoprolol given. NSR this AM. -fluid replacement - Monitor on tele - Cont eliquis and amiodarone <Shyam Gasca - Last Filed: 08/30/17 10:20> Attending Addendum - Attending Addendum Date/Time: 08/30/17 3518 I personally evaluated the patient and discussed the management with Dr. Gasca. I agree with the History, Examination, Assessment and Plan documented above with any addition or exceptions noted below. During my exam this morning we noticed her abdomen to be destended with tinkling bowel sounds suspicous for small bowel obstruction. CT ordered. Ms. Jeffery was feeling well and in good spirits at the time. <Golden Chua - Last Filed: 08/30/17 16:54>
[2017-08-30] MEDS: Pregabalin 75 MG CAP PO SCH ×3 (08:29→22:33)
[2017-08-30] MEDS ORDERED: Lactated Ringer's 500 ML IV SCH ×2 (08:30→09:45)
[2017-08-30] MEDS: Saccharomyces boulardii 250 MG CAP PO SCH (08:32)
[2017-08-30] MEDS: Losartan 25 MG TAB PO SCH (08:32)
[2017-08-30] MEDS: Amiodarone 200 MG TAB PO SCH ×3 (08:33→22:36)
[2017-08-30] MEDS: Apixaban 2.5 MG TAB PO SCH ×3 (08:33→22:35)
[2017-08-30] MEDS: TROSPIUM 20 MG TABLET PO SCH ×3 (08:33→22:36)
[2017-08-30] MEDS: hydrALAZINE 25 MG TAB PO SCH ×3 (08:33→22:35)
[2017-08-30] MEDS: Multivitamin W/ Minerals 1 TAB PO SCH (08:34)
[2017-08-30] MEDS: Lactinex Tablet PO SCH (08:34)
[2017-08-30] MEDS: Metoclopramide HCl 10 MG TAB PO SCH ×4 (08:36→22:35)
[2017-08-30] MEDS: Vancomycin HCl 25 MG/ML Oral PO SCH ×5 (08:36→22:34)
--- NOTE | 2017-08-30 08:57 | PRG ---
DATE OF SERVICE: 08/30/2017 She is doing well, had no complaints. She had 1 episode of diarrhea yesterday. She said her abdomin al pain is better. PHYSICAL EXAMINATION: VITAL SIGNS: Temperature is 98.5, pulse 81, respirations 18, O2 sat 90% on 2 liters. HEENT: Unremarkable. NECK: No JVD. CHEST: Clear. CARDIAC: S1 and S2 regular. ABDOMEN: Slightly distended. Bowel sounds diminished, nontender to palpation. EXTREMITIES: No edema. LABORATORY DATA: White blood cell count 11.9, hematocrit 33.4, platelet count 420. Sodium 130, pota ssium 3.9, chloride 106, CO2 19, BUN 12, creatinine 1.2, glucose 64. ASSESSMENT: 1. Likely ischemic colitis. 2. Atelectasis. 3. Deconditioning. PLAN: She seems to be doing well on current antibiotics. No active pulmonary or critical care issue s. We will sign off and turn the case over to GI and Family Medicine.
[2017-08-30] MEDS ORDERED: Acetaminophen 500 MG TAB PO PRN (10:30)
[2017-08-30] MEDS ORDERED: Polyethylene Glycol 3350 17 GM Packet PO PRN (10:32)
[2017-08-30] MEDS ORDERED: Bisacodyl 10 MG SUPP PR PRN (10:32)
--- NOTE | 2017-08-30 11:01 | PRG ---
DATE OF SERVICE: 08/30/2017 SUBJECTIVE: The patient is still having diarrhea. Said she ate well. She is having no abdominal pa in. OBJECTIVE: VITAL SIGNS: Temperature 98.5, pulse 81, respiratory rate 18, blood pressure is 139/70. CHEST: Clear. CARDIOVASCULAR: Regular rate and rhythm. ABDOMEN: Soft and nontender without organomegaly or masses. PEG tube site looks good. Path is pend ing. LABORATORY DATA: Shows a white blood cell count 11.9, hemoglobin 10.5. Chemistries: CO2 19, creati nine 1.25, and glucose 64. Prealbumin is 10. ASSESSMENT: 1. Severe left-sided colitis - path is pending, felt to be ischemic colitis versus Clostridium diffi cile. 2. Malnutrition. RECOMMENDATIONS: 1. Await histopathology. 2. Continue p.o. vancomycin. 3. May consider supplementing the patient's nutrition with enteral feeding through the patient's per cutaneous endoscopic gastrostomy.
[2017-08-30] MEDS: Sodium Chloride 0.9% 1,000 ML IV SCH ×2 (11:30→23:50)
[2017-08-30] MEDS: Piperacillin/Tazobactam 2.25 GM in Sodium Chloride 0.9% 100 ML IVPB SCH ×4 (12:08→23:50)
[2017-08-30] MEDS: traMADol HCl 50 MG TAB PO PRN (14:43)
--- NOTE | 2017-08-30 14:47 | CT ---
CT ABDOMEN AND PELVIS WITHOUT IV CONTRAST: Technique: Multiple axial tomograms were obtained through the abdomen and pelvis without IV enhanceme nt. Indications: Abdominal pain. Concern for small bowel obstruction versus ileus. Comparison: 08-25-17 FINDINGS: Bibasilar lung atelectasis seen in the lung bases. Liver unremarkable. There is a cystic mass in the posterior spleen measuring 2 cm which is unchanged from a recent exam. Pancreas shows atrophy but is otherwise unremarkable. Adrenal glands and kidneys are unremarkable. No hydronephrosis. Urinary catheter is in place and the bladder is contracted. There are dilated small bowel loops involving the proximal mid small bowel. These dilated loops of luis carlos th measure up to 4 cm. sign noted with numerous gas pockets layering anterior within thes e dilated loops of small bowel. The distal small bowel loops are normal caliber. The findings indicat e a high grade small bowel obstruction in the mid small bowel. PEG tube is again noted in place. The stomach is distended. There is gaseous distention of the right colon. There is non-distention of the transverse and left co elizabeth. There continues to be evidence of mural thickening involving the sigmoid and rectum which was de scribed previously. Aorta shows atherosclerotic change and tortuosity. There is fat and aneurysmal di latation of the mid abdominal aorta measuring up to 3.7 cm diameter. IMPRESSION: 1. Dilated proximal and mid small bowel with decompressed distal small bowel consistent with high gra de small bowel obstruction in the mid small bowel. 2. 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 3. Splenic cyst. 4. Mural thickening of the rectum and sigmoid region again noted. POS: [facility]
[2017-08-30] MEDS ORDERED: hydrALAZINE 20 MG/ML VIAL SLOW IVP PRN (15:13)
[2017-08-30] MEDS: Morphine 4 MG/ML VIAL SLOW IVP PRN (16:27)
[2017-08-30] MEDS ORDERED: HYDROmorphone 2 MG TAB PO PRN (19:10)
[2017-08-30] MEDS: Ketorolac Tromethamine 30 MG/ML VIAL IM PRN (21:42)
[2017-08-30] MEDS: Docusate 100 MG CAP PO SCH ×2 (21:45→22:35)
[2017-08-30] MEDS: Mirtazapine 15 MG TAB PO SCH ×2 (21:46→22:36)
--- NOTE | 2017-08-30 23:53 | EKG ---
Test Reason : STAT Blood Pressure : / mmHG Vent. 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
[2017-08-31] MEDS: Ketorolac Tromethamine 30 MG/ML VIAL IM PRN ×2 (05:04→11:38)
[2017-08-31] MEDS: Piperacillin/Tazobactam 2.25 GM in Sodium Chloride 0.9% 100 ML IVPB SCH ×3 (05:05→18:02)
[2017-08-31 05:39] LABS: Anion Gap 11 mmol/L (10-20); Calc. Creatinine Clearance 37 mL/min (70-130); Calcium 8.4 mg/dL (7.8-10.44); Carbon Dioxide 25 mmol/L (23-31); Chloride 104 mmol/L (98-107); Estimated GFR-MDRD 41; Glucose 66 mg/dL (83-110); Magnesium 1.7 mg/dL (1.6-2.6); Phosphorus 3.4 mg/dL (2.3-4.7); Potassium 3.3 mmol/L (3.5-5.1); Sodium 137 mmol/L (136-145)
[2017-08-31 05:43] LABS: #Eosinphils 0.1 thou/uL (0.0-0.7); #Lymphocytes 1.6 thou/uL (1.20-3.40); #Neutrophils 9.2 thou/uL (1.40-6.50); %Basophils 0.3 % (0.0-1.0); %Eosinophils 1.2 % (0.0-10.0); %Lymphocytes 13.2 % (21.0-51.0); %Monocytes 8.7 % (0.0-10.0); %Neutrophils 76.6 % (42.0-75.0); Hemoglobin 9.3 g/dL (12.0-16.0); Mean Corpuscular HGB CONC 32.8 g/dL (32.0-36.0); Mean Corpuscular Hemoglobin 29.4 pg (27.0-31.0); Mean Corpuscular Volume 89.6 fl (81.0-99.0); Mean Platelet Volume 6.5 fL (7.4-10.4); Platelet Count 411 thou/uL (130-400); RBC Distribution Width 15.4 % (11.5-14.5); Red Blood Cell (RBC) Count 3.16 mill/uL (4.20-5.40)
[2017-08-31 06:46] LABS: BUN (Urea Nitrogen) 14 mg/dL (9.8-20.1)
[2017-08-31] MEDS ORDERED: Sodium Chloride 0.9% 500 ML IV SCH (07:30)
--- NOTE | 2017-08-31 08:19 | PDOC.FM ---
- Subjective Subjective: Pt reported severe pain last PM that resolved with toradol. She has not had a BM today or yesterday and NG tube has resulted in minimal aspirate collection. Pt wishes to have surgery if need be. Per, PM resident team, the family wants pt to have surgery as well if indicated. - Objective Vital Signs & Weight: Vital Signs (12 hours) Temp Pulse Resp BP BP Pulse Ox 08/31/17 07:15 97 08/31/17 07:12 76 16 97 08/31/17 04:00 97.8 F 79 16 100/61 100 08/31/17 00:00 99.0 F 80 16 107/53 L 100 08/30/17 22:35 85 131/60 08/30/17 21:45 85 Weight Weight 72.847 kg Most Recent Monitor Data Heart Rate from ECG 100 NIBP 125/60 NIBP BP-Mean 77 Respiration from ECG 24 SpO2 100 I&O: 08/30/17 08/31/17 09/01/17 06:59 06:59 06:59 Intake Total 780 1020 Output Total 5050 1600 Balance -4270 -580 Result Diagrams: 08/31/17 05:23 08/31/17 05:23 <Shyam Gasca - Last Filed: 08/31/17 08:17> - Objective Vital Signs & Weight: Vital Signs (12 hours) Temp Pulse Resp BP BP Pulse Ox 08/31/17 13:18 97.6 F 88 20 116/57 L 98 08/31/17 09:32 76 08/31/17 08:45 97.5 F L 76 16 130/62 94 L 08/31/17 07:15 97 08/31/17 07:12 76 16 97 08/31/17 04:00 97.8 F 79 16 100/61 100 Weight Admit Weight 65.856 kg Weight 72.847 kg Most Recent Monitor Data Heart Rate from ECG 100 NIBP 125/60 NIBP BP-Mean 77 Respiration from ECG 24 SpO2 100 I&O: 08/30/17 08/31/17 09/01/17 06:59 06:59 06:59 Intake Total 780 1020 Output Total 5050 1600 Balance -4270 -580 Result Diagrams: 08/31/17 05:23 08/31/17 05:23 <Sonny Nair - Last Filed: 08/31/17 15:31> Phys Exam - Physical Examination mildly distressed HEENT: PERRLA, moist MMs, sclera anicteric Neck: no nodes, no JVD Respiratory: no wheezing, no rales, no rhonchi, clear to auscultation bilateral diminished bases Cardiovascular: RRR, no significant murmur, no rub Gastrointestinal: soft Mod-severe distension, absent bowel sounds, mildly TTP Musculoskeletal: no edema, pulses present Neurological: non-focal, moves all 4 limbs Skin: normal turgor, cap refill <2 seconds <Shyam Gasca - Last Filed: 08/31/17 08:17> Dx/Plan (1) Small bowel obstruction Code(s): K56.609 - UNSP INTESTNL OBST, UNSP TO PARTIAL VERSUS COMPLETE OBST Status: Acute (2) Renal failure (ARF), acute on chronic Code(s): N17.9 - ACUTE KIDNEY FAILURE, UNSPECIFIED; N18.9 - CHRONIC KIDNEY DISEASE, UNSPECIFIED Status: Acute QualifierTitle: Acute renal failure type: unspecified Chronic kidney disease stage: stage 3 (moderate) Qualified Code(s): N17.9 - Acute kidney failure, unspecified; N18.3 - Chronic kidney disease, stage 3 (moderate); N18.3 - Chronic kidney disease, stage 3 (moderate) (3) Septicemic shock Code(s): A41.9 - SEPSIS, UNSPECIFIED ORGANISM; R65.21 - SEVERE SEPSIS WITH SEPTIC SHOCK Status: Resolved (4) Dementia Code(s): F03.90 - UNSPECIFIED DEMENTIA WITHOUT BEHAVIORAL DISTURBANCE Status: Chronic QualifierTitle: Dementia type: unspecified type Dementia behavioral disturbance: without behavioral disturbance Qualified Code(s): F03.90 - Unspecified dementia without behavioral disturbance (5) Diastolic dysfunction Code(s): I51.9 - HEART DISEASE, UNSPECIFIED Status: Chronic (6) Hypertension Code(s): I10 - ESSENTIAL (PRIMARY) HYPERTENSION Status: Chronic QualifierTitle: Hypertension type: essential hypertension Qualified Code( s): I10 - Essential (primary) hypertension (7) Paroxysmal A-fib Code(s): I48.0 - PAROXYSMAL ATRIAL FIBRILLATION Status: Chronic (8) Lung abnormality Code(s): J98.4 - OTHER DISORDERS OF LUNG Status: Acute (9) Acute respiratory failure with hypoxia Code(s): J96.01 - ACUTE RESPIRATORY FAILURE WITH HYPOXIA Status: Resolved Plan: Pt was 70s/40s bp on admission and peripheral pulse ox on cool extremities read 80s, quickly recovered with IVF resuscitation. Currently satting 98-100 on 2LNC. No s/s of respiratory distress. (10) Atrial flutter Code(s): I48.92 - UNSPECIFIED ATRIAL FLUTTER Status: Resolved - Plan Plan: 1) Small bowell obstruction: - NPO and NG tube in place w/o significant drainage. - Gen surgery consulted, appreciated recs - IVF switch to D5LR @75mls/hr 2) Septic shock due to presumed infectious colitis with concern for ischemic colitis- Resolved - septic shock resolved after empiric tx with Vanc + Zosyn, IV fluid repletion, and weaned off Levophed gtt, BCx neg - remains on Zosyn for empiric gut coverage and switched to po Vanc to cover for possible CDiff. - VSS, and no gross GI bleed, FOBT+, Hgb downtrending but stable, monitor closely - s/p Flex Sig by Dr. Segura showing severe colitis, pending Bx results. - appreciate GI & Gen Surg recs 3) Atelectasis , stable - atelectasis likely. - continue pulm tx nebs & IS -Legionella and strep Pneumo Ur Ag negative -pt appears euvolemic, likely dependent atelectasis from decreased ambulation/ physical activity 4) CHINMAY on CKD- - slow daily improvement in GFR, avoid nephrotoxins -Hold chlorthalidone. DC lasix -Daily BMP, trend - 500mL LR bolus -NS @ 75mls/hr post CT for renal protection 5) diastolic dysfunction- - monitor fluid status closely, clinically appears euvolemic -DC diuretics - D5 LR @ 75, monitor Is/Os, daily weights. 6) HTN- - Home meds 7) pAfib- - monitor on tele, continue amiodarone + eliquis 8) dementia- - conservative tx 9) deconditioning- - start PT/OT and up OOB QID 10) A-flutter: resolved -NSR overnight, VSS <Shyam Gasca - Last Filed: 08/31/17 08:17> Attending Addendum - Attending Addendum Date/Time: 08/31/17 1530 I personally evaluated the patient and discussed the management with Dr. Gasca and team. I agree with and repeated the History, Examination, Assessment and Plan documented above with any addition or exceptions noted below. Mild abdominal discomfort on rounds, mostly distended. Some nausea and vomiting. No cp/sob. Distended, NTTP, no guarding or rigidity. Labs and imaging reviewed, today and yesterday. Continue conservative management pending evaluation by GS. Transition over to IV medications. Changed to maintenance fluids. Guarded prognosis. <Sonny Nair - Last Filed: 08/31/17 15:31>
[2017-08-31] MEDS ORDERED: VANCOMYCIN IVPB PRN (08:31)
[2017-08-31] MEDS ORDERED: Vancomycin HCl 1 GM in Premix Bag 1 BAG IVPB SCH (09:00)
[2017-08-31] MEDS: Morphine 4 MG/ML VIAL SLOW IVP PRN ×3 (09:10→20:52)
[2017-08-31] MEDS: Ondansetron ODT 4 MG TAB PO PRN (09:11)
[2017-08-31] MEDS: Potassium Chloride 20 MEQ in Premix Bag 1 BAG IVPB SCH ×2 (09:30→11:38)
[2017-08-31] MEDS: Metoclopramide HCl 10 MG TAB PO SCH ×2 (09:31→10:30)
[2017-08-31] MEDS: Dextrose 5%-Lactated Ringers 1,000 ML IV SCH ×2 (09:31→21:29)
[2017-08-31] MEDS: Lactinex Tablet PO SCH (09:32)
[2017-08-31] MEDS: hydrALAZINE 25 MG TAB PO SCH (09:32)
[2017-08-31] MEDS: Apixaban 2.5 MG TAB PO SCH (09:32)
[2017-08-31] MEDS: Amiodarone 200 MG TAB PO SCH (09:32)
[2017-08-31] MEDS: Docusate 100 MG CAP PO SCH (09:32)
[2017-08-31] MEDS: Losartan 25 MG TAB PO SCH (09:33)
[2017-08-31] MEDS: Multivitamin W/ Minerals 1 TAB PO SCH (09:33)
[2017-08-31] MEDS: Saccharomyces boulardii 250 MG CAP PO SCH (09:37)
[2017-08-31] MEDS: Pregabalin 75 MG CAP PO SCH (09:37)
[2017-08-31] MEDS: TROSPIUM 20 MG TABLET PO SCH ×2 (09:37→20:46)
[2017-08-31] MEDS: Vancomycin HCl 25 MG/ML Oral PO SCH (09:37)
--- NOTE | 2017-08-31 10:37 | PRG ---
DATE OF SERVICE: 08/31/2017 I was reconsulted due the fact that she developed a small-bowel obstruction, which was actually picke d up on a CAT scan. She was not vomiting. The patient, no matter how well she is feeling says her p ain is a 10, so that is difficult to evaluate. This morning when I came in to see her she said she d id not want any surgery. She is DNR. She has multiple very serious medical problems, cardiac diseas e, ischemic colitis, as well as pulmonary disease. We talked and she said she changed her mind, she wants surgery. Now, she is again she is not vomiting. PHYSICAL EXAMINATION: VITAL SIGNS: Her vital signs are stable. On exam her heart rate is 76. Her temperature is 97.8. H er oxygenation is 97% on 2 liters, blood pressure 100/61. GENERAL: She is awake and alert. She does not appear to be in any distress. LUNGS: Clear. ABDOMEN: Very distended and tympanic. I do not hear any bowel sounds. She is diffusely tender, but without peritoneal signs. LABORATORY AND X-RAY DATA: I reviewed the CT scan. It does show a definite proximal bowel dilatatio n and distal bowel decompression. The transition zone is not completely obvious. Repeat KUB today a gain shows dilated loops of small bowel. She has had minimal out of her NG tube. Her white count is 12, H&H 9 and 28, platelet count of 411. Her creatinine is 1.24, BUN of 14. Potassium 3.3. ASSESSMENT: She has got a small-bowel obstruction. She is DNR. She is high risk for surgery. She has been getting b.i.d., Eliquis. Her last dose was at 10:00 p.m. last night. I discussed this with her daughter. Her daughter said she did not want surgery, so at this point I a m leaving it up to the family. I am going to hold the Eliquis with anticipation of possibly doing [place] rgery tomorrow. If they decide they do not want to proceed with surgery, recommend comfort care and NG suction. I recommend no medications orally as they are not being absorbed. Any medication she ge ts needs to be intravenous.
--- NOTE | 2017-08-31 10:44 | RAD ---
KUB 1 VIEW: HISTORY: An 87-year-old female with a history of small bowel obstruction. COMPARISON: 08/30/17. FINDINGS: Gastrostomy tube in lace. Persistently dilated small bowel loops as well as dilated cecum. Oral con trast from the previous CT has advanced into and through the colon and into the rectum. Left parasag ittal surgical clips. Right total hip replacement changes and left hip compression screw. IMPRESSION: Persistently abnormally dilated small bowel as well as the cecum having more of the appearance of ile us rather than a high-grade obstruction. Contrast given orally for the prior CT scan has advanced th rough the small bowel and all the way into the rectum. POS: [facility]
--- NOTE | 2017-08-31 11:27 | RAD ---
SUPINE ABDOMEN: TECHNIQUE: A supine view of the lower chest and upper abdomen obtained. INDICATION: Assess NG tube placement. FINDINGS: An N tube has been placed and tip appears to pass through the EG junction and rise back in the left u pper quadrant which would indicate epigastric fundal region. Gas-filled dilated lops of bowel are noted. There is gas-filled bowel under the right hemidiaphragm. Intraperitoneal air cannot be excluded on this supine projection. The lung pham show vascular an d interstitial congestion and bibasilar infiltrate or atelectasis. POS: [facility]
--- NOTE | 2017-08-31 12:45 | PRG ---
DATE OF SERVICE: 08/31/2017 SUBJECTIVE: Patient is presently having some nausea and vomiting. She has recently been diagnosed w ith a bowel obstruction. She underwent a CT scan and abdominal films which show small bowel obstruct ion. PHYSICAL EXAMINATION: VITAL SIGNS: Temperature 97.8, pulse 76, respiratory rate 16, blood pressure 100/61. CHEST: Clear. CARDIOVASCULAR: Regular rate and rhythm. ABDOMEN: Protuberant, tender diffusely. LABORATORY DATA: Shows a white blood cell count 12.0, hemoglobin 9.3, hematocrit 28.3. Chemistries show potassium 3.3. Path is pending. ASSESSMENT: 1. Small-bowel obstruction. 2. Left-sided colitis. RECOMMENDATIONS: 1. For surgery. 2. Continue p.o. vancomycin. 3. We will await histopathology.
--- NOTE | 2017-08-31 13:12 | EKG ---
Test Reason : Blood Pressure : / mmHG Vent. Rate : 092 BPM Atrial Rate : 092 BPM P-R Int : 174 ms QRS Dur : 090 ms QT Int : 378 ms P-R-T Axes : 066 -47 -06 degrees QTc Int : 467 ms Normal sinus rhythm Left axis deviation Inferior infarct , age undetermined Abnormal ECG Confirmed by LINDA DELONG [id number]), science editor EFRA SHAIKH ([id number]) on 08/31/2017 1:11:44 PM Referred By: Confirmed By:LINDA DELONG
[2017-08-31] MEDS: Enalaprilat Dihydrate 1.25 MG/ML VIAL SLOW IVP SCH (18:03)
[2017-08-31] MEDS: Famotidine/PF 20 mg/2ml Vial SLOW IVP SCH (20:45)
[2017-08-31] MEDS ORDERED: Famotidine/PF 20 mg/2ml Vial SLOW IVP SCH (21:00)
[2017-09-01] MEDS: Piperacillin/Tazobactam 2.25 GM in Sodium Chloride 0.9% 100 ML IVPB SCH ×4 (00:19→17:14)
[2017-09-01] MEDS: Dextrose 5%-Lactated Ringers 1,000 ML IV SCH ×3 (00:33→17:11)
[2017-09-01] MEDS: Morphine 4 MG/ML VIAL SLOW IVP PRN ×3 (01:53→17:24)
[2017-09-01 05:42] LABS: #Eosinphils 0.2 thou/uL (0.0-0.7); #Lymphocytes 1.1 thou/uL (1.20-3.40); #Monocytes 0.5 thou/uL (0.11-0.59); #Neutrophils 10.8 thou/uL (1.40-6.50); %Basophils 0.3 % (0.0-1.0); %Eosinophils 1.9 % (0.0-10.0); %Lymphocytes 8.5 % (21.0-51.0); %Monocytes 3.9 % (0.0-10.0); %Neutrophils 85.4 % (42.0-75.0); Mean Corpuscular HGB CONC 32.1 g/dL (32.0-36.0); Mean Corpuscular Hemoglobin 28.8 pg (27.0-31.0); Mean Corpuscular Volume 89.7 fl (81.0-99.0); Mean Platelet Volume 6.4 fL (7.4-10.4); Platelet Count 377 thou/uL (130-400); RBC Distribution Width 15.4 % (11.5-14.5); Red Blood Cell (RBC) Count 3.13 mill/uL (4.20-5.40); White Blood Cell (WBC) Count 12.7 thou/uL (4.8-10.8)
[2017-09-01 06:23] LABS: Anion Gap 9 mmol/L (10-20); BUN (Urea Nitrogen) 19 mg/dL (9.8-20.1); Calc. Creatinine Clearance 32 mL/min (70-130); Calcium 8.4 mg/dL (7.8-10.44); Carbon Dioxide 23 mmol/L (23-31); Chloride 109 mmol/L (98-107); Estimated GFR-MDRD 34; Glucose 122 mg/dL (83-110); Magnesium 1.4 mg/dL (1.6-2.6); Phosphorus 2.7 mg/dL (2.3-4.7); Potassium 3.9 mmol/L (3.5-5.1); Sodium 137 mmol/L (136-145)
[2017-09-01] MEDS ORDERED: Magnesium Sulfate 3 GM in Sodium Chloride 0.9% 100 ML IVPB SCH (07:00)
[2017-09-01] MEDS: Enalaprilat Dihydrate 1.25 MG/ML VIAL SLOW IVP SCH ×2 (07:30)
[2017-09-01] MEDS ORDERED: cefOXitin 2 GM in Sodium Chloride 0.9% 100 ML IVPB SCH (07:45)
[2017-09-01 08:27] LABS: Vancomycin, Random 14.7 ug/mL (See Comment)
--- NOTE | 2017-09-01 08:43 | PDOC.FM ---
- Subjective Subjective: No acute events overnight. Pt reports she will be getting surgery this AM. Denies cp, sob, nvdc. Reports persistnet abdominal pain. Ng tube remains in place with approx 200cc drained. - Objective Vital Signs & Weight: Vital Signs (12 hours) Temp Pulse Resp BP BP Pulse Ox 09/01/17 07:49 98.3 F 91 92 H 132/60 92 L 09/01/17 07:30 97/54 L 09/01/17 06:15 88 16 97 09/01/17 06:00 98.8 F 87 18 100/55 L 98 09/01/17 00:00 97.8 F 88 16 97/54 L 109/52 L 94 L 08/31/17 22:39 87 16 96 Weight Admit Weight 65.856 kg Weight 78.109 kg Most Recent Monitor Data Heart Rate from ECG 100 NIBP 125/60 NIBP BP-Mean 77 Respiration from ECG 24 SpO2 100 I&O: 08/31/17 09/01/17 09/02/17 06:59 06:59 06:59 Intake Total 1020 200 Output Total 1600 450 Balance -580 -250 Result Diagrams: 09/01/17 05:03 09/01/17 05:03 <Shyam Gasca - Last Filed: 09/01/17 08:42> - Objective Vital Signs & Weight: Vital Signs (12 hours) Temp Pulse Resp BP BP Pulse Ox 09/01/17 07:49 98.3 F 91 92 H 132/60 92 L 09/01/17 07:30 97/54 L 09/01/17 06:15 88 16 97 09/01/17 06:00 98.8 F 87 18 100/55 L 98 Weight Admit Weight 65.856 kg Weight 78.109 kg Most Recent Monitor Data Heart Rate from ECG 100 NIBP 125/60 NIBP BP-Mean 77 Respiration from ECG 24 SpO2 100 I&O: 08/31/17 09/01/17 09/02/17 06:59 06:59 06:59 Intake Total 1020 200 Output Total 1600 450 Balance -580 -250 Result Diagrams: 09/01/17 05:03 09/01/17 05:03 <Daron Mckenna - Last Filed: 09/01/17 12:03> Phys Exam - Physical Examination Ill appearing HEENT: PERRLA, sclera anicteric Neck: no nodes, no JVD Respiratory: no wheezing, no rhonchi diminished bases w/ rales Cardiovascular: RRR, no significant murmur, no rub Gastrointestinal: soft, non-tender absent BS, mildly distended, improved from yesterday Musculoskeletal: no edema, pulses present Neurological: non-focal, moves all 4 limbs Skin: normal turgor, cap refill <2 seconds <Shyam Gasca - Last Filed: 09/01/17 08:42> Dx/Plan (1) Small bowel obstruction Code(s): K56.609 - UNSP INTESTNL OBST, UNSP TO PARTIAL VERSUS COMPLETE OBST Status: Acute (2) Renal failure (ARF), acute on chronic Code(s): N17.9 - ACUTE KIDNEY FAILURE, UNSPECIFIED; N18.9 - CHRONIC KIDNEY DISEASE, UNSPECIFIED Status: Acute QualifierTitle: Acute renal failure type: unspecified Chronic kidney disease stage: stage 3 (moderate) Qualified Code(s): N17.9 - Acute kidney failure, unspecified; N18.3 - Chronic kidney disease, stage 3 (moderate); N18.3 - Chronic kidney disease, stage 3 (moderate) (3) Septicemic shock Code(s): A41.9 - SEPSIS, UNSPECIFIED ORGANISM; R65.21 - SEVERE SEPSIS WITH SEPTIC SHOCK Status: Resolved (4) Dementia Code(s): F03.90 - UNSPECIFIED DEMENTIA WITHOUT BEHAVIORAL DISTURBANCE Status: Chronic QualifierTitle: Dementia type: unspecified type Dementia behavioral disturbance: without behavioral disturbance Qualified Code(s): F03.90 - Unspecified dementia without behavioral disturbance (5) Diastolic dysfunction Code(s): I51.9 - HEART DISEASE, UNSPECIFIED Status: Chronic (6) Hypertension Code(s): I10 - ESSENTIAL (PRIMARY) HYPERTENSION Status: Chronic QualifierTitle: Hypertension type: essential hypertension Qualified Code( s): I10 - Essential (primary) hypertension (7) Paroxysmal A-fib Code(s): I48.0 - PAROXYSMAL ATRIAL FIBRILLATION Status: Chronic (8) Lung abnormality Code(s): J98.4 - OTHER DISORDERS OF LUNG Status: Acute (9) Acute respiratory failure with hypoxia Code(s): J96.01 - ACUTE RESPIRATORY FAILURE WITH HYPOXIA Status: Resolved Plan: Pt was 70s/40s bp on admission and peripheral pulse ox on cool extremities read 80s, quickly recovered with IVF resuscitation. Currently satting 98-100 on 2LNC. No s/s of respiratory distress. (10) Atrial flutter Code(s): I48.92 - UNSPECIFIED ATRIAL FLUTTER Status: Resolved - Plan Plan: 1) Small bowell obstruction: possible surgery today per pt - NPO and NG tube in place w/ 200cc drained. - Gen surgery consulted, appreciated recs - IVF switch to D5LR @75mls/hr, cont fluids as pt NPO -Pt has not been OOB all day yesterday, PT cancelled session 2/2 elevated BP and pt assistX2, will definitely benefit from EOB or OOB physical activity daily. - Abd xray showed contrast in rectum and distended decum more consistent with ileus, will benefit from increased mobility if no surgery today 2) Septic shock due to presumed infectious colitis with concern for ischemic colitis- Resolved - septic shock resolved -subsequntly developed SBO and since WBC have been uptrending. Resume IV vanc and continue zosyn and po vanc. - Path results are still pending 3) Atelectasis , stable - continue pulm tx nebs & IS -Legionella and strep Pneumo Ur Ag negative -pt appears mildly hypervolemic, likely dependent atelectasis from decreased ambulation/ physical activity vs volume overload -cont to monitor Is/Os - O2 demand has not increased, monitor 4) CHINMAY on CKD- - slow daily improvement in GFR, avoid nephrotoxins -Hold chlorthalidone. DC lasix -Daily BMP, trend -Cont D5LR 5) diastolic dysfunction- - monitor fluid status closely, clinically appears euvolemic -DC diuretics - D5 LR @ 75, monitor Is/Os, daily weights. 6) HTN- - Home meds switched to IV -Enalapril held 2/2 low BP 7) pAfib- - monitor on tele, continue amiodarone (switched to IV) + eliquis (held for possible surgery today) 8) dementia- - conservative tx 9) deconditioning- - start PT/OT and up OOB QID, pt will need some sort of mobility exercise post op or throughout the day today if no surgery to prevent worsening ileus Dispo: Guarded, will await GI and Gen surg recs. Pt switched to IV medications 2 /2 ileus vs SBO. Continue NG tube suction and medical management in the mean time. <Shyam Gasca - Last Filed: 09/01/17 08:42> Attending Addendum - Attending Addendum Date/Time: 09/01/17 1203 I personally evaluated the patient and discussed the management with Dr. Gasca. I agree with the History, Examination, Assessment and Plan documented above with any addition or exceptions noted below. Patient with SBO and decided to go with surgery. She is going for surgery with Dr. Carey this morning. Awaiting further recs after her surgery. <Daron Mckenna - Last Filed: 09/01/17 12:03>
[2017-09-01] MEDS ORDERED: AMIODARONE HCL IVPB SCH (09:00)
[2017-09-01] MEDS ORDERED: WATER IVPB SCH (09:00)
[2017-09-01] MEDS ORDERED: DEXTROSE 5% IVPB SCH (09:00)
[2017-09-01] MEDS ORDERED: Vancomycin HCl 1 GM in Premix Bag 1 BAG IVPB SCH (09:00)
[2017-09-01] MEDS: TROSPIUM 20 MG TABLET PO SCH ×2 (10:09→21:23)
[2017-09-01] MEDS ORDERED: Vancomycin HCl 500 MG in Sodium Chloride 0.9% 100 ML IVPB SCH (11:00)
[2017-09-01] MEDS ORDERED: Fentanyl 100 MCG/2 ML VIAL ONE (11:33)
[2017-09-01] MEDS ORDERED: Vancomycin HCl 500 MG VIAL ONE (11:39)
[2017-09-01] MEDS ORDERED: Sodium Chloride 0.9% 100 ML ONE (11:39)
[2017-09-01] MEDS ORDERED: Ondansetron HCl/PF 4 MG/2 ML Vial IVP PRN ×2 (12:51→13:13)
[2017-09-01] MEDS ORDERED: hydrALAZINE 20 MG/ML VIAL SLOW IVP PRN (12:51)
[2017-09-01] MEDS ORDERED: Promethazine HCl 25 MG/ML VIAL IM PRN ×2 (12:51→13:13)
[2017-09-01] MEDS ORDERED: Sodium Chloride 0.9% 1,000 ML IV SCH (13:00)
--- NOTE | 2017-09-01 13:04 | OP ---
DATE OF PROCEDURE: 09/01/2017 PREOPERATIVE DIAGNOSIS: Small-bowel obstruction. SURGEON: Reese Carey M.D. PROCEDURE: Exploratory laparotomy, lysis of adhesions. INDICATIONS: The patient is an 87-year-old female who was admitted with ischemic colitis and then de veloped abdominal bloating and a CT scan showed a high grade small-bowel obstruction. She was treate d with intestinal decompression without relief. FINDINGS: She had 2 band adhesions, one was obstructing the mid small bowel and a second was obstruc ting the transverse colon. PROCEDURE IN DETAIL: After informed consent was obtained, the patient was taken to the operating cierra m and given general endotracheal anesthesia. She was placed in the supine position. Her abdomen was prepped and draped in usual fashion. A midline incision was performed, the subcu divided sharply. The fascia incised and the colon was massively dilated at about 12 cm. It was brought out and ran ba ck to a band that was causing an obstruction of the colon in the mid transverse colon. This was divi ded utilizing electrocautery and released it. Then the small bowel was run from ileocecal valve back wards to the ligament of Treitz and a second adhesion was found in the mid small bowel, which was als o lysed. Now, the colon again was massively dilated primarily with air, so a pursestring of 3-0 silk was placed in the tenia and a 14 gauge angiocatheter inserted and the air was removed from the colon to aid with closure of the abdomen. Then the pursestring was tied down as the angiocatheter was rem chinyere. Then the abdomen irrigated and irrigation fluid removed. The omentum placed anterior. Hemost asis was assured. The fascia closed with running looped #1 PDS and hemostasis was assured. The subc utaneous irrigated. Skin closed with skin batsheva. The patient tolerated the procedure well and was transferred to recovery in good condition. Sponge and needle count verified correct x2.
[2017-09-01] MEDS ORDERED: Morphine Sulfate 2 MG/ML SYRINGE SLOW IVP PRN (13:13)
[2017-09-01] MEDS ORDERED: Promethazine HCl 25 MG/ML VIAL SLOW IVP PRN (13:13)
[2017-09-01] MEDS ORDERED: Morphine 4 MG/ML VIAL SLOW IVP PRN (13:30)
[2017-09-01 14:17] LABS: Actual Bicarbonate (HCO3a) 25.2 mEq/L (22-26); Base Excess (BEa) -3.9 mEq/L (0 (+/-) 2.5); CO2 Tension 70.4 mmHg (35.0-45.0); Hematocrit-ABG 32.9 % (36.0-47.0); Hemoglobin (Hb) 9.7 g/dL (12.0-16.0); pH, Arterial 7.17 (7.35-7.45)
[2017-09-01 14:18] LABS: Analyzer IN Cardio OR; Calcium, Ionized 1.3 mmol/L (1.12-1.30); Puncture Site LRA
--- NOTE | 2017-09-01 14:49 | PRG ---
DATE OF SERVICE: 09/01/2017 SERVICE: Pulmonary Medicine. INTERVAL HISTORY: The patient went down for an operation. It is an exploratory laparotomy. She was found to have large and small-bowel obstruction. These were subsequently opened up. She was decompressed. Ultimately, she did well during the surgery. In the post-anesthesia care unit, she developed increasing respiratory failure, however. She was completely obtunded, prompting them to put her on BiPAP. She remains weak. She is starting to come around slowly. Previously, she made very little response with noxious stimuli. Now gentle stimulation causes her to follow some simple commands, but clearly, she remains encephalopathic. An ABG was performed and demonstrated acute hypercapnic respiratory failure. I am told that she had very little anesthesia during the case. PHYSICAL EXAMINATION: VITAL SIGNS: Afebrile, pulse 91, blood pressure 132/60, respirations 18, saturation 92% on 40% FIO2 and a PEEP of 7. GENERAL: The patient is encephalopathic. HEENT: Normocephalic, atraumatic. Sclerae are white. Conjunctivae are pink. Oral mucosa is moist without lesions. LUNGS: Decent air entry. I really do not appreciate a prolonged expiratory phase. There is no wheezing. I do not appreciate crackles. There are some rhonchi. I cannot get her to cough. HEART: Tachycardic. Regular. ABDOMEN: Soft. Nontender. There is no rebound or guarding. Bowel sounds are absent. GENITOURINARY: Valentine catheter in place. NEUROLOGIC: Grossly nonfocal. She is diffusely encephalopathic. She is following some very simple commands, but she required some stimulation in order to stay awake. This is a significant improvement from what I am told compared to where she was just 15 minutes ago. LABORATORY DATA: WBC 12.7, hemoglobin 9.0, platelets 377,000. PH 7.17, pCO2 71 , pO2 71 on 50% FIO2 and a PEEP of 8. Creatinine 1.45. Basic metabolic profile is otherwise unremarkable. Magnesium was 1.4 this morning, but has been replaced. Phosphorus 2.7. WBC greater than 50, random vancomycin level was 14.7 on the morning of the surgery. Urine strep legionella antigens are negative. There are multiple organisms that are growing from around the PEG tube including yeast and Staph aureus. The Staph aureus, however, was exquisitely sensitive to things like Augmentin. ASSESSMENT: 1. Acute hypoxic and hypercapnic respiratory failure. 2. Ischemic colitis. 3. Small and large bowel obstruction, status post exploratory laparotomy, lysis of adhesion. 4. Severe protein calorie malnutrition. 5. Deconditioning, severe. 6. Paroxysmal atrial fibrillation. DISCUSSION AND PLAN: We are going to transition the patient back to the ICU. She will be on BiPAP at 17/7 with an FiO2 to keep her sats above 92%. If her neurologic function and metabolic encephalopathy does not clear, we may need to consider re-intubating her. She is a DNI/DNR, but this was revoked in the perioperative period. Pulmonary Critical Care will continue to follow very closely while she remains in the hospital. Dr. Childress will be made aware that she was transitioned back to the unit. CRITICAL CARE TIME: 30 minutes. STEPHON
[2017-09-01] MEDS ORDERED: Norepinephrine 8 MG/0.9% NS 250 ML ONE (15:04)
[2017-09-01] MEDS ORDERED: ePHEDrine/0.9% NaCl/PF SYRINGE 50 mg/10 ml ONE (15:17)
[2017-09-01] MEDS ORDERED: Glycopyrrolate 0.2 MG/ML 5 ML SYRINGE ONE (15:17)
[2017-09-01] MEDS ORDERED: Ondansetron HCl/PF 4 MG/2 ML Vial ONE (15:17)
[2017-09-01] MEDS ORDERED: PHENYLEPHRINE-NS 100 MCG/ML 10 ML SYRINGE ONE (15:17)
[2017-09-01] MEDS ORDERED: Dexamethasone 20 MG/5 ML VIAL ONE (15:17)
[2017-09-01] MEDS ORDERED: PROPOFOL 200 MG/20 ML VIAL ONE (15:17)
[2017-09-01] MEDS ORDERED: Lidocaine 1% PF 5 ML VIAL ONE (15:17)
[2017-09-01] MEDS ORDERED: Norepinephrine 8 MG/250 ML BAG IVPB PRN (16:05)
[2017-09-01] MEDS ORDERED: Vasopressin 40 UNIT, Admixture Fee 1 EACH in Sodium Chloride 0.9% 100 ML IV SCH (16:15)
[2017-09-01] MEDS: Micafungin 100 MG in Sodium Chloride 0.9% 100 ML IVPB SCH (16:18)
[2017-09-01] MEDS: cefOXitin Sodium 1 GM in Sodium Chloride 0.9% 100 ML IVPB SCH ×2 (16:19→21:15)
[2017-09-01] MEDS: Acetaminophen 1,000 MG in Premix Bag 1 BAG IVPB SCH (17:12)
[2017-09-01] MEDS: Hydrocortisone Sod Succ/PF 100 mg/2 ml Vial IVP SCH (17:24)
[2017-09-01] MEDS ORDERED: Enoxaparin Sodium 40 MG/0.4 ML SYRINGE SC SCH (21:00)
[2017-09-01] MEDS ORDERED: Famotidine/PF 20 mg/2ml Vial SLOW IVP SCH (21:00)
[2017-09-01] MEDS ORDERED: Famotidine 20 MG TAB PO SCH (21:00)
[2017-09-01] MEDS: Famotidine/PF 20 mg/2ml Vial SLOW IVP SCH (21:16)
[2017-09-02] MEDS: Morphine 4 MG/ML VIAL SLOW IVP PRN ×4 (04:15→20:04)
[2017-09-02 05:09] LABS: #Lymphocytes 0.6 thou/uL (1.20-3.40); #Monocytes 0.2 thou/uL (0.11-0.59); #Neutrophils 14.8 thou/uL (1.40-6.50); %Eosinophils 0.1 % (0.0-10.0); %Neutrophils 94.8 % (42.0-75.0); Hemoglobin 8.7 g/dL (12.0-16.0); Mean Corpuscular HGB CONC 31.1 g/dL (32.0-36.0); Mean Corpuscular Hemoglobin 28.2 pg (27.0-31.0); Mean Corpuscular Volume 90.8 fl (81.0-99.0); Mean Platelet Volume 6.7 fL (7.4-10.4); Platelet Count 442 thou/uL (130-400); RBC Distribution Width 15.4 % (11.5-14.5); Red Blood Cell (RBC) Count 3.08 mill/uL (4.20-5.40); White Blood Cell (WBC) Count 15.6 thou/uL (4.8-10.8)
[2017-09-02 05:28] LABS: Anion Gap 11 mmol/L (10-20); BUN (Urea Nitrogen) 20 mg/dL (9.8-20.1); Calc. Creatinine Clearance 27 mL/min (70-130); Calcium 8.5 mg/dL (7.8-10.44); Carbon Dioxide 24 mmol/L (23-31); Chloride 108 mmol/L (98-107); Estimated GFR-MDRD 28; Glucose 201 mg/dL (83-110); Phosphorus 3.3 mg/dL (2.3-4.7); Potassium 3.7 mmol/L (3.5-5.1); Sodium 139 mmol/L (136-145)
[2017-09-02] MEDS: Piperacillin/Tazobactam 2.25 GM in Sodium Chloride 0.9% 100 ML IVPB SCH ×5 (05:33→23:56)
[2017-09-02] MEDS: Hydrocortisone Sod Succ/PF 100 mg/2 ml Vial IVP SCH ×5 (05:33→23:57)
[2017-09-02] MEDS: Dextrose 5%-Lactated Ringers 1,000 ML IV SCH ×3 (05:33→21:19)
[2017-09-02] MEDS: Acetaminophen 1,000 MG in Premix Bag 1 BAG IVPB SCH ×3 (05:33→12:25)
--- NOTE | 2017-09-02 08:12 | PRG ---
DATE OF SERVICE: 09/02/2017 The patient was on BiPAP overnight. Postoperatively, she says that she feels better this morning. S he was on Levophed, but that has been turned off this morning. PHYSICAL EXAMINATION: VITAL SIGNS: Temperature is 98.0, pulse 76, blood pressure 114/41. 24 hour intake 1361, output 680. HEENT: Unremarkable. NECK: No JVD. LUNGS: Clear with distant breath sounds. CARDIAC: S1 and S2 regular. ABDOMEN: Large laparotomy scar, well healed. Abdomen is soft. EXTREMITIES: No edema. LABORATORY DATA: White blood cell count 15.6, hematocrit 27.9, platelet count 442. Sodium 139, pota ssium 3.7, chloride 108, CO2 of 24, BUN 20, creatinine 1.7, glucose 201. ASSESSMENT: 1. Expected postop respiratory failure after laparotomy - now improved. 2. Status post laparotomy for removal of adhesions. 3. Deconditioning. PLAN: The patient was taken off BiPAP this morning and so far it looks like she will do well. She w ill be left in the ICU for the day today and I would not be in any hurry to move her out. She has re sumed breathing treatments, and she is on broad spectrum IV antibiotics including antifungals. She i s also on hydrocortisone, which I would hope to be weaned over the weekend.
--- NOTE | 2017-09-02 08:51 | PDOC.FM ---
- Subjective Subjective: Pt was weaned off of BiPAP this am and her pressure support was discontinued. She is able to communicate and is oriented to person and place. She complains of abdominal pain that is worse with coughing. Otherwise, denies cp. She does report some sob. - Objective Vital Signs & Weight: Vital Signs (12 hours) Temp Pulse Resp Pulse Ox 09/02/17 06:28 75 09/02/17 06:25 75 15 99 09/02/17 04:00 98.0 F 09/02/17 02:00 79 09/02/17 00:00 98.4 F 09/01/17 22:13 80 Weight Admit Weight 73.6 kg Weight 79.3 kg Most Recent Monitor Data Heart Rate from ECG 81 NIBP 105/60 NIBP BP-Mean 77 Respiration from ECG 18 SpO2 93 I&O: 09/01/17 09/02/17 09/03/17 06:59 06:59 06:59 Intake Total 200 1361.7 Output Total 450 680 75 Balance -250 681.7 -75 Result Diagrams: 09/02/17 05:02 09/02/17 05:02 <Shyam Gasca - Last Filed: 09/02/17 08:50> - Objective Vital Signs & Weight: Vital Signs (12 hours) Temp Pulse Resp Pulse Ox 09/02/17 10:59 85 15 99 09/02/17 09:00 97.7 F 09/02/17 08:00 97.7 F 81 15 93 L 09/02/17 06:28 75 09/02/17 06:25 75 15 99 09/02/17 04:00 98.0 F 09/02/17 02:00 79 Weight Admit Weight 73.6 kg Weight 79.3 kg Most Recent Monitor Data Heart Rate from ECG 82 NIBP 92/67 NIBP BP-Mean 78 Respiration from ECG 14 SpO2 100 I&O: 09/01/17 09/02/17 09/03/17 06:59 06:59 06:59 Intake Total 200 1361.7 Output Total 450 680 163 Balance -250 681.7 -163 Result Diagrams: 09/02/17 05:02 09/02/17 05:02 <Golden Chua - Last Filed: 09/02/17 12:13> Phys Exam - Physical Examination ill appearing HEENT: PERRLA, sclera anicteric Neck: no nodes, no JVD, supple Respiratory: no wheezing, no rales diminished bases, scattered rhonchi, strong cough, poor effort Cardiovascular: RRR, no significant murmur, no rub Gastrointestinal: soft, no distention sluggish bowel sounds, laparotomy dressing in place, non distended, ttp Musculoskeletal: pulses present, edema present carpal and pedal edema b/l Neurological: non-focal, moves all 4 limbs Skin: no rash, cap refill <2 seconds <Shyam Gasca - Last Filed: 09/02/17 08:50> Dx/Plan (1) Small bowel obstruction Code(s): K56.609 - UNSP INTESTNL OBST, UNSP TO PARTIAL VERSUS COMPLETE OBST Status: Acute (2) Renal failure (ARF), acute on chronic Code(s): N17.9 - ACUTE KIDNEY FAILURE, UNSPECIFIED; N18.9 - CHRONIC KIDNEY DISEASE, UNSPECIFIED Status: Acute QualifierTitle: Acute renal failure type: unspecified Chronic kidney disease stage: stage 3 (moderate) Qualified Code(s): N17.9 - Acute kidney failure, unspecified; N18.3 - Chronic kidney disease, stage 3 (moderate); N18.3 - Chronic kidney disease, stage 3 (moderate) (3) Septicemic shock Code(s): A41.9 - SEPSIS, UNSPECIFIED ORGANISM; R65.21 - SEVERE SEPSIS WITH SEPTIC SHOCK Status: Resolved (4) Dementia Code(s): F03.90 - UNSPECIFIED DEMENTIA WITHOUT BEHAVIORAL DISTURBANCE Status: Chronic QualifierTitle: Dementia type: unspecified type Dementia behavioral disturbance: without behavioral disturbance Qualified Code(s): F03.90 - Unspecified dementia without behavioral disturbance (5) Diastolic dysfunction Code(s): I51.9 - HEART DISEASE, UNSPECIFIED Status: Chronic (6) Hypertension Code(s): I10 - ESSENTIAL (PRIMARY) HYPERTENSION Status: Chronic QualifierTitle: Hypertension type: essential hypertension Qualified Code( s): I10 - Essential (primary) hypertension (7) Paroxysmal A-fib Code(s): I48.0 - PAROXYSMAL ATRIAL FIBRILLATION Status: Chronic (8) Lung abnormality Code(s): J98.4 - OTHER DISORDERS OF LUNG Status: Acute (9) Acute respiratory failure with hypoxia Code(s): J96.01 - ACUTE RESPIRATORY FAILURE WITH HYPOXIA Status: Resolved Plan: (10) Atrial flutter Code(s): I48.92 - UNSPECIFIED ATRIAL FLUTTER Status: Resolved - Plan Plan: 1) Small bowell obstruction: - pt is s/p laparotomy with lysis of adhesion X2 (band adhesions involving large and small bowel) - pt required Bipap and pressure support post-operatively -currently weaned off of BiPAP and pressure support - Gen surgery consulted, appreciated recs - IVF switch to D5LR @75mls/hr, cont fluids as pt NPO - Cont broad spectrum abx, micofungin added for yeast coverage. 2) Acute hypercapnic, hypoxic respiratory failure: - pt was placed on BiPAP post operatively - ABG pH 7.2, PCO2 70, pO2 71 - Currently satting 85-94 on 3LNC 3) Septic shock due to presumed infectious colitis with concern for ischemic colitis- -resolved -likely ischemic colitis - cont broad spectrum abx - micofungin added 4) Atelectasis - continue pulm tx nebs & IS -Legionella and strep Pneumo Ur Ag negative - s/p BiPAP - monitor O2 sats 5) CHINMAY on CKD- - stable -monitor 6) diastolic dysfunction- - monitor fluid status closely -DC diuretics - D5 LR @ 75, monitor Is/Os, daily weights. - Consider diuresis, as pt continues to recover from laparotomy 7) HTN- -home meds -can cont po -hydralazine prn 8) pAfib- -home emdications 9) dementia- - conservative tx 10) deconditioning- - start PT/OT and up EOB QID Dispo: Serious. Pt will be continued on IV abx including antifungals and pressures will be monitored in addition to respiratory status in ICU. Cont respiratory support with nebs. Monitor Is/Os. <Shyam Gasca - Last Filed: 09/02/17 08:50> Attending Addendum - Attending Addendum Date/Time: 09/02/17 1212 I personally evaluated the patient and discussed the management with Dr. Gasca. I agree with the History, Examination, Assessment and Plan documented above with any addition or exceptions noted below. <Golden Chua - Last Filed: 09/02/17 12:13>
[2017-09-02] MEDS: Enoxaparin Sodium 40 MG/0.4 ML SYRINGE SC SCH ×2 (09:05→21:24)
[2017-09-02] MEDS: TROSPIUM 20 MG TABLET PO SCH ×2 (09:08→20:03)
[2017-09-02 10:12] LABS: INR-International Normal Ratio 1.7; PTT 48.6 SEC (22.9-36.1)
[2017-09-02 10:24] LABS: Cardiac Risk 5.7 (Less than 4.5)
[2017-09-02 13:20] VITALS: BMI 28.2
[2017-09-02] MEDS ORDERED: SODIUM CHLORIDE IV SCH (14:00)
[2017-09-02] MEDS ORDERED: POTASSIUM ACETATE IV SCH (14:00)
[2017-09-02] MEDS ORDERED: [UNRECOGNIZED DRUG - OTHER] IV SCH (14:00)
[2017-09-02] MEDS ORDERED: SODIUM ACETATE IV SCH (14:00)
[2017-09-02] MEDS: Micafungin 100 MG in Sodium Chloride 0.9% 100 ML IVPB SCH (16:02)
[2017-09-02] MEDS ORDERED: Dextrose 50% Abboject 50 ML SYRINGE IVP PRN (18:43)
[2017-09-02] MEDS ORDERED: Dextrose 5% in Water 1,000 ML IV PRN (18:43)
[2017-09-02] MEDS: Famotidine/PF 20 mg/2ml Vial SLOW IVP SCH (20:04)
[2017-09-02] MEDS: Insulin Regular 300 UNITS/3 ML VIAL SC PRN (21:16)
[2017-09-03] MEDS: Morphine 4 MG/ML VIAL SLOW IVP PRN ×3 (02:18→15:08)
[2017-09-03 04:16] LABS: #Lymphocytes 0.8 thou/uL (1.20-3.40); #Monocytes 0.5 thou/uL (0.11-0.59); #Neutrophils 17.3 thou/uL (1.40-6.50); %Lymphocytes 4.3 % (21.0-51.0); %Monocytes 2.8 % (0.0-10.0); %Neutrophils 92.9 % (42.0-75.0); Hemoglobin 8.3 g/dL (12.0-16.0); Mean Corpuscular HGB CONC 31.6 g/dL (32.0-36.0); Mean Corpuscular Hemoglobin 28.9 pg (27.0-31.0); Mean Corpuscular Volume 91.5 fl (81.0-99.0); Mean Platelet Volume 6.7 fL (7.4-10.4); Platelet Count 473 thou/uL (130-400); RBC Distribution Width 15.6 % (11.5-14.5); Red Blood Cell (RBC) Count 2.86 mill/uL (4.20-5.40); White Blood Cell (WBC) Count 18.6 thou/uL (4.8-10.8)
[2017-09-03 04:32] LABS: Anion Gap 11 mmol/L (10-20); BUN (Urea Nitrogen) 23 mg/dL (9.8-20.1); Calc. Creatinine Clearance 32 mL/min (70-130); Calcium 8.5 mg/dL (7.8-10.44); Carbon Dioxide 22 mmol/L (23-31); Chloride 110 mmol/L (98-107); Estimated GFR-MDRD 33; Glucose 176 mg/dL (83-110); Magnesium 2.1 mg/dL (1.6-2.6); Potassium 3.1 mmol/L (3.5-5.1); Sodium 140 mmol/L (136-145)
[2017-09-03] MEDS: Hydrocortisone Sod Succ/PF 100 mg/2 ml Vial IVP SCH ×3 (05:15→21:03)
[2017-09-03] MEDS: Piperacillin/Tazobactam 2.25 GM in Sodium Chloride 0.9% 100 ML IVPB SCH ×3 (05:16→18:28)
[2017-09-03] MEDS ORDERED: CCU Electrolyte Replacement 1 EACH FS ONE (06:29)
[2017-09-03] MEDS ORDERED: Magnesium Oxide 400 MG TAB PO PRN ×2 (06:31)
[2017-09-03] MEDS ORDERED: Potassium Phosphate 9 MMOL in Sodium Chloride 0.9% 100 ML IVPB PRN (06:31)
[2017-09-03] MEDS ORDERED: Potassium Chloride 20 MEQ TAB PO PRN (06:31)
[2017-09-03] MEDS ORDERED: Magnesium 2 GM/NS 0.9% 100 ML 2 GM in Premix Bag 1 BAG IVPB PRN (06:31)
[2017-09-03] MEDS ORDERED: CCU ELECTROLYTE REPLACEMENT PROTOCOL FS PRN (06:31)
[2017-09-03] MEDS ORDERED: Potassium Phosphate 12 MMOL in Sodium Chloride 0.9% 250 ML 250 ML IV PRN (06:31)
[2017-09-03] MEDS ORDERED: Potassium Chloride 40 MEQ in Sodium Chloride 0.9% 250 ML 250 ML IVPB PRN (06:31)
[2017-09-03] MEDS ORDERED: Potassium Phosphate 15 MMOL in Sodium Chloride 0.9% 250 ML 250 ML IV PRN (06:31)
[2017-09-03] MEDS: Potassium Chloride 40 MEQ in Premix Bag 1 BAG IVPB PRN (06:49)
[2017-09-03] MEDS: Insulin Regular 300 UNITS/3 ML VIAL SC PRN ×4 (06:54→21:05)
--- NOTE | 2017-09-03 07:43 | PDOC.FM ---
- Subjective Subjective: TWYLA overnight, VSS, afebrile. Not requiring pressure support or supplemental O2. Reports pain controlled w/ current pain regimen. Reports being seen by PT and passing gas. Still reporting cough. No other complaints. Pt asking for ice cream and pizza to eat this AM. - Objective MAR Reviewed: Yes Vital Signs & Weight: Vital Signs (12 hours) Temp Pulse Resp Pulse Ox 09/03/17 07:03 91 L 09/03/17 07:01 94 15 91 L 09/03/17 04:00 97.9 F 09/03/17 03:33 93 16 100 09/03/17 00:00 98.5 F 09/02/17 22:16 88 20 95 09/02/17 20:00 97.6 F 92 28 H 96 Weight Admit Weight 73.6 kg Weight 70.1 kg Most Recent Monitor Data Heart Rate from ECG 84 NIBP 95/44 NIBP BP-Mean 59 Respiration from ECG 18 SpO2 91 I&O: 09/02/17 09/03/17 09/04/17 06:59 06:59 06:59 Intake Total 1361.7 2150.2 Output Total 680 777 Balance 681.7 1373.2 Result Diagrams: 09/03/17 04:09 09/03/17 04:09 <Sonny Burk - Last Filed: 09/03/17 07:45> - Objective Vital Signs & Weight: Vital Signs (12 hours) Temp Pulse Resp Pulse Ox 09/03/17 07:03 91 L 09/03/17 07:01 94 15 91 L 09/03/17 04:00 97.9 F 09/03/17 03:33 93 16 100 09/03/17 00:00 98.5 F 09/02/17 22:16 88 20 95 Weight Admit Weight 162 lb 4.163 oz Weight 154 lb 8.705 oz Most Recent Monitor Data Heart Rate from ECG 84 NIBP 95/44 NIBP BP-Mean 59 Respiration from ECG 18 SpO2 91 I&O: 09/02/17 09/03/17 09/04/17 06:59 06:59 06:59 Intake Total 1361.7 2150.2 Output Total 680 777 Balance 681.7 1373.2 Result Diagrams: 09/03/17 04:09 09/03/17 04:09 <Parker Freire - Last Filed: 09/03/17 08:49> Phys Exam - Physical Examination Constitutional: NAD HEENT: PERRLA dry MM Respiratory: no wheezing Good air movement. Faint ronchi bases b/ Cardiovascular: RRR Gastrointestinal: soft, no distention, positive bowel sounds ATTP s/p surgery. Dressing CDI. Musculoskeletal: pulses present Neurological: moves all 4 limbs Psychiatric: normal affect Deviation from normal: Mumbles, difficult to understand <Sonny Burk - Last Filed: 09/03/17 07:45> Dx/Plan (1) Small bowel obstruction Code(s): K56.609 - UNSP INTESTNL OBST, UNSP TO PARTIAL VERSUS COMPLETE OBST Status: Acute (2) Diastolic dysfunction Code(s): I51.9 - HEART DISEASE, UNSPECIFIED Status: Chronic (3) Paroxysmal A-fib Code(s): I48.0 - PAROXYSMAL ATRIAL FIBRILLATION Status: Chronic (4) Physical deconditioning Code(s): R53.81 - OTHER MALAISE Status: Chronic (5) Colitis presumed infectious Code(s): K52.9 - NONINFECTIVE GASTROENTERITIS AND COLITIS, UNSPECIFIED Status : Acute (6) Acute respiratory failure with hypoxia Code(s): J96.01 - ACUTE RESPIRATORY FAILURE WITH HYPOXIA Status: Resolved (7) Septicemic shock Code(s): A41.9 - SEPSIS, UNSPECIFIED ORGANISM; R65.21 - SEVERE SEPSIS WITH SEPTIC SHOCK Status: Resolved - Plan Plan: 1) Small bowell obstruction: - POD #2 s/p laparotomy with lysis of adhesion X2 (band adhesions involving large and small bowel) - Gen surgery consulted, appreciated recs. TPN and resumption of PO intake per Gen Surg recs - Cont broad spectrum abx, micofungin added for yeast coverage. 2) Acute hypercapnic, hypoxic respiratory failure: - Satting well on RA this AM - Likely 2/2 post-op sedation - Will plan to wean solu-cortef today and tomorrow per Crit care recs - Cont. to monitor 3) Septic shock due to presumed infectious colitis with concern for ischemic colitis- - resolved - likely ischemic colitis - cont broad spectrum abx - micofungin added 4) Atelectasis - continue pulm tx nebs & IS - Legionella and strep Pneumo Ur Ag negative - monitor O2 sats 5) CHINMAY on CKD- - stable - will continue to monitor 6) Diastolic dysfunction- - Strict I/O's to prevent volume overload - Gentle IVF w/ D5 LR @ 75, monitor Is/Os, daily weights. - Once pt taking PO will transition off IVF and resume diuresis as indicated 7) HTN- -home meds -hydralazine prn 8) pAfib- -home meds 9) Dementia- - appears to be baseline - Cont. to monitor, frequent re-orientation to prevent delerium in the ICU setting. Currently ICU-CAM negative 10) Deconditioning- - Cont. w/ PT/OT <Sonny Burk K - Last Filed: 09/03/17 07:45> Attending Addendum - Attending Addendum Date/Time: 09/03/17 0848 I personally evaluated the patient and discussed the management with . I agree with the History, Examination, Assessment and Plan documented above with any addition or exceptions noted below. Treat Small Bowel Obstruction with TPN. IV Antibiotics and follow along with surgery service. <Parker Freire - Last Filed: 09/03/17 08:49>
--- NOTE | 2017-09-03 09:56 | PRG ---
DATE OF SERVICE: 09/03/2017 SUBJECTIVE: Ms. Jeffery is in no distress. She has no complaints voiced. OBJECTIVE: VITAL SIGNS: Heart rate is 94, respiratory rate is 15, oximetry is 91 on room air, blood pressure 95 /44. Intake and output is positive 1373. LUNGS: Remarkable for rhonchi bilaterally. HEART: Regular rhythm. ABDOMEN: Soft, slightly distended, nontender. EXTREMITIES: Warm without edema. NEUROLOGIC: She moves all 4 extremities. LABORATORY DATA: White count 18.6, hemoglobin 8.3, platelets 473. Sodium 140, potassium 3.1, chloride 110, bicarbonate 22, BUN 23, creatinine 1.5, glucose 176. IMPRESSION: Status post exploratory laparotomy with lysis of adhesions on the . Given her age, she appears to be clinically stable. She does have some issues with secretions by exam, but apparent ly has a pretty strong cough. I am told she was a do not resuscitate patient prior to the surgery. This issue should be readdresse d. Her weakness and difficulty with secr[etions may be the biggest issue moving forward. At this po int in time, she appears to be stable. It is my feeling that she should stay in the critical care un it for now.
[2017-09-03] MEDS: Enoxaparin Sodium 40 MG/0.4 ML SYRINGE SC SCH (09:58)
[2017-09-03] MEDS: Dextrose 5%-Lactated Ringers 1,000 ML IV SCH (09:58)
[2017-09-03] MEDS: TROSPIUM 20 MG TABLET PO SCH ×2 (10:01→21:04)
[2017-09-03] MEDS: SODIUM CHLORIDE IV SCH (15:13)
[2017-09-03] MEDS: SODIUM ACETATE IV SCH (15:13)
[2017-09-03] MEDS: [UNRECOGNIZED DRUG - OTHER] IV SCH (15:13)
[2017-09-03] MEDS: POTASSIUM ACETATE IV SCH (15:13)
[2017-09-03] MEDS: Micafungin 100 MG in Sodium Chloride 0.9% 100 ML IVPB SCH (15:17)
[2017-09-03] MEDS: Famotidine/PF 20 mg/2ml Vial SLOW IVP SCH (21:04)
[2017-09-04] MEDS: Dextrose 5%-Lactated Ringers 1,000 ML IV SCH (00:14)
[2017-09-04] MEDS: Piperacillin/Tazobactam 2.25 GM in Sodium Chloride 0.9% 100 ML IVPB SCH ×5 (00:17→23:36)
[2017-09-04] MEDS: Insulin Regular 300 UNITS/3 ML VIAL SC PRN ×3 (05:12→18:01)
[2017-09-04 05:38] LABS: Anion Gap 11 mmol/L (10-20); BUN (Urea Nitrogen) 28 mg/dL (9.8-20.1); Calc. Creatinine Clearance 32 mL/min (70-130); Calcium 8.9 mg/dL (7.8-10.44); Carbon Dioxide 25 mmol/L (23-31); Chloride 110 mmol/L (98-107); Estimated GFR-MDRD 38; Glucose 199 mg/dL (83-110); Phosphorus 2.7 mg/dL (2.3-4.7); Potassium 3.5 mmol/L (3.5-5.1); Sodium 142 mmol/L (136-145)
[2017-09-04 05:52] LABS: #Lymphocytes 1.1 thou/uL (1.20-3.40); #Monocytes 0.6 thou/uL (0.11-0.59); #Neutrophils 14.2 thou/uL (1.40-6.50); %Basophils 0.1 % (0.0-1.0); %Eosinophils 0.1 % (0.0-10.0); %Lymphocytes 6.8 % (21.0-51.0); %Monocytes 3.9 % (0.0-10.0); %Neutrophils 89.1 % (42.0-75.0); Hemoglobin 8.3 g/dL (12.0-16.0); Mean Corpuscular HGB CONC 30.8 g/dL (32.0-36.0); Mean Corpuscular Hemoglobin 27.7 pg (27.0-31.0); Mean Platelet Volume 6.7 fL (7.4-10.4); Platelet Count 505 thou/uL (130-400); RBC Distribution Width 15.5 % (11.5-14.5); Red Blood Cell (RBC) Count 2.98 mill/uL (4.20-5.40); White Blood Cell (WBC) Count 15.9 thou/uL (4.8-10.8)
[2017-09-04] MEDS: Morphine 4 MG/ML VIAL SLOW IVP PRN ×6 (05:57→23:22)
[2017-09-04] MEDS: Potassium Chloride 40 MEQ in Premix Bag 1 BAG IVPB PRN (06:03)
--- NOTE | 2017-09-04 07:17 | PDOC.FM ---
- Subjective Subjective: Pt w/ increased confusion and agitation this AM per nursing staff w/ elevated BP and tachycardia. Pt endorsing abdominal pain. A&Ox0 this AM. Seen by Dr. Carey of Gen Surg yesterday w/ transition to DNR s/p family discussion. - Objective MAR Reviewed: Yes Vital Signs & Weight: Vital Signs (12 hours) Temp Pulse Resp BP Pulse Ox 09/04/17 06:54 94 L 09/04/17 06:53 127 H 24 H 94 L 09/04/17 05:16 96 177/96 H 09/04/17 04:00 98.3 F 09/04/17 02:43 99 20 94 L 09/04/17 00:00 98.0 F 09/03/17 21:23 96 18 94 L 09/03/17 20:00 97.6 F 94 16 93 L Weight Admit Weight 73.6 kg Weight 70.1 kg Most Recent Monitor Data Heart Rate from ECG 108 NIBP 196/98 NIBP BP-Mean 128 Respiration from ECG 18 SpO2 93 I&O: 09/03/17 09/04/17 09/05/17 06:59 06:59 06:59 Intake Total 2150.2 2725 Output Total 777 1477 Balance 1373.2 1248 Result Diagrams: 09/04/17 05:13 09/04/17 05:13 <Sonny Burk K - Last Filed: 09/04/17 07:18> - Objective Vital Signs & Weight: Vital Signs (12 hours) Temp Pulse Resp BP Pulse Ox 09/04/17 08:00 99.2 F 09/04/17 06:54 94 L 09/04/17 06:53 127 H 24 H 94 L 09/04/17 05:16 96 177/96 H 09/04/17 04:00 98.3 F 09/04/17 02:43 99 20 94 L 09/04/17 00:00 98.0 F 09/03/17 21:23 96 18 94 L Weight Admit Weight 162 lb 4.163 oz Weight 154 lb 8.705 oz Most Recent Monitor Data Heart Rate from ECG 105 NIBP 140/77 NIBP BP-Mean 107 Respiration from ECG 28 SpO2 95 I&O: 09/03/17 09/04/17 09/05/17 06:59 06:59 06:59 Intake Total 2150.2 2725 5 Output Total 777 1477 180 Balance 1373.2 1248 -175 Result Diagrams: 09/04/17 05:13 09/04/17 05:13 <Parker Freire - Last Filed: 09/04/17 09:02> Phys Exam - Physical Examination Constitutional: NAD HEENT: PERRLA, moist MMs Respiratory: no wheezing, clear to auscultation bilateral Cardiovascular: RRR, no significant murmur Gastrointestinal: soft Abdominal binder in place. ATTP. +BS. Dressing w/ pinpoint bleeding noted Neurological: moves all 4 limbs <Sonny Burk - Last Filed: 09/04/17 07:18> Dx/Plan (1) Small bowel obstruction Code(s): K56.609 - UNSP INTESTNL OBST, UNSP TO PARTIAL VERSUS COMPLETE OBST Status: Resolved (2) Diastolic dysfunction Code(s): I51.9 - HEART DISEASE, UNSPECIFIED Status: Chronic (3) Paroxysmal A-fib Code(s): I48.0 - PAROXYSMAL ATRIAL FIBRILLATION Status: Chronic (4) Physical deconditioning Code(s): R53.81 - OTHER MALAISE Status: Chronic (5) Colitis presumed infectious Code(s): K52.9 - NONINFECTIVE GASTROENTERITIS AND COLITIS, UNSPECIFIED Status : Acute (6) Acute respiratory failure with hypoxia Code(s): J96.01 - ACUTE RESPIRATORY FAILURE WITH HYPOXIA Status: Resolved (7) Septicemic shock Code(s): A41.9 - SEPSIS, UNSPECIFIED ORGANISM; R65.21 - SEVERE SEPSIS WITH SEPTIC SHOCK Status: Resolved (8) Delirium with dementia Code(s): R41.0 - DISORIENTATION, UNSPECIFIED Status: Acute - Plan Plan: 1) Delirium - Patient CAM-ICU positive today - Elevated Bp and tachycardia likely related to agitation - Hesitant to use pharmacological intervention 2/2 recent hx of oversedation s/ p surgery requiring pressure support and bipap - Advised nurses to perform frequent re-orientation, blinds open, pt sat up in bed, and television turned on - Will re-assess mental status this AM 2) Small bowell obstruction: - POD #3 s/p laparotomy with lysis of adhesion X2 (band adhesions involving large and small bowel) - Gen surgery consulted, appreciated recs. Pt started back on CLD w/ TPN discontinued yesterday - Cont broad spectrum abx, micofungin added for yeast coverage. 3) Acute hypercapnic, hypoxic respiratory failure: - Satting well on RA this AM - Likely 2/2 post-op sedation - Cont. to monitor 4) Septic shock due to presumed infectious colitis with concern for ischemic colitis- - resolved - likely ischemic colitis - cont broad spectrum abx - Cont. to wean off solu-cortef today - micofungin added 5) Atelectasis - continue pulm tx nebs & IS - Legionella and strep Pneumo Ur Ag negative - monitor O2 sats 6) CHINMAY on CKD- - stable - will continue to monitor 7) Diastolic dysfunction- - Strict I/O's to prevent volume overload - Gentle IVF w/ D5 LR @ 75, monitor Is/Os, daily weights. - Once pt taking PO will transition off IVF and resume diuresis as indicated 8) HTN- -home meds -hydralazine prn 9) pAfib- -home meds - Print off of EKG lead showing sinus tachycardia 10) Dementia- - Superimposed delerium this AM - See #1 11) Deconditioning- - Cont. w/ PT/OT <Sonny Burk K - Last Filed: 09/04/17 07:18> Attending Addendum - Attending Addendum Date/Time: 09/04/17 0902 I personally evaluated the patient and discussed the management with Dr. Burk. I agree with the History, Examination, Assessment and Plan documented above with any addition or exceptions noted below. Taper off tpn, continue care with consultants. <Parker Freire - Last Filed: 09/04/17 09:02>
[2017-09-04] MEDS: Enoxaparin Sodium 40 MG/0.4 ML SYRINGE SC SCH ×2 (09:25→20:47)
[2017-09-04] MEDS: Hydrocortisone Sod Succ/PF 100 mg/2 ml Vial IVP SCH (09:26)
[2017-09-04] MEDS: TROSPIUM 20 MG TABLET PO SCH ×2 (09:30→20:51)
[2017-09-04] MEDS: SODIUM CHLORIDE IV SCH (14:34)
[2017-09-04] MEDS: [UNRECOGNIZED DRUG - OTHER] IV SCH (14:34)
[2017-09-04] MEDS: SODIUM ACETATE IV SCH (14:34)
[2017-09-04] MEDS: POTASSIUM ACETATE IV SCH (14:34)
[2017-09-04] MEDS: Micafungin 100 MG in Sodium Chloride 0.9% 100 ML IVPB SCH (14:55)
--- NOTE | 2017-09-04 17:17 | PRG ---
DATE OF SERVICE: 09/04/2017 SUBJECTIVE: Ms. Jeffery is easily agitated and confused. OBJECTIVE: VITAL SIGNS: Heart rate is 104, blood pressure 145/80, respiratory rates in the 20s, oximetry is 94. LUNGS: Remarkable for very mild rhonchi bilaterally. HEART: Regular rhythm. ABDOMEN: Soft and nontender. EXTREMITIES: Without edema. NEUROLOGIC: Grossly nonfocal. LABORATORY DATA: White count 15.9, hemoglobin 8.3, platelets 505,000. Sodium 142, potassium 3.5, ch loride 110, bicarbonate 25, BUN 28, creatinine 1.33. IMPRESSION: 1. Status post laparotomy for lysis of adhesions. 2. Extreme deconditioning. 3. Probable decompensated dementia. Her prognosis is most limited by her extreme deconditioning and her confusion. I doubt she will belkis obdulio from this. She is a do not resuscitate patient, but actually needs constant care, so she will ei ther need to be in an intermediate care bed where a nurse is close to her or be in a situation where family or sitters are available.
[2017-09-04] MEDS: Famotidine/PF 20 mg/2ml Vial SLOW IVP SCH (22:29)
[2017-09-05] MEDS: Morphine 4 MG/ML VIAL SLOW IVP PRN ×5 (03:27→15:10)
[2017-09-05] MEDS: Piperacillin/Tazobactam 2.25 GM in Sodium Chloride 0.9% 100 ML IVPB SCH ×2 (05:14→11:52)
[2017-09-05 05:32] LABS: #Lymphocytes 2.8 thou/uL (1.20-3.40); #Monocytes 1.2 thou/uL (0.11-0.59); #Neutrophils 10.5 thou/uL (1.40-6.50); %Basophils 0.1 % (0.0-1.0); %Eosinophils 0.3 % (0.0-10.0); %Lymphocytes 19.3 % (21.0-51.0); %Monocytes 8.4 % (0.0-10.0); %Neutrophils 71.9 % (42.0-75.0); Hemoglobin 8.8 g/dL (12.0-16.0); Mean Corpuscular HGB CONC 32.4 g/dL (32.0-36.0); Mean Corpuscular Hemoglobin 28.8 pg (27.0-31.0); Mean Corpuscular Volume 89.1 fl (81.0-99.0); Mean Platelet Volume 6.9 fL (7.4-10.4); Platelet Count 519 thou/uL (130-400); RBC Distribution Width 15.7 % (11.5-14.5); Red Blood Cell (RBC) Count 3.05 mill/uL (4.20-5.40); White Blood Cell (WBC) Count 14.5 thou/uL (4.8-10.8)
[2017-09-05 05:50] LABS: Anion Gap 12 mmol/L (10-20); BUN (Urea Nitrogen) 31 mg/dL (9.8-20.1); Calc. Creatinine Clearance 34 mL/min (70-130); Calcium 9.1 mg/dL (7.8-10.44); Carbon Dioxide 26 mmol/L (23-31); Chloride 110 mmol/L (98-107); Estimated GFR-MDRD 41; Glucose 142 mg/dL (83-110); Phosphorus 3.1 mg/dL (2.3-4.7); Potassium 3.6 mmol/L (3.5-5.1); Sodium 144 mmol/L (136-145)
[2017-09-05 06:07] VITALS: BP 186/101
[2017-09-05] MEDS: TROSPIUM 20 MG TABLET PO SCH (08:36)
[2017-09-05] MEDS: Enoxaparin Sodium 40 MG/0.4 ML SYRINGE SC SCH (08:36)
[2017-09-05] MEDS: Insulin Regular 300 UNITS/3 ML VIAL SC PRN (09:58)
--- NOTE | 2017-09-05 10:01 | PDOC.FM ---
- Subjective Subjective: Overnight, nursing noted patient was more agitated. They associated it after patient receive breathing treatment. Otherwise, they did not note any overnight event. Patient was unable to provide history secondary to confusion. - Objective MAR Reviewed: Yes Vital Signs & Weight: Vital Signs (12 hours) Temp Pulse Resp BP Pulse Ox 09/05/17 07:21 98.5 F 119 H 36 H 92 L 09/05/17 06:50 123 H 26 H 92 L 09/05/17 06:06 89 186/101 H 09/05/17 04:00 98.2 F 09/05/17 02:51 89 15 96 09/05/17 00:00 98.2 F 09/04/17 22:22 89 13 95 Weight Admit Weight 73.6 kg Weight 76.9 kg Most Recent Monitor Data Heart Rate from ECG 115 NIBP 162/83 NIBP BP-Mean 112 Respiration from ECG 23 SpO2 91 I&O: 09/04/17 09/05/17 09/06/17 06:59 06:59 06:59 Intake Total 2725 2514 0 Output Total 1477 1252 145 Balance 1248 1262 -145 Result Diagrams: 09/05/17 04:10 09/05/17 04:10 <Samuel Christopher M - Last Filed: 09/05/17 09:56> - Objective Vital Signs & Weight: Vital Signs (12 hours) Temp Pulse Resp BP Pulse Ox 09/05/17 12:00 98.3 F 09/05/17 10:13 114 H 34 H 92 L 09/05/17 07:21 98.5 F 119 H 36 H 92 L 09/05/17 06:50 123 H 26 H 92 L 09/05/17 06:06 89 186/101 H 09/05/17 04:00 98.2 F 09/05/17 02:51 89 15 96 Weight Admit Weight 73.6 kg Weight 76.9 kg Most Recent Monitor Data Heart Rate from ECG 105 NIBP 161/98 NIBP BP-Mean 113 Respiration from ECG 26 SpO2 96 I&O: 09/04/17 09/05/17 09/06/17 06:59 06:59 06:59 Intake Total 2725 2514 0 Output Total 1477 1252 175 Balance 1248 1262 -175 Result Diagrams: 09/05/17 04:10 09/05/17 04:10 <BalaDaron R - Last Filed: 09/05/17 12:11> Phys Exam - Physical Examination Constitutional: NAD HEENT: moist MMs, sclera anicteric Neck: supple Respiratory: no wheezing Rhonchi Cardiovascular: RRR, no rub Gastrointestinal: soft, no distention 2+ edema mid jennings bilatreally Moans, sponataneous eye open, withdraws. Pupil reactive. Lymphatic: no nodes <Samuel Christopher M - Last Filed: 09/05/17 09:56> Dx/Plan (1) Small bowel obstruction Code(s): K56.609 - UNSP INTESTNL OBST, UNSP TO PARTIAL VERSUS COMPLETE OBST Status: Resolved Plan: Patient had lysis of adhesion to help resolve SBO on 09/01, had BM last on 09/03. Today, bowel sound was diminished. No sign of SBO at this time. If surgery is ok, may start on peg feeding. (2) Colitis presumed infectious Code(s): K52.9 - NONINFECTIVE GASTROENTERITIS AND COLITIS, UNSPECIFIED Status : Acute Plan: Patient came in initially with colitis, with concern for infectious cause. Since then, biopsy came back for nonspecific colitis. Patient completed oral vancomycin though c diff antigen was neg. At this time, issue seem to have resolved, patient afebrile and wbc is returning to normal. Patient on TPN, but has peg tube and could start on PEG feeding when surgery approve. (3) Delirium with dementia Code(s): R41.0 - DISORIENTATION, UNSPECIFIED Status: Acute Plan: This appear to be weaning and waxing issue. Today, it has exacerbated, possibly after receiving breathing treatment. Plan is to change duoneb to prn. Continue with nonpharmalogical orientation. Consider starting on geodone after revaluating patient this afternoon. (4) Diastolic dysfunction Code(s): I51.9 - HEART DISEASE, UNSPECIFIED Status: Chronic Plan: Patient is on TPN only at 74 ml/hr. No obvious crackles heard. Will monitor I/O Patient does have positive I/O for past two day but making appropriate urine. Will continue to evaluate, may need more lasix. (5) Paroxysmal A-fib Code(s): I48.0 - PAROXYSMAL ATRIAL FIBRILLATION Status: Chronic Plan: Not currently in a-fib. (6) Physical deconditioning Code(s): R53.81 - OTHER MALAISE Status: Chronic Plan: At this time, patient is unable to participate in PT. Will have patient work with therapy when she is more oriented. (7) Acute respiratory failure with hypoxia Code(s): J96.01 - ACUTE RESPIRATORY FAILURE WITH HYPOXIA Status: Resolved Plan: Currently getting duoneb. 92% on 2L by NC. O2 level is appropriate, will continue with duoneb and oxygen. (8) Septicemic shock Code(s): A41.9 - SEPSIS, UNSPECIFIED ORGANISM; R65.21 - SEVERE SEPSIS WITH SEPTIC SHOCK Status: Resolved Plan: Resolved issue at this time. <Samuel Christopher - Last Filed: 09/05/17 09:56> Attending Addendum - Attending Addendum Date/Time: 09/05/17 0845 I personally evaluated the patient and discussed the management with Dr. Christopher. I agree with the History, Examination, Assessment and Plan documented above with any addition or exceptions noted below. Patient continues to be awake, but with no coherent responses to questions or stimulation. She is not oriented at all, and has begun to have constant grunting noises over the last few hours. This supposedly started after her last breathing treatment and is associated with mild tachycardia and elevated BP. This is likely related to delirium, and we are attempting non pharmacologic strategies to mitigate this. Awaiting [facility] recommendations regarding PEG tube use and de-escalation of TPN therapy. She has been on a 10 day course of Zosyn and I believe this can be discontinued at this time. Her current major issue is lack of orientation that may be exacerbated by dementia. She is currently not a candidate for oral diet or therapy services due to her altered mentation. She is protecting her airway. She has been made DNR after discussions with her family over the weekend. Await surgery and critical care recs. 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 <Daron Mckenna - Last Filed: 09/05/17 12:11>
[2017-09-05] MEDS ORDERED: Morphine 4 MG/ML VIAL ONE (10:37)
--- NOTE | 2017-09-05 11:36 | PRG ---
DATE OF SERVICE: 09/05/2017 Ms. Jeffery is moaning continuously. PHYSICAL EXAMINATION: VITAL SIGNS: Heart rate is 114, respiratory rate in the 30s, oximetry is 92, blood pressure 102/60. LUNGS: Remarkable for mild rhonchi diffusely. CARDIOVASCULAR: Regular rhythm. ABDOMEN: Distended and mildly tender. EXTREMITIES: Without asymmetry. She moves extremities equally on neuro exam. LABORATORY DATA: White count is 14.5, hemoglobin is 8.8, platelets 519. Sodium 144, potassium 3.6, chloride 110, bicarb 26, BUN 31, creatinine 1.24 down from 1.33. IMPRESSION: 1. Status post laparotomy for lysis of adhesions. 2. Advanced age. 3. Encephalopathy. I believe she will survive the operation, but not survive the recovery. She is a candidate to move [place] of the Critical Care Unit in my opinion. Consider for inpatient hospice in my opinion. I cannot see any way she can functionally recover from this. We will continue to follow while she is in the I .
[2017-09-05 12:06] VITALS: TEMP 98.3
[2017-09-05] MEDS ORDERED: [UNRECOGNIZED DRUG - OTHER] IV SCH (14:00)
[2017-09-05] MEDS ORDERED: POTASSIUM ACETATE IV SCH (14:00)
[2017-09-05] MEDS ORDERED: SODIUM ACETATE IV SCH (14:00)
[2017-09-05] MEDS ORDERED: POTASSIUM PHOSPHATE IV SCH (14:00)
[2017-09-05] MEDS: Micafungin 100 MG in Sodium Chloride 0.9% 100 ML IVPB SCH (15:11)
== END 2017-09-05 15:43 | disposition hospice, inpatient (51) | DRG 853 ==
LOC: ERS 11:11 → IMCU/EMU 14:31 → CCU 22:51 → IMCU/EMU 08-27 12:08 → 2NO 08-29 12:26 → CCU 09-01 14:57
PROVIDERS: ADMIT Family Medicine; ATTEND Family Medicine
PROC: 5A09357 Assistance with Respiratory Ventilation, Less than 24 Consecutive Hours, Continuous Positive Airway Pressure (ICD-10-PCS; principal; 2017-08-24)
PROC: 3E043XZ Introduction of Vasopressor into Central Vein, Percutaneous Approach (ICD-10-PCS; 2017-08-24)
PROC: 05HM33Z Insertion of Infusion Device into Right Internal Jugular Vein, Percutaneous Approach (ICD-10-PCS; 2017-08-24)
PROC: 0DBG8ZX Excision of Left Large Intestine, Via Natural or Artificial Opening Endoscopic, Diagnostic (ICD-10-PCS; 2017-08-26)
PROC: 0DNL0ZZ Release Transverse Colon, Open Approach (ICD-10-PCS; 2017-09-01)
PROC: 0DN80ZZ Release Small Intestine, Open Approach (ICD-10-PCS; 2017-09-01)
DX: A41.9 Sepsis, unspecified organism (principal); R65.21 Severe sepsis with septic shock; J96.01 Acute respiratory failure with hypoxia; E43 Unspecified severe protein-calorie malnutrition; N17.9 Acute kidney failure, unspecified; I50.32 Chronic diastolic (congestive) heart failure; A09 Infectious gastroenteritis and colitis, unspecified; J98.11 Atelectasis; K55.9 Vascular disorder of intestine, unspecified; I48.92 Unspecified atrial flutter; K56.50 Intestinal adhesions [bands], unspecified as to partial versus complete obstruction; F05 Delirium due to known physiological condition; Z66 Do not resuscitate; I48.0 Paroxysmal atrial fibrillation; L89.151 Pressure ulcer of sacral region, stage 1; R15.9 Full incontinence of feces; R32 Unspecified urinary incontinence; F03.90 Unspecified dementia, unspecified severity, without behavioral disturbance, psychotic disturbance, mood disturbance, and anxiety; J44.9 Chronic obstructive pulmonary disease, unspecified; E55.9 Vitamin D deficiency, unspecified; E86.0 Dehydration; E88.09 Other disorders of plasma-protein metabolism, not elsewhere classified; R00.0 Tachycardia, unspecified; N18.3 Chronic kidney disease, stage 3 (moderate); R40.2352 Coma scale, best motor response, localizes pain, at arrival to emergency department; R40.2242 Coma scale, best verbal response, confused conversation, at arrival to emergency department; R40.2142 Coma scale, eyes open, spontaneous, at arrival to emergency department; R13.10 Dysphagia, unspecified; F41.9 Anxiety disorder, unspecified; F32.9 Major depressive disorder, single episode, unspecified; Z87.19 Personal history of other diseases of the digestive system; Z68.27 Body mass index [BMI] 27.0-27.9, adult; Z87.39 Personal history of other diseases of the musculoskeletal system and connective tissue; Z87.448 Personal history of other diseases of urinary system; Z90.49 Acquired absence of other specified parts of digestive tract; Z93.1 Gastrostomy status; Z90.710 Acquired absence of both cervix and uterus; Z88.6 Allergy status to analgesic agent; Z88.5 Allergy status to narcotic agent; Z91.09 Other allergy status, other than to drugs and biological substances; Z87.440 Personal history of urinary (tract) infections; Z87.81 Personal history of (healed) traumatic fracture; Z79.891 Long term (current) use of opiate analgesic; Z79.899 Other long term (current) drug therapy; Z80.1 Family history of malignant neoplasm of trachea, bronchus and lung; Z82.0 Family history of epilepsy and other diseases of the nervous system; Z79.01 Long term (current) use of anticoagulants
CPT/HCPCS: 36415; 36416; 51701; 71045; 71275; 74018; 74176; 80048; 80053; 80061; 80202; 81003; 81015; 82274; 82553; 82805; 83605; 83630; 83690; 83735; 83880; 84100; 84134; 84145; 84484; 85025; 85027; 85610; 85730; 86850; 86900; 86901; 87040; 87045; 87046; 87070; 87077; 87086; 87186; 87205; 87324; 87328; 87329; 87449; 87804; 87899; 88305; 93005; 93010; 94640; 94660; 96361; 96365; 96368; 96375; A4216; A4217; A4353; C9113; G8978-GP-CM; G8979-GP-CJ; G8979-GP-CK; G8987-GO-CK; G8987-GO-CL; G8988-GO-CJ; G8996-GN-CJ; G8997-GN-CJ; J0131; J0282; J0360; J0694; J1100; J1642; J1650; J1720; J1815; J1885; J1940; J2001; J2248; J2270; J2405; J2543; J2704; J2765; J3010; J3370; J3475; J3480; J7050; J7070; J7620; Q0162; S0028